=== PATIENT | male | born 1985 | race African-American/Black ===

== ENCOUNTER 2023-01-22 12:21 | Outpatient (REF) | payer MEDICARE, SELFPAY ==
[2023-01-22 13:49] LABS: Estimated Average Glucose 108 mg/dL; Hemoglobin A1c % 5.4 % (<6.0)
[2023-01-22 14:15] LABS: Alanine Aminotransferase 56 U/L (0-40); Albumin Level 4.8 g/dL (3.5-5.0); Alkaline Phosphatase 48 U/L (39-117); Anion Gap 13 (12-20); Aspartate Amino Transferase 46 U/L (5-37); Bilirubin Total 0.4 mg/dL (0.0-1.0); Blood Urea Nitrogen 16 mg/dL (9-16); Calcium 9.8 mg/dL (8.4-10.2); Carbon Dioxide 24 mmol/L (22-29); Chloride 103 mmol/L (96-108); Estimated Glomerular Filt Rate > 60; Glucose Random 98 mg/dL (60-115); Potassium 4.2 mmol/L (3.3-5.1); Sodium 136 mmol/L (135-145); Total Protein 7.9 g/dL (6.5-8.0)
[2023-01-22 14:33] LABS: Syphilis Screen Nonreactive (Nonreactive)
[2023-01-22 14:53] LABS: CT PCR NOT DETECTED (Not Detect.); NG PCR NOT DETECTED (Not Detect.)
[2023-01-23 07:57] LABS: HIV AB/AG Nonreactive (Nonreactive); HIV Num 1 0.06 S/CO (0.00-0.99); ~HepC Num1 0.14 S/CO (0.00-0.79); ~Hepatitis C Antibody Nonreactive (Nonreactive)
== END 2023-01-22 12:22 | disposition home or self-care (01) ==
LOC: HO.HHCL 12:21
PROVIDERS: Visit Provider General Practice
DX: E66.1 Drug-induced obesity (principal); Z68.41 Body mass index [BMI] 40.0-44.9, adult; I10 Essential (primary) hypertension; Z20.2 Contact with and (suspected) exposure to infections with a predominantly sexual mode of transmission
CPT/HCPCS: 0353U; 36415; 80053; 83036; 86780; 86803; 87389

== ENCOUNTER 2023-04-23 10:26 | Emergency (ER) | payer MEDICARE, SELFPAY ==
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
[2023-04-23 11:09] VITALS: BP 138/75; PULSE 85; RESP 18; TEMP 36.9; O2SAT 99; BMI 45.9
--- NOTE | 2023-04-23 11:09 | ED_ITS ---
HPI - General Adult General Chief complaint: General Medical Stated complaint: swollen tonsils hernia pain in abd Time Seen by Provider: 04/23/23 14:14 Related Data Allergies Allergy/AdvReac Type Severity Reaction Status Date / Time No Known Allergies Allergy Unverified 11/13/19 16:28 [facility] Social History Social History Advance Directives: No Advance Directives Information Provided: No Physical Exam ED Vital Signs: Vital Signs - 24 hr 04/23/23 11:09 Temperature 98.5 F Pulse Rate 85 Respiratory Rate 18 Blood Pressure 138/75 Pulse Oximetry 99 Oxygen Delivery Method Room Air BMI result Body Mass Index 45.9 Course Course Course Narrative: RME:?37 yo male here w/ i can't breath when I'm laying down . has known JEAN PIERRE on cpap. requesting his tonsils be removed. denies sore throat, dysphagia or odynophagia. denies chest pain, palpitations, wheezing, HERNANDEZ. also admits to abdominal hernia with pain worsening a few nights ago. this improved with OTC pain medications however feels as though the hernia is worsening. on exam I am unable to reduce hernia in triage. labs, CT ordered Full HPI, ROS and PE to be performed by the primary ED provider. Medications Administered Discontinued Medications Generic Name Dose Route Start Last Admin Trade Name Freq PRN Reason Stop Dose Admin Iohexol 100 ml 04/23/23 14:28 04/23/23 14:28 Iohexol 350 Mg/Ml 100 Ml Infus..Btl IV 04/23/23 14:29 85 ml ONCE ONE Administration Medical Decision Making Lab Data 04/23/23 11:20 04/23/23 11:20 Labs: Lab Results 04/23/23 Range/Units 11:20 WBC 5.3 (4.8-10.8) X10*3/uL RBC 4.98 (4.60-5.80) X10*6/uL Hgb 14.9 (14.0-18.0) g/dl Hct 43.0 (42.0-52.0) % MCV 86.3 (80.0-98.0) fL MCH 29.9 (27.0-33.0) pg MCHC 34.7 (31.0-36.0) g/dl RDW 13.2 (11.0-16.0) % Plt Count 336 (160-400) X10*3/uL MPV 8.6 L (9.4-12.4) fL Immature Gran % (Auto) 0.6 H (0.0-0.4) % Neut % (Auto) 59.6 (45-73) % Lymph % (Auto) 27.9 (20-40) % [place] % (Auto) 8.7 (2-11) % Eos % (Auto) 1.9 (0-4) % Baso % (Auto) 1.3 (0-2) % Lymph # (Auto) 1.5 (1.2-4.9) X10*3/uL [place] # (Auto) 0.5 (0.1-1.2) X10*3/uL Eos # (Auto) 0.1 (0.0-0.4) X10*3/uL Baso # (Auto) 0.1 (0.0-0.2) X10*3/uL Abs Immat Gran (auto) 0.03 (0.00-0.03) X10*3/uL Absolute Neuts (auto) 3.1 (2.0-8.3) x10*3/uL Absolute Nucleated RBC 0.000 (0.0-0.012) X10*3/uL Nucleated RBC % (auto) 0.0 (0.0-0.2) /100WBC Sodium 138 (135-145) mmol/L Potassium 4.3 (3.3-5.1) mmol/L Chloride 102 (96-108) mmol/L Carbon Dioxide 28 (22-29) mmol/L Anion Gap 12 (12-20) BUN 21 H (9-16) mg/dL Creatinine 1.30 (0.5-1.4) mg/dL Estim Creat Clear Calc 108.7 Estimated GFR > 60 Random Glucose 100 (60-115) mg/dL Calcium 9.4 (8.4-10.2) mg/dL Total Bilirubin 0.3 (0.0-1.0) mg/dL Direct Bilirubin 0.1 (0.0-0.5) mg/dL AST 54 H (5-37) U/L ALT 51 H (0-40) U/L Alkaline Phosphatase 67 (39-117) U/L Total Protein 7.7 (6.5-8.0) g/dL Albumin 4.7 (3.5-5.0) g/dL Discharge Plan Discharge Clinical Impression: Abdominal pain, Abdominal hernia Patient Disposition: Home, Self-Care Instructions: Abdominal Pain (ED) Additional Instructions: Follow up with your primary care provider and a general surgeon. Return to the emergency department immediately if your symptoms worsen or if you develop any dizziness, shortness of breath, difficulty breathing, chest pain, blurry vision, loss of vision, nausea, vomiting, abdominal pain, fever, chills, back pain, or any other complaints. Referrals: [facility] [place] General Surgeons [Provider Group] (Call to establish and follow up with a general surgeon to discuss repairing this hernia.) Tanvi Leach MD [Primary Care Provider] - Interventions: ED Discharge Assessment Last Done: 04/23/23 15:49 Discharge Date/Time: 04/23/23 15:49 Print Language: Wallisian
[2023-04-23 11:23] LABS: MANUAL DIFF FLAG NO
[2023-04-23 11:24] LABS: Basophils Absolute Auto 0.1 X10*3/uL (0.0-0.2); Basophils Percent Auto 1.3 % (0-2); Eosinophils Absolute Auto 0.1 X10*3/uL (0.0-0.4); Eosinophils Percent Auto 1.9 % (0-4); Hemoglobin 14.9 g/dl (14.0-18.0); Imm Gran Abs Auto 0.03 X10*3/uL (0.00-0.03); Imm Gran Pct Auto 0.6 % (0.0-0.4); Lymphocytes Absolute Auto 1.5 X10*3/uL (1.2-4.9); Lymphocytes Percent Auto 27.9 % (20-40); Mean Corpuscular HGB Conc 34.7 g/dl (31.0-36.0); Mean Corpuscular Hemoglobin 29.9 pg (27.0-33.0); Mean Corpuscular Volume 86.3 fL (80.0-98.0); Mean Platelet Volume 8.6 fL (9.4-12.4); Monocytes Absolute Auto 0.5 X10*3/uL (0.1-1.2); Monocytes Percent Auto 8.7 % (2-11); Neutrophils Absolute Auto 3.1 x10*3/uL (2.0-8.3); Neutrophils Percent Auto 59.6 % (45-73); Platelet Count 336 X10*3/uL (160-400); Red Blood Count 4.98 X10*6/uL (4.60-5.80); Red Cell Distribution Width 13.2 % (11.0-16.0); White Blood Count 5.3 X10*3/uL (4.8-10.8)
[2023-04-23 11:39] LABS: Anion Gap 12 (12-20); Blood Urea Nitrogen 21 mg/dL (9-16); Calcium 9.4 mg/dL (8.4-10.2); Carbon Dioxide 28 mmol/L (22-29); Chloride 102 mmol/L (96-108); Creatinine Clr Calc Pharmacy 108.7; Estimated Glomerular Filt Rate > 60; Glucose Random 100 mg/dL (60-115); Potassium 4.3 mmol/L (3.3-5.1); Sodium 138 mmol/L (135-145)
[2023-04-23 14:14] LABS: Alanine Aminotransferase 51 U/L (0-40); Albumin Level 4.7 g/dL (3.5-5.0); Alkaline Phosphatase 67 U/L (39-117); Aspartate Amino Transferase 54 U/L (5-37); Bilirubin Direct 0.1 mg/dL (0.0-0.5); Bilirubin Total 0.3 mg/dL (0.0-1.0); Total Protein 7.7 g/dL (6.5-8.0)
[2023-04-23] MEDS: iohexoL 350 MG/ML 100 ML INFUS..BTL IV (14:28)
== END 2023-04-23 15:49 | disposition home or self-care (01) ==
PROVIDERS: Physician Assistant Medical; Emergency Provider Emergency Medicine; PCP General Practice
DX: R10.9 Unspecified abdominal pain (principal); K46.9 Unspecified abdominal hernia without obstruction or gangrene; G47.33 Obstructive sleep apnea (adult) (pediatric); Z99.89 Dependence on other enabling machines and devices
CPT/HCPCS: 36415; 74177; 80048; 80076; 85025; 99282; 99284; Q9967

== ENCOUNTER 2023-05-10 15:26 | Outpatient (AMB) | payer OTHER, SELFPAY ==
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
[2023-05-10 15:40] VITALS: BP 132/82; BMI 45.4
== END 2023-05-10 15:52 | disposition home or self-care (01) ==
LOC: HO.HGS 15:26
PROVIDERS: PCP General Practice; Visit Provider Surgery
DX: K43.2 Incisional hernia without obstruction or gangrene (principal)
CPT/HCPCS: 99204

== ENCOUNTER → 2023-05-10 15:26 | Outpatient (BNVA) | payer OTHER, SELFPAY | PROVIDERS: PCP General Practice; Visit Provider Surgery | DX: K43.2 Incisional hernia without obstruction or gangrene (principal); M60.25 Foreign body granuloma of soft tissue, not elsewhere classified, thigh; Z18.12 Retained nonmagnetic metal fragments | CPT/HCPCS: 99202 ==

== ENCOUNTER 2024-03-29 11:00 | Emergency (ER) | payer OTHER, SELFPAY ==
[2024-03-29 11:04] VITALS: BP 107/70; PULSE 71; RESP 19; TEMP 36.6; O2SAT 98; BMI 45.8
[2024-03-29 11:46] LABS: MANUAL DIFF FLAG NO
[2024-03-29 11:50] LABS: Basophils Absolute Auto 0.1 X10*3/uL (0.0-0.2); Basophils Percent Auto 1.1 % (0-2); Eosinophils Absolute Auto 0.1 X10*3/uL (0.0-0.4); Eosinophils Percent Auto 1.3 % (0-4); Hematocrit 43.2 % (42.0-52.0); Hemoglobin 14.9 g/dl (14.0-18.0); Imm Gran Abs Auto 0.02 X10*3/uL (0.00-0.03); Imm Gran Pct Auto 0.4 % (0.0-0.4); Lymphocytes Absolute Auto 1.1 X10*3/uL (1.2-4.9); Lymphocytes Percent Auto 20.5 % (20-40); Mean Corpuscular HGB Conc 34.5 g/dl (31.0-36.0); Mean Corpuscular Volume 87.1 fL (80.0-98.0); Mean Platelet Volume 8.8 fL (9.4-12.4); Monocytes Absolute Auto 0.4 X10*3/uL (0.1-1.2); Monocytes Percent Auto 7.3 % (2-11); Neutrophils Absolute Auto 3.8 x10*3/uL (2.0-8.3); Neutrophils Percent Auto 69.4 % (45-73); Platelet Count 388 X10*3/uL (160-400); Red Blood Count 4.96 X10*6/uL (4.60-5.80); Red Cell Distribution Width 13.6 % (11.0-16.0); White Blood Count 5.5 X10*3/uL (4.8-10.8)
[2024-03-29 11:52] LABS: Appearance Urine Clear; Color Urine Yellow; Glucose Urine UA Negative (Negative); Leukocyte Esterase Urine Negative (Negative); Nitrite Urine Negative (Negative); PH 6.5 (5.0-9.0); Specific Gravity - Urine 1.015 (1.005-1.025); Urine Blood Negative (Negative); Urine Ketones Negative (Negative); Urine Protein Negative (Neg-Trace)
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
[2024-03-29 12:05] LABS: Amphetamine Screen Urine Not Detected (Not Detect); Barbiturates, Urine Not Detected (Not Detect); Benzodiazepines Screen Urine Not Detected (Not Detect); Buprenorphine Scr Not Detected (Not Detect); Cannabinoid Screen Urine Not Detected (Not Detect); Cocaine Screen Urine Not Detected (Not Detect); Fentanyl, urine Not Detected (Not Detect); Methadone Screen, Urine Not Detected (Not Detect); Opiate Screen Urine Not Detected (Not Detect); Oxycodone Screen Urine Not Detected (Not Detect); Phencyclidine Screen Urine Not Detected (Not Detect)
[2024-03-29 12:06] LABS: Acetaminophen LAB < 3 mcg/mL (<30); Alanine Aminotransferase 41 U/L (0-40); Albumin Level 4.8 g/dL (3.5-5.0); Alkaline Phosphatase 68 U/L (39-117); Anion Gap 16 (12-20); Aspartate Amino Transferase 34 U/L (5-37); Bilirubin Total 0.5 mg/dL (0.0-1.0); Blood Urea Nitrogen 14 mg/dL (9-16); Calcium 9.4 mg/dL (8.4-10.2); Carbon Dioxide 25 mmol/L (22-29); Chloride 103 mmol/L (96-108); Creatinine Clr Calc Pharmacy 131.8; Estimated Glomerular Filt Rate > 60; Ethanol < 10 mg/dL; Glucose Random 86 mg/dL (60-115); Potassium 4.1 mmol/L (3.3-5.1); Salicylate < 5.0 mg/dL (15-30); Sodium 140 mmol/L (135-145); Total Protein 8.1 g/dL (6.5-8.0)
--- NOTE | 2024-03-29 12:23 | PHA.MEDREC ---
Pharmacy Consult ? Medication Reconciliation Pharmacy has completed the medication reconciliation. Patient has list from previous hospitalization at [facility].
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
--- OUTSIDE RECORDS SUMMARY | 2024-03-29 12:46 | XMS_ITS | Encounter Summary ---
Author Organization [employer] Address [address] [place] [address] Care Team Providers Care Hospitality Team Member Name Role Phone Tanvi Leach MD Primary Care Provider [phone] Reason for Visit * Reason Comments Med Refill Encounter Details Date Type Department Care Team ([facility] st Contact Info) Description 02/01/2024 Refill [facility] MED[facility]INE [address], [place] [phone] Tanvi Leach MD [address] [place], [place] [phone] Nasal congestion Social History Tobacco Use Types Packs/Day Years Used Date Smoking Tobacco: Former Cigarettes Smokeless Tobacco: Never Alcohol Use Standard Drinks/Week Comments Never 0 (1 standard drink = 0.6 oz pur e alcohol) Depression Answer Date Recorded Patient Health Questionnaire-9 Score 0 03/28/2023 Patient Health Questionnaire-9 Score 0 03/28/2023 Last PHQ-9: Questionnaire Data Not on file 0 03/28/2023 Housing Stability Answer Date Recorded What is your housing situation today? I do not have housing (Staying with others, in a hotel, in a chcf, living outside on the street, on a beach, in a car, or in a park 03/28/[address] you li ve. Do you have problems with any of the following? None of the above 03/28/2023 Food Insecurity Answer Date Recorded Within the past 12 months, y ou worried that your food would run out before you got money to buy more: Never True 03/28/2023 Within the past 12 months,th e food you bought just didn't last and you didn't have enough money to get more: Never True Transportation Answer Date Recorded In the past 12 months, has l ack of transportation kept you from medical appts, meetings, work or from getting things needed for daily living? No 03/28/2023 Utilities Answer Date Recorded In the past 12 months, has t he electric, gas, oil or water company threatened to shut off services in your home? No 03/28/2023 Depression Answer Date Recorded Patient Health Questionnaire-2 Score 0 03/28/2023 Sex and Gender Information Value Date Recorded Sex Assigned at Male 12/26/2021 10:15 AM EDT Legal Sex Male 10:15 AM EDT Gender Identity Male 12/26/2021 10:15 AM EDT Sexual Orientation Choose not to disclose 2021 10:15 AM EDT documented as of this encounter Plan of Treatment Upcoming Encounters Date Type Department Care Team (Late st Contact Info) Description 08/13/2024 10:00 AM EDT Office Visit [facility] ADULT DENTAL [address] [place] [address] Jaleesa Farah documented as of this encounter Visit Diagnoses Diagnosis Nasal congestion Other diseases of nasal cavity and sinuses documented in this encounter Additional Health Concerns Assessment Noted Time PHQ-9 Depression Total Score: 0 03/28/19 24 2:55 PM EST documented as of this encounter Care Teams Hospitality Team Member Relationship Specialty Start Date End Date Tanvi Leach MD [address] [place] [address] PCP - General Family Medicine 05/20/21 documented as of this encounter
--- OUTSIDE RECORDS SUMMARY | 2024-03-29 12:46 | XMS_ITS | Encounter Summary ---
Author Organization [email or web address] Address [address] [place] [address] Care Team Providers Care Bleach Machine Operator Name Role Phone Tanvi Leach MD Primary Care Provider [phone] Encounter Details Date Type Department Care Team (Late Contact Info) Description 07/27/2022 Telephone [facility] MEDICINE [address] [place], [place] [phone] Tanvi Leach MD [address] [place], [place] [phone] Social History Tobacco Use Types Packs/Day Years Used Date Smoking Tobacco: Former Cigarettes Smokeless Tobacco: Never Alcohol Use Standard Drinks/Week Comments Never 0 (1 standard drink = 0.6 oz pur e alcohol) Depression Answer Date Recorded Patient Health Questionnaire-9 Score 11 03/08/2022 Depression Answer Date Recorded Patient Health Questionnaire-2 Score 4 03/08/2022 Sex and Gender Information Value Date Recorded Sex Assigned at Male 12/26/2021 10:15 AM EDT Legal Sex Male 10:15 AM EDT Gender Identity Male 12/26/2021 10:15 AM EDT Sexual Orientation Choose not to disclose 2021 10:15 AM EDT COVID-19 Exposure Response Date Recorded In the last 10 days, have yo u been in contact with someone who was confirmed or suspected to have Coronavirus/COVID-19? No / Unsure 07/05/2022 1:44 PM EDT documented as of this encounter Plan of Treatment Upcoming Encounters Date Type Department Care Team (Late Contact Info) Description 08/13/2024 10:00 AM EDT Office Visit [facility] ADULT DENTAL [address] [place] [address] Jaleesa Farah documented as of this encounter Visit Diagnoses Not on filedocumented in this encounter Additional Health Concerns Assessment Noted Time PHQ-9 Depression Total Score: 11 023 2:58 PM EST documented as of this encounter Care Teams Bleach Machine Operator Relationship Specialty Start Date End Date Tanvi Leach MD [address] [place] [address] PCP - General Family Medicine 05/20/21 documented as of this encounter
--- OUTSIDE RECORDS SUMMARY | 2024-03-29 12:46 | XMS_ITS | Clinical Summary ---
Author Organization [facility] Address [address] [place] [address] Phone Care Team Providers Care White Lead Grinder Name Role Phone Tanvi Leach MD Primary Care Provider [phone] Allergies No known active allergies Medications Medication Sig Dispensed Refills Start Date End Date Status cetirizine (ZyrTEC) 10 mg chewable tablet Chew 1 tablet (10 mg total) 1 (one) time each day. Active ipratropium (ATROVENT) 21 mcg (0.03 %) nasal spray Administer 2 sprays into each nostril every 12 (twelve) hours. Active amLODIPine (NORVASC) 2.5 mg tablet Take 1 tablet (2.5 mg total) by mouth 1 (one) time each day. Active sildenafiL (VIAGRA) 100 mg tablet Take 1 tablet (100 mg total) by mouth if needed for erectile dysfunction. Active clotrimazole (LOTRIMIN) 1 % cream Apply topically 2 (two) times a day. Apply inbetween toes Active acetaminophen (TYLENOL) 500 mg tablet Take 1 tablet (500 mg total) by mouth every 8 (eight) hours if needed for mild pain. Active metFORMIN (FORTAMET) 500 mg 24 hr tablet Take 1 tablet (500 mg total) by mouth 1 (one) time each day with dinner. Do not crush, chew, or split. Active lisinopriL (PRINIVIL,ZESTRIL) 20 mg tablet Take 1 tablet (20 mg total) by mouth 1 (one) time each day. Active melatonin 3 mg tablet Take 5 mg by mouth at bedtime as needed for sleep. Active lidocaine-prilocaine (EMLA) 2.5-2.5 % cream Apply 1 Application topically 1 (one) time. Apply small amount to penis every other day 30 minute before sexual activity Active B complex-vitamin C-folic acid (NEPHRO-MARISA) 0.8 mg tablet Take 1 tablet by mouth 1 (one) time each day. 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 Erectile dysfunction 09/02/2014 Essential hypertension 07/23/2014 Schizoaffective disorder 04/20/2014 Depressive disorder 08/17/2011 Encounters Date Type Department Care Team Description 01/27/2024 10:16 PM EST - 01/28/2024 4:54 PM EST Emergency [facility] Emergency [address] [place] [address] Galdino Alvarez MD Schizophrenia, unspecified type (CMS/HCC) (Primary Dx); Moderate recurrent major depression (CMS/HCC) Discharge Disposition: Another Health Care Institution Not Defined from Last 3 Months Medical History Medical History Date Comments Schizophrenia (CMS/HCC) Social History Tobacco Use Types Packs/Day Years Used Date Smoking Tobacco: Never Smokeless Tobacco: Never Tobacco Cessation:Counseling Given: Not Answered Alcohol Use Standard Drinks/Week Comments Not Currently 0 (1 standard drink = 0.6 oz pur e alcohol) Sex and Gender Information Value Date Recorded Sex Assigned at Not on file Gender Identity Not on file Sexual Orientation Not on file Job Start Date Occupation Industry Not on file Not on file Not on file Obstetrics History Last Filed Vital Signs Vital Sign Reading Time Taken Comments Blood Pressure 107/68 01/28/2024 11:43 AM EST Pulse 65 01/28/2024 11:43 AM EST Temperature 36.7 ??C (98.1 ??F) 01/28/2024 11:[address] Respiratory Rate 16 01/28/2024 11:43 AM EST Oxygen Saturation 99% 01/28/2024 11:43 AM EST Inhaled Oxygen Concentration - - Weight 136 kg (300 lb) 01/27/2024 9:58 PM EST Height 175.3 cm (5' 9 ) 01/27/2024 9:58 PM EST Body Mass Index 44.3 01/27/2024 9:58 PM EST Plan of Treatment Health Maintenance Due Date Last Done Comments Hepatitis C Screening 01/29/2022 Medicare Annual Wellness Visit 01/29/2022 Social Influencers of Health Screening 01/29/2022 Depression Screening 03/28/2024 03/28/2023 Hypertension/CHF/CAD Annual BMP Blood Test 01/26/2025 01/27/2024 DTaP,Tdap,and Td Vaccines (8 - Td or Tdap) 10/28/2025 10/29/2015, 04/20/2014, 07/19/1998, Additional history exists Cholesterol Screening (Lipid Panel) 05/20/2026 05/20/2021 HIB Vaccines Completed 03/29/1990 IPV Vaccines Completed 03/29/1993, 02/1990, 11/26/1989, Additional history exists MMR Vaccines Completed 03/29/1993, 09/26/1989 Varicella Vaccines Aged Out 04/27/1998 No longer eligible based on patient's age to complete this topic Hepatitis B Vaccines Completed 11/21/1999, 07/19/1998, 04/27/1998 Pneumococcal Vaccine: Pediatrics (0 to 5 Years) and At-Risk Patients (6 to 64 Years) Aged Out 10/29/2015, 02/16/2015, 10/30/2014 No longer eligible based on patient's age to complete this topic Hepatitis A Vaccines Completed 12/02/2021, 11/03/19 HIV Screening Completed 01/22/2023 Influenza Vaccine Completed 12/12/2023, , 11/22/2022, Additional history exists COVID-19 Vaccine Completed 01/18/2024, 11/2022, 03/24/2020 HPV Vaccines Aged Out No longer eligi ble based on patient's age to complete this topic Meningococcal ACWY Vaccine Aged Out N o longer eligible based on patient's age to complete this topic RSV Immunization Patients Under 20 months Aged Out No longer eligible based on patient's age to complete this topic Procedures Procedure Name Priority Date/Time Associated Diagnosis Comments TIGER TOP URINE TUBE Routine 01/28/2024 10:37 AM EST MATHIS URINE CULTURE TUBE Routine 01/28/2024 10:37 AM EST EXTRA TUBES Routine 01/28/2024 10:37 AM EST METHADONE SCREEN, URINE STAT 01/28/2024 10:36 AM EST PHENCYCLIDINE, URINE STAT 01/28/2024 10:36 AM EST BUPRENORPHINE SCREEN, URINE STAT 01/28/2024 10:36 AM EST DRUG ABUSE SCREEN 8A PANEL, URINE STAT 01/28/2024 10:36 AM EST CBC WITH AUTO DIFFERENTIAL STAT 01/27/2024 10:31 PM EST SALICYLATE LEVEL STAT 01/27/2024 10:3 1 PM EST ACETAMINOPHEN LEVEL STAT 01/27/2024 1 0:31 PM EST ETHANOL STAT 01/27/2024 10:31 PM EST COMPREHENSIVE METABOLIC PANEL STAT 01/27/2024 10:31 PM EST CBC AND DIFFERENTIAL STAT 01/27/2024 10:31 PM EST from Last 3 Months Results * Mathis urine culture tube (01/28/2024 10:37 AM EST) Extra Tube Hold for add-ons. 01/28/2024 12:01 PM EST [facility] Comment:Auto resulted. Urine Urine specimen obtained by clean catch procedure / Unknown 01/28/2024 10:37 AM EST 01/28/2024 10:57 AM EST Fred Harmon MD LAB URINE ORDERABLES [facility]) [facility] [address] [place] [address], * Scenic top urine tube (01/28/2024 10:37 AM EST) Extra Tube Hold for add-ons. 01/28/2024 12:01 PM [facility] Comment:Auto resulted. Urine Urine specimen obtained by clean catch procedure / Unknown 01/28/2024 10:37 AM EST 01/28/2024 10:57 AM EST Fred Harmon MD LAB URINE ORDERABLES [facility] [address] [place] [address], * (ABNORMAL) Drug abuse screen 8a panel, urine (01/28/2024 10:36 AM EST) Pathologist [facility] Amphetamine Screen, Ur Negative Negative LAB CHEMISTRY METHOD 4 11:25 AM [facility] Comment:Certain OTC medicati ons containing ephedrine, phenylephrine, pseudoephedrine and phenylpropanolamine can cause false positive results. Barbiturate Screen, Ur Negative Negative LAB CHEMISTRY METHOD 4 11:25 AM [facility] Benzodiazepine Screen, Ur Negative Negative LAB CHEMISTRY METHOD 4 11:25 AM [facility] Cocaine Screen, Ur Negative Negative LAB CHEMISTRY METHOD 4 11:25 AM [facility] Opiate Screen, Ur Negative Negative LAB CHEMISTRY METHOD 4 11:25 AM [facility] Cannabinoid (THC) Screen, Ur Positive(A ) Negative LAB CHEMISTRY METHOD 4 11:25 AM [facility] Comment:Specimens from patie nts taking pantoprazole sodium (Protonix) have been shown to produce false positive results. Oxycodone Screen, Ur Negative Negative LAB CHEMISTRY METHOD 4 11:25 AM [facility] Fentanyl, Ur Negative Negative LAB CHEMISTRY METHOD 4 11:25 AM [facility] Urine Urine specimen obtained by clean catch procedure / Unknown Non-blood Collection / Unknown 01/28/2024 10:36 AM EST 01/28/2024 10:55 AM EST Narrative [facility] - 01/28/2024 11:25 AM EST Assay cutoffs: Amphetamines ? 1000 ng/mL Barbiturates ?200 ng/mL Benzodiazepines ?? 200 ng/mL Cocaine ? 300 ng/mL Fentanyl ?1 ng/mL Opiates ? 300 ng/mL Oxycodone ? 100 ng/mL THC ?50 ng/mL Semi-quantitative assay for screening purposes only. Unconfirmed screening result should not be used for non-medical purposes. *ALTERNATE METHOD CONFIRMATION DONE UPON REQUEST ONLY* Galdino Alvarez MD LAB URINE ORDERABLES Performing Organization Address [facility] de Phone Number [facility] [address] [place] [address], [place] [phone] * Buprenorphine screen, urine (01/28/2024 10:36 AM EST) [facility] Buprenorphine Screen Urine Negative Negative LAB CHEMISTRY METHOD 01/28/2024 11:25 AM EST [facility] Urine Urine specimen obtained by clean catch procedure / Unknown Non-blood Collection / Unknown 01/28/2024 10:36 AM EST 01/28/2024 10:55 AM EST Gina [facility] - 01/28/2024 11:25 AM EST Assay cutoff 5 ng/mL Semi-quantitative assay for screening purposes only. Unconfirmed screening result should not be used for non-medical purposes. *ALTERNATE METHOD CONFIRMATION DONE UPON REQUEST ONLY* Galdino Alvarez MD LAB URINE ORDERABLES Performing Organization Address [facility] Co de Phone Number [facility] [address] [place] [address], * Methadone, urine (01/28/2024 10:36 AM EST) Methadone Screen, Urine Negative Negative LAB CHEMISTRY METHOD 01/28/2024 11:25 AM EST [facility] Comment: Assay cutoff 300 ng/mL Semi-quantitative assay for screening purposes only. Unconfirmed screening result should not be used for non-medical purposes. *ALTERNATE METHOD CONFIRMATION DONE UPON REQUEST ONLY* Urine Urine specimen obtained by clean catch procedure / Unknown Non-blood Collection / Unknown 01/28/2024 10:36 AM EST 01/28/2024 10:55 AM EST Galdino Alvarez MD LAB URINE ORDERABLES Performing Organization Address [facility]/ZIP Co de Phone Number [facility] [address] [place] [address], [place] [phone] * Phencyclidine, urine (01/28/2024 10:36 AM EST) Pathologist [facility] PCP Scrn, Ur Negative Negative LAB CHEMISTRY METHOD 01/28/2024 11:25 AM EST [facility] Comment: Assay cutoff 25 ng/mL Semi-quantitative assay for screening purposes only. Unconfirmed screening result should not be used for non-medical purposes. *ALTERNATE METHOD CONFIRMATION DONE UPON REQUEST ONLY* Urine Urine specimen obtained by clean catch procedure / Unknown Non-blood Collection / Unknown 01/28/2024 10:36 AM EST 01/28/2024 10:55 AM EST Galdino Alvarez MD LAB URINE ORDERABLES Performing Organization Address City/[facility]/ZIP Co de Phone Number [facility] [address] [place] [address], * (ABNORMAL) CBC auto differential (01/27/2024 10:31 PM EST) Pathologist [facility] WBC 4.6(L) 4.8 - 10.8 K/[facility] LAB HEMETOLOGY METHOD 01/27/2024 10:49 PM EST [facility] RBC 4.60 4.50 - 5.50 M/mcL LAB HEMETOLOGY METHOD 01/27/2024 10:49 PM [facility] Hemoglobin 13.6 13.5 - 17.5 g/dL LAB HEMETOLOGY METHOD 01/27/2024 10:49 PM [facility] Hematocrit 40.9(L) 42.0 - 54.0 % LAB HEMETOLOGY METHOD 01/27/2024 10:49 PM [facility] MCV 89.5 79.0 - 98.0 FL LAB HEMETOLOGY METHOD 01/27/2024 10:49 PM [facility] MCH 29.8 27.0 - 32.0 pcg LAB HEMETOLOGY METHOD 01/27/2024 10:49 PM [facility] MCHC 33.3 32.0 - 37.0 g/dL LAB HEMETOLOGY METHOD 01/27/2024 10:49 PM [facility] RDW 14.1 11.0 - 15.0 % LAB HEMETOLOGY METHOD 01/27/2024 10:49 PM [facility] Platelets 356 130 - 400 K/mcL LAB HEMETOLOGY METHOD 01/27/2024 10:49 PM [facility] MPV 9.1 7.0 - 11.0 FL LAB HEMETOLOGY METHOD 01/27/2024 10:49 PM [facility] NRBC 0.0 <1.0 % LAB HEMETOLOGY METHOD 01/27/2024 10:49 PM [facility] NRBC Absolute 0.00 <0.10 K/mcL LAB HEMETOLOGY METHOD 01/27/2024 10:49 PM [facility] Neutrophils Relative 64.8 % LAB HEMETOLOGY METHOD 01/27/2024 10:49 PM [facility] Lymphocytes Relative 23.1 % LAB HEMETOLOGY METHOD 01/27/2024 10:49 PM EST [facility] Monocytes Relative 9.3 % LAB HEMETOLOGY METHOD 01/27/2024 10:49 PM [facility] Eosinophils Relative 1.5 % LAB HEMETOLOGY METHOD 01/27/2024 10:49 PM [facility] Basophils Relative 1.1 % LAB HEMETOLOGY METHOD 01/27/2024 10:49 PM [facility] Immature Granulocytes Relative 0.2 % LAB HEMETOLOGY METHOD 01/27/2024 10:49 PM [facility] Neutrophils Absolute 3.01 1.50 - 7.00 K/mcL LAB HEMETOLOGY METHOD 01/27/2024 10:49 PM [facility] Lymphocytes Absolute 1.07 1.00 - 5.00 K/mcL LAB HEMETOLOGY METHOD 01/27/2024 10:49 PM [facility] Monocytes Absolute 0.43 0.20 - 1.00 K/mcL LAB HEMETOLOGY METHOD 01/27/2024 10:49 PM [facility] Eosinophils Absolute 0.07 0.00 - 0.50 K/mcL LAB HEMETOLOGY METHOD 01/27/2024 10:49 PM [facility] Basophils Absolute 0.05 0.00 - 0.20 K/mcL LAB HEMETOLOGY METHOD 01/27/2024 10:49 PM [facility] Immature Granulocytes Absolute 0.01 0.00 - 0.03 K/mcL LAB HEMETOLOGY METHOD 01/27/2024 10:49 PM [facility] Blood Venous blood specimen / Unknown Venipuncture / Unknown 01/27/2024 10:31 PM EST 01/27/2024 10:43 PM EST Galdino Alvarez MD LAB BLOOD ORDERABLES [facility] [address] [place] [address], [place] [phone] * Ethanol (01/27/2024 10:31 PM EST) Ethanol Level 4 0 - 10 mg/dL LAB CHEMISTRY METHOD 01/27/2024 11:08 PM EST [facility] Blood Venous blood specimen / Unknown Venipuncture / Unknown 01/27/2024 10:31 PM EST 01/27/2024 10:43 PM EST Galdino Alvarez MD LAB BLOOD ORDERABLES [facility] [address] [place] [address], [place] [phone] * (ABNORMAL) Acetaminophen level (01/27/2024 10:31 PM EST) Acetaminophen Level <2.0(L) 10.0 - 30.0 mcg/mL LAB CHEMISTRY METHOD 01/27/2024 11:14 PM EST [facility] Blood Venous blood specimen / Unknown Venipuncture / Unknown 01/27/2024 10:31 PM EST 01/27/2024 10:43 PM EST Galdino Alvarez MD LAB BLOOD ORDERABLES [facility] [address] [place] [address], * (ABNORMAL) Salicylate level (01/27/2024 10:31 PM EST) Salicylate Level <1.7(L) 2.0 - 29.0 mg/dL LAB CHEMISTRY METHOD 01/27/2024 11:08 PM EST [facility] Blood Venous blood specimen / Unknown Venipuncture / Unknown 01/27/2024 10:31 PM EST 01/27/2024 10:43 PM EST Galdino Alvarez MD LAB BLOOD ORDERABLES [facility] [address] [place] [address], * (ABNORMAL) Comprehensive metabolic panel (01/27/2024 10:31 PM EST) Sodium 137 133 - 145 mmol/L LAB CHEMISTRY METHOD 01/27/2024 11:08 PM [facility] Potassium 3.6 3.5 - 5.5 mmol/L LAB CHEMISTRY METHOD 01/27/2024 11:08 PM [facility] Chloride 105 96 - 110 mmol/L LAB CHEMISTRY METHOD 01/27/2024 11:08 PM [facility] CO2 26 21 - 32 mmol/L LAB CHEMISTRY METHOD 01/27/2024 11:08 PM [facility] Anion Gap 6 3 - 11 LAB CHEMISTRY METHOD 01/27/2024 11:08 PM [facility] Glucose 111(H) 70 - 100 mg/dL LAB CHEMISTRY METHOD 01/27/2024 11:08 PM [facility] BUN 13 5 - 25 mg/dL LAB CHEMISTRY METHOD 01/27/2024 11:08 PM [facility] Creatinine 1.27 0.70 - 1.30 mg/dL LAB CHEMISTRY METHOD 01/27/2024 11:08 PM [facility] eGFR 74 >=60 mL/min/1. 73m2 LAB CHEMISTRY METHOD 01/27/2024 11:08 PM [facility] Comment:Calculation based on the??Chronic Kidney Disease Epidemiology Collaboration (CKD-EPI) equation refit??without adjustment for race. BUN/Creatinine Ratio 10.2 LAB CHEMISTRY METHOD 01/27/2024 11:08 PM [facility] Calcium 9.2 8.5 - 10.5 mg/dL LAB CHEMISTRY METHOD 01/27/2024 11:08 PM EST [facility] AST (SGOT) 71(H) 10 - 42 unit/L LAB CHEMISTRY METHOD 01/27/2024 11:08 PM [facility] ALT (SGPT) 63(H) 10 - 60 unit/L LAB CHEMISTRY METHOD 01/27/2024 11:08 PM [facility] Alkaline Phosphatase 86 42 - 121 unit/L LAB CHEMISTRY METHOD 01/27/2024 11:08 PM [facility] Total Protein 7.3 6.0 - 8.0 g/dL LAB CHEMISTRY METHOD 01/27/2024 11:08 PM [facility] Albumin 4.4 3.2 - 5.0 g/dL LAB CHEMISTRY METHOD 01/27/2024 11:08 PM [facility] Total Bilirubin 0.7 0.0 - 1.4 mg/dL LAB CHEMISTRY METHOD 01/27/2024 11:08 PM [facility] Blood Venous blood specimen / Unknown Venipuncture / Unknown 01/27/2024 10:31 PM EST 01/27/2024 10:43 PM EST Galdino Alvarez MD LAB BLOOD ORDERABLES [facility] [address] [place] [address], from Last 3 Months Care Teams White Lead Grinder Relationship Specialty Start Date End Date Tanvi Leach MD [address] [place] [address] PCP - General 05/09/23
--- OUTSIDE RECORDS SUMMARY | 2024-03-29 12:46 | XMS_ITS | Encounter Summary ---
Author Organization [employer] Address [address] [place] [address] Care Team Providers Care Potato Spotter Name Role Phone Tanvi Leach MD Primary Care Provider [phone] Reason for Visit * Reason Onset Date Comments Med Refill 02/29/2024 Encounter Details Date Type Department Care Team ([facility] st Contact Info) Description 02/29/2024 Telephone [facility] [address] [place], [place] [phone] Tanvi Leach MD [address] [place], [place] [phone] Med Refill Social History Tobacco Use Types Packs/Day Years [...] with others, in a hotel, in a snf, living outside on the street, on a [...] AM EDT documented as of this encounter Miscellaneous Notes * Telephone Encounter - Nerissa Olson LPN - 02/29/2024 2:56 PM EST Please advise patient to call [facility] to transfer scripts. * Telephone Encounter - Troy Bautista - 02/29/2024 2:50 PM EST TC from pt requesting medication refill. 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
--- OUTSIDE RECORDS SUMMARY | 2024-03-29 12:46 | XMS_ITS | Encounter Summary ---
Author Organization [employer] Address [address] 7[address] [place] [address] Care Team Providers Care Retort Pre Cooker Name Role Phone Tanvi Leach MD Primary Care Provider [phone] Reason for Visit * Reason Onset Date Comments Durable Medical Equipment 02/29/2024 Encounter Details Date Type Department Care Team ([facility] st Contact Info) Description 02/29/2024 Telephone [facility] MEDICINE [address] [place], [place] [phone] Tanvi Leach MD [address] [place], [place] [phone] Durable Medical Equipment Social History Tobacco Use Types Packs/Day Years [...] with others, in a hotel, in a group home, living outside on the street, on a [...] encounter Miscellaneous Notes * Telephone Encounter - Troy Bautista - 02/29/2024 2:07 PM EST Tc from pt requesting nebulizer machine as his stop working documented in this encounter Plan of Treatment Upcoming Encounters Date Type Department Care Team (Late st Contact Info) Description 08/13/2024 10:00 AM EDT Office Visit [facility] ADULT DENTAL [address] [place] [address] Jaleesa Farah documented as of this encounter Visit Diagnoses Not on filedocumented in this encounter Additional Health Concerns Assessment Noted Time PHQ-9 Depression Total Score: 0 03/28/19 24 2:55 PM EST documented as of this encounter Care Teams Retort Pre Cooker Relationship Specialty Start Date End Date Tanvi Leach MD [address] [place] [address] PCP - General Family Medicine 05/20/21 documented as of this encounter
--- OUTSIDE RECORDS SUMMARY | 2024-03-29 12:46 | XMS_ITS | Encounter Summary ---
Author Organization [employer] Address [address] [place] [address] Care Team Providers Care Production Sanitizer Name Role Phone Tanvi Leach MD Primary Care Provider [phone] Encounter Details Date Type Department Care Team ([facility] st Contact Info) Description 07/25/2023 Telephone [facility] MEDICINE [address] [place], [place] [phone] Tanvi Leach MD [address] [place], [place] [phone] Social History Tobacco Use Types Packs/Day Years [...] with others, in a hotel, in a [facility], living outside on the street, on a [...] Description 08/13/2024 10:00 AM EDT Office Visit [facility] ADULT DENTAL [address] [place] [address] Jaleesa Farah documented as of this encounter Visit Diagnoses Not on filedocumented in this encounter Additional Health Concerns Assessment Noted Time PHQ-9 Depression Total Score: 0 03/28/19 24 2:55 PM EST documented as of this encounter Care Teams Production Sanitizer Relationship Specialty Start Date End Date Tanvi Leach MD [address] [place] [address] PCP - General Family Medicine 05/20/21 documented as of this encounter
--- OUTSIDE RECORDS SUMMARY | 2024-03-29 12:47 | XMS_ITS | Encounter Summary ---
Author Organization [employer] Address [address] [place] [address] Care Team Providers Care Senior Payroll Manager Name Role Phone Tanvi Leach MD Primary Care Provider [phone] Reason for Visit * Reason Onset Date Comments Call Back Request 11/21/2023 Encounter Details Date Type Department Care Team ([facility] st Contact Info) Description 11/21/2023 Telephone [facility] MEDICINE [address] [place] [address] Tanvi Leach MD [address] [place], [place] [phone] Call Back Request Social History Tobacco Use Types Packs/Day Years [...] with others, in a hotel, in a prison, living outside on the street, on a [...] encounter Miscellaneous Notes * Telephone Encounter - Felton Whitney - 11/21/2023 3:53 PM EDT Tc from [facility] requesting a call back to obtain some clarity on why the provider would just simply write a letter indicating it is ok for the patient to be in charge of own finances when the patient have a list of conditions including a learning disability please call the patients case management assistant at [phone] Hubbard documented in this encounter Plan of Treatment Upcoming Encounters Date Type Department Care Team (Late st Contact Info) Description 08/13/2024 10:00 AM EDT Office Visit [facility] ADULT DENTAL [address] [place] [address] Jaleesa Farah documented as of this encounter Visit Diagnoses Not on filedocumented in this encounter Additional Health Concerns Assessment Noted Time PHQ-9 Depression Total Score: 0 03/28/19 24 2:55 PM EST documented as of this encounter Care Teams Senior Payroll Manager Relationship Specialty Start Date End Date Tanvi Leach MD [address] [place] [address] PCP - General Family Medicine 05/20/21 documented as of this encounter
--- OUTSIDE RECORDS SUMMARY | 2024-03-29 12:47 | XMS_ITS | Encounter Summary ---
Author Organization [employer] Address [address] [facility] [address] [place] [address] Care Team Providers Care House Designer Name Role Phone Tanvi Leach MD Primary Care Provider [phone] Reason for Visit * Reason Onset Date Comments Medication Question 02/15/2024 Encounter Details Date Type Department Care Team ([facility] st Contact Info) Description 02/15/2024 Telephone [facility] MEDICINE [address] [place], [place] [phone] Tanvi Leach MD [address] [place], [place] [phone] Medication Question Social History Tobacco Use Types Packs/Day Years [...] with others, in a hotel, in a jail, living outside on the street, on a [...] encounter Miscellaneous Notes * Telephone Encounter - Mingo Herrera - 02/15/2024 2:46 PM EST Tc from pt requesting a call back stating that he is sleeping and is having trouble breathing when he is sleeping. Pt would like to talk about getting a New CPAP Machine. Contact pt at [phone] documented in this encounter Plan of Treatment Upcoming Encounters Date Type Department Care Team (Late st Contact Info) Description 08/13/2024 10:00 AM EDT Office Visit [facility] ADULT DENTAL [address] [place] [address] Jaleesa Farah documented as of this encounter Visit Diagnoses Not on filedocumented in this encounter Additional Health Concerns Assessment Noted Time PHQ-9 Depression Total Score: 0 03/28/19 24 2:55 PM EST documented as of this encounter Care Teams House Designer Relationship Specialty Start Date End Date Taniv Leach MD [address] [place] [address] PCP - General Family Medicine 05/20/21 documented as of this encounter
--- OUTSIDE RECORDS SUMMARY | 2024-03-29 12:47 | XMS_ITS | Encounter Summary ---
Author Organization [employer] Address [address] [facility] [address] [place] [address] Care Team Providers Care Director Risk Name Role Phone Tanvi Leach MD Primary Care Provider [phone] Reason for Visit * Reason Comments Dental Pain Patient complains ab out pain a month ago, but since yesterday is more painful Encounter Details Date Type Department Care Team ([facility] st Contact Info) Description 03/10/2024 10:30 AM EST Office Visit [facility] ADULT DENTAL [address] [place], [place] [phone] Junior Sorenson, DDS [address] [place], [place] [phone] Dental abscess (Primary Dx); Odontalgia Social History Tobacco Use Types Packs/Day Years [...] with others, in a hotel, in a care home, living outside on the street, on [...] AM EDT documented as of this encounter Last Filed Vital Signs Vital Sign Reading Time Taken Comments Blood Pressure 124/80 03/10/2024 10:31 AM EST Pulse - - Temperature - - Respiratory Rate - - Oxygen Saturation - - Inhaled Oxygen Concentration - - Weight - - Height - - Body Mass Index - - documented in this encounter Progress Notes * Junior Sorenson DDS - 03/10/2024 10:30 AM EST Dental procedures in this visit D0220 - INTRAORAL - PERIAPICAL FIRST RADIOGRAPHIC IMAGE (Completed) Service provider: Junior Sorenson DDS Billing provider: Junior Sorenson DDS [id number] - CASE PRESENTATION, DETAILED AND EXTENSIVE TREATMENT PLANNING (Completed) Service provider: Junior Sorenson DDS Billing provider: Junior Sorenson DDS [id number] - PALLIATIVE (EMERGENCY) TREATMENT OF DENTAL PAIN - MINOR PROCEDURE (Completed) Service provider: Junior Sorenson DDS Billing provider: Junior Sorenson DDS Patient ID: Omkar Tafoya is a 38 y.o. male. Time Out: Timeout Date: 03/10/24, Timeout Time: 1042 (Dental Emergency Exam) Location: [facility] Tooth: #31 Procedure: X-rays and Emergency Verified the above with patient, secretary administrative assistant, and provider. Confirmed via patient's chart, intraorally and by radiographs. Top Dyeing Machine Loader: not applicable Chief Complaint Patient presents with Dental Pain Patient complains about pain a month ago, but since yesterday is more painful Medical Hx: Vitals: Blood pressure 124/80. Past Medical History: Diagnosis Date Anxiety Cannabis dependence ([facility]) 04/20/2014 GERD (gastroesophageal reflux disease) Hypertension Medications: Outpatient Encounter Medications as of 03/10/2024 Medication Sig Dispense Refill Abilify Maintena 400 MG injection syringe Abilify Maintena 400 MG injection acetaminophen (Tylenol) 500 MG tablet Take 1 tablet (500 mg) by mouth every 8 (eight) hours if needed for mild pain. 90 tablet 3 amLODIPine (Norvasc) 2.5 MG tablet TAKE 1 TABLET BY MOUTH EVERY DAY 90 tablet 3 ARIPiprazole (Abilify) 5 MG tablet Take 1 tablet by mouth 2 times daily. ascorbic acid (Vitamin C) 500 MG tablet Take 1 tablet (500 mg) by mouth Once per day. 90 tablet 3 B Complex-C (b complex-vitamin c) tablet Take 1 tablet by mouth Once per day. 90 tablet 3 benztropine (Cogentin) 1 MG tablet Take 1 tablet by mouth if needed each day for tremors (muscle stiffness). cetirizine (ZyrTEC) 10 MG tablet Take 1 tablet (10 mg) by mouth Once per day. 90 tablet 3 cholecalciferol (Vitamin D-3) 25 MCG (1000 UT) tablet TAKE 1 TABLET BY MOUTH EVERY MORNING 90 tablet 3 clonazePAM (KlonoPIN) 0.5 MG tablet Take 1 tablet by mouth if needed in the morning, at noon, and at bedtime for anxiety. gabapentin (Neurontin) 100 MG capsule ipratropium (Atrovent) 0.03 % nasal spray Administer 2 sprays into each nostril every 12 (twelve) hours. 30 mL 12 lactase (Lactaid) 3000 units tablet Take 1 tablet (3,000 Units) by mouth with breakfast, with lunch, and with evening meal. 90 tablet 11 lisinopril (Prinivil) 20 MG tablet Take 1 tablet (20 mg) by mouth Once per day. For blood pressure 90 tablet 3 melatonin 5 MG tablet Take 1 tablet (5 mg) by mouth if needed at bedtime (insomnia). 90 tablet 3 metFORMIN, OSM, (Fortamet) 500 MG 24 hr tablet Take 1 tablet (500 mg) by mouth with evening meal. Do not crush, chew, or split. 90 tablet 3 Multiple Vitamin (Multivitamin) tablet Take 1 tablet by mouth Once per day. 90 tablet 3 naproxen (Naprosyn) 500 MG tablet Take 1 tablet (500 mg) by mouth if needed in the morning and at bedtime for mild pain or moderate pain. 60 tablet 2 OLANZapine (ZyPREXA) 15 MG tablet omeprazole (PriLOSEC) [address] capsule Take 1 capsule (20 mg) by mouth if needed each day (gerd). 90 capsule 3 perphenazine 4 MG tablet sodium chloride ([employer] Nasal [place]) 0.65 % nasal spray Administer 1 spray into each nostril if needed for congestion. 90 mL 12 tretinoin (Retin-A) 0.025 % cream APPLY A THIN LAYER TO AFFECTED AREA(S) EVERY DAY AT BEDTIME 40 g 3 sildenafil (Viagra) 100 MG tablet Take 1 tablet (100 mg) by mouth if needed each day for erectile dysfunction. 15 tablet 3 No facility-administered encounter medications on file as of 03/10/2024. Subjective: Pain: constant Duration: >5 days Objective: Tooth: #32 Radiographs Taken: PA(s) Radiographic Findings: Decay, Periapical Radiolucency, and food impaction Clinical Findings: Missing # 32 ; restored #s 30,31; Distal cervical caries # 31 with food impaction Swelling: Tenderness and Intraoral swelling Endo Testing: N/A Perio: Erythematous gingiva on # 31 region, plaque food impacted. Other Findings: Pending restorations Diagnosis: Dental abscess Assessment/Plan: EOE X Ray Prescription Referred back to Dr. Arguello / attending dentist Prescriptions: Sent to [facility] on file Pt tolerated procedure well, all questions answered. Dismissed in good condition. NV: F/U with Dr. Arguello Mononitrotoluene Operator: Rebecca Espinoza Dentist: Junior Sorenson DDS documented in this encounter Miscellaneous Notes * Addendum Note - Junior Sorenson DDS - 03/10/2024 10:30 AM ESTAddended by: JUNIOR SORENSON on: 03/10/2024 11:11 AM Modules accepted: Orders documented in this encounter Plan of Treatment Upcoming Encounters Date Type Department Care Team (Late st Contact Info) Description 08/13/2024 10:00 AM EDT Office Visit [facility] ADULT DENTAL [address] [place] [address] Jaleesa Farah Scheduled Orders Name Type Priority Associated Diagnoses Orde r Schedule 31 31 LIMITED ORAL EVALUATION - PROBLEM FOCUSED Dental Routine [address] arting 03/10/2024 documented as of this encounter Procedures Procedure Name Priority Date/Time Associated Diagnosis Comments ADJUNCTIVE GENERAL SERVICES - UNCLASSIFIED TREATMENT - PALLIATIVE TREATMENT OF DENTAL PAIN - PER VISIT Routine 03/10/2024 10:30 AM EST INTRAORAL - PERIAPICAL FIRST RADIOGRAPHIC IMAGE Routine 03/10/2024 10:30 AM EST ADJUNCTIVE GENERAL SERVICES - PROFESSIONAL VISITS - CASE PRESENTATION, SUBSEQUENT TO DETAILED AND EXTENSIVE TREATMENT PLANNING Routine 03/10/2024 10:30 AM EST documented in this encounter Visit Diagnoses Diagnosis Dental abscess- Primary Periapical abscess without sinus Odontalgia Unspecified disorder of the teeth and supporting structures documented in this encounter Additional Health Concerns Assessment Noted Time PHQ-9 Depression Total Score: 0 03/28/19 24 2:55 PM EST documented as of this encounter Care Teams Director Risk Relationship Specialty Start Date End Date Tanvi Leach MD [address] [place] [address] PCP - General Family Medicine 05/20/21 documented as of this encounter
--- OUTSIDE RECORDS SUMMARY | 2024-03-29 12:47 | XMS_ITS | Encounter Summary ---
Author Organization [employer] Address [address] [place] [address] Care Team Providers Care Processing Rep Name Role Phone Tanvi Leach MD Primary Care Provider [phone] Reason for Visit * Reason Comments Med Refill Encounter Details Date Type Department Care Team (Late st Contact Info) Description 02/21/2023 Refill [facility] [address] [place], [place] [phone] Pauline Cisneros MD [address] [place] [address] Social History Tobacco Use Types Packs/Day Years Used Date Smoking Tobacco: Former Cigarettes Smokeless Tobacco: Never Alcohol Use Standard Drinks/Week Comments Never 0 (1 standard drink = 0.6 oz pur e alcohol) Depression Answer Date Recorded Patient Health Questionnaire-9 Score 11 03/08/2022 Housing Stability Answer Date Recorded What is your housing situation today? I have housing today, but I am worried about losing housing in the future 12/13/[address] you li ve. Do you have problems with any of the following? None of the above 12/13/2022 Food Insecurity Answer Date Recorded Within the past 12 months, y ou worried that your food would run out before you got money to buy more: Sometimes True 2022 Within the past 12 months,th e food you bought just didn't last and you didn't have enough money to get more: Sometimes True 12/13/2022 Transportation Answer Date Recorded In the past 12 months, has l ack of transportation kept you from medical appts, meetings, work or from getting things needed for daily living? No 12/13/2022 Utilities Answer Date Recorded In the past 12 months, has t he electric, gas, oil or water company threatened to shut off services in your home? No 12/13/2022 Depression Answer Date Recorded Patient Health Questionnaire-2 [...] Description 08/13/2024 10:00 AM EDT Office Visit [facility] ADULT DENTAL [address] [place] [address] Jaleesa Farah documented as of this encounter Visit Diagnoses Not on filedocumented in this encounter Additional Health Concerns Assessment Noted Time PHQ-9 Depression Total Score: 11 023 2:58 PM EST documented as of this encounter Care Teams Processing Rep Relationship Specialty Start Date End Date Tanvi Leach MD [address] [place] [address] PCP - General Family Medicine 05/20/21 documented as of this encounter
--- OUTSIDE RECORDS SUMMARY | 2024-03-29 12:47 | XMS_ITS | Clinical Summary ---
Author Organization [employer] Address [address] [facility] [address] [place] [address] Care Team Providers Care Developmental Specialist Name Role Phone Tanvi Leach MD Primary Care Provider [phone] Allergies Active Allergy Reactions Criticality Noted Date Comments Octacosanol Runny nose 04/02/2023 Medications Abilify Maintena 400 MG injection syringe 02/14/20 22 Active benztropine (Cogentin) 1 MG tablet Take 1 tablet by mouth if needed each day for tremors (muscle stiffness). 07/27/19 22 Active clonazePAM (KlonoPIN) 0.5 MG tablet Take 1 tablet by mouth if needed in the morning, at noon, and at bedtime for anxiety. 05/05/19 23 Active naproxen (Naprosyn) 500 MG tablet Take 1 tablet (500 mg) by mouth if needed in the morning and at bedtime for mild pain or moderate pain. 60 tablet 2 08/01/19 23 Active ARIPiprazole (Abilify) 5 MG tablet Take 1 tablet by mouth 2 times daily. 03/22/19 24 Active omeprazole (PriLOSEC) [address] capsule Take 1 capsule (20 mg) by mouth if needed each day (gerd). 90 capsule 3 07/16/19 24 Active Abilify Maintena 400 MG injection 07/30/19 24 Active lactase (Lactaid) 3000 units tablet Take 1 tablet (3,000 Units) by mouth with breakfast, with lunch, and with evening meal. 90 tablet 11 08/17/19 24 Active tretinoin (Retin-A) 0.025 % cream APPLY A THIN LAYER TO AFFECTED AREA(S) EVERY DAY AT BEDTIME 40 g 3 12/05/19 24 Active OLANZapine (ZyPREXA) 15 MG tablet 11/16/19 24 Active perphenazine 4 MG tablet 11/16/19 24 Active gabapentin (Neurontin) 100 MG capsuleIndicatio ns:Chronic bilateral low back pain without sciatica 12/07/19 24 Active sodium chloride ([place] Nasal [place]) 0.65 % nasal sprayIndications :Nasal congestion Administer 1 spray into each nostril if needed for congestion. 90 mL 12 12/18/19 24 025 Active amLODIPine (Norvasc) 2.5 MG tabletIndication s:Essential hypertension TAKE 1 TABLET BY MOUTH EVERY DAY 90 tablet 3 12/25/19 24 Active B Complex-C (b complex-vitamin c) tabletIndication s:Class 3 drug-induced obesity with serious comorbidity and body mass index (BMI) of 40.0 to 44.9 in adult ([facility]) Take 1 tablet by mouth Once per day. 90 tablet 3 12/25/19 24 Active cholecalciferol (Vitamin D-3) 25 MCG (1000 UT) tabletIndication s:Class 3 drug-induced obesity with serious comorbidity and body mass index (BMI) of 40.0 to 44.9 in adult ([facility]) TAKE 1 TABLET BY MOUTH EVERY MORNING 90 tablet 3 12/25/19 24 Active Multiple Vitamin (Multivitamin) tabletIndication s:Class 3 drug-induced obesity with serious comorbidity and body mass index (BMI) of 40.0 to 44.9 in adult ([facility]) Take 1 tablet by mouth Once per day. 90 tablet 3 12/25/19 24 025 Active cetirizine (ZyrTEC) 10 MG tabletIndication s:Nasal congestion Take 1 tablet (10 mg) by mouth Once per day. 90 tablet 3 12/25/19 24 Active metFORMIN, OSM, (Fortamet) 500 MG 24 hr tabletIndication s:Class 3 drug-induced obesity with serious comorbidity and body mass index (BMI) of 40.0 to 44.9 in adult ([facility]) Take 1 tablet (500 mg) by mouth with evening meal. Do not crush, chew, or split. 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 ([facility]) Take 1 tablet (500 mg) by mouth Once per day. 90 tablet 3 12/25/19 24 Active lisinopril (Prinivil) 20 MG tabletIndication s:Essential hypertension Take 1 tablet (20 mg) by mouth Once per day. For blood pressure 90 tablet 3 12/25/19 24 Active ipratropium (Atrovent) 0.03 % nasal sprayIndications :Nasal congestion Administer 2 sprays into each nostril every 12 (twelve) hours. 30 mL 12 12/25/19 24 Active sildenafil (Viagra) 100 MG tabletIndication s:Erectile dysfunction due to diseases classified elsewhere Take 1 tablet (100 mg) by mouth if needed each day for erectile dysfunction. 15 tablet 3 12/25/19 Active melatonin 5 MG tablet Take 1 tablet (5 mg) by mouth if needed at bedtime (insomnia). 90 tablet 3 12/25/19 Active acetaminophen (Tylenol) 500 MG tabletIndication s:Chronic bilateral low back pain without sciatica Take 1 tablet (500 mg) by mouth every 8 (eight) hours if needed for mild pain. 90 tablet 3 12/25/19 24 Discontinued acetaminophen (Tylenol 8 Hour) 650 MG ER tablet Take 1 tablet (650 mg) by mouth every 8 (eight) hours if needed for mild pain for up to 10 days. Do not crush, chew, or split. 30 tablet 03/10/19 025 ibuprofen 800 MG tablet Take 1 tablet (800 mg) by mouth 3 times daily for 10 days. 30 tablet 03/10/19 25 025 amoxicillin (Amoxil) 500 MG capsule Take 1 capsule (500 mg) by mouth every 8 (eight) hours for 10 days. 30 capsule 03/10/19 025 Active Problems Problem Noted Date Diagnosed Date Dental abscess 03/10/2024 Odontalgia 03/10/2024 Cocaine abuse 01/28/2024 Scarring of skin 12/06/2023 Assessment & Plan (12/06/2023 4:57 PM EDT): Apply tretinoin and massage into scars 1-3 times per week Ventral hernia without obstruction or gangrene 0 05/07/2023 Assessment & Plan (05/07/2023 1:07 PM EDT): Will have surgery 05/10/23, ok to work out after, as long as surgeon clears him, to begin strengthening abdominal wall Dental calculus 04/26/2023 Periodontal disease 04/26/2023 Missing teeth, acquired 04/26/2023 Chronic bilateral low back pain without sciatica 03/28/2023 Assessment & Plan (03/30/2023 6:31 AM EST): Along with hip pain, order hospital bed to allow for different positioning to alleviate pain on low back and hips Hip pain 01/25/2023 Assessment & Plan (01/25/2023 12:20 PM EST): Likely due to combination of weight and OA Will order medical bed to help with sleep/CPAP requirement Drug-induced obesity 11/23/2022 Assessment & Plan (11/23/2022 12:44 PM EDT): Likely related to antipsychotic use Will increase Metformin to 1000mg daily Continue workouts, consideration or risks and benefits of medications Flat feet, bilateral 11/22/2022 Assessment & Plan (05/07/2023 1:05 PM EDT): Podiatry referral and urea cream Assessment & Plan (11/22/2022 11:06 AM EDT): Referral to podiatry Obstructive sleep apnea 03/09/2022 Assessment & Plan (12/25/2023 2:46 PM EDT): Paperwork completed, sleep study attached, and faxed to [facility] to order CPAP again Assessment & Plan (08/13/2023 1:00 PM EDT): Called and spoke with director of maternity services from [facility], that patient has been non-compliant with CPAP and switched insurers, so needs new in-hospital study to requalify Once JEAN PIERRE is confirmed, he needs script for CPAP supplies (has new machine from Mar 2023) Assessment & Plan (03/30/2023 6:32 AM EST): He ordered new cords for his old CPAP machine and is able to use it again, feels better sleep when uses > 4 hours per night Order hospital bed for allow 30-45 degrees of upward position for better sleep with JEAN PIERRE and chronic nasal congestion Assessment & Plan (06/01/2022 1:08 PM EDT): Need to call [facility] ([phone]) to try to change settings of CPAP to lower setting so that he can tolerate it for longer Assessment & Plan (03/09/2022 2:47 PM EST): New dx on 01/2022 sleep study CPAP ordered, atuo titrate 9-14 Food insecurity 03/09/2022 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 Assessment & Plan (03/09/2022 2:48 PM EST): Letter generated for [facility] that pt can manage his own finacnes Insomnia 12/06/2021 Erectile dysfunction 09/02/2014 Assessment & Plan (03/09/2022 2:48 PM EST): Continue prn PDE5 inhibitor Exercise more to increase blood flow Premature ejaculation 09/02/2014 Essential hypertension 07/23/2014 Assessment & Plan (05/07/2023 1:05 PM EDT): Increase Lisinopril to 20mg daily Assessment & Plan (06/01/2022 1:08 PM EDT): Maintenance: Linisporil, HCTZ BMP: due Lipid Panel: due ASCVD Risk: Calculate pending updated labs EKG: Obtain baseline at f/u - Aerobic exercise to reduce BP. Initial goal of 30 min walk 3-5x/week. Increase as tolerated. - low-sodium diet (goal: <2g/day) and heart healthy diet such as DASH to reduce BP and prevent ASCVD. - Home BP monitoring 1-2 x day with goal of <140/90. - Seek immediate medical attention for chest pain, palpitations, SOB, syncope, or sudden changes in mental status. - Do not change or discontinue current prescriptions without first consulting health care provider Assessment & Plan (03/09/2022 2:47 PM EST): Maintenance: Linisporil, HCTZ BMP: due Lipid Panel: due ASCVD Risk: Calculate pending updated labs EKG: Obtain baseline at f/u - Aerobic exercise to reduce BP. Initial goal of 30 min walk 3-5x/week. Increase as tolerated. - low-sodium diet (goal: <2g/day) and heart healthy diet such as DASH to reduce BP and prevent ASCVD. - Home BP monitoring 1-2 x day with goal of <140/90. - Seek immediate medical attention for chest pain, palpitations, SOB, syncope, or sudden changes in mental status. - Do not change or discontinue current prescriptions without first consulting health care provider Schizoaffective disorder 04/20/2014 Assessment & Plan (07/17/2023 11:54 AM EDT): Patient did not bring in paperwork from hospital discharge so used pharmacist medication reconciliation with [facility], his pharmacy - I completed and signed a medication rec form for his residential program - EKG performed today for monitoring of Qtc with chronic antipsychotic use - continue trying to exercise daily - continue job hunting through various supportive/adaptive programs Assessment & Plan (06/01/2022 1:09 PM EDT): Continue medication mgmt per psych Pt felt unsafe/unstable earlier in April 2022, but says this feeling passed His living environment is stressing him Anxiety state 08/17/2011 Assessment & Plan (11/23/2022 12:43 PM EDT): Wrote letter to support his use of PTO to organize his life Will communicate with [facility] program, if I am able, about medications Depressive disorder 08/17/2011 Assessment & Plan (08/12/2022 9:58 AM EDT): He is describing worsening of his depression Seeing his psychiatrist today, would recommend asking if his meds should be adjusted at all I wrote him a note for days off work as needed Hold off on supplements from [facility], focus on rest and exercise and communicating with his kids Developmental academic disorder 08/17/2011 Resolved Problems Problem Noted Date Diagnosed Date Resolved Date Cannabis dependence 04/20/2014 06/02/19 23 Encounters Date Type Department Care Team Description 03/10/2024 10:30 AM EST Office Visit [facility] [address] [place] [phone] Marko Sorenson, DDS Dental abscess (Primary Dx); Odontalgia 02/29/[address] [phone] Tanvi Leach MD Med Refill 02/29/[address] [address] Tanvi Leach MD Durable Medical Equipment 02/21/[address] [address] Regla Rivera [place] Durable Medical Equipment 02/15/[address] [address] Tanvi Leach MD Medication Question 02/13/2024 Telephone [facility] [address] [place] [phone] Jeannie Villa, DDS 02/01/[address] [address] Tanvi Leach MD FYI 02/01/[address] [address] Tanvi Leach MD Nasal congestion 01/21/2024 2:00 PM EST Office Visit [facility] [address] [place] [phone] Jaleesa Farah Dental plaque (Primary Dx); Dental calculus 01/18/2024 3:30 PM EST Immunization [facility] MED[facility] [address] [place] [phone] Encounter for immunization (Primary Dx) 01/18/2024 Travel from Last 3 Months Immunizations Name Administration Dates Next Due DTP 03/29/1993, 1,01/26/1990,11/26,09/26/1989 Hep A, Adult 12/02/2021,11/02/2017 Hep B, Adolescent or Pediatric 11/21/1999,1998,04/27/1998 Hib (HbOC) 03/29/1990 IPV 03/29/1993, 1,11/26/1989,09/26 Influenza injectable quadriv alent IIV4 with preservative 03/11/2016 Influenza injectable quadriv alent preservative free 01/22/2023,11/22/2022,12/02/2021,05/20,11/22/2017,11/14/2016,05/05/2014 Influenza, IIV3, injectable 02/17/2014 Influenza, Split (incl. jimbo fied surface antigen) 10/29/2012 Influenza, seasonal, injecta ble, preservative free 12/12/2023,02/16/2015 Influenza, trivalent, adjuvanted 03/11/2016,01/27 MMR 03/29/1993,09/26/1989 Moderna Covid-19 Vaccine 12+ 03/24/2020 Moderna Covid-19 Vaccine 6+ Bivalent 07/05/2022 Pfizer Covid-19 Vaccine 12+ 01/18/2024 Pneumococcal Polysaccharide PPSV23 10/29/2015,,10/30/2014 TD (adult), 2 Lf tetanus tox oid, preservative free, adsorbed 07/19/1998 Tdap 10/29/2015,04/20/2014 Varicella 04/27/1998 Social History Tobacco Use Types Packs/Day Years [...] with others, in a hotel, in a nursing home, living outside on the street, on [...] not to disclose 2021 10:15 AM EDT Last Filed Vital Signs Vital Sign Reading Time Taken Comments Blood Pressure 124/80 03/10/2024 10:31 AM EST Pulse 66 12/18/2023 3:22 PM EDT Temperature 36.6 ??C (97.8 ??F) 12/18/2023 3:22 PM ED T Respiratory Rate 20 12/18/2023 3:22 PM EDT Oxygen Saturation 96% 12/18/2023 3:22 PM EDT Inhaled Oxygen Concentration - - Weight 140 kg (307 lb 9.6 oz) 12/18/2023 3:22 PM EDT Height 175.3 cm (5' 9 ) 12/18/2023 3:22 PM EDT Body Mass Index 45.42 12/18/2023 3:22 PM EDT Plan of Treatment Upcoming Encounters Date Type Department Care Team (Late st Contact Info) Description 08/13/2024 10:00 AM EDT Office Visit [facility] [address] [place] [phone] Jaleesa Farah Health Maintenance Due Date Last Done Comments Alcohol/Substance Use Screening 1997 Family Planning (PISQ) 2000 Depression Screening 03/28/2024 03/28/2023, 03/28/19 SDOH Screening 03/28/2024 03/28/2023 Dental X-Ray: Bitewings 04/03/2024 04/02/19 24, 10/10/2022, 10/22/2013 Dental Oral Exam 07/21/2024 01/21/2024, 06/2023, 03/03/2014 Dental Prophylaxis 07/21/2024 01/21/2024, 04/26/2023 Tobacco Screening 03/10/2025 03/10/2024 DTaP/Tdap/Td Vaccines (7 - Td or Tdap) 10/28/2025 10/29/2015, 04/20/2014, 07/19/1998, Additional history exists Dental X-Ray: Full Mouth 04/03/2026 024, 03/03/2014, 10/22/2013 Lipid Panel 05/20/2026 05/20/2021 Zoster Vaccines (1 of 2) 06/13/2035 RSV Patients and Patients Aged 60 years or older (1 - 1-dose 75+ series) 2060 HIB Vaccines Completed 03/29/1990 IPV Vaccines Completed 03/29/1993, 02/1990, 11/26/1989, Additional history exists Hepatitis B Vaccines Completed 11/21/1999, 07/19/1998, 04/27/1998 Pneumococcal Vaccine: Pediatrics (0 to 5 Years) and At-Risk Patients (6 to 49) Years) Aged Out 10/29/2015, 02/16/2015, 10/30/2014 No longer eligible based on patient's age to complete this topic Hepatitis A Vaccines Completed 12/02/2021, 11/03/19 HIV Screening Completed 01/22/2023 Hepatitis C Screening Completed 01/22/2023 Influenza Vaccine Completed 12/12/2023, , 11/22/2022, Additional history exists COVID-19 Vaccine Completed 01/18/2024, 11/2022, 03/15/2021, Additional history exists HPV Vaccines Aged Out No longer eligi ble based on patient's age to complete this topic Meningococcal Vaccine Aged Out No [place] juany eligible based on patient's age to complete this topic RSV under 20 months Aged Out No longe r eligible based on patient's age to complete this topic Rotavirus Vaccines Aged Out No longer eligible based on patient's age to complete this topic Procedures Procedure Name Priority Date/Time Associated Diagnosis Comments ACETAMINOPHEN LEVEL Routine 03/29/2024 1 1:38 AM EST SALICYLATE Routine 03/29/2024 11:38 AM EST ETHANOL Routine 03/29/2024 11:38 AM EST COMPREHENSIVE METABOLIC PANEL Routine 03/29/2024 11:38 AM EST DRUG MONITOR, PANEL 1, SCREEN, URINE Routine 03/29/2024 11:38 AM EST URINALYSIS WITH REFLEX MICROSCOPIC Routine 03/29/2024 11:38 AM EST CBC WITH AUTO DIFFERENTIAL Routine 03/29/2024 11:38 AM EST ADJUNCTIVE GENERAL SERVICES - UNCLASSIFIED TREATMENT - PALLIATIVE TREATMENT OF DENTAL PAIN - PER VISIT Routine 03/10/2024 10:30 AM EST ADJUNCTIVE GENERAL SERVICES - PROFESSIONAL VISITS - CASE PRESENTATION, SUBSEQUENT TO DETAILED AND EXTENSIVE TREATMENT PLANNING Routine 03/10/2024 10:30 AM EST INTRAORAL - PERIAPICAL FIRST RADIOGRAPHIC IMAGE Routine 03/10/2024 10:30 AM EST PERIODIC ORAL EVALUATION - ESTABLISHED PATIENT Routine 01/21/2024 2:00 PM EST ORAL HYGIENE INSTRUCTIONS Routine 01/21/2024 2:00 PM EST Dental plaque Dental calculus PROPHYLAXIS - ADULT Routine 01/21/2024 2 :00 PM EST Dental plaque Dental calculus ADJUNCTIVE GENERAL SERVICES - PROFESSIONAL VISITS - CASE PRESENTATION, SUBSEQUENT TO DETAILED AND EXTENSIVE TREATMENT PLANNING Routine 01/21/2024 2:00 PM EST DIAGNOSTIC - DIAGNOSTIC IMAGING - INTRAORAL - COMPREHENSIVE SERIES OF RADIOGRAPHIC IMAGES Routine 04/02/2023 1:30 PM EST HEPATITIS C ANTIBODY Routine 01/22/2023 12:26 PM EST Screening examination for sexually transmitted disease HIV 1/2 ANTIGEN/ANTIBODY, FOURTH GENERATION W/RFL Routine 01/22/2023 12:26 PM EST Screening examination for sexually transmitted disease LIPID PANEL, STANDARD Routine 05/20/2021 2:20 PM EDT from Last 3 Months or Most Recently Relevant to Health Maintenance Results * Ethanol (03/29/2024 11:38 AM EST) ETHANOL (MG/DL) IN SER/PLAS <10 mg/dL [facility] Comment:Serum/plasma ethanol results are to be used formedical/treatment purposes only. 03/29/2024 11:3 8 AM EST 03/29/2024 11:43 AM EST us Generic External Data Provider LAB BLOOD ORDERAB LES Final Result Performing Organization Address [facility]/State/[facility] Co de Phone Number [facility] [address] [place] [phone] * Drug Monitoring, Panel 1, Screen, Urine (03/29/2024 11:38 AM EST) Opiate Screen Urine Not Detected Not Detect [facility] Comment:Opiate cut-off is 30 0 ng/mL.Positive results are unconfirmed and should not be used fornon-medical purposes. Barbiturates, Urine Not Detected Not Detect [facility] Comment:Barbiturate cut-off is 200 ng/mL.Positive results are unconfirmed and should not be used fornon-medical purposes. Phencyclidine Screen Urine Not Detected Not Detect [facility] Comment:Phencyclidine cut-of f is 25 ng/mL.Positive results are unconfirmed and should not be used fornon-medical purposes. Amphetamine Screen Urine Not Detected Not Detect [facility] Comment:Amphetamine cut-off is 1000 ng/mL.Positive results are unconfirmed and should not be used fornon-medical purposes. Benzodiazepines Screen Urine Not Detected Not Detect [facility] Comment:Benzodiazepine cut-o ff is 200 ng/mL.Positive results are unconfirmed and should not be used fornon-medical purposes. Cocaine Screen Urine Not Detected Not Detect [facility] Comment:Cocaine cut-off is 3 00 ng/mL.Positive results are unconfirmed and should not be used fornon-medical purposes. Cannabinoid Screen Urine Not Detected Not Detect [facility] Comment:Cannabinoid cut-off is 50 ng/mL.Positive results are unconfirmed and should not be used fornon-medical purposes. Methadone Screen, Urine Not Detected Not Detect ng/mL [facility] Comment:Methadone cut-off is 300 ng/mL.Positive results are unconfirmed and should not be used fornon-medical purposes. FENTANYL URINE Not Detected Not Detect [facility] Comment:Fentanyl cut-off is 1 ng/mL.Positive results are unconfirmed and should not be used fornon-medical purposes. Oxycodone Urine Screen Not Detected Not Detect ng/mL [facility] Comment:Oxycodone cut-off is 100 ng/mL.Positive results are unconfirmed and should not be used fornon-medical purposes. Buprenorphine Screen Not Detected Not Detect ng/mL [facility] Comment:Buprenorphine cut-of f is 5 ng/mL.Positive results are unconfirmed and should not be used fornon-medical purposes. 03/29/2024 11:3 8 AM EST 03/29/2024 11:43 AM EST Generic External Data Provider LAB URINE ORDERAB LES Final Result [facility] [address] [place] [phone] * (ABNORMAL) CBC auto differential (03/29/2024 11:38 AM EST) White Blood Count 5.5 4.8 - 10.8 X10*3/uL [facility] Red Blood Count 4.96 4.60 - 5.80 X10*6/uL [facility] Hemoglobin 14.9 14.0 - 18.0 g/dl [facility] Hematocrit 43.2 42.0 - 52.0 % [facility] Mean Corpuscular Volume 87.1 80.0 - 98.0 fL [facility] Mean Corpuscular Hemoglobin 30.0 27.0 - 33.0 pg [facility] Mean Corpuscular HGB Conc 34.5 31.0 - 36.0 g/dl [facility] Red Cell Distribution Width 13.6 11.0 - 16.0 % [facility] Platelet Count 388 160 - 400 X10*3/uL [facility] Mean Platelet Volume 8.8(L) 9.4 - 12.4 fL [facility] Neutrophils Percent Auto 69.4 45 - 73 % [facility] Imm Gran Pct Auto 0.4 0.0 - 0.4 % [facility] Lymphocytes Percent Auto 20.5 20 - 40 % [facility] Monocytes Percent Auto 7.3 2 - 11 % [facility] Eosinophils Percent Auto 1.3 0 - 4 % [facility] Basophils Percent Auto 1.1 0 - 2 % [facility] NRBC Pct Auto 0.0 0.0 - 0.2 /100WBC [facility] Neutrophils Absolute Auto 3.8 2.0 - 8.3 x10*3/uL [facility] Imm Gran Abs Auto 0.02 0.00 - 0.03 X10*3/uL [facility] Lymphocytes Absolute Auto 1.1(L) 1.2 - 4.9 X10*3/uL [facility] Monocytes Absolute Auto 0.4 0.1 - 1.2 X10*3/uL [facility] Eosinophils Absolute Auto 0.1 0.0 - 0.4 X10*3/uL [facility] Basophils Absolute Auto 0.1 0.0 - 0.2 X10*3/uL [facility] NRBC Abs Auto 0.000 0.0 - 0.012 X10*3/uL [facility] 03/29/2024 11:3 8 AM EST 03/29/2024 11:43 AM EST us Generic External Data Provider LAB BLOOD ORDERAB LES Final Result Performing Organization Address City/[facility] Co de Phone Number [facility] [address] [place] [phone] * Urinalysis w/reflex microscopic (03/29/2024 11:38 AM EST) Color Urine Yellow [facility] Appearance Urine Clear [facility] PH 6.5 5.0 - 9.0 [facility] Glucose Urine UA Negative Negative mg/dL [facility] Urine Blood Negative Negative [facility] Specific [place] - Urine 1.015 1.005 - 1.025 [facility] Urine Protein Negative Neg-Trace mg/dL [facility] Urine Ketones Negative Negative mg/dL [facility] Nitrite Urine Negative Negative [facility] Leukocyte Esterase Urine Negative Negative [facility] 03/29/2024 11:3 8 AM EST 03/29/2024 11:43 AM EST Narrative [facility] - 03/29/2024 11:53 AM EST Urine, Clean Catch us Generic External Data Provider LAB URINE ORDERAB LES Final Result Performing Organization Address [facility] de Phone Number [facility] [address] [place] [phone] * Acetaminophen level (03/29/2024 11:38 AM EST) [facility] Acetaminophen LAB <3 <30 mcg/mL [facility] 03/29/2024 11:3 8 AM EST 03/29/2024 11:43 AM EST us Generic External Data Provider LAB BLOOD ORDERAB LES Final Result Performing Organization Address [facility] de Phone Number [facility] [address] [place] [phone] * (ABNORMAL) Salicylate (03/29/2024 11:38 AM EST) Salicylate <5.0(L) 15 - 30 mg/dL [facility] 03/29/2024 11:3 8 AM EST 03/29/2024 11:43 AM EST us Generic External Data Provider LAB BLOOD ORDERAB LES Final Result [facility] [address] [place] [address] [phone] * (ABNORMAL) Comprehensive Metabolic Panel (03/29/2024 11:38 AM EST) Sodium 140 135 - 145 mmol/L [facility] Potassium 4.1 3.3 - 5.1 mmol/L [facility] Chloride 103 96 - 108 mmol/L [facility] Carbon Dioxide 25 22 - 29 mmol/L [facility] Anion Gap 16 12 - 20 [facility] Urea Nitrogen (BUN) 14 9 - 16 mg/dL [facility] Creatinine, Serum 1.06 0.5 - 1.4 mg/dL [facility] Creatinine Clr Calc Pharmacy 131.8 [facility] Comment:eGFR (calculated fro m the MDRD study equation) and eCrCl(calculated from the Cockcroft-Gault equation) are based ondifferent parameters and may not yield comparable results.If eCrCl result is absurd, please check patient'sheight/weight. Estimated Glomerular Filt Rate >60 [facility] Comment:Chronic Kidney Disea se: Estimated GFR < 60 mL/min/1.87p1Mgpxdf Kidney Disease: Estimated GFR < 15 mL/min/1.73m2 Glucose 86 60 - 115 mg/dL [facility] Calcium 9.4 8.4 - 10.2 mg/dL [facility] Bilirubin, Total 0.5 0.0 - 1.0 mg/dL [facility] Aspartate Amino Transferase 34 5 - 37 U/L [facility] Alanine Aminotransferase 41(H) 0 - 40 U/L [facility] Total Protein 8.1(H) 6.5 - 8.0 g/dL [facility] Albumin Level 4.8 3.5 - 5.0 g/dL [facility] Alkaline Phosphatase 68 39 - 117 U/L [facility] 03/29/2024 11:3 8 AM EST 03/29/2024 11:43 AM EST us Generic External Data Provider LAB BLOOD ORDERAB LES Final Result Performing Organization Address [facility]/ZIP Co de Phone Number [facility] [address] [place] [phone] * Hepatitis C Ab (01/22/2023 12:26 PM EST) Hepatitis C Antibody Nonreactive Nonreactive [facility] Comment:Antibodies to HCV no t detected; does not exclude early acuteHCV infection. Blood Venous blood specimen / Unknown 01/22/2023 12:26 PM EST 01/22/2023 1:22 PM EST us Tanvi Leach MD LAB BLOOD ORDERABLES Final Res ult Performing Organization Address [facility] Co de Phone Number [facility] [address] [place] [phone] * HIV-1/2 Antigen and Antibodies, Fourth Generation, with Reflexes (01/22/2023 12:26 PM EST) HIV AB/AG Nonreactive Nonreactive [facility] Comment:HIV-1 p24 Ag and/or HIV-1/HIV-2 Ab not detected.A test result that is nonreactive does not exclude thepossibility of exposure to or infection with HIV-1 and/orHIV-2. Nonreactive results in this assay for individualswith prior exposure to HIV-1 and/or HIV-2 may be due toantigen and antibody levels that are below the limit ofdetection of this assay.The intelloCut HIV Ag/Ab Combo assay result andsupplemental assay results should be interpreted inconjunction with the patient's clinical presentation,history and other laboratory results. If the results areinconsistent with clinical evidence, additional testing issuggested to confirm the result. Blood Venous blood specimen / Unknown 01/22/2023 12:26 PM EST 01/22/2023 1:22 PM EST us Tanvi Leach MD LAB BLOOD ORDERABLES Final Res ult [facility] [address] [place] [phone] * (ABNORMAL) LIPID PANEL, STANDARD (05/20/2021 2:20 PM EDT) Chol/HDLC Ratio 3.7 <5.0 (calc) [facility] Cholesterol, Total 205(H) <200 mg/dL [facility] HDL Cholesterol 55 > OR = 40 mg/dL [facility] LDL Cholesterol 119(H) mg/dL (calc) [facility] Comment: Reference range: <100 ?? Desirable range <100 mg/dL for primary prevention; ?? <70 mg/dL for patients with CHD or diabetic patients ?? with > or = 2 CHD risk factors. ?? LDL-C is now calculated using the Diana ?? calculation, which is a validated novel method providing ?? better accuracy than the Friedewald equation in the ?? estimation of LDL-C. ?? Aureliano VARGAS et al. CONTRERAS. 2013;310(19): 9234-9600 ?? (http://education.Zwittle.Airec/faq/GMV760) Non-HDL Cholesterol 150(H) <130 mg/dL (calc) [facility] Comment: For patients with diabetes plus 1 major ASCVD risk ?? factor, treating to a non-HDL-C goal of <100 mg/dL ?? (LDL-C of <70 mg/dL) is considered a therapeutic ?? option. Triglycerides 195(H) <150 mg/dL [facility] 05/20/2021 2:20 PM EDT us Tanvi Leach MD LAB BLOOD ORDERABLES Final Res ult Performing Organization Address City/[facility]/ZIP Co de Phone Number [facility] [address] [place] [address], from Last 3 Months or Most Recently Relevant to Health Maintenance Insurance [facility] [address] [facility] * Guarantor: Omkar Tafoya Account Type Relation to Patient Date of Phone Billing Address Personal/Family Self [facility] [address] [address] Care Teams Developmental Specialist Relationship Specialty Start Date End Date Tanvi Leach MD [address] [place] [phone] PCP - General Family Medicine 05/20/21
[2024-03-29 14:05] VITALS: BP 107/70; PULSE 71; RESP 19; TEMP 36.6; O2SAT 98
== END 2024-03-29 14:19 | disposition home or self-care (01) ==
PROVIDERS: Emergency Provider Emergency Medicine; PCP General Practice
DX: R44.0 Auditory hallucinations (principal); F31.9 Bipolar disorder, unspecified; R41.83 Borderline intellectual functioning; E11.9 Type 2 diabetes mellitus without complications; I10 Essential (primary) hypertension; F11.20 Opioid dependence, uncomplicated
CPT/HCPCS: 36415; 80053; 80143; 80179; 80307; 81003; 85025; 99284; S9485

== ENCOUNTER 2024-03-29 18:17 | Emergency (ER) | payer OTHER, SELFPAY ==
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
[2024-03-29 18:27] VITALS: BP 128/85; PULSE 76; RESP 18; TEMP 37.1; O2SAT 98; BMI 45.8
--- OUTSIDE RECORDS SUMMARY | 2024-03-29 18:36 | XMS_ITS | Encounter Summary ---
Author Organization [email or web address] Address [address] [place] [address] Care Team Providers Care Commercial Carpet Installer Name Role Phone Tanvi Leach MD Primary Care Provider [phone] Encounter Details Date Type Department Care Team (Late Contact Info) Description 07/27/2022 Telephone [facility] [address] [place], [place] [phone] Tanvi Leach MD [address] [place], [place] [phone] Social History Tobacco Use Types Packs/Day Years [...] Office Visit [facility] [address] [place] [address] Jaleesa Farah documented as of this encounter Visit Diagnoses Not on filedocumented in this encounter Additional Health Concerns Assessment Noted Time PHQ-9 Depression Total Score: 11 023 2:58 PM EST documented as of this encounter Care Teams Commercial Carpet Installer Relationship Specialty Start Date End Date Tanvi Leach MD [address] [place] [address] PCP - General Family Medicine 05/20/21 documented as of this encounter
--- OUTSIDE RECORDS SUMMARY | 2024-03-29 18:36 | XMS_ITS | Clinical Summary ---
Author Organization [facility] Address [address] [place] [address] Phone Care Team Providers Care Grinder Name Role Phone Tanvi Leach MD Primary Care Provider [phone] Allergies No known active allergies Medications Medication [...] EST - 01/28/2024 4:54 PM EST Emergency [facility] Emergency [address] [place] [address] Galdino Alvarez MD Schizophrenia, unspecified [...] Hold for add-ons. 01/28/2024 12:[address] [facility] Comment:Auto resulted. Urine Urine specimen obtained by clean catch procedure / Unknown 01/28/2024 10:37 AM EST 01/28/2024 10:57 AM EST Fred Harmon MD LAB URINE ORDERABLES [facility] [address] [place] [address], * [place] top urine tube (01/28/2024 10:37 AM EST) Extra Tube Hold for add-ons. 01/28/2024 12:01 PM [facility] Comment:Auto resulted. Urine Urine specimen obtained by clean catch procedure / Unknown 01/28/2024 10:37 AM EST 01/28/2024 10:57 AM EST Fred Harmon MD LAB URINE ORDERABLES [facility] [address] [place] [address], * (ABNORMAL) Drug abuse screen 8a panel, urine (01/28/2024 10:36 AM EST) Pathologist [facility] Amphetamine Screen, Ur Negative Negative LAB CHEMISTRY METHOD 4 11:25 AM [facility] Comment:Certain OTC medicati ons containing ephedrine, phenylephrine, pseudoephedrine and phenylpropanolamine can cause false positive results. Barbiturate Screen, Ur Negative Negative LAB CHEMISTRY METHOD 4 11:25 AM [facility] Benzodiazepine Screen, Ur Negative Negative LAB CHEMISTRY METHOD 4 11:25 AM [facility] Cocaine Screen, Ur Negative Negative LAB CHEMISTRY METHOD 4 11:25 AM [facility] Opiate Screen, Ur Negative Negative LAB CHEMISTRY METHOD 4 11:25 AM [facility] Cannabinoid (THC) Screen, Ur Positive(A ) Negative LAB CHEMISTRY METHOD 4 11:25 AM [facility] Comment:Specimens from patie nts taking pantoprazole sodium (Protonix) have been shown to produce false positive results. Oxycodone Screen, Ur Negative Negative LAB CHEMISTRY METHOD 4 11:25 AM [facility] Fentanyl, Ur Negative Negative LAB CHEMISTRY METHOD 4 11:25 AM [facility] Urine Urine specimen obtained by clean catch procedure / Unknown Non-blood Collection / Unknown 01/28/2024 10:36 AM EST 01/28/2024 10:[address] [facility] - 01/28/2024 11:25 AM EST [...] MD LAB URINE ORDERABLES Performing Organization Address [facility] de Phone Number [facility] [address] [place] [address], [place] [phone] * Buprenorphine screen, urine (01/28/2024 10:36 AM EST) [facility] Buprenorphine Screen Urine Negative Negative LAB CHEMISTRY METHOD 01/28/2024 11:[address] [facility] Urine Urine specimen obtained by clean catch procedure / Unknown Non-blood Collection / Unknown 01/28/2024 10:36 AM EST 01/28/2024 10:[address] [facility] - 01/28/2024 11:25 AM EST Assay cutoff 5 ng/mL Semi-quantitative assay for screening purposes only. Unconfirmed screening result should not be used for non-medical purposes. *ALTERNATE METHOD CONFIRMATION DONE UPON REQUEST ONLY* Galdino Alvarez MD LAB URINE ORDERABLES Performing Organization Address [facility] Co de Phone Number [facility] [address] [place] [address], * Methadone, urine (01/28/2024 10:36 AM EST) Methadone Screen, Urine Negative Negative LAB CHEMISTRY METHOD 01/28/2024 11:[address] [facility] Comment: Assay cutoff 300 ng/mL Semi-quantitative assay for screening purposes only. Unconfirmed screening result should not be used for non-medical purposes. *ALTERNATE METHOD CONFIRMATION DONE UPON REQUEST ONLY* Urine Urine specimen obtained by clean catch procedure / Unknown Non-blood Collection / Unknown 01/28/2024 10:36 AM EST 01/28/2024 10:55 AM EST Galdino Alvarez MD LAB URINE ORDERABLES Performing Organization Address [facility]/ZIP Co de Phone Number [facility] [address] [place] [address], [place] [phone] * Phencyclidine, urine (01/28/2024 10:36 AM EST) Pathologist [facility] PCP Scrn, Ur Negative Negative LAB CHEMISTRY METHOD 01/28/2024 11:[address] [facility] Comment: Assay cutoff 25 ng/mL Semi-quantitative assay for screening purposes only. Unconfirmed screening result should not be used for non-medical purposes. *ALTERNATE METHOD CONFIRMATION DONE UPON REQUEST ONLY* Urine Urine specimen obtained by clean catch procedure / Unknown Non-blood Collection / Unknown 01/28/2024 10:36 AM EST 01/28/2024 10:55 AM EST Galdino Alvarez MD LAB URINE ORDERABLES Performing Organization Address City/[facility]/ZIP Co de Phone Number [facility] [address] [place] [address], * (ABNORMAL) CBC auto differential (01/27/2024 10:31 PM EST) Pathologist [facility] WBC 4.6(L) 4.8 - 10.8 K/[facility] LAB HEMETOLOGY METHOD 01/27/2024 10:[address] [facility] RBC 4.60 4.50 - 5.50 M/mcL LAB HEMETOLOGY METHOD 01/27/2024 10:49 PM [facility] Hemoglobin 13.6 13.5 - 17.5 g/dL LAB HEMETOLOGY METHOD 01/27/2024 10:49 PM [facility] Hematocrit 40.9(L) 42.0 - 54.0 % LAB HEMETOLOGY METHOD 01/27/2024 10:49 PM [facility] MCV 89.5 79.0 - 98.0 FL LAB HEMETOLOGY METHOD 01/27/2024 10:49 PM [facility] MCH 29.8 27.0 - 32.0 pcg LAB HEMETOLOGY METHOD 01/27/2024 10:49 PM [facility] MCHC 33.3 32.0 - 37.0 g/dL LAB HEMETOLOGY METHOD 01/27/2024 10:49 PM [facility] RDW 14.1 11.0 - 15.0 % LAB HEMETOLOGY METHOD 01/27/2024 10:49 PM [facility] Platelets 356 130 - 400 K/mcL LAB HEMETOLOGY METHOD 01/27/2024 10:49 PM [facility] MPV 9.1 7.0 - 11.0 FL LAB HEMETOLOGY METHOD 01/27/2024 10:49 PM [facility] NRBC 0.0 <1.0 % LAB HEMETOLOGY METHOD 01/27/2024 10:49 PM [facility] NRBC Absolute 0.00 <0.10 K/mcL LAB HEMETOLOGY METHOD 01/27/2024 10:49 PM [facility] Neutrophils Relative 64.8 % LAB HEMETOLOGY METHOD 01/27/2024 10:49 PM [facility] Lymphocytes Relative 23.1 % LAB HEMETOLOGY METHOD 01/27/2024 10:[address] [facility] Monocytes Relative 9.3 % LAB HEMETOLOGY METHOD 01/27/2024 10:49 PM [facility] Eosinophils Relative 1.5 % LAB HEMETOLOGY METHOD 01/27/2024 10:49 PM [facility] Basophils Relative 1.1 % LAB HEMETOLOGY METHOD 01/27/2024 10:49 PM [facility] Immature Granulocytes Relative 0.2 % LAB HEMETOLOGY METHOD 01/27/2024 10:49 PM [facility] Neutrophils Absolute 3.01 1.50 - 7.00 K/mcL LAB HEMETOLOGY METHOD 01/27/2024 10:49 PM [facility] Lymphocytes Absolute 1.07 1.00 - 5.00 K/mcL LAB HEMETOLOGY METHOD 01/27/2024 10:49 PM [facility] Monocytes Absolute 0.43 0.20 - 1.00 K/mcL LAB HEMETOLOGY METHOD 01/27/2024 10:49 PM [facility] Eosinophils Absolute 0.07 0.00 - 0.50 K/mcL LAB HEMETOLOGY METHOD 01/27/2024 10:49 PM [facility] Basophils Absolute 0.05 0.00 - 0.20 K/mcL LAB HEMETOLOGY METHOD 01/27/2024 10:49 PM [facility] Immature Granulocytes Absolute 0.01 0.00 - 0.03 K/mcL LAB HEMETOLOGY METHOD 01/27/2024 10:49 PM [facility] Blood Venous blood specimen / Unknown Venipuncture / Unknown 01/27/2024 10:31 PM EST 01/27/2024 10:43 PM EST Galdino Alvarez MD LAB BLOOD ORDERABLES [facility] [address] [place] [address], [place] [phone] * Ethanol (01/27/2024 10:31 PM EST) Ethanol Level 4 0 - 10 mg/dL LAB CHEMISTRY METHOD 01/27/2024 11:[address] [facility] Blood Venous blood specimen / Unknown Venipuncture / Unknown 01/27/2024 10:31 PM EST 01/27/2024 10:43 PM EST Galdino Alvarez MD LAB BLOOD ORDERABLES [facility] [address] [place] [address], [place] [phone] * (ABNORMAL) Acetaminophen level (01/27/2024 10:31 PM EST) Acetaminophen Level <2.0(L) 10.0 - 30.0 mcg/mL LAB CHEMISTRY METHOD 01/27/2024 11:[address] [facility] Blood Venous blood specimen / Unknown Venipuncture / Unknown 01/27/2024 10:31 PM EST 01/27/2024 10:43 PM EST Galdino Alvarez MD LAB BLOOD ORDERABLES [facility] [address] [place] [address], * (ABNORMAL) Salicylate level (01/27/2024 10:31 PM EST) Salicylate Level <1.7(L) 2.0 - 29.0 mg/dL LAB CHEMISTRY METHOD 01/27/2024 11:[address] [facility] Blood Venous blood specimen / Unknown Venipuncture / Unknown 01/27/2024 10:31 PM EST 01/27/2024 10:43 PM EST Galdino Alvarez MD LAB BLOOD ORDERABLES [facility] [address] [place] [address], * (ABNORMAL) Comprehensive metabolic panel (01/27/2024 10:31 PM EST) Sodium 137 133 - 145 mmol/L LAB CHEMISTRY METHOD 01/27/2024 11:08 PM [facility] Potassium 3.6 3.5 - 5.5 mmol/L LAB CHEMISTRY METHOD 01/27/2024 11:08 PM [facility] Chloride 105 96 - 110 mmol/L LAB CHEMISTRY METHOD 01/27/2024 11:08 PM [facility] CO2 26 21 - 32 mmol/L LAB CHEMISTRY METHOD 01/27/2024 11:08 PM [facility] Anion Gap 6 3 - 11 LAB CHEMISTRY METHOD 01/27/2024 11:08 PM [facility] Glucose 111(H) 70 - 100 mg/dL LAB CHEMISTRY METHOD 01/27/2024 11:08 PM [facility] BUN 13 5 - 25 mg/dL LAB CHEMISTRY METHOD 01/27/2024 11:08 PM [facility] Creatinine 1.27 0.70 - 1.30 mg/dL LAB CHEMISTRY METHOD 01/27/2024 11:08 PM [facility] eGFR 74 >=60 mL/min/1. 73m2 LAB CHEMISTRY METHOD 01/27/2024 11:08 PM [facility] Comment:Calculation based on the??Chronic Kidney Disease Epidemiology Collaboration (CKD-EPI) equation refit??without adjustment for race. BUN/Creatinine Ratio 10.2 LAB CHEMISTRY METHOD 01/27/2024 11:08 PM [facility] Calcium 9.2 8.5 - 10.5 mg/dL LAB CHEMISTRY METHOD 01/27/2024 11:[address] [facility] AST (SGOT) 71(H) 10 - 42 unit/L LAB CHEMISTRY METHOD 01/27/2024 11:08 PM [facility] ALT (SGPT) 63(H) 10 - 60 unit/L LAB CHEMISTRY METHOD 01/27/2024 11:08 PM [facility] Alkaline Phosphatase 86 42 - 121 unit/L LAB CHEMISTRY METHOD 01/27/2024 11:08 PM [facility] Total Protein 7.3 6.0 - 8.0 g/dL LAB CHEMISTRY METHOD 01/27/2024 11:08 PM [facility] Albumin 4.4 3.2 - 5.0 g/dL LAB CHEMISTRY METHOD 01/27/2024 11:08 PM [facility] Total Bilirubin 0.7 0.0 - 1.4 mg/dL LAB CHEMISTRY METHOD 01/27/2024 11:08 PM [facility] Blood Venous blood specimen / Unknown Venipuncture / Unknown 01/27/2024 10:31 PM EST 01/27/2024 10:43 PM EST Galdino Alvarez MD LAB BLOOD ORDERABLES [facility] [address] [place] [address], from Last 3 Months Care Teams Grinder Relationship Specialty Start Date End Date Tanvi Leach MD [address] [place] [address] PCP - General 05/09/23
--- OUTSIDE RECORDS SUMMARY | 2024-03-29 18:36 | XMS_ITS | Encounter Summary ---
Author Organization [employer] Address [address] [place] [address] Care Team Providers Care Trauma Program Manager Name Role Phone Tanvi Leach MD Primary Care Provider [phone] Encounter Details Date Type Department Care Team ([facility] st Contact Info) Description 07/25/2023 Telephone [facility] MEDICINE [address] [place], [place] [phone] Tanvi Leach MD [address] [place], [place] [phone] Social History Tobacco Use Types Packs/Day Years [...] Description 08/13/2024 10:00 AM EDT Office Visit [facility] ADULT DENTAL [address] [place] [address] Jaleesa Farah documented as of this encounter Visit Diagnoses Not on filedocumented in this encounter Additional Health Concerns Assessment Noted Time PHQ-9 Depression Total Score: 0 03/28/19 24 2:55 PM EST documented as of this encounter Care Teams Trauma Program Manager Relationship Specialty Start Date End Date Tanvi Leach MD [address] [place] [address] PCP - General Family Medicine 05/20/21 documented as of this encounter
--- OUTSIDE RECORDS SUMMARY | 2024-03-29 18:36 | XMS_ITS | Encounter Summary ---
Author Organization [employer] Address [address] [place] [address] Care Team Providers Care Enterprise Mobility Architect Name Role Phone Tanvi Leach MD Primary Care Provider [phone] Reason for Visit * Reason Comments Med Refill Encounter Details Date Type Department Care Team ([facility] st Contact Info) Description 02/01/2024 Refill [facility] MEDICINE [address] [place], [place] [phone] Tanvi Leach MD [address] [place], [place] [phone] Nasal congestion Social History Tobacco Use Types [...] with others, in a hotel, in a correction, living outside on the street, on a [...] Description 08/13/2024 10:00 AM EDT Office Visit [facility] ADULT DENTAL [address] [place] [address] Jaleesa Farah documented as of this encounter Visit Diagnoses Diagnosis Nasal congestion Other diseases of nasal cavity and sinuses documented in this encounter Additional Health Concerns Assessment Noted Time PHQ-9 Depression Total Score: 0 03/28/19 24 2:55 PM EST documented as of this encounter Care Teams Enterprise Mobility Architect Relationship Specialty Start Date End Date Tanvi Leach MD [address] [place] [address] PCP - General Family Medicine 05/20/21 documented as of this encounter
--- OUTSIDE RECORDS SUMMARY | 2024-03-29 18:37 | XMS_ITS | Clinical Summary ---
Author Organization [employer] Address [address] [facility] 7t [place] [address] Care Team Providers Care French Weaver Name Role Phone Tanvi Leach MD Primary Care Provider Allergies Active Allergy Reactions Criticality Noted Date [...] without sciatica 12/07/19 24 Active sodium chloride ([place] Nasal [place]) 0.65 % nasal sprayIndications :Nasal congestion Administer [...] (BMI) of 40.0 to 44.9 in adult ([facility]) Take 1 tablet by mouth Once per day. 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 Do not crush, chew, or split. 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 ([facility]) Take 1 tablet (500 mg) by mouth [...] completed, sleep study attached, and faxed to [facility] to order CPAP again Assessment & Plan (08/13/2023 1:00 PM EDT): Called and spoke with client service manager from [facility], that patient has been non-compliant with CPAP [...] (06/01/2022 1:08 PM EDT): Need to call [facility] ([phone]) to try to change settings of CPAP to lower setting so that he can tolerate it for longer Assessment & Plan (03/09/2022 2:47 PM EST): New dx on 01/2022 sleep study CPAP ordered, atuo titrate 9-14 Food insecurity 03/09/2022 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 Assessment & Plan (03/09/2022 2:48 PM EST): Letter generated for [facility] that pt can manage his own finacnes [...] discharge so used pharmacist medication reconciliation with [place], his pharmacy - I completed and signed [...] as needed Hold off on supplements from [facility], focus on rest and exercise and communicating with his kids Developmental academic disorder 08/17/2011 Resolved Problems Problem Noted Date Diagnosed Date Resolved Date Cannabis dependence 04/20/2014 06/02/19 23 Encounters Date Type Department Care Team Description 03/10/2024 10:30 AM EST Office Visit [facility] ADULT DENTAL [address] [place] [address] Marko Sorenson, DDS Dental abscess (Primary Dx); Odontalgia 02/29/[address] [address] Tanvi Leach MD Med Refill 02/29/[address] [address] Tanvi Leach MD Durable Medical Equipment 02/21/[address] [address] Regla Rivera ID Durable Medical Equipment 02/15/[address] [address] Tanvi Leach MD Medication Question 02/13/2024 Telephone [facility] ADULT D[facility]AL [address] [place] [address] Jeannie Villa, DDS 02/01/[address] [address] Tanvi Leach MD FYI 02/01/[address] [address] Tanvi Leach MD Nasal congestion 01/21/2024 2:00 PM EST Office Visit [facility] ADULT DENTAL [address] [place] [address] Jaleesa Farah Dental plaque (Primary Dx); Dental calculus 01/18/2024 3:30 PM EST Immunization [facility] MEDICINE [address] [place] [phone] Encounter for immunization (Primary Dx) 01/18/2024 Travel [...] with others, in a hotel, in a fdc, living outside on the street, on a [...] 08/13/2024 10:00 AM EDT Office Visit [facility] ADULT DENTAL [address] [place] [address] Jaleesa Farah Health Maintenance Due Date Last [...] EST) ETHANOL (MG/DL) IN SER/PLAS <10 mg/dL [facility] Comment:Serum/plasma ethanol results are to be used formedical/treatment purposes only. 03/29/2024 11:3 8 AM EST 03/29/2024 11:43 AM EST us Generic External Data Provider LAB BLOOD ORDERAB LES Final Result Performing Organization Address [facility]/State/[facility] Co de Phone Number [facility] [address] [place] [phone] * Drug Monitoring, Panel 1, Screen, Urine (03/29/2024 11:38 AM EST) Opiate Screen Urine Not Detected Not Detect [facility] Comment:Opiate cut-off is 30 0 ng/mL.Positive results are unconfirmed and should not be used fornon-medical purposes. Barbiturates, Urine Not Detected Not Detect [facility] Comment:Barbiturate cut-off is 200 ng/mL.Positive results are unconfirmed and should not be used fornon-medical purposes. Phencyclidine Screen Urine Not Detected Not Detect [facility] Comment:Phencyclidine cut-of f is 25 ng/mL.Positive results are unconfirmed and should not be used fornon-medical purposes. Amphetamine Screen Urine Not Detected Not Detect [facility] Comment:Amphetamine cut-off is 1000 ng/mL.Positive results are unconfirmed and should not be used fornon-medical purposes. Benzodiazepines Screen Urine Not Detected Not Detect [facility] Comment:Benzodiazepine cut-o ff is 200 ng/mL.Positive results are unconfirmed and should not be used fornon-medical purposes. Cocaine Screen Urine Not Detected Not Detect [facility] Comment:Cocaine cut-off is 3 00 ng/mL.Positive results are unconfirmed and should not be used fornon-medical purposes. Cannabinoid Screen Urine Not Detected Not Detect [facility] Comment:Cannabinoid cut-off is 50 ng/mL.Positive results are unconfirmed and should not be used fornon-medical purposes. Methadone Screen, Urine Not Detected Not Detect ng/mL [facility] Comment:Methadone cut-off is 300 ng/mL.Positive results are unconfirmed and should not be used fornon-medical purposes. FENTANYL URINE Not Detected Not Detect [facility] Comment:Fentanyl cut-off is 1 ng/mL.Positive results are unconfirmed and should not be used fornon-medical purposes. Oxycodone Urine Screen Not Detected Not Detect ng/mL [facility] Comment:Oxycodone cut-off is 100 ng/mL.Positive results are unconfirmed and should not be used fornon-medical purposes. Buprenorphine Screen Not Detected Not Detect ng/mL [facility] Comment:Buprenorphine cut-of f is 5 ng/mL.Positive results are unconfirmed and should not be used fornon-medical purposes. 03/29/2024 11:3 8 AM EST 03/29/2024 11:43 AM EST Generic External Data Provider LAB URINE ORDERAB LES Final Result [facility] [address] [place] [phone] * (ABNORMAL) CBC auto differential (03/29/2024 11:38 AM EST) White Blood Count 5.5 4.8 - 10.8 X10*3/uL [facility] Red Blood Count 4.96 4.60 - 5.80 X10*6/uL [facility] Hemoglobin 14.9 14.0 - 18.0 g/dl [facility] Hematocrit 43.2 42.0 - 52.0 % [facility] Mean Corpuscular Volume 87.1 80.0 - 98.0 fL [facility] Mean Corpuscular Hemoglobin 30.0 27.0 - 33.0 pg [facility] Mean Corpuscular HGB Conc 34.5 31.0 - 36.0 g/dl [facility] Red Cell Distribution Width 13.6 11.0 - 16.0 % [facility] Platelet Count 388 160 - 400 X10*3/uL [facility] Mean Platelet Volume 8.8(L) 9.4 - 12.4 fL [facility] Neutrophils Percent Auto 69.4 45 - 73 % [facility] Imm Gran Pct Auto 0.4 0.0 - 0.4 % [facility] Lymphocytes Percent Auto 20.5 20 - 40 % [facility] Monocytes Percent Auto 7.3 2 - 11 % [facility] Eosinophils Percent Auto 1.3 0 - 4 % [facility] Basophils Percent Auto 1.1 0 - 2 % [facility] NRBC Pct Auto 0.0 0.0 - 0.2 /100WBC [facility] Neutrophils Absolute Auto 3.8 2.0 - 8.3 x10*3/uL [facility] Imm Gran Abs Auto 0.02 0.00 - 0.03 X10*3/uL [facility] Lymphocytes Absolute Auto 1.1(L) 1.2 - 4.9 X10*3/uL [facility] Monocytes Absolute Auto 0.4 0.1 - 1.2 X10*3/uL [facility] Eosinophils Absolute Auto 0.1 0.0 - 0.4 X10*3/uL [facility] Basophils Absolute Auto 0.1 0.0 - 0.2 X10*3/uL [facility] NRBC Abs Auto 0.000 0.0 - 0.012 X10*3/uL [facility] 03/29/2024 11:3 8 AM EST 03/29/2024 11:43 AM EST us Generic External Data Provider LAB BLOOD ORDERAB LES Final Result Performing Organization Address City/[facility] Co de Phone Number [facility] [address] [place] [phone] * Urinalysis w/reflex microscopic (03/29/2024 11:38 AM EST) Color Urine Yellow [facility] Appearance Urine Clear [facility] PH 6.5 5.0 - 9.0 [facility] Glucose Urine UA Negative Negative mg/dL [facility] Urine Blood Negative Negative [facility] Specific [place] - Urine 1.015 1.005 - 1.025 [facility] Urine Protein Negative Neg-Trace mg/dL [facility] Urine Ketones Negative Negative mg/dL [facility] Nitrite Urine Negative Negative [facility] Leukocyte Esterase Urine Negative Negative [facility] 03/29/2024 11:3 8 AM EST 03/29/2024 11:43 AM EST Narrative [facility] - 03/29/2024 11:53 AM EST Urine, Clean Catch us Generic External Data Provider LAB URINE ORDERAB LES Final Result Performing Organization Address [facility] de Phone Number [facility] [address] [place] [phone] * Acetaminophen level (03/29/2024 11:38 AM EST) [facility] Acetaminophen LAB <3 <30 mcg/mL [facility] 03/29/2024 11:3 8 AM EST 03/29/2024 11:43 AM EST us Generic External Data Provider LAB BLOOD ORDERAB LES Final Result Performing Organization Address [facility] de Phone Number [facility] [address] [place] [phone] * (ABNORMAL) Salicylate (03/29/2024 11:38 AM EST) Salicylate <5.0(L) 15 - 30 mg/dL [facility] 03/29/2024 11:3 8 AM EST 03/29/2024 11:43 AM EST us Generic External Data Provider LAB BLOOD ORDERAB LES Final Result [facility] [address] [place] [address] [phone] * (ABNORMAL) Comprehensive Metabolic Panel (03/29/2024 11:38 AM EST) Sodium 140 135 - 145 mmol/L [facility] Potassium 4.1 3.3 - 5.1 mmol/L [facility] Chloride 103 96 - 108 mmol/L [facility] Carbon Dioxide 25 22 - 29 mmol/L [facility] Anion Gap 16 12 - 20 [facility] Urea Nitrogen (BUN) 14 9 - 16 mg/dL [facility] Creatinine, Serum 1.06 0.5 - 1.4 mg/dL [facility] Creatinine Clr Calc Pharmacy 131.8 [facility] Comment:eGFR (calculated fro m the MDRD study equation) and eCrCl(calculated from the Cockcroft-Gault equation) are based ondifferent parameters and may not yield comparable results.If eCrCl result is absurd, please check patient'sheight/weight. Estimated Glomerular Filt Rate >60 [facility] Comment:Chronic Kidney Disea se: Estimated GFR < 60 mL/min/1.52l0Invmrq Kidney Disease: Estimated GFR < 15 mL/min/1.73m2 Glucose 86 60 - 115 mg/dL [facility] Calcium 9.4 8.4 - 10.2 mg/dL [facility] Bilirubin, Total 0.5 0.0 - 1.0 mg/dL [facility] Aspartate Amino Transferase 34 5 - 37 U/L [facility] Alanine Aminotransferase 41(H) 0 - 40 U/L [facility] Total Protein 8.1(H) 6.5 - 8.0 g/dL [facility] Albumin Level 4.8 3.5 - 5.0 g/dL [facility] Alkaline Phosphatase 68 39 - 117 U/L [facility] 03/29/2024 11:3 8 AM EST 03/29/2024 11:43 AM EST us Generic External Data Provider LAB BLOOD ORDERAB LES Final Result Performing Organization Address [facility]/ZIP Co de Phone Number [facility] [address] [place] [phone] * Hepatitis C Ab (01/22/2023 12:26 PM EST) Hepatitis C Antibody Nonreactive Nonreactive [facility] Comment:Antibodies to HCV no t detected; does not exclude early acuteHCV infection. Blood Venous blood specimen / Unknown 01/22/2023 12:26 PM EST 01/22/2023 1:22 PM EST us Tanvi Leach MD LAB BLOOD ORDERABLES Final Res ult Performing Organization Address [facility] Co de Phone Number [facility] [address] [place] [phone] * HIV-1/2 Antigen and Antibodies, Fourth Generation, with Reflexes (01/22/2023 12:26 PM EST) HIV AB/AG Nonreactive Nonreactive [facility] Comment:HIV-1 p24 Ag and/or HIV-1/HIV-2 Ab not detected.A test result that is nonreactive does not exclude thepossibility of exposure to or infection with HIV-1 and/orHIV-2. Nonreactive results in this assay for individualswith prior exposure to HIV-1 and/or HIV-2 may be due toantigen and antibody levels that are below the limit ofdetection of this assay.[employer] HIV Ag/Ab Combo assay result andsupplemental assay results should be interpreted inconjunction with the patient's clinical presentation,history and other laboratory results. If the results areinconsistent with clinical evidence, additional testing issuggested to confirm the result. Blood Venous blood specimen / Unknown 01/22/2023 12:26 PM EST 01/22/2023 1:22 PM EST us Tanvi Leach MD LAB BLOOD ORDERABLES Final Res ult [facility] [address] [place] [address] [phone] * (ABNORMAL) LIPID PANEL, STANDARD (05/20/2021 [...] ?? Aureliano VARGAS et al. CONTRERAS. 2013;310(19): 9610-1020 ?? (http://education.[email or web address]faq/BEI523) Non-HDL Cholesterol 150(H) <130 mg/dL (calc) [facility] [...] ORDERABLES Final Res ult Performing Organization Address City/[facility]/ZIP Co de Phone Number [facility] [address] [place] [address], from Last 3 Months or Most Recently Relevant to Health Maintenance Insurance [facility] [address] [facility] Member Subscriber Plan / Payer (Ef fective 2023-Present) Name:Omkar Tafoya Relation to Subscriber:Self Name:Omkar Tafoya Payer ID:Not on file Group ID:[id number] Type:Not on file Address: [address] [place] [phone] * Guarantor: Omkar Tafoya Account Type Relation to Patient Date of Phone Billing Address Personal/Family Self [facility] [address] [address] Care Teams French Weaver Relationship Specialty Start Date End Date Tanvi Leach MD [address] [place] [phone] PCP - General Family Medicine 05/20/21
--- OUTSIDE RECORDS SUMMARY | 2024-03-29 18:37 | XMS_ITS | Encounter Summary ---
Author Organization [employer] Address [address] [place] [address] Care Team Providers Care Machinist Outside Name Role Phone Tanvi Leach MD Primary Care Provider [phone] Reason for Visit * Reason Onset Date Comments Medication Question 02/15/2024 Encounter Details Date Type Department Care Team ([facility] st Contact Info) Description 02/15/2024 Telephone [facility] MEDICINE [address] [place], [place] [phone] Tanvi Leach MD [address] [place], [place] [phone] Medication Question Social History Tobacco Use Types [...] with others, in a hotel, in a retirement, living outside on the street, on a [...] a New CPAP Machine. Contact pt at [phone] documented in this encounter Plan of Treatment Upcoming Encounters Date Type Department Care Team (Late st Contact Info) Description 08/13/2024 10:00 AM EDT Office Visit [facility] ADULT DENTAL [address] [place] [address] Jaleesa Farah documented as of this encounter Visit Diagnoses Not on filedocumented in this encounter Additional Health Concerns Assessment Noted Time PHQ-9 Depression Total Score: 0 03/28/19 24 2:55 PM EST documented as of this encounter Care Teams Machinist Outside Relationship Specialty Start Date End Date Tanvi Leahc MD [address] [place] [address] PCP - General Family Medicine 05/20/21 documented as of this encounter
--- OUTSIDE RECORDS SUMMARY | 2024-03-29 18:37 | XMS_ITS | Encounter Summary ---
Author Organization [employer] Address [address] [facility] [address] [place] [address] Care Team Providers Care Solvent Recoverer Name Role Phone Tanvi Leach MD Primary Care Provider [phone] Reason for Visit * Reason Comments Med Refill Encounter Details Date Type Department Care Team (Late st Contact Info) Description 02/21/2023 Refill [facility] [address] [place], [place] [phone] Pauline Cisneros MD [address] [place] [address] Social History Tobacco Use Types Packs/Day Years [...] Description 08/13/2024 10:00 AM EDT Office Visit [facility] ADULT DENTAL [address] [place] [address] Jaleesa Farah documented as of this encounter Visit Diagnoses Not on filedocumented in this encounter Additional Health Concerns Assessment Noted Time PHQ-9 Depression Total Score: 11 023 2:58 PM EST documented as of this encounter Care Teams Solvent Recoverer Relationship Specialty Start Date End Date Tanvi Leach MD [address] [place] [address] PCP - General Family Medicine 05/20/21 documented as of this encounter
--- OUTSIDE RECORDS SUMMARY | 2024-03-29 18:37 | XMS_ITS | Encounter Summary ---
Author Organization [employer] Address [address] [facility] [address]t [place] [address] Care Team Providers Care Boilermaker Loftsman Name Role Phone Tanvi Leach MD Primary Care Provider [phone] Reason for Visit * Reason Comments Dental Pain Patient complains ab out pain a month ago, but since yesterday is more painful Encounter Details Date Type Department Care Team ([facility] st Contact Info) Description 03/10/2024 10:30 AM EST Office Visit [facility] ADULT DENTAL [address] [place], [place] [phone] Junior Sorenson, DDS [address] [place], [place] [phone] Dental abscess (Primary Dx); Odontalgia Social History [...] with others, in a hotel, in a fpc, living outside on the street, on a [...] Timeout Time: 1042 (Dental Emergency Exam) Location: [facility] Tooth: #31 Procedure: X-rays and Emergency Verified the above with patient, client services assistant, and provider. Confirmed via patient's chart, intraorally and by radiographs. Coke Inspector: not applicable Chief Complaint Patient presents with Dental Pain Patient complains about pain a month ago, but since yesterday is more painful Medical Hx: Vitals: Blood pressure 124/80. Past Medical History: Diagnosis Date Anxiety Cannabis dependence ([facility]) 04/20/2014 GERD (gastroesophageal reflux disease) Hypertension Medications: [...] 3 perphenazine 4 MG tablet sodium chloride ([employer] [facility] [place]) 0.65 % nasal spray Administer 1 spray [...] Arguello / attending dentist Prescriptions: Sent to [facility] on file Pt tolerated procedure well, all questions answered. Dismissed in good condition. NV: F/U with Dr. Arguello Pathologist: Rebecca Espinoza Dentist: Junior Sorenson DDS documented in this encounter Miscellaneous Notes * Addendum Note - Junior Sorenson DDS - 03/10/2024 10:30 AM ESTAddended by: JUNIOR SORENSON on: 03/10/2024 11:11 AM Modules accepted: Orders documented in this encounter Plan of Treatment Upcoming Encounters Date Type Department Care Team (Late st Contact Info) Description 08/13/2024 10:00 AM EDT Office Visit [facility] ADULT DENTAL [address] [place] [address] Jaleesa Farah Scheduled Orders Name Type Priority [...] documented as of this encounter Care Teams Boilermaker Loftsman Relationship Specialty Start Date End Date Tanvi Leach MD [address] [place] [address] PCP - General Family Medicine 05/20/21 documented as of this encounter
--- OUTSIDE RECORDS SUMMARY | 2024-03-29 18:37 | XMS_ITS | Encounter Summary ---
Author Organization [employer] Address [address] [facility] 7[address] [place] [address] Care Team Providers Care Assurance Manager Name Role Phone Tanvi Leach MD Primary Care Provider [phone] Reason for Visit * Reason Onset Date Comments Call Back Request 11/21/2023 Encounter Details Date Type Department Care Team ([facility] st Contact Info) Description 11/21/2023 Telephone [facility] MEDICINE [address] [place] [address] Tanvi Leach MD [address] [place], [place] [phone] Call Back Request Social History Tobacco Use [...] with others, in a hotel, in a custodial, living outside on the street, on a [...] - 11/21/2023 3:53 PM EDT Tc from [facility] requesting a call back to obtain some clarity on why the provider would just simply write a letter indicating it is ok for the patient to be in charge of own finances when the patient have a list of conditions including a learning disability please call the patients test worker at [phone] Hubbard documented in this encounter Plan of Treatment Upcoming Encounters Date Type Department Care Team (Late st Contact Info) Description 08/13/2024 10:00 AM EDT Office Visit [facility] ADULT DENTAL [address] [place] [address] Jaleesa Farah documented as of this encounter Visit Diagnoses Not on filedocumented in this encounter Additional Health Concerns Assessment Noted Time PHQ-9 Depression Total Score: 0 03/28/19 24 2:55 PM EST documented as of this encounter Care Teams Assurance Manager Relationship Specialty Start Date End Date Tanvi Leach MD [address] [place] [address] PCP - General Family Medicine 05/20/21 documented as of this encounter
--- OUTSIDE RECORDS SUMMARY | 2024-03-29 18:37 | XMS_ITS | Encounter Summary ---
Author Organization [employer] Address [address] [facility] [address] [place] [address] Care Team Providers Care Director Rehabilitation Program Name Role Phone Tanvi Leach MD Primary Care Provider [phone] Reason for Visit * Reason Onset Date Comments Durable Medical Equipment 02/29/2024 Encounter Details Date Type Department Care Team ([facility] st Contact Info) Description 02/29/2024 Telephone [facility] MEDICINE [address] [place], [place] [phone] Tanvi Leach MD [address] [place], [place] [phone] Durable Medical Equipment Social History Tobacco Use [...] Description 08/13/2024 10:00 AM EDT Office Visit [facility] ADULT DENTAL [address] [place] [address] Jaleesa Farah documented as of this encounter Visit Diagnoses Not on filedocumented in this encounter Additional Health Concerns Assessment Noted Time PHQ-9 Depression Total Score: 0 03/28/19 24 2:55 PM EST documented as of this encounter Care Teams Director Rehabilitation Program Relationship Specialty Start Date End Date Tanvi Leach MD [address] [place] [address] PCP - General Family Medicine 05/20/21 documented as of this encounter
--- OUTSIDE RECORDS SUMMARY | 2024-03-29 18:37 | XMS_ITS | Encounter Summary ---
Author Organization [employer] Address [address] [facility] [address] [place] [address] Care Team Providers Care File Clerk Name Role Phone Tanvi Leach MD Primary Care Provider Reason for Visit * Reason Onset Date Comments Med Refill 02/29/2024 Encounter Details Date Type Department Care Team ([facility] st Contact Info) Description 02/29/2024 Telephone [facility] MEDICINE [address] [place], [place] [phone] Tanvi Leach MD [address] [place], [place] [phone] Med Refill Social History Tobacco Use Types [...] with others, in a hotel, in a assisted, living outside on the street, on a [...] PM EST Please advise patient to call [facility] Pharmacy to transfer scripts. 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
--- NOTE | 2024-03-29 19:45 | PC.NURSE ---
patient appears to remain at rest presently respiraitons are even and unlabored appears in no distress.
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
[2024-03-29] MEDS: clonazePAM 0.5 MG TABLET PO (21:13)
[2024-03-29] MEDS: Gabapentin 100 MG CAPSULE PO (21:14)
[2024-03-29] MEDS: QUEtiapine Fumarate 100 MG TABLET PO (21:14)
[2024-03-30 06:12] VITALS: RESP 16
--- NOTE | 2024-03-30 07:20 | PHA.MEDREC ---
Pharmacy Consult ? Medication Reconciliation Pharmacy has completed the medication reconciliation. PATIENT HAD LIST FROM RECENT DISHCHARGE FROM [facility]
[2024-03-30 08:20] VITALS: BP 135/75; PULSE 67; RESP 14; TEMP 36.5; O2SAT 98
[2024-03-30 09:20] VITALS: BP 135/75
[2024-03-30] MEDS: Ascorbic Acid 500 MG TABLET PO (09:20)
[2024-03-30] MEDS: Gabapentin 100 MG CAPSULE PO ×2 (09:20→21:07)
[2024-03-30] MEDS: metFORMIN HCl 500 MG TABLET PO ×2 (09:20→21:09)
[2024-03-30] MEDS: ARIPiprazole 30 MG TABLET PO (09:20)
[2024-03-30] MEDS: Vitamin E (Dl,Tocopheryl Acet) 180 MG (400 UNIT) CAPSULE PO (09:20)
[2024-03-30] MEDS: guanFACINE HCl ER 2 MG TAB.ER.24H PO (09:20)
[2024-03-30] MEDS: lisinopriL 20 MG TABLET PO (09:20)
[2024-03-30] MEDS: FLUoxetine HCl 10 MG CAPSULE PO (09:20)
[2024-03-30 09:21] VITALS: BP 135/75
[2024-03-30] MEDS: Cholecalciferol (Vitamin D3) 25 MCG TABLET PO (09:21)
[2024-03-30] MEDS: amLODIPine Besylate 2.5 MG TABLET PO (09:21)
[2024-03-30] MEDS: Multivitamin TABLET 1 TAB PO (09:21)
--- NOTE | 2024-03-30 09:44 | PC.NURSE ---
pt reportts the reason for being here is that he feels he needs his klonopin and seroquel at night and that he will not be able to get them from his program until his meds are reviewed by their prescriber and they dispense all meds to him. states he has been on these meds for some time and both meds are on his discharge meds from the [facility]. CARE team attempting to work out with pt program and will get a psych consult for him while he is here
[2024-03-30] MEDS: Lactase TABLET 1 TAB PO ×2 (11:27→17:58)
[2024-03-30] MEDS: QUEtiapine Fumarate 50 MG TABLET PO (11:49)
[2024-03-30] MEDS: clonazePAM 0.5 MG TABLET PO (11:49)
[2024-03-30 18:13] VITALS: BP 121/78; PULSE 58; RESP 16; TEMP 36.4; O2SAT 98
[2024-03-30 20:25] LABS: Amphetamine Screen Urine Not Detected (Not Detect); Barbiturates, Urine Not Detected (Not Detect); Benzodiazepines Screen Urine Not Detected (Not Detect); Buprenorphine Scr Not Detected (Not Detect); Cannabinoid Screen Urine Not Detected (Not Detect); Cocaine Screen Urine Not Detected (Not Detect); Fentanyl, urine Not Detected (Not Detect); Methadone Screen, Urine Not Detected (Not Detect); Opiate Screen Urine Not Detected (Not Detect); Oxycodone Screen Urine Not Detected (Not Detect); Phencyclidine Screen Urine Not Detected (Not Detect)
[2024-03-30] MEDS: Melatonin 3 MG TABLET 6 MG PO (21:09)
[2024-03-30] MEDS: Atorvastatin Calcium 10 MG TABLET PO (21:09)
[2024-03-30] MEDS: QUEtiapine Fumarate 100 MG TABLET PO (21:09)
[2024-03-31 05:43] VITALS: BP 156/83; PULSE 66; RESP 16; TEMP 36.6; O2SAT 94
--- NOTE | 2024-03-31 06:17 | PC.NURSE ---
pt calm and cooperative, slept well throughout the night, symmetrical rise and fall of chest and unlabored respirations noted. pt did not display any behavioral concerns or symptoms of concern. 15 min checks throughout the shift. plan of care ongoing
[2024-03-31] MEDS: Omeprazole 20 MG CAPSULE.DR PO (06:23)
--- NOTE | 2024-03-31 07:10 | PC.NURSE ---
Assumed care of patient at 0645, patient appears to be in no apparent distress this am, up eating breakfast on couch in BH 7, calm and cooperative. Continue plan of care for discharge this am
[2024-03-31] MEDS: metFORMIN HCl 500 MG TABLET PO (08:08)
[2024-03-31] MEDS: Lactase TABLET 1 TAB PO (08:08)
[2024-03-31] MEDS: Multivitamin TABLET 1 TAB PO (08:08)
[2024-03-31] MEDS: amLODIPine Besylate 2.5 MG TABLET PO (08:09)
[2024-03-31] MEDS: Ascorbic Acid 500 MG TABLET PO (08:09)
[2024-03-31] MEDS: Gabapentin 100 MG CAPSULE PO (08:09)
[2024-03-31] MEDS: ARIPiprazole 30 MG TABLET PO (08:09)
[2024-03-31] MEDS: Cholecalciferol (Vitamin D3) 25 MCG TABLET PO (08:09)
[2024-03-31] MEDS: Fluticasone Propionate Nasal 16 GM SPRAY 1 SPRAY NOSTRIL-B (08:19)
[2024-03-31] MEDS: FLUoxetine HCl 10 MG CAPSULE PO (08:19)
[2024-03-31] MEDS: lisinopriL 20 MG TABLET PO (08:20)
[2024-03-31] MEDS: guanFACINE HCl ER 2 MG TAB.ER.24H PO (08:20)
[2024-03-31] MEDS: Vitamin E (Dl,Tocopheryl Acet) 180 MG (400 UNIT) CAPSULE PO (08:20)
[2024-03-31 10:05] VITALS: BP 143/64; PULSE 68; RESP 14; TEMP 36.3; O2SAT 97
== END 2024-03-31 10:07 | disposition home or self-care (01) ==
PROVIDERS: Physician Assistant; Emergency Provider Emergency Medicine; PCP General Practice
DX: F31.9 Bipolar disorder, unspecified (principal); R44.0 Auditory hallucinations; F41.9 Anxiety disorder, unspecified; I10 Essential (primary) hypertension; E11.9 Type 2 diabetes mellitus without complications; Z79.84 Long term (current) use of oral hypoglycemic drugs; Z79.899 Other long term (current) drug therapy; Z51.81 Encounter for therapeutic drug level monitoring; Z59.00 Homelessness unspecified
CPT/HCPCS: 36415; 80053; 80143; 80179; 80307; 81003; 85025; 99284; 99285; S9485

== ENCOUNTER 2024-04-11 10:49 | Outpatient (AMB) | payer OTHER, SELFPAY ==
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
[2024-04-11 11:04] VITALS: BP 133/73; PULSE 80; BMI 46.6
--- OUTSIDE RECORDS SUMMARY | 2024-04-11 11:44 | XMS_ITS | Clinical Summary ---
Author Organization [facility] Address [address] [place] [address] Phone Care Team Providers Care Director Credit Risk Name Role Phone Tanvi Leach MD Primary Care Provider [phone] Allergies No known active allergies Medications cetirizine (ZyrTEC) 10 mg chewable tablet Chew [...] not crush, chew, or split. Active lisinopriL (PRINIVIL,ZESTR IL) 20 mg tablet Take 1 tablet (20 mg total) by mouth 1 (one) time each day. Active melatonin 3 mg tablet Take 5 mg by mouth at bedtime as needed for sleep. Active lidocaine-prilo ana (EMLA) 2.5-2.5 % cream Apply 1 Application [...] EST - 01/28/2024 4:54 PM EST Emergency [facility] Emergency [address] [place] [address] Galdino Alvarez MD Schizophrenia, unspecified [...] Recorded Sex Assigned at Not on file Legal Sex Male 8:27 AM EST Gender Identity Not on file Sexual Orientation Not on file Obstetrics History Last Filed [...] patient's age to complete this topic Meningococcal B Vacine Aged Out No lo nger eligible based on patient's age to complete [...] Hold for add-ons. 01/28/2024 12:01 PM EST [facility] Comment:Auto resulted. Urine Urine specimen obtained by clean catch procedure / Unknown 01/28/2024 10:37 AM EST 01/28/2024 10:57 AM EST us Fred Harmon MD LAB URINE ORDERABLES Final Re sult [facility] [address] [place] [address], [place] [phone] * Troy top urine tube (01/28/2024 10:37 AM EST) Extra Tube Hold for add-ons. 01/28/2024 12:01 PM [facility] Comment:Auto resulted. Urine Urine specimen obtained by clean catch procedure / Unknown 01/28/2024 10:37 AM EST 01/28/2024 10:57 AM EST us Fred Harmon MD LAB URINE ORDERABLES Final Re sult [facility] [address] [place] [address], [place] [phone] * (ABNORMAL) Drug abuse screen 8a panel, urine (01/28/2024 10:36 AM EST) Pathologist [facility] Amphetamine Screen, Ur Negative Negative LAB CHEMISTRY METHOD 4 11:25 AM [facility] Comment:Certain OTC medicati ons containing ephedrine, phenylephrine, pseudoephedrine and phenylpropanolamine can cause false positive results. Barbiturate Screen, Ur Negative Negative LAB CHEMISTRY METHOD 4 11:25 AM [facility] Benzodiazepine Screen, Ur Negative Negative LAB CHEMISTRY METHOD 4 11:25 AM [facility] Cocaine Screen, Ur Negative Negative LAB CHEMISTRY METHOD 4 11:25 AM [facility] Opiate Screen, Ur Negative Negative LAB CHEMISTRY METHOD 4 11:25 AM [facility] Cannabinoid (THC) Screen, Ur Positive(A ) Negative LAB CHEMISTRY METHOD 4 11:25 AM [facility] Comment:Specimens from patie nts taking pantoprazole sodium (Protonix) have been shown to produce false positive results. Oxycodone Screen, Ur Negative Negative LAB CHEMISTRY METHOD 4 11:25 AM [facility] Fentanyl, Ur Negative Negative LAB CHEMISTRY METHOD 4 11:25 AM EST [facility] Urine Urine specimen obtained by clean catch procedure / Unknown Non-blood Collection / Unknown 01/28/2024 10:36 AM EST 01/28/2024 10:55 AM EST Gina [facility] - 01/28/2024 11:25 AM EST Assay cutoffs: Amphetamines ? 1000 ng/mL Barbiturates ?200 ng/mL Benzodiazepines ?? 200 ng/mL Cocaine ? 300 ng/mL Fentanyl ?1 ng/mL Opiates ? 300 ng/mL Oxycodone ? 100 ng/mL THC ?50 ng/mL Semi-quantitative assay for screening purposes only. Unconfirmed screening result should not be used for non-medical purposes. *ALTERNATE METHOD CONFIRMATION DONE UPON REQUEST ONLY* Galdinomicah Alvarez MD LAB URINE ORDERABLES Final Resu lt [facility] [address] [place] [address], * Buprenorphine screen, urine (01/28/2024 10:36 AM EST) Buprenorphine Screen Urine Negative Negative LAB CHEMISTRY METHOD 01/28/2024 11:25 AM EST [facility] Urine Urine specimen obtained by clean catch procedure / Unknown Non-blood Collection / Unknown 01/28/2024 10:36 AM EST 01/28/2024 10:55 AM EST Gina [facility] - 01/28/2024 11:25 AM EST Assay cutoff 5 ng/mL Semi-quantitative assay for screening purposes only. Unconfirmed screening result should not be used for non-medical purposes. *ALTERNATE METHOD CONFIRMATION DONE UPON REQUEST ONLY* Galdinomicah Alvarez MD LAB URINE ORDERABLES Final Resu lt Performing Organization Address [facility] Co de Phone Number [facility] [address] [place] [address], * Methadone, urine (01/28/2024 10:36 AM EST) Methadone Screen, Urine Negative Negative LAB CHEMISTRY METHOD 01/28/2024 11:25 AM EST [facility] Comment: Assay cutoff 300 ng/mL Semi-quantitative assay for screening purposes only. Unconfirmed screening result should not be used for non-medical purposes. *ALTERNATE METHOD CONFIRMATION DONE UPON REQUEST ONLY* Urine Urine specimen obtained by clean catch procedure / Unknown Non-blood Collection / Unknown 01/28/2024 10:36 AM EST 01/28/2024 10:55 AM EST Galdino Alvarez MD LAB URINE ORDERABLES Final Resu lt Performing Organization Address [facility] Phone Number [facility] [address] [place] [address], [place] [phone] * Phencyclidine, urine (01/28/2024 10:36 AM EST) PCP Scrn, Ur Negative Negative LAB CHEMISTRY METHOD 01/28/2024 11:25 AM EST [facility] Comment: Assay cutoff 25 ng/mL Semi-quantitative assay for screening purposes only. Unconfirmed screening result should not be used for non-medical purposes. *ALTERNATE METHOD CONFIRMATION DONE UPON REQUEST ONLY* Urine Urine specimen obtained by clean catch procedure / Unknown Non-blood Collection / Unknown 01/28/2024 10:36 AM EST 01/28/2024 10:55 AM EST Galdino Alvarez MD LAB URINE ORDERABLES Final Resu lt Performing Organization Address [facility] Co de Phone Number [facility] [address] [place] [address], [place] [phone] * (ABNORMAL) CBC auto differential (01/27/2024 10:31 PM EST) [facility] Signature WBC 4.6(L) 4.8 - 10.8 K/mcL LAB HEMETOLOGY METHOD 01/27/2024 10:49 PM [facility] RBC 4.60 4.50 - 5.50 M/mcL LAB HEMETOLOGY METHOD 01/27/2024 10:49 PM [facility] Hemoglobin 13.6 13.5 - 17.5 g/dL LAB HEMETOLOGY METHOD 01/27/2024 10:49 PM [facility] Hematocrit 40.9(L) 42.0 - 54.0 % LAB HEMETOLOGY METHOD 01/27/2024 10:49 PM [facility] MCV 89.5 79.0 - 98.0 FL LAB HEMETOLOGY METHOD 01/27/2024 10:49 PM [facility] MCH 29.8 27.0 - 32.0 pcg LAB HEMETOLOGY METHOD 01/27/2024 10:49 PM [facility] MCHC 33.3 32.0 - 37.0 g/dL LAB HEMETOLOGY METHOD 01/27/2024 10:49 PM [facility] RDW 14.1 11.0 - 15.0 % LAB HEMETOLOGY METHOD 01/27/2024 10:49 PM [facility] Platelets 356 130 - 400 K/mcL LAB HEMETOLOGY METHOD 01/27/2024 10:49 PM [facility] MPV 9.1 7.0 - 11.0 FL LAB HEMETOLOGY METHOD 01/27/2024 10:49 PM [facility] NRBC 0.0 <1.0 % LAB HEMETOLOGY METHOD 01/27/2024 10:49 PM [facility] NRBC Absolute 0.00 <0.10 K/mcL LAB HEMETOLOGY METHOD 01/27/2024 10:49 PM [facility] Neutrophils Relative 64.8 % LAB HEMETOLOGY METHOD 01/27/2024 10:49 PM [facility] Lymphocytes Relative 23.1 % LAB HEMETOLOGY METHOD 01/27/2024 10:49 PM [facility] Monocytes Relative 9.3 % LAB HEMETOLOGY METHOD 01/27/2024 10:49 PM [facility] Eosinophils Relative 1.5 % LAB HEMETOLOGY METHOD 01/27/2024 10:49 PM [facility] Basophils Relative 1.1 % LAB HEMETOLOGY METHOD 01/27/2024 10:49 PM [facility] Immature Granulocytes Relative 0.2 % LAB HEMETOLOGY METHOD 01/27/2024 10:49 PM [facility] Neutrophils Absolute 3.01 1.50 - 7.00 K/mcL LAB HEMETOLOGY METHOD 01/27/2024 10:49 PM [facility] Lymphocytes Absolute 1.07 1.00 - 5.00 K/mcL LAB HEMETOLOGY METHOD 01/27/2024 10:49 PM [facility] Monocytes Absolute 0.43 0.20 - 1.00 K/mcL LAB HEMETOLOGY METHOD 01/27/2024 10:49 PM [facility] Eosinophils Absolute 0.07 0.00 - 0.50 K/mcL LAB HEMETOLOGY METHOD 01/27/2024 10:49 PM [facility] Basophils Absolute 0.05 0.00 - 0.20 K/mcL LAB HEMETOLOGY METHOD 01/27/2024 10:49 PM [facility] Immature Granulocytes Absolute 0.01 0.00 - 0.03 K/mcL LAB HEMETOLOGY METHOD 01/27/2024 10:49 PM [facility] Blood Venous blood specimen / Unknown Venipuncture / Unknown 01/27/2024 10:31 PM EST 01/27/2024 10:43 PM EST us Galdino Alvarez MD LAB BLOOD ORDERABLES Final Resu lt Performing Organization Address [facility]/ZIP Co de Phone Number [facility] [address] [place] [address], [place] [phone] * Ethanol (01/27/2024 10:31 PM EST) Ethanol Level 4 0 - 10 mg/dL LAB CHEMISTRY METHOD 01/27/2024 11:08 PM EST [facility] Blood Venous blood specimen / Unknown Venipuncture / Unknown 01/27/2024 10:31 PM EST 01/27/2024 10:43 PM EST us Galdino Alvarez MD LAB BLOOD ORDERABLES Final Resu lt Performing Organization Address [facility] de Phone Number [facility] [address] [place] [address], [place] [phone] * (ABNORMAL) Acetaminophen level (01/27/2024 10:31 PM EST) Acetaminophen Level <2.0(L) 10.0 - 30.0 mcg/mL LAB CHEMISTRY METHOD 01/27/2024 11:14 PM EST [facility] Blood Venous blood specimen / Unknown Venipuncture / Unknown 01/27/2024 10:31 PM EST 01/27/2024 10:43 PM EST us Galdino Alvarez MD LAB BLOOD ORDERABLES Final Resu lt Performing Organization Address [facility] Co de Phone Number [facility] [address] [place] [address], [place] [phone] * (ABNORMAL) Salicylate level (01/27/2024 10:31 PM EST) Salicylate Level <1.7(L) 2.0 - 29.0 mg/dL LAB CHEMISTRY METHOD 01/27/2024 11:08 PM [facility] Blood Venous blood specimen / Unknown Venipuncture / Unknown 01/27/2024 10:31 PM EST 01/27/2024 10:43 PM EST Galdino Cayetano Alvarez MD LAB BLOOD ORDERABLES Final Resu lt [facility] [address] [place] [address], [place] [phone] * (ABNORMAL) Comprehensive metabolic panel (01/27/2024 10:31 PM EST) Pathologist [facility] Sodium 137 133 - 145 mmol/L LAB CHEMISTRY METHOD 01/27/2024 11:08 PM [facility] Potassium 3.6 3.5 - 5.5 mmol/L LAB CHEMISTRY METHOD 01/27/2024 11:08 PM [facility] Chloride 105 96 - 110 mmol/L LAB CHEMISTRY METHOD 01/27/2024 11:08 PM [facility] CO2 26 21 - 32 mmol/L LAB CHEMISTRY METHOD 01/27/2024 11:08 PM [facility] Anion Gap 6 3 - 11 LAB CHEMISTRY METHOD 01/27/2024 11:08 PM [facility] Glucose 111(H) 70 - 100 mg/dL LAB CHEMISTRY METHOD 01/27/2024 11:08 PM [facility] BUN 13 5 - 25 mg/dL LAB CHEMISTRY METHOD 01/27/2024 11:08 PM [facility] Creatinine 1.27 0.70 - 1.30 mg/dL LAB CHEMISTRY METHOD 01/27/2024 11:08 PM [facility] eGFR 74 >=60 mL/min/1. 73m2 LAB CHEMISTRY METHOD 01/27/2024 11:08 PM [facility] Comment:Calculation based on the??Chronic Kidney Disease Epidemiology Collaboration (CKD-EPI) equation refit??without adjustment for race. BUN/Creatinine Ratio 10.2 LAB CHEMISTRY METHOD 01/27/2024 11:08 PM [facility] Calcium 9.2 8.5 - 10.5 mg/dL LAB CHEMISTRY METHOD 01/27/2024 11:08 PM [facility] AST (SGOT) 71(H) 10 - 42 unit/L LAB CHEMISTRY METHOD 01/27/2024 11:08 PM [facility] ALT (SGPT) 63(H) 10 - 60 unit/L LAB CHEMISTRY METHOD 01/27/2024 11:08 PM [facility] Alkaline Phosphatase 86 42 - 121 unit/L LAB CHEMISTRY METHOD 01/27/2024 11:08 PM [facility] Total Protein 7.3 6.0 - 8.0 g/dL LAB CHEMISTRY METHOD 01/27/2024 11:08 PM [facility] Albumin 4.4 3.2 - 5.0 g/dL LAB CHEMISTRY METHOD 01/27/2024 11:08 PM [facility] Total Bilirubin 0.7 0.0 - 1.4 mg/dL LAB CHEMISTRY METHOD 01/27/2024 11:08 PM [facility] Blood Venous blood specimen / Unknown Venipuncture / Unknown 01/27/2024 10:31 PM EST 01/27/2024 10:43 PM EST us Galdino B Antonio LAWSON LAB BLOOD ORDERABLES Final Resu lt [facility] [address] [place] [address], from Last 3 Months Insurance MEDICAID - [place] MEDICARE [facility] MEDICARE Member Subscriber Plan / Payer (Ef fective 2023-Present) Name:Omkar Tafoya Relation to Subscriber:Self Name:Omkar Tafoya Payer ID:[id number] Group ID:[id number] Type:Not on file Address: [address] [place] [address] Care Teams Director Credit Risk Relationship Specialty Start Date End Date Tanvi Leach MD [address] [place] [phone] PCP - General 05/09/23
--- OUTSIDE RECORDS SUMMARY | 2024-04-11 11:44 | XMS_ITS | Encounter Summary ---
Author Organization [employer] Address [address] [facility] 7t [place] [address] Care Team Providers Care Biological Science Technician Fish Name Role Phone Tanvi Leach MD Primary Care Provider [phone] Encounter Details Date Type Department Care Team ([facility] Contact Info) Description 06/09/2022 Orders Only [facility] [address] [place] [address] [phone] Tanvi Leach MD [address] [place] [address] [phone] Social History Tobacco Use Types Packs/Day Years [...] suspected to have Coronavirus/COVID-19? No / Unsure 05/29/2022 3:39 PM EDT documented as of this encounter Plan of Treatment Upcoming Encounters Date Type Department Care Team (Late Contact Info) Description 06/02/2024 4:00 PM EDT Office Visit [facility] [address] [place] [address] [phone] Tanvi Leach MD [address] [facility] [place] [address] 08/13/2024 10:00 AM EDT Office Visit [facility] ADULT DENTAL [address] [place] [address] Jaleesa Farah documented as of this encounter Visit Diagnoses Not on filedocumented in this encounter Additional Health Concerns Assessment Noted Time PHQ-9 Depression Total Score: 11 023 2:58 PM EST documented as of this encounter Care Teams Biological Science Technician Fish Relationship Specialty Start Date End Date Tanvi Leach MD [address] [facility] [place] [address] PCP - General Family Medicine 05/20/21 documented as of this encounter
--- OUTSIDE RECORDS SUMMARY | 2024-04-11 11:44 | XMS_ITS | Encounter Summary ---
Author Organization [employer] Address [address] [facility] [address] [place] [address] Care Team Providers Care Coiler Name Role Phone Tanvi Leach MD Primary Care Provider Encounter Details Date Type Department Care Team ([facility] Contact Info) Description 07/27/2022 Telephone [facility]INE [address] [place] [address] [phone] Tanvi Leach MD [address] [place] [address] [phone] Social History Tobacco Use Types Packs/Day Years [...] Upcoming Encounters Date Type Department Care Team ([facility] Contact Info) Description 06/02/2024 4:00 PM EDT Office Visit [facility]INE [address] [place] [address] [phone] Tanvi Leach MD [address] [place] [address] 08/13/2024 10:00 AM EDT Office Visit [facility] ADULT DENTAL [address] [place] [address] Jaleesa Farah documented as of this encounter Visit Diagnoses Not on filedocumented in this encounter Additional Health Concerns Assessment Noted Time PHQ-9 Depression Total Score: 11 023 2:58 PM EST documented as of this encounter Care Teams Coiler Relationship Specialty Start Date End Date Tanvi Leach MD [address] [place] [address] PCP - General Family Medicine 05/20/21 documented as of this encounter
--- OUTSIDE RECORDS SUMMARY | 2024-04-11 11:45 | XMS_ITS | Encounter Summary ---
Author Organization [employer] Address [address] [facility] [address] [place] [address] Care Team Providers Care Director Of Player Personnel Name Role Phone Tanvi Leach MD Primary Care Provider [phone] Reason for Visit * Reason Onset Date Comments Durable Medical Equipment 02/29/2024 Encounter Details Date Type Department Care Team ([facility] st Contact Info) Description 02/29/2024 Telephone [facility] [address] [place], [place] [phone] Tanvi Leahc MD [address] [place], [place] [phone] Durable Medical Equipment Social History Tobacco Use [...] with others, in a hotel, in a alf, living outside on the street, on a [...] Care Team (Late st Contact Info) Description 06/02/2024 4:00 PM EDT Office Visit [facility] [address] [place] [phone] Tanvi Leach MD [address] [place] [address] 08/13/2024 10:00 AM EDT Office Visit [facility] ADULT DENTAL [address] [place] [address] Jaleesa Farah documented as of this encounter Visit Diagnoses Not on filedocumented in this encounter Additional Health Concerns Assessment Noted Time PHQ-9 Depression Total Score: 0 03/28/19 24 2:55 PM EST documented as of this encounter Care Teams Director Of Player Personnel Relationship Specialty Start Date End Date Tanvi Leach MD [address] [place] [phone] PCP - General Family Medicine 05/20/21 documented as of this encounter
--- OUTSIDE RECORDS SUMMARY | 2024-04-11 11:45 | XMS_ITS | Encounter Summary ---
Author Organization [employer] Address [address] [facility] 7t [place] [address] Care Team Providers Care Dock Clerk Name Role Phone Tanvi Leach MD Primary Care Provider [phone] Reason for Visit * Reason Onset Date Comments Med Refill 02/29/2024 Encounter Details Date Type Department Care Team ([facility] st Contact Info) Description 02/29/2024 Telephone [facility] MEDICINE [address] [place], [place] [phone] Tanvi Leach MD [address] [place], [place] [phone] Med Refill Social History Tobacco Use Types [...] PM EST Please advise patient to call [facility] Pharm[facility] to transfer scripts. * Telephone Encounter - Troy Bautista - 02/29/2024 2:50 PM EST TC from pt requesting medication refill. Medications needing refill : Met FORMSHAZIA, OSM, (Fortamet) 500 MG 24 hr tablet B Complex-C (b complex-vitamin c) tablet To be sent to: [id number] documented in this encounter Plan of Treatment Upcoming Encounters Date Type Department Care Team (Late st Contact Info) Description 06/02/2024 4:00 PM EDT Office Visit [facility] [address] [place] [address] Tanvi Leach MD [address] [place] [address] 08/13/2024 10:00 AM EDT Office Visit [facility] ADULT DENTAL [address] [place] [address] Jaleesa Farah documented as of this encounter Visit Diagnoses Diagnosis 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
--- OUTSIDE RECORDS SUMMARY | 2024-04-11 11:45 | XMS_ITS | Encounter Summary ---
Author Organization [employer] Address [address] [facility] [address] [place] [address] Care Team Providers Care Hvac Technician Residential Name Role Phone Tanvi Leach MD Primary Care Provider [phone] Encounter Details Date Type Department Care Team ([facility] st Contact Info) Description 07/25/2023 Telephone [facility]INE [address] [place], [place] [phone] Tanvi Leach MD [address] [place], [place] [phone] Social History Tobacco Use Types Packs/Day Years [...] with others, in a hotel, in a half-way, living outside on the street, on a [...] Description 06/02/2024 4:00 PM EDT Office Visit [facility]INE [address] [place] [address] Tanvi Leach MD [address] [place] [address] 08/13/2024 10:00 AM EDT Office Visit [facility] ADULT DENTAL [address] [place], [place] [phone] Jaleesa Farah documented as of this encounter Visit Diagnoses Not on filedocumented in this encounter Additional Health Concerns Assessment Noted Time PHQ-9 Depression Total Score: 0 03/28/19 24 2:55 PM EST documented as of this encounter Care Teams Hvac Technician Residential Relationship Specialty Start Date End Date Tanvi Leach MD [address] [place] [phone] PCP - General Family Medicine 05/20/21 documented as of this encounter
--- OUTSIDE RECORDS SUMMARY | 2024-04-11 11:45 | XMS_ITS | Encounter Summary ---
Author Organization [employer] Address [address] [place] [address] Care Team Providers Care Health Informatics Specialist Name Role Phone Tanvi Leach MD Primary Care Provider [phone] Reason for Visit * Reason Onset Date Comments Medication Question 04/04/2024 Encounter Details Date Type Department Care Team ([facility] st Contact Info) Description 04/04/2024 Telephone [facility] MEDICINE [address] [place], [place] [phone] Tanvi Leach MD [address] [place], [place] [phone] Medication Question Social History Tobacco Use Types Packs/Day Years Used Date Smoking Tobacco: Former Cigarettes Smokeless Tobacco: Never Alcohol Use Standard Drinks/Week Comments Never 0 (1 standard drink = 0.6 oz pur e alcohol) Depression Answer Date Recorded Patient Health Questionnaire-9 Score 18 04/07/2024 Patient Health Questionnaire-9 Score 18 04/07/2024 Last PHQ-9: Questionnaire Data Not on file 0 04/07/2024 Housing Stability Answer Date Recorded What is your housing situation today? I have housing today, but I am worried about losing housing in the future 04/07/[address] you li ve. Do you have problems with any of the following? None of the above 04/07/2024 Food Insecurity Answer Date Recorded Within the past 12 months, y ou worried that your food would run out before you got money to buy more: Sometimes True 2024 Within the past 12 months,th e food you bought just didn't last and you didn't have enough money to get more: Sometimes True 04/07/2024 Transportation Answer Date Recorded In the past 12 months, has l ack of transportation kept you from medical appts, meetings, work or from getting things needed for daily living? No 04/07/2024 Utilities Answer Date Recorded In the past 12 months, has t he electric, gas, oil or water company threatened to shut off services in your home? I am not sure 04/07/2024 Depression Answer Date Recorded Patient Health Questionnaire-2 Score 6 04/07/2024 Internet Access Answer Date Recorded Internet Access Q1 Yes 04/07/2024 Internet Access Q2 Not on file 04/07/2024 Sex and Gender Information Value Date Recorded Sex Assigned at Male 12/26/2021 10:15 AM EDT Legal Sex Male 10:15 AM EDT Gender Identity Male 12/26/2021 10:15 AM EDT Sexual Orientation Choose not to disclose 2021 10:15 AM EDT documented as of this encounter Miscellaneous Notes * Telephone Encounter - Nica Luong RN - 04/09/2024 12:43 PM EST TC placed to patient [phone] in regards to below message. Patient did not answer, RN left VM requesting CB to red team nurses. Patient to f/u PRN. * Telephone Encounter - Marylou Duque - 04/09/2024 12:37 PM EST Tc from [place] requesting a call back regarding med: - valACYclovir (Valtrex) 1 g tablet - Miconazole 2 % powder [phone] * Telephone Encounter - Diana Church RN - 04/07/2024 10:47 AM EST T/C placed to pt to advise of message from PCP: I believe the patient has been buying Vit E OTC. Ican try to prescribe it for him if he no longer has it, but I am not sure that it will be covered. Please let me know if the patient has Vit E, if so it can be added to his daily medication list. Otherwise I will try to prescribe it. No answer, v/m left to return call to Red team nurses. * Telephone Encounter - Em Spivey RN - 04/04/2024 1:10 PM EST Telephone call returned to [facility] DO[facility]. Elidia reports was referred to them and med list that christian has vit E 450mg PO daily but pt doesn't have the script. She knows pt has upcoming appt with PCP 04/07 but was wondering if she can get some clarification on whether or not PCP wants pt on this med. If so, needs script. * Telephone Encounter - Vanessa Vargas - 04/04/2024 12:28 PM EST Tc from visiting nurse Elidia requesting a call back to review medication changes since pt ER visit. Contact Elidia at [phone] documented in this encounter Plan of Treatment Upcoming Encounters Date Type Department Care Team (Late st Contact Info) Description 06/02/2024 4:00 PM EDT Office Visit [facility] MEDICINE [address] [place] [address] Tanvi Leach MD [address] [place] [address] 08/13/2024 10:00 AM EDT Office Visit [facility] ADULT DENTAL [address] [place] [address] Jaleesa Farah documented as of this encounter Visit Diagnoses Not on filedocumented in this encounter Additional Health Concerns Assessment Noted Time PHQ-9 Depression Total Score: 0 03/28/19 24 2:55 PM EST documented as of this encounter Care Teams Health Informatics Specialist Relationship Specialty Start Date End Date Tanvi Leach MD [address] [place] [address] PCP - General Family Medicine 05/20/21 documented as of this encounter
--- OUTSIDE RECORDS SUMMARY | 2024-04-11 11:45 | XMS_ITS | Encounter Summary ---
Author Organization [employer] Address [address] [place] [address] Care Team Providers Care Sewer Pipe Sorter Name Role Phone Tanvi Leach MD Primary Care Provider [phone] Encounter Details Date Type Department Care Team (Latest Contact Info) Description 04/07/2024 Travel Social History Tobacco Use Types Packs/Day Years [...] 4:00 PM EDT Office Visit [facility] MEDICINE [address] [place] [address] Tanvi Leach MD 230 [place] [address] 08/13/2024 10:00 AM EDT Office Visit [facility] ADULT DENTAL [address] [place] [address] Jaleesa Farah documented as of this encounter Visit Diagnoses Not on filedocumented in this encounter Additional Health Concerns Assessment Noted Time PHQ-9 Depression Total Score: 18 025 2:03 PM EST documented as of this encounter Care Teams Sewer Pipe Sorter Relationship Specialty Start Date End Date Tanvi Leach MD [address] [place] [address] PCP - General Family Medicine 05/20/21 documented as of this encounter
--- OUTSIDE RECORDS SUMMARY | 2024-04-11 11:45 | XMS_ITS | Encounter Summary ---
Author Organization [employer] Address [address] [place] [address] Care Team Providers Care Ag Equipment Field Service Technician Name Role Phone Tanvi Leach MD Primary Care Provider [phone] Reason for Visit * Reason Onset Date Comments Medication Question 02/15/2024 Encounter Details Date Type Department Care Team ([facility] st Contact Info) Description 02/15/2024 Telephone [facility] MEDICINE [address] [place], [place] [phone] Tanvi Leach MD [address] [place], [place] [phone] Medication Question Social History Tobacco Use Types [...] Miscellaneous Notes * Telephone Encounter - Mingo Javier - 02/15/2024 2:46 PM EST Tc from pt requesting a call back stating that he is sleeping and is having trouble breathing when he is sleeping. Pt would like to talk about getting a New CPAP Machine. Contact pt at [phone] documented in this encounter Plan of Treatment Upcoming Encounters Date Type Department Care Team (Late st Contact Info) Description 06/02/2024 4:00 PM EDT Office Visit [facility] MEDICINE [address] [place] [address] Tanvi Leach MD [address] [place] [address] 08/13/2024 10:00 AM EDT Office Visit [facility] ADULT DENTAL [address] [place] [address] Jaleesa Farah documented as of this encounter Visit Diagnoses Not on filedocumented in this encounter Additional Health Concerns Assessment Noted Time PHQ-9 Depression Total Score: 0 03/28/19 24 2:55 PM EST documented as of this encounter Care Teams Ag Equipment Field Service Technician Relationship Specialty Start Date End Date Tanvi Leach MD [address] [place] [address] PCP - General Family Medicine 05/20/21 documented as of this encounter
--- OUTSIDE RECORDS SUMMARY | 2024-04-11 11:45 | XMS_ITS | Encounter Summary ---
Author Organization [employer] Address [address] 7[address] [place] [address] Care Team Providers Care Assistant Film Editor Name Role Phone Tanvi Leach MD Primary Care Provider [phone] Reason for Visit * Reason Onset Date Comments Durable Medical Equipment 04/10/2024 Encounter Details Date Type Department Care Team ([facility] st Contact Info) Description 04/10/[address] [facility] MEDICINE [address] [place], [place] [phone] Tanvi Leach MD [address] [place], [place] [phone] Durable Medical Equipment Social History Tobacco Use [...] encounter Miscellaneous Notes * Telephone Encounter - Marylou Duque - 04/10/2024 1:40 PM EST Tc from pt requesting CPAP Machine. [facility] [phone] documented in this encounter Plan of Treatment Upcoming Encounters Date Type Department Care Team (Late st Contact Info) Description 06/02/2024 4:00 PM EDT Office Visit [facility] MEDICINE [address] [place] [address] Tanvi Leach MD [address] [place] [address] 08/13/2024 10:00 AM EDT Office Visit [facility] ADULT DENTAL [address] [place] [address] Jaleesa Farah documented as of this encounter Visit Diagnoses Not on filedocumented in this encounter Additional Health Concerns Assessment Noted Time PHQ-9 Depression Total Score: 18 025 2:03 PM EST documented as of this encounter Care Teams Assistant Film Editor Relationship Specialty Start Date End Date Tanvi Leach MD [address] [place] [address] PCP - General Family Medicine 05/20/21 documented as of this encounter
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
--- OUTSIDE RECORDS SUMMARY | 2024-04-11 11:45 | XMS_ITS | Encounter Summary ---
Author Organization [email or web address] Address [address] [facility] 7t [place] [address] Care Team Providers Care Project Geologist Name Role Phone Tanvi Leach MD Primary Care Provider [phone] Reason for Visit * Reason Comments Med Refill Encounter Details Date Type Department Care Team ([facility] st Contact Info) Description 02/01/2024 Refill [facility] [address] [place], [place] [phone] Tanvi Leach MD [address] [place], [place] [phone] Nasal congestion Social History Tobacco Use Types [...] with others, in a hotel, in a longterm, living outside on the street, on a [...] Description 06/02/2024 4:00 PM EDT Office Visit [facility] [address] [place] [address] Tanvi Leach MD [address] [place] [address] 08/13/2024 10:00 AM EDT Office Visit [facility]ULT D[facility] [address] [place] [address] Jaleesa Farah documented as of this encounter Visit Diagnoses Diagnosis Nasal congestion Other diseases of nasal cavity and sinuses documented in this encounter Additional Health Concerns Assessment Noted Time PHQ-9 Depression Total Score: 0 03/28/19 24 2:55 PM EST documented as of this encounter Care Teams Project Geologist Relationship Specialty Start Date End Date Tanvi Leach MD [address] [place] [address] PCP - General Family Medicine 05/20/21 documented as of this encounter
--- OUTSIDE RECORDS SUMMARY | 2024-04-11 11:45 | XMS_ITS | Encounter Summary ---
Author Organization [employer] Address [address] [place] [address] Care Team Providers Care Glass Block Installer Name Role Phone Tanvi Leach MD Primary Care Provider [phone] Reason for Visit * Reason Comments Med Refill Encounter Details Date Type Department Care Team (Late st Contact Info) Description 02/21/2023 Refill [facility] [address] [place], [place] [phone] Pauline Cisneros MD [address] [place] [address] Social History Tobacco Use Types Packs/Day Years [...] Description 06/02/2024 4:00 PM EDT Office Visit [facility] MEDICINE [address] [place] [address] Tanvi Leach MD [address] [place] [address] 08/13/2024 10:00 AM EDT Office Visit [facility] ADULT DENTAL [address] [place] [address] Jaleesa Farah documented as of this encounter Visit Diagnoses Not on filedocumented in this encounter Additional Health Concerns Assessment Noted Time PHQ-9 Depression Total Score: 11 023 2:58 PM EST documented as of this encounter Care Teams Glass Block Installer Relationship Specialty Start Date End Date Tanvi Leach MD [address] [place] [phone] PCP - General Family Medicine 05/20/21 documented as of this encounter
--- OUTSIDE RECORDS SUMMARY | 2024-04-11 11:45 | XMS_ITS | Clinical Summary ---
Author Organization [employer] Address [address] [facility] [address] [place] [address] Care Team Providers Care Chromosomal Disorders Counselor Name Role Phone Tanvi Leach MD Primary Care Provider [phone] Allergies Active Allergy Reactions Criticality Noted Date Comments Octacosanol Runny nose 04/02/2023 Medications * This document contains information received from the source organization and may not represent a complete record from that organization. Abilify Maintena 400 MG injection syringe 02/14/20 [...] 11/16/19 24 Active gabapentin (Neurontin) 100 MG capsuleIndicati ons:Chronic bilateral low back pain without sciatica 12/07/19 Active sodium chloride ([place] Nasal [place]) 0.65 % nasal sprayIndication s:Nasal congestion Administer 1 spray into each nostril if needed for congestion. 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 90 tablet 3 12/25/19 24 2024 Active cetirizine (ZyrTEC) 10 MG tabletIndicatio ns:Nasal congestion Take 1 tablet (10 mg) by mouth Once per day. 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 90 tablet 3 12/25/19 24 2024 Active lisinopril (Prinivil) 20 MG tabletIndicatio ns:Essential hypertension Take 1 tablet (20 mg) by mouth Once per day. For blood pressure 90 tablet 3 12/25/19 24 2024 Active ipratropium (Atrovent) 0.03 % nasal sprayIndication s:Nasal congestion Administer 2 sprays into each nostril every 12 (twelve) hours. 30 mL 12 12/25/19 24 2024 Active sildenafil (Viagra) 100 MG tabletIndicatio ns:Erectile dysfunction due to diseases classified elsewhere Take 1 tablet (100 mg) by mouth if needed each day for erectile dysfunction. 15 tablet 3 12/25/19 Active melatonin 5 MG tablet Take 1 tablet (5 mg) by mouth if needed at bedtime (insomnia). 90 tablet 3 12/25/19 Active atomoxetine (Strattera) 25 MG capsuleIndicati ons:Concentrati on deficit Take 25 mg by mouth Once per day. 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 Do not crush, chew, or split. 180 tablet 04/07/19 25 2025 Active valACYclovir (Valtrex) 1 g tabletIndicatio ns:Oral herpes Take 1 tablet (1,000 mg) by mouth 2 times daily for 7 days. 14 tablet 04/07/19 25 2024 Active alpha tocopherol (Vitamin E) 100 units capsule Take 1 capsule (100 Units) by mouth Once per day. 90 capsule 3 04/07/19 25 2025 Active Miconazole 2 % powder Apply 1 Application topically at bedtime. 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 Do not crush, chew, or split. 90 tablet 3 12/25/19 24 2024 Discontinued(R eorder (will not trigger notification to Pharmacy)) acetaminophen (Tylenol 8 Hour) 650 MG ER tablet Take 1 tablet (650 mg) by mouth every 8 (eight) hours if needed for mild pain for up to 10 days. Do not crush, chew, or split. 30 tablet 03/10/19 25 2024 ibuprofen 800 MG tablet Take 1 tablet (800 mg) by mouth 3 times daily for 10 days. 30 tablet 03/10/19 25 2024 amoxicillin (Amoxil) 500 MG capsule Take 1 capsule (500 mg) by mouth every 8 (eight) hours for 10 days. 30 capsule 03/10/19 25 2024 metFORMIN, OSM, (Fortamet) 500 MG 24 hr tabletIndicatio ns:Class 3 drug-induced obesity with serious comorbidity and body mass index (BMI) of 40.0 to 44.9 in adult ([facility]) Take 2 tablets (1,000 mg) by mouth with evening meal. Do not crush, chew, or split. 180 tablet 3 04/07/19 25 2024 Discontinued valACYclovir (Valtrex) 1 g tabletIndicatio ns:Oral herpes Take 1 tablet (1,000 mg) by mouth 2 times daily for 7 days. 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 04/07/2024 Dental abscess 03/10/2024 Odontalgia 03/10/2024 Cannabis abuse 01/28/2024 Scarring of skin 12/06/2023 Assessment [...] completed, sleep study attached, and faxed to [facility] to order CPAP again Assessment & Plan (08/13/2023 1:00 PM EDT): Called and spoke with room service associate from [facility], that patient has been non-compliant with [...] (06/01/2022 1:08 PM EDT): Need to call [facility] ([phone]) to try to change settings of CPAP to lower setting so that he can tolerate it for longer Assessment & Plan (03/09/2022 2:47 PM EST): New dx on 01/2022 sleep study CPAP ordered, atuo titrate 9-14 Food insecurity 03/09/2022 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, focus on rest and exercise and communicating with his kids Developmental academic disorder 08/17/2011 Resolved Problems Problem Noted Date Diagnosed Date Resolved Date Cocaine abuse 01/28/2024 04/07/2024 Cannabis dependence 04/20/2014 06/02/19 23 Encounters * This document contains information received from the source organization and may not represent a complete record from that organization. 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 to 44.9 in adult (CMS/HCC) (Primary Dx); Schizoaffective disorder, depressive type (CMS/HCC); Dietary counseling; Exercise counseling; Concentration deficit; Oral herpes; Food insecurity 04/07/2024 Travel 04/04/2024 Telephone [facility] [address] [place] [phone] Tanvi Leach MD Medication Question 03/10/2024 10:30 AM EST Office Visit [facility] [address] [place] [address] Marko Sorenson DDS Dental abscess (Primary Dx); Odontalgia 02/29/[address] [address] Tanvi Leach MD Med Refill 02/29/[address] [address] Tanvi Leach MD Durable Medical Equipment 02/21/[address] [address] Regla Rivera [place] Durable Medical Equipment 02/15/[address] [address] Tanvi Leach MD Medication Question 02/13/2024 Telephone [facility] [address] [place] [address] Jeannie Villa DDS 02/01/2024 Telephone [facility] [address] [place] [address] Tanvi Leach MD FYI 02/01/2024 Refill [address] [place] [address] Tanvi Leach MD Nasal congestion 01/21/2024 2:00 PM EST Office Visit [facility] [address] [place] [address] Sofi Jaleesa Dental plaque (Primary Dx); Dental calculus 01/18/2024 3:30 PM EST Immunization [facility] [address] [place] [address] Encounter for immunization (Primary Dx) 01/18/2024 Travel from Last 3 Months Immunizations Name Administration Dates Next Due DTP 03/29/1993, 1,01/26/1990,11/26,09/26/1989 Hep A, Adult 12/02/2021,11/02/2017 Hep B, Adolescent or Pediatric 11/21/1999,1998,04/27/1998 Hib ([facility]) 03/29/1990 IPV 03/29/1993, 1,11/26/1989,09/26 Influenza injectable quadriv [...] Mass Index 45.78 04/07/2024 1:58 PM EST Plan of Treatment Upcoming Encounters Date Type Department Care Team (Late st Contact Info) Description 06/02/2024 4:00 PM EDT Office Visit [facility] [address] [place] [address] Tanvi Leach MD [address] [place], [place] [phone] 08/13/2024 10:00 AM EDT Office Visit [facility] [address] [place], [place] [phone] Jaleesa Farah Health Maintenance Due Date Last Done Comments Alcohol/Substance Use Screening 1997 Dental X-Ray: Bitewings 04/03/2024 04/02/19 24, 10/10/2022, 10/22/2013 Dental Oral Exam 07/21/2024 01/21/2024, 06/2023, 03/03/2014 Dental Prophylaxis 07/21/2024 01/21/2024, 04/26/2023 Depression Monitoring (PHQ-9) 10/05/2024 04/07/2024, 04/07/2024 Depression Screening 04/07/2025 04/07/2024, 04/07/19 SDOH Screening 04/07/2025 04/07/2024 Tobacco Screening 04/07/2025 04/07/2024 Family Planning (PISQ) 04/08/2025 04/08/2024 DTaP/Tdap/Td Vaccines (7 - Td or Tdap) [...] Procedure Name Priority Date/Time Associated Diagnosis Comments DRUG MONITOR, PANEL 1, SCREEN, URINE Routine 03/30/2024 7:44 PM EST ACETAMINOPHEN LEVEL Routine 03/29/2024 1 1:38 AM EST SALICYLATE Routine 03/29/2024 11:38 AM EST ETHANOL Routine 03/29/2024 11:38 AM EST COMPREHENSIVE METABOLIC PANEL Routine 03/29/2024 11:38 AM EST DRUG MONITOR, PANEL 1, SCREEN, URINE Routine 03/29/2024 11:38 AM EST URINALYSIS WITH REFLEX MICROSCOPIC Routine 03/29/2024 11:38 AM EST CBC WITH AUTO DIFFERENTIAL Routine 03/29/2024 11:38 AM EST PALLIATIVE (EMERGENCY) TREATMENT OF DENTAL PAIN - MINOR PROCEDURE Routine 03/10/2024 10:30 AM EST CASE PRESENTATION, DETAILED AND EXTENSIVE TREATMENT PLANNING Routine 03/10/2024 10:30 AM EST INTRAORAL - PERIAPICAL FIRST RADIOGRAPHIC IMAGE Routine 03/10/2024 10:30 AM EST PERIODIC ORAL EVALUATION - ESTABLISHED PATIENT Routine 01/21/2024 2:00 PM EST ORAL HYGIENE INSTRUCTIONS Routine 01/21/2024 2:00 PM EST Dental plaque Dental calculus PROPHYLAXIS - ADULT Routine 01/21/2024 2 :00 PM EST Dental plaque Dental calculus CASE PRESENTATION, DETAILED AND EXTENSIVE TREATMENT PLANNING Routine 01/21/2024 2:00 PM EST INTRAORAL - COMPLETE SERIES OF RADIOGRAPHIC IMAGES Routine 04/02/2023 1:30 PM EST HEPATITIS C ANTIBODY Routine 01/22/2023 12:26 PM EST Screening examination for sexually transmitted disease HIV 1/2 ANTIGEN/ANTIBODY, FOURTH GENERATION W/RFL Routine 01/22/2023 12:26 PM EST Screening examination for sexually transmitted disease LIPID PANEL, STANDARD Routine 05/20/2021 2:20 PM EDT from Last 3 Months or Most Recently Relevant to Health Maintenance Results * Drug Monitoring, Panel 1, Screen, Urine (03/30/2024 7:44 PM EST) Only the most recent of2 resultswithin the time period is included. Opiate Screen Urine Not Detected Not Detect [facility] Comment:Opiate cut-off is 30 0 ng/mL.Positive results are unconfirmed and should not be used fornon-medical purposes. Barbiturates, Urine Not Detected Not Detect [facility] Comment:Barbiturate cut-off is 200 ng/mL.Positive results are unconfirmed and should not be used fornon-medical purposes. Phencyclidine Screen Urine Not Detected Not Detect [facility] Comment:Phencyclidine cut-of f is 25 ng/mL.Positive results are unconfirmed and should not be used fornon-medical purposes. Amphetamine Screen Urine Not Detected Not Detect [facility] Comment:Amphetamine cut-off is 1000 ng/mL.Positive results are unconfirmed and should not be used fornon-medical purposes. Benzodiazepines Screen Urine Not Detected Not Detect [facility] Comment:Benzodiazepine cut-o ff is 200 ng/mL.Positive results are unconfirmed and should not be used fornon-medical purposes. Cocaine Screen Urine Not Detected Not Detect [facility] Comment:Cocaine cut-off is 3 00 ng/mL.Positive results are unconfirmed and should not be used fornon-medical purposes. Cannabinoid Screen Urine Not Detected Not Detect [facility] Comment:Cannabinoid cut-off is 50 ng/mL.Positive results are unconfirmed and should not be used fornon-medical purposes. Methadone Screen, Urine Not Detected Not Detect ng/mL [facility] Comment:Methadone cut-off is 300 ng/mL.Positive results are unconfirmed and should not be used fornon-medical purposes. FENTANYL URINE Not Detected Not Detect [facility] Comment:Fentanyl cut-off is 1 ng/mL.Positive results are unconfirmed and should not be used fornon-medical purposes. Oxycodone Urine Screen Not Detected Not Detect ng/mL [facility] Comment:Oxycodone cut-off is 100 ng/mL.Positive results are unconfirmed and should not be used fornon-medical purposes. Buprenorphine Screen Not Detected Not Detect ng/mL [facility] Comment:Buprenorphine cut-of f is 5 ng/mL.Positive results are unconfirmed and should not be used fornon-medical purposes. 03/30/2024 7:44 PM EST 03/30/2024 7:59 PM EST us Generic External Data Provider LAB URINE ORDERAB LES Final Result [facility] [address] [place] [address] [phone] * Ethanol (03/29/2024 11:38 AM EST) ETHANOL (MG/DL) IN SER/PLAS <10 mg/dL [facility] Comment:Serum/plasma ethanol results are to be used formedical/treatment purposes only. 03/29/2024 11:3 8 AM EST 03/29/2024 11:43 AM EST us Generic External Data Provider LAB BLOOD ORDERAB LES Final Result [facility] [address] [place] [phone] * (ABNORMAL) CBC auto differential (03/29/2024 11:38 AM EST) Pathologist [facility] White Blood Count 5.5 4.8 - 10.8 X10*3/uL [facility] Red Blood Count 4.96 4.60 - 5.80 X10*6/uL [facility] Hemoglobin 14.9 14.0 - 18.0 g/dl [facility] Hematocrit 43.2 42.0 - 52.0 % [facility] Mean Corpuscular Volume 87.1 80.0 - 98.0 fL [facility] Mean Corpuscular Hemoglobin 30.0 27.0 - 33.0 pg [facility] Mean Corpuscular HGB Conc 34.5 31.0 - 36.0 g/dl [facility] Red Cell Distribution Width 13.6 11.0 - 16.0 % [facility] Platelet Count 388 160 - 400 X10*3/uL [facility] Mean Platelet Volume 8.8(L) 9.4 - 12.4 fL [facility] Neutrophils Percent Auto 69.4 45 - 73 % [facility] Imm Gran Pct Auto 0.4 0.0 - 0.4 % [facility] Lymphocytes Percent Auto 20.5 20 - 40 % [facility] Monocytes Percent Auto 7.3 2 - 11 % [facility] Eosinophils Percent Auto 1.3 0 - 4 % [facility] Basophils Percent Auto 1.1 0 - 2 % [facility] NRBC Pct Auto 0.0 0.0 - 0.2 /100WBC [facility] Neutrophils Absolute Auto 3.8 2.0 - 8.3 x10*3/uL [facility] Imm Gran Abs Auto 0.02 0.00 - 0.03 X10*3/uL [facility] Lymphocytes Absolute Auto 1.1(L) 1.2 - 4.9 X10*3/uL [facility] Monocytes Absolute Auto 0.4 0.1 - 1.2 X10*3/uL [facility] Eosinophils Absolute Auto 0.1 0.0 - 0.4 X10*3/uL [facility] Basophils Absolute Auto 0.1 0.0 - 0.2 X10*3/uL [facility] NRBC Abs Auto 0.000 0.0 - 0.012 X10*3/uL [facility] 03/29/2024 11:3 8 AM EST 03/29/2024 11:43 AM EST us Generic External Data Provider LAB BLOOD ORDERAB LES Final Result Performing Organization Address City/State/[facility] Co de Phone Number [facility] [address] [place] [phone] * Urinalysis w/reflex microscopic (03/29/2024 11:38 AM EST) Color Urine Yellow [facility] Appearance Urine Clear [facility] PH 6.5 5.0 - 9.0 [facility] Glucose Urine UA Negative Negative mg/dL [facility] Urine Blood Negative Negative [facility] Specific [place] - Urine 1.015 1.005 - 1.025 [facility] Urine Protein Negative Neg-Trace mg/dL [facility] Urine Ketones Negative Negative mg/dL [facility] Nitrite Urine Negative Negative [facility] Leukocyte Esterase Urine Negative Negative [facility] 03/29/2024 11:3 8 AM EST 03/29/2024 11:43 AM EST Narrative [facility] - 03/29/2024 11:53 AM EST Urine, Clean Catch us Generic External Data Provider LAB URINE ORDERAB LES Final Result Performing Organization Address [facility] Co de Phone Number [facility] [address] [place] [phone] * Acetaminophen level (03/29/2024 11:38 AM EST) Acetaminophen LAB <3 <30 mcg/mL [facility] 03/29/2024 11:3 8 AM EST 03/29/2024 11:43 AM EST us Generic External Data Provider LAB BLOOD ORDERAB LES Final Result Performing Organization Address [facility] Co de Phone Number [facility] [address] [place] [phone] * (ABNORMAL) Salicylate (03/29/2024 11:38 AM EST) Salicylate <5.0(L) 15 - 30 mg/dL [facility] 03/29/2024 11:3 8 AM EST 03/29/2024 11:43 AM EST us Generic External Data Provider LAB BLOOD ORDERAB LES Final Result Performing Organization Address [facility] Co de Phone Number [facility] [address] [place] [phone] * (ABNORMAL) Comprehensive Metabolic Panel (03/29/2024 11:38 AM EST) Sodium 140 135 - 145 mmol/L [facility] Potassium 4.1 3.3 - 5.1 mmol/L [facility] Chloride 103 96 - 108 mmol/L [facility] Carbon Dioxide 25 22 - 29 mmol/L [facility] Anion Gap 16 12 - 20 [facility] Urea Nitrogen (BUN) 14 9 - 16 mg/dL [facility] Creatinine, Serum 1.06 0.5 - 1.4 mg/dL [facility] Creatinine Clr Calc Pharmacy 131.8 [facility] Comment:eGFR (calculated fro m the MDRD study equation) and eCrCl(calculated from the Cockcroft-Gault equation) are based ondifferent parameters and may not yield comparable results.If eCrCl result is absurd, please check patient'sheight/weight. Estimated Glomerular Filt Rate >60 [facility] Comment:Chronic Kidney Disea se: Estimated GFR < 60 mL/min/[id number] Kidney Disease: Estimated GFR < 15 mL/min/1.73m2 Glucose 86 60 - 115 mg/dL [facility] Calcium 9.4 8.4 - 10.2 mg/dL [facility] Bilirubin, Total 0.5 0.0 - 1.0 mg/dL [facility] Aspartate Amino Transferase 34 5 - 37 U/L [facility] Alanine Aminotransferase 41(H) 0 - 40 U/L [facility] Total Protein 8.1(H) 6.5 - 8.0 g/dL [facility] Albumin Level 4.8 3.5 - 5.0 g/dL [facility] Alkaline Phosphatase 68 39 - 117 U/L [facility] 03/29/2024 11:3 8 AM EST 03/29/2024 11:43 AM EST Generic External Data Provider LAB BLOOD ORDERAB LES Final Result [facility] [address] [place] [phone] * Hepatitis C Ab (01/22/2023 12:26 PM EST) Hepatitis C Antibody Nonreactive Nonreactive [facility] Comment:Antibodies to HCV no t detected; does not exclude early acuteHCV infection. Blood Venous blood specimen / Unknown 01/22/2023 12:26 PM EST 01/22/2023 1:22 PM EST us Tanvi Leach MD LAB BLOOD ORDERABLES Final Res ult Performing Organization Address [facility]/ZIP Co de Phone Number [facility] [address] [place] [phone] * HIV-1/2 Antigen and Antibodies, Fourth Generation, with Reflexes (01/22/2023 12:26 PM EST) HIV AB/AG Nonreactive Nonreactive [facility] Comment:HIV-1 p24 Ag and/or HIV-1/HIV-2 Ab not detected.A test result that is nonreactive does not exclude thepossibility of exposure to or infection with HIV-1 and/orHIV-2. Nonreactive results in this assay for individualswith prior exposure to HIV-1 and/or HIV-2 may be due toantigen and antibody levels that are below the limit ofdetection of this assay.The [employer] HIV Ag/Ab Combo assay result andsupplemental assay results should be interpreted inconjunction with the patient's clinical presentation,history and other laboratory results. If the results areinconsistent with clinical evidence, additional testing issuggested to confirm the result. Blood Venous blood specimen / Unknown 01/22/2023 12:26 PM EST 01/22/2023 1:22 PM EST us Tanvi Leach MD LAB BLOOD ORDERABLES Final Res ult Performing Organization Address [facility]/ZIP Co de Phone Number [facility] [address] [place] [phone] * (ABNORMAL) LIPID PANEL, STANDARD (05/20/2021 [...] ?? Aureliano VARGAS et al. CONTRERAS. 2013;310(19): 2838-3596 ?? (http://[email or web address]/faq/[email or web address]) Non-HDL Cholesterol 150(H) <130 mg/dL (calc) [facility] Comment: For patients with diabetes plus 1 major ASCVD risk ?? factor, treating to a non-HDL-C goal of <100 mg/dL ?? (LDL-C of <70 mg/dL) is considered a therapeutic ?? option. Triglycerides 195(H) <150 mg/dL [facility] 05/20/2021 2:20 PM EDT us Tanvi Leach MD LAB BLOOD ORDERABLES Final Res ult [facility] [address] from Last 3 Months or Most Recently Relevant to Health Maintenance [place] [address] [address] - [facility] [facility] * Guarantor: Omkar Tafoya Account Type Relation to Patient Date of Phone Billing Address Personal/Family Self [facility] Main [address] [address] * Guarantor: Omkar Tafoya Account Type Relation to Patient Date of Phone Billing Address Personal/Family Self [facility] [address] Care Teams Chromosomal Disorders Counselor Relationship Specialty Start Date End Date Tanvi Leach MD [address] [place] [phone] PCP - General Family Medicine 05/20/21
--- OUTSIDE RECORDS SUMMARY | 2024-04-11 11:45 | XMS_ITS | Encounter Summary ---
Author Organization [employer] Address [address] [facility] 7t [place] [address] Care Team Providers Care Rail Switchman Name Role Phone Tanvi Leach MD Primary Care Provider [phone] Reason for Visit * Reason Onset Date Comments Call Back Request 11/21/2023 Encounter Details Date Type Department Care Team ([facility] st Contact Info) Description 11/21/[address] [facility] MED[facility]INE [address] [place] [address] Tanvi Leach MD [address] [place], [place] [phone] Call Back Request Social History Tobacco Use [...] - 11/21/2023 3:53 PM EDT Tc from [facility] requesting a call back to obtain some clarity on why the provider would just simply write a letter indicating it is ok for the patient to be in charge of own finances when the patient have a list of conditions including a learning disability please call the patients field nurse case manager at [phone] [address] Hubbard documented in this encounter Plan of Treatment Upcoming Encounters Date Type Department Care Team (Late st Contact Info) Description 06/02/2024 4:00 PM EDT Office Visit [facility] MED[facility]INE [address] [place] [address] Tanvi Leach MD [address] [place] [address] 08/13/2024 10:00 AM EDT Office Visit [facility] ADULT DENTAL [address] [place] [address] Jaleesa Farah documented as of this encounter Visit Diagnoses Not on filedocumented in this encounter Additional Health Concerns Assessment Noted Time PHQ-9 Depression Total Score: 0 03/28/19 24 2:55 PM EST documented as of this encounter Care Teams Rail Switchman Relationship Specialty Start Date End Date Tanvi Leach MD [address] [place] [address] PCP - General Family Medicine 05/20/21 documented as of this encounter
== END 2024-04-11 11:21 | disposition home or self-care (01) ==
PROVIDERS: PCP General Practice; Visit Provider Surgery
DX: S31.139S Puncture wound of abdominal wall without foreign body, unspecified quadrant without penetration into peritoneal cavity, sequela (principal); K43.2 Incisional hernia without obstruction or gangrene
CPT/HCPCS: 99214

== ENCOUNTER → 2024-04-11 10:49 | Outpatient (BNVA) | payer OTHER, SELFPAY | PROVIDERS: PCP General Practice; Visit Provider Surgery | DX: K43.2 Incisional hernia without obstruction or gangrene (principal); S31.139S Puncture wound of abdominal wall without foreign body, unspecified quadrant without penetration into peritoneal cavity, sequela; W34.00XS Accidental discharge from unspecified firearms or gun, sequela | CPT/HCPCS: 99212 ==

== ENCOUNTER 2024-04-15 08:26 | Emergency (ER) | payer OTHER, SELFPAY ==
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
[2024-04-15 08:31] VITALS: BP 184/130; PULSE 74; O2SAT 97
[2024-04-15 08:48] VITALS: BP 140/86; PULSE 78; RESP 16; TEMP 36.7; O2SAT 98; BMI 45.8
[2024-04-15 09:13] LABS: MANUAL DIFF FLAG NO
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
[2024-04-15 09:15] LABS: Basophils Percent Auto 0.9 % (0-2); Eosinophils Absolute Auto 0.1 X10*3/uL (0.0-0.4); Eosinophils Percent Auto 2.8 % (0-4); Hemoglobin 13.5 g/dl (14.0-18.0); Imm Gran Abs Auto 0.02 X10*3/uL (0.00-0.03); Imm Gran Pct Auto 0.5 % (0.0-0.4); Lymphocytes Absolute Auto 1.3 X10*3/uL (1.2-4.9); Lymphocytes Percent Auto 29.2 % (20-40); Mean Corpuscular HGB Conc 33.8 g/dl (31.0-36.0); Mean Corpuscular Hemoglobin 29.8 pg (27.0-33.0); Mean Corpuscular Volume 88.3 fL (80.0-98.0); Mean Platelet Volume 9.1 fL (9.4-12.4); Monocytes Absolute Auto 0.3 X10*3/uL (0.1-1.2); Monocytes Percent Auto 7.5 % (2-11); Neutrophils Absolute Auto 2.5 x10*3/uL (2.0-8.3); Neutrophils Percent Auto 59.1 % (45-73); Platelet Count 303 X10*3/uL (160-400); Red Blood Count 4.53 X10*6/uL (4.60-5.80); Red Cell Distribution Width 14.3 % (11.0-16.0); White Blood Count 4.3 X10*3/uL (4.8-10.8)
[2024-04-15 09:16] LABS: Appearance Urine Clear; Color Urine Yellow; Glucose Urine UA Negative (Negative); Leukocyte Esterase Urine Negative (Negative); Nitrite Urine Negative (Negative); Urine Blood Negative (Negative); Urine Ketones Negative (Negative); Urine Protein Negative (Neg-Trace)
[2024-04-15 09:35] LABS: Anion Gap 14 (12-20); Blood Urea Nitrogen 14 mg/dL (9-16); Calcium 9.2 mg/dL (8.4-10.2); Carbon Dioxide 29 mmol/L (22-29); Chloride 103 mmol/L (96-108); Creatinine Clr Calc Pharmacy 123.6; Estimated Glomerular Filt Rate > 60; Glucose Random 96 mg/dL (60-115); Potassium 4.1 mmol/L (3.3-5.1); Sodium 142 mmol/L (135-145)
--- OUTSIDE RECORDS SUMMARY | 2024-04-15 09:38 | XMS_ITS | Encounter Summary ---
Author Organization [employer] Address [address] [facility] [address] 7[address] [place] [address] Care Team Providers Care Manager Personnel Selection Name Role Phone Tanvi Leach MD Primary Care Provider [phone] Reason for Visit * Reason Onset Date Comments Durable Medical Equipment 04/10/2024 Encounter Details Date Type Department Care Team ([facility] st Contact Info) Description 04/10/2024 Telephone [facility] MEDICINE [address] [place], [place] [phone] Tanvi Leach MD [address] [place], [place] [phone] Durable Medical Equipment Social History Tobacco Use [...] EST Tc from pt requesting CPAP Machine. [facility] [phone] documented in this encounter Plan of Treatment Upcoming Encounters Date Type Department Care Team (Late st Contact Info) Description 06/02/2024 4:00 PM EDT Office Visit [facility] MED[facility]INE [address] [place] [address] Tanvi Leach MD [address] [place] [address] 08/13/2024 10:00 AM EDT Office Visit [facility] ADULT DENTAL [address] [place] [address] Jaleesa Farah documented as of this encounter Visit Diagnoses Not on filedocumented in this encounter Additional Health Concerns Assessment Noted Time PHQ-9 Depression Total Score: 18 025 2:03 PM EST documented as of this encounter Care Teams Manager Personnel Selection Relationship Specialty Start Date End Date Tanvi Leach MD [address] [place] [phone] PCP - General Family Medicine 05/20/21 documented as of this encounter
--- OUTSIDE RECORDS SUMMARY | 2024-04-15 09:38 | XMS_ITS | Encounter Summary ---
Author Organization [employer] Address [address] [facility] [address] 7[address] [place] [address] Care Team Providers Care Red Leader Name Role Phone Tanvi Leach MD Primary Care Provider [phone] Reason for Visit * Reason Onset Date Comments Medication Question 04/04/2024 Encounter Details Date Type Department Care Team ([facility] st Contact Info) Description 04/04/2024 Telephone [facility] MEDICINE [address] [place], [place] [phone] Tanvi Leach MD [address] [place], [place] [phone] Medication Question Social History Tobacco Use Types [...] 12:43 PM EST TC placed to patient [phone] in regards to below message. Patient did not answer, RN left VM requesting CB to red team nurses. Patient to f/u PRN. * Telephone Encounter - Marylou Duque - 04/09/2024 12:37 PM EST Tc from [place] requesting a call back regarding med: - valACYclovir (Valtrex) 1 g tablet - Miconazole 2 % powder [phone] * Telephone Encounter - Diana Church RN [...] since pt ER visit. Contact Elidia at [phone] documented in this encounter Plan of Treatment Upcoming Encounters Date Type Department Care Team (Late st Contact Info) Description 06/02/2024 4:00 PM EDT Office Visit [facility] MEDICINE [address] [place] [address] Tanvi Leach MD [address] [place] [address] 08/13/2024 10:00 AM EDT Office Visit [facility] ADULT DENTAL [address] [place] [address] Jaleesa Farah documented as of this encounter Visit Diagnoses Not on filedocumented in this encounter Additional Health Concerns Assessment Noted Time PHQ-9 Depression Total Score: 0 03/28/19 24 2:55 PM EST documented as of this encounter Care Teams Red Leader Relationship Specialty Start Date End Date Tanvi Leach MD [address] [place] [id number] PCP - General Family Medicine 05/20/21 documented as of this encounter
--- OUTSIDE RECORDS SUMMARY | 2024-04-15 09:38 | XMS_ITS | Encounter Summary ---
Author Organization [employer] Address [address] [facility] [address] [address] 7[address] [place] [address] Care Team Providers Care Tyre Finisher And Examiner Name Role Phone Tanvi Leach MD Primary Care Provider [phone] Reason for Visit * Reason Onset Date Comments Durable Medical Equipment 02/29/2024 Encounter Details Date Type Department Care Team ([facility] st Contact Info) Description 02/29/2024 Telephone [facility] MEDICINE [address] [place], [place] [phone] Tanvi Leach MD [address] [place], [place] [phone] Durable Medical Equipment Social History Tobacco Use [...] 06/02/2024 4:00 PM EDT Office Visit [facility] MEDICINE [address] [place] [address] Tanvi Leach MD [address] [place] [address] 08/13/2024 10:00 AM EDT Office Visit [facility] ADULT DENTAL [address] [place] [address] Jaleesa Farah documented as of this encounter Visit Diagnoses Not on filedocumented in this encounter Additional Health Concerns Assessment Noted Time PHQ-9 Depression Total Score: 0 03/28/19 24 2:55 PM EST documented as of this encounter Care Teams Tyre Finisher And Examiner Relationship Specialty Start Date End Date Tanvi Leach MD [address] [place] [address] PCP - General Family Medicine 05/20/21 documented as of this encounter
--- OUTSIDE RECORDS SUMMARY | 2024-04-15 09:38 | XMS_ITS | Encounter Summary ---
Author Organization [employer] Address [address] [facility] 7t [place] [address] Care Team Providers Care Family And Consumer Education Teacher Name Role Phone Tanvi Leach MD Primary Care Provider [phone] Reason for Visit * Reason Comments Med Refill Encounter Details Date Type Department Care Team ([facility] st Contact Info) Description 02/01/2024 Refill [facility] MEDICINE [address] [place], [place] [phone] Tanvi Leach MD [address] [place], [place] [phone] Nasal congestion Social History Tobacco Use Types [...] Description 06/02/2024 4:00 PM EDT Office Visit [facility] MEDICINE [address] [place] [address] Tanvi Leach MD [address] [place] [address] 08/13/2024 10:00 AM EDT Office Visit [facility] ADULT DENTAL [address] [place] [address] Jaleesa Farah documented as of this encounter Visit Diagnoses Diagnosis Nasal congestion Other diseases of nasal cavity and sinuses documented in this encounter Additional Health Concerns Assessment Noted Time PHQ-9 Depression Total Score: 0 03/28/19 24 2:55 PM EST documented as of this encounter Care Teams Family And Consumer Education Teacher Relationship Specialty Start Date End Date Tanvi Leach MD [address] [place] [address] PCP - General Family Medicine 05/20/21 documented as of this encounter
--- OUTSIDE RECORDS SUMMARY | 2024-04-15 09:38 | XMS_ITS | Encounter Summary ---
Author Organization [employer] Address [address] [facility] [address] 7[address] [place] [address] Care Team Providers Care Electronics Repair Technician Name Role Phone Tanvi Leach MD Primary Care Provider [phone] Encounter Details Date Type Department Care Team ([facility] Contact Info) Description 07/27/2022 Telephone [facility] MED[facility]INE [address] [place] [phone] Tanvi Leach MD [address] [place] [address] [phone] Social History Tobacco Use Types Packs/Day Years [...] Upcoming Encounters Date Type Department Care Team ([facility] Contact Info) Description 06/02/2024 4:00 PM EDT Office Visit [facility] MED[facility]INE [address] [place] [phone] Tanvi Leach MD [address] [place] [address] 08/13/2024 10:00 AM EDT Office Visit [facility] ADULT DENTAL [address] [place] [address] Jaleesa Farah documented as of this encounter Visit Diagnoses Not on filedocumented in this encounter Additional Health Concerns Assessment Noted Time PHQ-9 Depression Total Score: 11 023 2:58 PM EST documented as of this encounter Care Teams Electronics Repair Technician Relationship Specialty Start Date End Date Tanvi Leach MD [address] [place] [address] PCP - General Family Medicine 05/20/21 documented as of this encounter
--- OUTSIDE RECORDS SUMMARY | 2024-04-15 09:38 | XMS_ITS | Encounter Summary ---
Author Organization [employer] Address [address] [facility] [address] [facility] [address] 7[address] [place] [address] Care Team Providers Care Double Reamer Operator Name Role Phone Tanvi Leach MD Primary Care Provider [phone] Encounter Details Date Type Department Care Team ([facility] st Contact Info) Description 07/25/2023 Telephone [facility] MEDICINE [address] [place], [place] [phone] Tanvi Leach MD [address] [place], [place] [phone] Social History Tobacco Use Types Packs/Day Years [...] with others, in a hotel, in a long-term, living outside on the street, on a [...] Description 06/02/2024 4:00 PM EDT Office Visit [facility] MEDICINE [address] [place] [address] Tanvi Leach MD [address] [place] [address] 08/13/2024 10:00 AM EDT Office Visit [facility] ADULT DENTAL [address] [place], [place] [phone] Jaleesa Farah documented as of this encounter Visit Diagnoses Not on filedocumented in this encounter Additional Health Concerns Assessment Noted Time PHQ-9 Depression Total Score: 0 03/28/19 24 2:55 PM EST documented as of this encounter Care Teams Double Reamer Operator Relationship Specialty Start Date End Date Tanvi Leach MD [address] [place] [address] PCP - General Family Medicine 05/20/21 documented as of this encounter
--- OUTSIDE RECORDS SUMMARY | 2024-04-15 09:38 | XMS_ITS | Encounter Summary ---
Author Organization [employer] Address [address] [facility] [address] [place] [address] Care Team Providers Care Gear Machine Operator Name Role Phone Tanvi Leach MD Primary Care Provider [phone] Encounter Details Date Type Department Care Team [...] Description 06/02/2024 4:00 PM EDT Office Visit [facility] MEDICINE [address] [place] [address] Tanvi Leach MD [address] [place] [address] 08/13/2024 10:00 AM EDT Office Visit [facility] ADULT DENTAL [address] [place] [address] Jaleesa Farah documented as of this encounter Visit Diagnoses Not on filedocumented in this encounter Additional Health Concerns Assessment Noted Time PHQ-9 Depression Total Score: 18 025 2:03 PM EST documented as of this encounter Care Teams Gear Machine Operator Relationship Specialty Start Date End Date Tanvi Leach MD [address] [place] [id number] PCP - General Family Medicine 05/20/21 documented as of this encounter
--- OUTSIDE RECORDS SUMMARY | 2024-04-15 09:38 | XMS_ITS | Encounter Summary ---
Author Organization [employer] Address [address] [facility] 7t [place] [address] Care Team Providers Care Extension Supervisor Name Role Phone Tanvi Leach MD Primary Care Provider [phone] Encounter Details Date Type Department Care Team ([facility] Contact Info) Description 06/09/2022 Orders Only [facility] MEDICINE [address] [place] [address] [phone] Tanvi Leach MD [address] [place] [address] [phone] Social History Tobacco Use Types Packs/Day Years [...] Description 06/02/2024 4:00 PM EDT Office Visit [facility] MEDICINE [address] [place] [address] [phone] Tanvi Leach MD [address] [facility] [place] [address] 08/13/2024 10:00 AM EDT Office Visit [facility] ADULT DENTAL [address] [place] [address] Jaleesa Farah documented as of this encounter Visit Diagnoses Not on filedocumented in this encounter Additional Health Concerns Assessment Noted Time PHQ-9 Depression Total Score: 11 023 2:58 PM EST documented as of this encounter Care Teams Extension Supervisor Relationship Specialty Start Date End Date Tanvi Leach MD [address] [facility] [place] [address] PCP - General Family Medicine 05/20/21 documented as of this encounter
--- OUTSIDE RECORDS SUMMARY | 2024-04-15 09:38 | XMS_ITS | Encounter Summary ---
Author Organization [employer] Address [address] [facility] 7t [place] [address] Care Team Providers Care Caustic Purification Operator Name Role Phone Tanvi Leach MD Primary Care Provider [phone] Reason for Visit * Reason Onset Date Comments Med Refill 02/29/2024 Encounter Details Date Type Department Care Team ([facility] st Contact Info) Description 02/29/2024 Telephone [facility] MEDICINE [address] [place], [place] [phone] Tanvi Leach MD [address] [place], [place] [phone] Med Refill Social History Tobacco Use Types [...] with others, in a hotel, in a intermediate, living outside on the street, on a [...] advise patient to call [facility] Pharmacy to transfer scripts. 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
--- OUTSIDE RECORDS SUMMARY | 2024-04-15 09:38 | XMS_ITS | Clinical Summary ---
Author Organization [facility] Address [address] [place] [address] Phone Care Team Providers Care Environmental Monitoring Technician Name Role Phone Tanvi Leach MD Primary Care Provider [phone] Allergies No known active allergies Medications cetirizine [...] EST - 01/28/2024 4:54 PM EST Emergency [facility] Emergency [address] [place] [address] Galdino Alvarez MD Schizophrenia, unspecified [...] Hold for add-ons. 01/28/2024 12:01 PM EST [facility] Comment:Auto resulted. Urine Urine specimen obtained by clean catch procedure / Unknown 01/28/2024 10:37 AM EST 01/28/2024 10:57 AM EST us Fred Harmon MD LAB URINE ORDERABLES Final Re sult [facility] [address] [place] [address], [place] [phone] * [place] top urine tube (01/28/2024 10:37 AM EST) Extra Tube Hold for add-ons. 01/28/2024 12:01 PM [facility] Comment:Auto resulted. Urine Urine specimen obtained by clean catch procedure / Unknown 01/28/2024 10:37 AM EST 01/28/2024 10:57 AM EST us Fred Harmon MD LAB URINE ORDERABLES Final Re sult [facility] [address] [place] [address], [place] [phone] * (ABNORMAL) Drug abuse screen 8a panel, urine (01/28/2024 10:36 AM EST) Pathologist [facility] Amphetamine Screen, Ur Negative Negative LAB CHEMISTRY METHOD 4 11:25 AM [facility] Comment:Certain OTC medicati ons containing ephedrine, phenylephrine, pseudoephedrine and phenylpropanolamine can cause false positive results. Barbiturate Screen, Ur Negative Negative LAB CHEMISTRY METHOD 4 11:25 AM [facility] Benzodiazepine Screen, Ur Negative Negative LAB CHEMISTRY METHOD 4 11:25 AM [facility] Cocaine Screen, Ur Negative Negative LAB CHEMISTRY METHOD 4 11:25 AM [facility] Opiate Screen, Ur Negative Negative LAB CHEMISTRY METHOD 4 11:25 AM [facility] Cannabinoid (THC) Screen, Ur Positive(A ) Negative LAB CHEMISTRY METHOD 4 11:25 AM [facility] Comment:Specimens from patie nts taking pantoprazole sodium (Protonix) have been shown to produce false positive results. Oxycodone Screen, Ur Negative Negative LAB CHEMISTRY METHOD 4 11:25 AM [facility] Fentanyl, Ur Negative Negative LAB CHEMISTRY METHOD 4 11:25 AM EST [facility] Urine Urine specimen obtained by clean catch procedure / Unknown Non-blood Collection / Unknown 01/28/2024 10:36 AM EST 01/28/2024 10:55 AM EST Gina [facility] - 01/28/2024 11:25 AM EST Assay [...] MD LAB URINE ORDERABLES Final Resu lt [facility] [address] [place] [address], * Buprenorphine screen, urine (01/28/2024 10:36 AM EST) Buprenorphine Screen Urine Negative Negative LAB CHEMISTRY METHOD 01/28/2024 11:25 AM EST [facility] Urine Urine specimen obtained by clean catch procedure / Unknown Non-blood Collection / Unknown 01/28/2024 10:36 AM EST 01/28/2024 10:55 AM EST Gina [facility] - 01/28/2024 11:25 AM EST Assay cutoff 5 ng/mL Semi-quantitative assay for screening purposes only. Unconfirmed screening result should not be used for non-medical purposes. *ALTERNATE METHOD CONFIRMATION DONE UPON REQUEST ONLY* Galdinomicah Alvarez MD LAB URINE ORDERABLES Final Resu lt Performing Organization Address [facility] Co de Phone Number [facility] [address] [place] [address], * Methadone, urine (01/28/2024 10:36 AM EST) Methadone Screen, Urine Negative Negative LAB CHEMISTRY METHOD 01/28/2024 11:25 AM EST [facility] Comment: Assay cutoff 300 ng/mL Semi-quantitative assay for screening purposes only. Unconfirmed screening result should not be used for non-medical purposes. *ALTERNATE METHOD CONFIRMATION DONE UPON REQUEST ONLY* Urine Urine specimen obtained by clean catch procedure / Unknown Non-blood Collection / Unknown 01/28/2024 10:36 AM EST 01/28/2024 10:55 AM EST Galdino Alvarez MD LAB URINE ORDERABLES Final Resu lt Performing Organization Address [facility] Phone Number [facility] [address] [place] [address], [place] [phone] * Phencyclidine, urine (01/28/2024 10:36 AM EST) PCP Scrn, Ur Negative Negative LAB CHEMISTRY METHOD 01/28/2024 11:25 AM EST [facility] Comment: Assay cutoff 25 ng/mL Semi-quantitative assay for screening purposes only. Unconfirmed screening result should not be used for non-medical purposes. *ALTERNATE METHOD CONFIRMATION DONE UPON REQUEST ONLY* Urine Urine specimen obtained by clean catch procedure / Unknown Non-blood Collection / Unknown 01/28/2024 10:36 AM EST 01/28/2024 10:55 AM EST Galdino Alvarez MD LAB URINE ORDERABLES Final Resu lt Performing Organization Address [facility] Co de Phone Number [facility] [address] [place] [address], [place] [phone] * (ABNORMAL) CBC auto differential (01/27/2024 10:31 PM EST) [facility] Signature WBC 4.6(L) 4.8 - 10.8 K/mcL LAB HEMETOLOGY METHOD 01/27/2024 10:49 PM [facility] RBC 4.60 4.50 - 5.50 M/mcL LAB HEMETOLOGY METHOD 01/27/2024 10:49 PM [facility] Hemoglobin 13.6 13.5 - 17.5 g/dL LAB HEMETOLOGY METHOD 01/27/2024 10:49 PM [facility] Hematocrit 40.9(L) 42.0 - 54.0 % LAB HEMETOLOGY METHOD 01/27/2024 10:49 PM [facility] MCV 89.5 79.0 - 98.0 FL LAB HEMETOLOGY METHOD 01/27/2024 10:49 PM [facility] MCH 29.8 27.0 - 32.0 pcg LAB HEMETOLOGY METHOD 01/27/2024 10:49 PM [facility] MCHC 33.3 32.0 - 37.0 g/dL LAB HEMETOLOGY METHOD 01/27/2024 10:49 PM [facility] RDW 14.1 11.0 - 15.0 % LAB HEMETOLOGY METHOD 01/27/2024 10:49 PM [facility] Platelets 356 130 - 400 K/mcL LAB HEMETOLOGY METHOD 01/27/2024 10:49 PM [facility] MPV 9.1 7.0 - 11.0 FL LAB HEMETOLOGY METHOD 01/27/2024 10:49 PM [facility] NRBC 0.0 <1.0 % LAB HEMETOLOGY METHOD 01/27/2024 10:49 PM [facility] NRBC Absolute 0.00 <0.10 K/mcL LAB HEMETOLOGY METHOD 01/27/2024 10:49 PM [facility] Neutrophils Relative 64.8 % LAB HEMETOLOGY METHOD 01/27/2024 10:49 PM [facility] Lymphocytes Relative 23.1 % LAB HEMETOLOGY METHOD 01/27/2024 10:49 PM [facility] Monocytes Relative 9.3 % LAB HEMETOLOGY METHOD 01/27/2024 10:49 PM [facility] Eosinophils Relative 1.5 % LAB HEMETOLOGY METHOD 01/27/2024 10:49 PM [facility] Basophils Relative 1.1 % LAB HEMETOLOGY METHOD 01/27/2024 10:49 PM [facility] Immature Granulocytes Relative 0.2 % LAB HEMETOLOGY METHOD 01/27/2024 10:49 PM [facility] Neutrophils Absolute 3.01 1.50 - 7.00 K/mcL LAB HEMETOLOGY METHOD 01/27/2024 10:49 PM [facility] Lymphocytes Absolute 1.07 1.00 - 5.00 K/mcL LAB HEMETOLOGY METHOD 01/27/2024 10:49 PM [facility] Monocytes Absolute 0.43 0.20 - 1.00 K/mcL LAB HEMETOLOGY METHOD 01/27/2024 10:49 PM [facility] Eosinophils Absolute 0.07 0.00 - 0.50 K/mcL LAB HEMETOLOGY METHOD 01/27/2024 10:49 PM [facility] Basophils Absolute 0.05 0.00 - 0.20 K/mcL LAB HEMETOLOGY METHOD 01/27/2024 10:49 PM [facility] Immature Granulocytes Absolute 0.01 0.00 - 0.03 K/mcL LAB HEMETOLOGY METHOD 01/27/2024 10:49 PM [facility] Blood Venous blood specimen / Unknown Venipuncture / Unknown 01/27/2024 10:31 PM EST 01/27/2024 10:43 PM EST us Galdino Alvarez MD LAB BLOOD ORDERABLES Final Resu lt Performing Organization Address [facility]/ZIP Co de Phone Number [facility] [address] [place] [address], [place] [phone] * Ethanol (01/27/2024 10:31 PM EST) Ethanol Level 4 0 - 10 mg/dL LAB CHEMISTRY METHOD 01/27/2024 11:08 PM EST [facility] Blood Venous blood specimen / Unknown Venipuncture / Unknown 01/27/2024 10:31 PM EST 01/27/2024 10:43 PM EST us Galdino Alvarez MD LAB BLOOD ORDERABLES Final Resu lt Performing Organization Address [facility] de Phone Number [facility] [address] [place] [address], [place] [phone] * (ABNORMAL) Acetaminophen level (01/27/2024 10:31 PM EST) Acetaminophen Level <2.0(L) 10.0 - 30.0 mcg/mL LAB CHEMISTRY METHOD 01/27/2024 11:14 PM EST [facility] Blood Venous blood specimen / Unknown Venipuncture / Unknown 01/27/2024 10:31 PM EST 01/27/2024 10:43 PM EST us Galdino Alvarez MD LAB BLOOD ORDERABLES Final Resu lt Performing Organization Address [facility] Co de Phone Number [facility] [address] [place] [address], [place] [phone] * (ABNORMAL) Salicylate level (01/27/2024 10:31 PM EST) Salicylate Level <1.7(L) 2.0 - 29.0 mg/dL LAB CHEMISTRY METHOD 01/27/2024 11:08 PM [facility] Blood Venous blood specimen / Unknown Venipuncture / Unknown 01/27/2024 10:31 PM EST 01/27/2024 10:43 PM EST Galdino Cayetano Alvarez MD LAB BLOOD ORDERABLES Final Resu lt [facility] [address] [place] [address], [place] [phone] * (ABNORMAL) Comprehensive metabolic panel (01/27/2024 10:31 PM EST) Pathologist [facility] Sodium 137 133 - 145 mmol/L LAB CHEMISTRY METHOD 01/27/2024 11:08 PM [facility] Potassium 3.6 3.5 - 5.5 mmol/L LAB CHEMISTRY METHOD 01/27/2024 11:08 PM [facility] Chloride 105 96 - 110 mmol/L LAB CHEMISTRY METHOD 01/27/2024 11:08 PM [facility] CO2 26 21 - 32 mmol/L LAB CHEMISTRY METHOD 01/27/2024 11:08 PM [facility] Anion Gap 6 3 - 11 LAB CHEMISTRY METHOD 01/27/2024 11:08 PM [facility] Glucose 111(H) 70 - 100 mg/dL LAB CHEMISTRY METHOD 01/27/2024 11:08 PM [facility] BUN 13 5 - 25 mg/dL LAB CHEMISTRY METHOD 01/27/2024 11:08 PM [facility] Creatinine 1.27 0.70 - 1.30 mg/dL LAB CHEMISTRY METHOD 01/27/2024 11:08 PM [facility] eGFR 74 >=60 mL/min/1. 73m2 LAB CHEMISTRY METHOD 01/27/2024 11:08 PM [facility] Comment:Calculation based on the??Chronic Kidney Disease Epidemiology Collaboration (CKD-EPI) equation refit??without adjustment for race. BUN/Creatinine Ratio 10.2 LAB CHEMISTRY METHOD 01/27/2024 11:08 PM [facility] Calcium 9.2 8.5 - 10.5 mg/dL LAB CHEMISTRY METHOD 01/27/2024 11:08 PM [facility] AST (SGOT) 71(H) 10 - 42 unit/L LAB CHEMISTRY METHOD 01/27/2024 11:08 PM [facility] ALT (SGPT) 63(H) 10 - 60 unit/L LAB CHEMISTRY METHOD 01/27/2024 11:08 PM [facility] Alkaline Phosphatase 86 42 - 121 unit/L LAB CHEMISTRY METHOD 01/27/2024 11:08 PM [facility] Total Protein 7.3 6.0 - 8.0 g/dL LAB CHEMISTRY METHOD 01/27/2024 11:08 PM [facility] Albumin 4.4 3.2 - 5.0 g/dL LAB CHEMISTRY METHOD 01/27/2024 11:08 PM [facility] Total Bilirubin 0.7 0.0 - 1.4 mg/dL LAB CHEMISTRY METHOD 01/27/2024 11:08 PM [facility] Blood Venous blood specimen / Unknown Venipuncture / Unknown 01/27/2024 10:31 PM EST 01/27/2024 10:43 PM EST us Galdino B Antonio LAWSON LAB BLOOD ORDERABLES Final Resu lt [facility] [address] [place] [address], from Last 3 Months Insurance MEDICAID - [place] MEDICARE [facility] MEDIC[facility] Member Subscriber Plan / Payer (Ef fective 2023-Present) Name:Omkar Tafoya Relation to Subscriber:Self Name:Omkar Tafoya Payer ID:[id number] Group ID:[id number] Type:Not on file Address: [address] [place] [address] Care Teams Environmental Monitoring Technician Relationship Specialty Start Date End Date Tanvi Leach MD [address] [place] [address] PCP - General 05/09/23
--- OUTSIDE RECORDS SUMMARY | 2024-04-15 09:38 | XMS_ITS | Encounter Summary ---
Author Organization [employer] Address [address] 7[address] [place] [address] Care Team Providers Care Curing Finisher Name Role Phone Tanvi Leach MD Primary Care Provider [phone] Reason for Visit * Reason Comments Follow-up Encounter Details Date Type Department Care Team ([facility] st Contact Info) Description 04/07/2024 2:15 PM EST Office Visit [facility] MEDICINE [address] [place] [address] Tanvi Leach MD [address] [place], [place] [phone] Class 3 drug-induced obesity with serious comorbidity [...] the past 12 months, has t he [employer], [employer], oil or water [employer] threatened to shut off services in your [...] management. Was in the ER 03/29/24 at [facility] for evening meds (Seroquel and Clonazepam, which he did not receive from his [facility]) and rest. He was recently also inpatient psychiatry at [facility]. Acute Concerns: Aida brings his medication with [facility]. Unstable housing, staying in hotel right now. Trouble focusing. Has court appointed legal guardian. Wants to go to family court to have that removed. CPAP reauthorized, needs to call [facility] Bad smell in armpits and genitals, [...] in several years Provider of service is [facility] [phone]. Fax to [phone]. Sleep study results from [facility] 12/2023 showered severe sleep apnea [facility] approved new CPAP authorization Depression/schizoaffective disorder Meds per psychiatrist Dr. 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, blood pressure medications, mental health and how it was disrupted by being briefly incarcerated at [facility]. Likely related to anti-psychotics as well Flat [...] (BMI) of 40.0 to 44.9 in adult ([facility]) Cannabis abuse History reviewed. No [...] (BMI) of 40.0 to 44.9 in adult ([facility]) - Primary Relevant Medications metFORMIN, [...] Disp: 15 tablet, Rfl: 3 sodium chloride (Dixie Nasal [place]) 0.65 % nasal spray, Administer 1 spray into each nostril if needed for congestion., Disp: 90 mL, Rfl: 12 tretinoin (Retin-A) 0.025 % cream, APPLY A THIN LAYER TO AFFECTED AREA(S) EVERY DAY AT BEDTIME, Disp: 40 g, Rfl: 3 valACYclovir (Valtrex) 1 g tablet, Take 1 tablet (1,000 mg) by mouth 2 times daily for 7 days., Disp: 14 tablet, Rfl: 0 Colombian Translation: Patient is bilingual and declines translation services documented in this encounter Plan of Treatment Upcoming Encounters Date Type Department Care Team (Late st Contact Info) Description 06/02/2024 4:00 PM EDT Office Visit [facility] MEDICINE [address] [place] [phone] Tanvi Leach MD [address] [place] [address] 08/13/2024 10:00 AM EDT Office Visit [facility] ADULT DENTAL [address] [place] [address] Jaleesa Farah documented as of this encounter Visit Diagnoses Diagnosis Class 3 drug-induced obesity with serious comorbidity and body mass index (BMI) of 40.0 to 44.9 in adult ([facility])- Primary Schizoaffective disorder, depressive type ([facility]) Schizoaffective disorder, unspecified condition Dietary counseling Dietary surveillance and counseling Exercise counseling Concentration deficit Oral herpes Herpetic gingivostomatitis Food insecurity documented in this encounter Additional Health Concerns Assessment Noted Time PHQ-9 Depression Total Score: 18 025 2:03 PM EST documented as of this encounter Care Teams Curing Finisher Relationship Specialty Start Date End Date Tanvi Leach MD [address] [place] [address] PCP - General Family Medicine 05/20/21 documented as of this encounter
--- OUTSIDE RECORDS SUMMARY | 2024-04-15 09:39 | XMS_ITS | Clinical Summary ---
Author Organization [employer] Address [address] 7[address] [place] [address] Care Team Providers Care Vector Control Assistant Name Role Phone Tanvi Leach MD Primary Care Provider [phone] Allergies Active Allergy Reactions Criticality Noted Date [...] pain without sciatica 12/07/19 Active sodium chloride ([place] Nasal [place]) 0.65 % nasal sprayIndication s:Nasal congestion Administer [...] (BMI) of 40.0 to 44.9 in adult ([facility]) Take 1 tablet by mouth Once per day. 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 90 tablet 3 12/25/19 24 2024 Active cetirizine (ZyrTEC) 10 MG tabletIndicatio ns:Nasal congestion Take 1 tablet (10 mg) by mouth Once per day. 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 Do not crush, chew, or split. 180 tablet 04/07/19 25 2025 Active alpha tocopherol (Vitamin E) 100 units [...] (BMI) of 40.0 to 44.9 in adult ([facility]) Take 2 tablets (1,000 mg) by mouth with evening meal. Do not crush, chew, or split. 180 tablet 3 04/07/19 25 2024 Discontinued valACYclovir (Valtrex) 1 g tabletIndicatio ns:Oral herpes Take 1 tablet (1,000 mg) by mouth 2 times daily for 7 days. 14 tablet 04/07/19 25 2024 Discontinued valACYclovir (Valtrex) 1 g tabletIndicatio ns:Oral herpes Take 1 tablet (1,000 mg) by mouth 2 times daily for 7 days. 14 tablet 04/07/19 25 2024 Active Problems Problem Noted Date Diagnosed Date [...] study attached, and faxed to [facility] to order CPAP again Assessment & Plan (08/13/2023 1:00 PM EDT): Called and spoke with family services manager from [facility], that patient has been non-compliant with CPAP [...] (06/01/2022 1:08 PM EDT): Need to call [facility] ([phone]) to try to change settings of CPAP to lower setting so that he can tolerate it for longer Assessment & Plan (03/09/2022 2:47 PM EST): New dx on 01/2022 sleep study CPAP ordered, atuo titrate 9-14 Food insecurity 03/09/2022 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 (CMS/HCC) (Primary Dx); Schizoaffective disorder, depressive type (CMS/HCC); Dietary counseling; Exercise counseling; Concentration deficit; Oral herpes; Food insecurity 04/07/2024 Travel 04/04/2024 Telephone [facility] [address] [place] [phone] Tanvi Leach MD Medication Question 03/10/2024 10:30 AM EST Office Visit [facility] [address] [place] [address] Marko Sorenson, DDSameera Dental abscess (Primary Dx); Odontalgia 02/29/[address] [address] Tanvi Leach MD Med Refill 02/29/[address] [address] Tanvi Leach MD Durable Medical Equipment 02/21/[address] [address] Regla Rivera [place] Durable Medical Equipment 02/15/[address] [address] Tanvi Leach MD Medication Question 02/13/2024 Telephone [facility] [address] [place] [address] Jeannie Villa DDS 02/01/2024 Telephone [facility] [address] [place] [address] Tanvi Leach MD FYI 02/01/[address] [place] [address] Tanvi Leach MD Nasal congestion 01/21/2024 2:00 PM EST Office Visit [facility] [address] [place] [address] Sofi Jaleesa Dental plaque (Primary Dx); Dental calculus 01/18/2024 3:30 PM EST Immunization [facility] [address] [place] [address] Encounter for immunization (Primary Dx) 01/18/2024 Travel from Last 3 Months Immunizations Name Administration Dates Next Due DTP 03/29/1993, 1,01/26/1990,11/26,09/26/1989 Hep A, Adult 12/02/2021,11/02/2017 Hep B, Adolescent or Pediatric 11/21/1999,1998,04/27/1998 Hib ([facility]) 03/29/1990 IPV 03/29/1993, 1,11/26/1989,09/26 Influenza injectable quadriv [...] Description 06/02/2024 4:00 PM EDT Office Visit [facility] [address] [place], [place] [phone] Tanvi Leach MD [address] [place], [place] [phone] 08/13/2024 10:00 AM EDT Office Visit [facility] [address] [place], [place] [phone] Jaleesa Farah Health Maintenance Due Date Last [...] Procedure Name Priority Date/Time Associated Diagnosis Comments URINALYSIS WITH REFLEX MICROSCOPIC Routine 04/15/2024 9:08 AM EST BASIC METABOLIC PANEL Routine 04/15/2024 9:06 AM EST CBC WITH AUTO DIFFERENTIAL Routine 04/15/2024 9:06 AM EST DRUG MONITOR, PANEL 1, SCREEN, [...] Recently Relevant to Health Maintenance Results * Urinalysis w/reflex microscopic (04/15/2024 9:08 AM EST) Only the most recent of2 resultswithin the time period is included. Color Urine Yellow [facility] Appearance Urine Clear [facility] PH 7.0 5.0 - 9.0 [facility] Glucose Urine UA Negative Negative mg/dL [facility] Urine Blood Negative Negative [facility] Specific [place] - Urine 1.010 1.005 - 1.025 [facility] Urine Protein Negative Neg-Trace mg/dL [facility] Urine Ketones Negative Negative mg/dL [facility] Nitrite Urine Negative Negative [facility] Leukocyte Esterase Urine Negative Negative [facility] 04/15/2024 9:08 AM EST 04/15/2024 9:12 AM EST Narrative [facility] - 04/15/2024 9:17 AM EST Urine, Clean Catch us Generic External Data Provider LAB URINE ORDERAB LES Final Result [facility] [address] [place] [address] [phone] * (ABNORMAL) CBC auto differential (04/15/2024 9:06 AM EST) Only the most recent of2 resultswithin the time period is included. White Blood Count 4.3(L) 4.8 - 10.8 X10*3/uL [facility] Red Blood Count 4.53(L) 4.60 - 5.80 X10*6/uL [facility] Hemoglobin 13.5(L) 14.0 - 18.0 g/dl [facility] Hematocrit 40.0(L) 42.0 - 52.0 % [facility] Mean Corpuscular Volume 88.3 80.0 - 98.0 fL [facility] Mean Corpuscular Hemoglobin 29.8 27.0 - 33.0 pg [facility] Mean Corpuscular HGB Conc 33.8 31.0 - 36.0 g/dl [facility] Red Cell Distribution Width 14.3 11.0 - 16.0 % [facility] Platelet Count 303 160 - 400 X10*3/uL [facility] Mean Platelet Volume 9.1(L) 9.4 - 12.4 fL [facility] Neutrophils Percent Auto 59.1 45 - 73 % [facility] Imm Gran Pct Auto 0.5(H) 0.0 - 0.4 % [facility] Lymphocytes Percent Auto 29.2 20 - 40 % [facility] Monocytes Percent Auto 7.5 2 - 11 % [facility] Eosinophils Percent Auto 2.8 0 - 4 % [facility] Basophils Percent Auto 0.9 0 - 2 % [facility] NRBC Pct Auto 0.0 0.0 - 0.2 /100WBC [facility] Neutrophils Absolute Auto 2.5 2.0 - 8.3 x10*3/uL [facility] Imm Gran Abs Auto 0.02 0.00 - 0.03 X10*3/uL [facility] Lymphocytes Absolute Auto 1.3 1.2 - 4.9 X10*3/uL [facility] Monocytes Absolute Auto 0.3 0.1 - 1.2 X10*3/uL [facility] Eosinophils Absolute Auto 0.1 0.0 - 0.4 X10*3/uL [facility] Basophils Absolute Auto 0.0 0.0 - 0.2 X10*3/uL [facility] NRBC Abs Auto 0.000 0.0 - 0.012 X10*3/uL [facility] 04/15/2024 9:06 AM EST 04/15/2024 9:12 AM EST us Generic External Data Provider LAB BLOOD ORDERAB LES Final Result [facility] [address] [place] [address] [phone] * Basic Metabolic Panel (04/15/2024 9:06 AM EST) Sodium 142 135 - 145 mmol/L [facility] Potassium 4.1 3.3 - 5.1 mmol/L [facility] Chloride 103 96 - 108 mmol/L [facility] Carbon Dioxide 29 22 - 29 mmol/L [facility] Anion Gap 14 12 - 20 [facility] Urea Nitrogen (BUN) 14 9 - 16 mg/dL [facility] Creatinine, Serum 1.13 0.5 - 1.4 mg/dL [facility] Creatinine Clr Calc Pharmacy 123.6 [facility] Comment:eGFR (calculated fro m the MDRD study equation) and eCrCl(calculated from the Cockcroft-Gault equation) are based ondifferent parameters and may not yield comparable results.If eCrCl result is absurd, please check patient'sheight/weight. Estimated Glomerular Filt Rate >60 [facility] Comment:Chronic Kidney Disea se: Estimated GFR < 60 mL/min/1.08e7Dslseh Kidney Disease: Estimated GFR < 15 mL/min/1.73m2 Glucose 96 60 - 115 mg/dL [facility] Calcium 9.2 8.4 - 10.2 mg/dL [facility] 04/15/2024 9:06 AM EST 04/15/2024 9:12 AM EST us Generic External Data Provider LAB BLOOD ORDERAB LES Final Result [facility] [address] [place] [address] [phone] * Drug Monitoring, Panel 1, Screen, Urine (03/30/2024 7:44 PM EST) Only the most recent of2 resultswithin the time period is included. Opiate Screen Urine Not Detected Not Detect [facility] Comment:Opiate cut-off is 30 0 ng/mL.Positive results are unconfirmed and should not be used fornon-medical purposes. Barbiturates, Urine Not Detected Not Detect [facility] Comment:Barbiturate cut-off is 200 ng/mL.Positive results are unconfirmed and should not be used fornon-medical purposes. Phencyclidine Screen Urine Not Detected Not Detect [facility] Comment:Phencyclidine cut-of f is 25 ng/mL.Positive results are unconfirmed and should not be used fornon-medical purposes. Amphetamine Screen Urine Not Detected Not Detect [facility] Comment:Amphetamine cut-off is 1000 ng/mL.Positive results are unconfirmed and should not be used fornon-medical purposes. Benzodiazepines Screen Urine Not Detected Not Detect [facility] Comment:Benzodiazepine cut-o ff is 200 ng/mL.Positive results are unconfirmed and should not be used fornon-medical purposes. Cocaine Screen Urine Not Detected Not Detect [facility] Comment:Cocaine cut-off is 3 00 ng/mL.Positive results are unconfirmed and should not be used fornon-medical purposes. Cannabinoid Screen Urine Not Detected Not Detect [facility] Comment:Cannabinoid cut-off is 50 ng/mL.Positive results are unconfirmed and should not be used fornon-medical purposes. Methadone Screen, Urine Not Detected Not Detect ng/mL [facility] Comment:Methadone cut-off is 300 ng/mL.Positive results are unconfirmed and should not be used fornon-medical purposes. FENTANYL URINE Not Detected Not Detect [facility] Comment:Fentanyl cut-off is 1 ng/mL.Positive results are unconfirmed and should not be used fornon-medical purposes. Oxycodone Urine Screen Not Detected Not Detect ng/mL [facility] Comment:Oxycodone cut-off is 100 ng/mL.Positive results are unconfirmed and should not be used fornon-medical purposes. Buprenorphine Screen Not Detected Not Detect ng/mL [facility] Comment:Buprenorphine cut-of f is 5 ng/mL.Positive results are unconfirmed and should not be used fornon-medical purposes. 03/30/2024 7:44 PM EST 03/30/2024 7:59 PM EST us Generic External Data Provider LAB URINE ORDERAB LES Final Result [facility] [address] [place] [address] [phone] * Ethanol (03/29/2024 11:38 AM EST) ETHANOL (MG/DL) IN SER/PLAS <10 mg/dL [facility] Comment:Serum/plasma ethanol results are to be used formedical/treatment purposes only. 03/29/2024 11:3 8 AM EST 03/29/2024 11:43 AM EST Generic External Data Provider LAB BLOOD ORDERAB LES Final Result Performing Organization Address [facility] Co de Phone Number [facility] [address] [place] [address] [phone] * Acetaminophen level (03/29/2024 11:38 AM EST) Acetaminophen LAB <3 <30 mcg/mL [facility] 03/29/2024 11:3 8 AM EST 03/29/2024 11:43 AM EST Generic External Data Provider LAB BLOOD ORDERAB LES Final Result Performing Organization Address [facility] Co de Phone Number [facility] [address] [place] [phone] * (ABNORMAL) Salicylate (03/29/2024 11:38 AM EST) Salicylate <5.0(L) 15 - 30 mg/dL [facility] 03/29/2024 11:3 8 AM EST 03/29/2024 11:43 AM EST Generic External Data Provider LAB BLOOD ORDERAB LES Final Result Performing Organization Address [facility] de Phone Number [facility] [address] [place] [phone] * (ABNORMAL) Comprehensive Metabolic Panel (03/29/2024 11:38 AM EST) Sodium 140 135 - 145 mmol/L [facility] Potassium 4.1 3.3 - 5.1 mmol/L [facility] Chloride 103 96 - 108 mmol/L [facility] Carbon Dioxide 25 22 - 29 mmol/L [facility] Anion Gap 16 12 - 20 [facility] Urea Nitrogen (BUN) 14 9 - 16 mg/dL [facility] Creatinine, Serum 1.06 0.5 - 1.4 mg/dL [facility] Creatinine Clr Calc Pharmacy 131.8 [facility] Comment:eGFR (calculated fro m the MDRD study equation) and eCrCl(calculated from the Cockcroft-Gault equation) are based ondifferent parameters and may not yield comparable results.If eCrCl result is absurd, please check patient'sheight/weight. Estimated Glomerular Filt Rate >60 [facility] Comment:Chronic Kidney Disea se: Estimated GFR < 60 mL/min/1.24g5Rwfsnp Kidney Disease: Estimated GFR < 15 mL/min/1.73m2 Glucose 86 60 - 115 mg/dL [facility] Calcium 9.4 8.4 - 10.2 mg/dL [facility] Bilirubin, Total 0.5 0.0 - 1.0 mg/dL [facility] Aspartate Amino Transferase 34 5 - 37 U/L [facility] Alanine Aminotransferase 41(H) 0 - 40 U/L [facility] Total Protein 8.1(H) 6.5 - 8.0 g/dL [facility] Albumin Level 4.8 3.5 - 5.0 g/dL [facility] Alkaline Phosphatase 68 39 - 117 U/L [facility] 03/29/2024 11:3 8 AM EST 03/29/2024 11:43 AM EST us Generic External Data Provider LAB BLOOD ORDERAB LES Final Result [facility] [address] [place] [phone] [phone] * Hepatitis C Ab (01/22/2023 12:26 PM EST) Hepatitis C Antibody Nonreactive Nonreactive [facility] Comment:Antibodies to HCV no t detected; does not exclude early acuteHCV infection. Blood Venous blood specimen / Unknown 01/22/2023 12:26 PM EST 01/22/2023 1:22 PM EST Tanvi Leach MD LAB BLOOD ORDERABLES Final Res ult Performing Organization Address [facility] Co de Phone Number [facility] [address] [place] [phone] * HIV-1/2 Antigen and Antibodies, Fourth Generation, with Reflexes (01/22/2023 12:26 PM EST) [facility] HIV AB/AG Nonreactive Nonreactive [facility] Comment:HIV-1 p24 Ag and/or HIV-1/HIV-2 Ab not detected.A test result that is nonreactive does not exclude thepossibility of exposure to or infection with HIV-1 and/orHIV-2. Nonreactive results in this assay for individualswith prior exposure to HIV-1 and/or HIV-2 may be due toantigen and antibody levels that are below the limit ofdetection of this assay.The [employer] HIV Ag/Ab Combo assay result andsupplemental assay results should be interpreted inconjunction with the patient's clinical presentation,history and other laboratory results. If the results areinconsistent with clinical evidence, additional testing issuggested to confirm the result. Blood Venous blood specimen / Unknown 01/22/2023 12:26 PM EST 01/22/2023 1:22 PM EST Tanvi Leach MD LAB BLOOD ORDERABLES Final Res ult Performing Organization Address [facility] Co de Phone Number [facility] [address] [place] [phone] * (ABNORMAL) LIPID PANEL, STANDARD (05/20/2021 2:20 PM EDT) [facility] Chol/HDLC Ratio 3.7 <5.0 (calc) [facility] ?? Aureliano VARGAS et al. CONTRERAS. 2013;310(19): 1603-9221 ?? (http://[employer].VeraLight/faq/SFE536) Non-HDL Cholesterol 150(H) <130 mg/dL (calc) [facility] Comment: For patients with diabetes plus 1 major ASCVD risk ?? factor, treating to a non-HDL-C goal of <100 mg/dL ?? (LDL-C of <70 mg/dL) is considered a therapeutic ?? option. Triglycerides 195(H) <150 mg/dL [facility] 05/20/2021 2:20 PM EDT us Tanvi Leach MD LAB BLOOD ORDERABLES Final Res ult [facility] [address] from Last 3 Months or Most Recently Relevant to Health Maintenance Insurance [facility] [address] - [facility] * Guarantor: Omkar Tafoya Account Type Relation to Patient Date of Phone Billing Address Personal/Family Self [facility] [address] [address] * Guarantor: Omkar Tafoya Account Type Relation to Patient Date of Phone Billing Address Personal/Family Self [facility] [address] [address] Care Teams Vector Control Assistant Relationship Specialty Start Date End Date Tanvi Leach MD [address] [place] [phone] PCP - General Family Medicine 05/20/21
--- OUTSIDE RECORDS SUMMARY | 2024-04-15 09:39 | XMS_ITS | Encounter Summary ---
Author Organization [employer] Address [address] [place] [address] Care Team Providers Care Wildlife Photographer Name Role Phone Tanvi Leach MD Primary Care Provider [phone] Reason for Visit * Reason Comments Med Refill Encounter Details Date Type Department Care Team (Late st Contact Info) Description 02/21/2023 Refill [facility] [address] [place], [place] [phone] Pauline Cisneros MD [address] [place] [address] Social History Tobacco Use Types Packs/Day Years [...] Description 06/02/2024 4:00 PM EDT Office Visit [facility] [address] [place] [address] Tanvi Leach MD [address] [place] [phone] 08/13/2024 10:00 AM EDT Office Visit [facility] [address] [place] [address] Jaleesa Farah documented as of this encounter Visit Diagnoses Not on filedocumented in this encounter Additional Health Concerns Assessment Noted Time PHQ-9 Depression Total Score: 11 023 2:58 PM EST documented as of this encounter Care Teams Wildlife Photographer Relationship Specialty Start Date End Date Tanvi Leach MD [address] [place] [address] [phone] PCP - General Family Medicine 05/20/21 documented as of this encounter
--- OUTSIDE RECORDS SUMMARY | 2024-04-15 09:39 | XMS_ITS | Encounter Summary ---
Author Organization [employer] Address [address] [place] [address] Care Team Providers Care Rod Hanger Name Role Phone Tanvi Leach MD Primary Care Provider [phone] Reason for Visit * Reason Onset Date Comments Medication Question 02/15/2024 Encounter Details Date Type Department Care Team ([facility] st Contact Info) Description 02/15/2024 Telephone [facility] [address] [place], [place] [phone] Tanvi Leach MD [address] [place], [place] [phone] Medication Question Social History Tobacco Use Types [...] a New CPAP Machine. Contact pt at [phone] documented in this encounter Plan of Treatment Upcoming Encounters Date Type Department Care Team (Late st Contact Info) Description 06/02/2024 4:00 PM EDT Office Visit [facility] [address] [place] [address] Tanvi Leach MD [address] [place] [address] 08/13/2024 10:00 AM EDT Office Visit [facility] AD[facility] [address] [place] [address] Jaleesa Farah documented as of this encounter Visit Diagnoses Not on filedocumented in this encounter Additional Health Concerns Assessment Noted Time PHQ-9 Depression Total Score: 0 03/28/19 24 2:55 PM EST documented as of this encounter Care Teams Rod Hanger Relationship Specialty Start Date End Date Tanvi Leach MD [address] [place] [phone] PCP - General Family Medicine 05/20/21 documented as of this encounter
--- OUTSIDE RECORDS SUMMARY | 2024-04-15 09:39 | XMS_ITS | Encounter Summary ---
Author Organization [employer] Address [address] [place] [address] Care Team Providers Care Electrical Technician Name Role Phone Tanvi Leach MD Primary Care Provider [phone] Reason for Visit * Reason Onset Date Comments Call Back Request 11/21/2023 Encounter Details Date Type Department Care Team ([facility] st Contact Info) Description 11/21/2023 Telephone [facility] [address] [place] [address] Tanvi Leach MD [address] [place], [place] [id number] Call Back Request Social History Tobacco Use [...] with others, in a hotel, in a residential, living outside on the street, on a [...] - 11/21/2023 3:53 PM EDT Tc from [facility] requesting a call back to obtain some clarity on why the provider would just simply write a letter indicating it is ok for the patient to be in charge of own finances when the patient have a list of conditions including a learning disability please call the patients nurse case management at [phone] Hubbard documented in this encounter Plan of Treatment Upcoming Encounters Date Type Department Care Team (Late st Contact Info) Description 06/02/2024 4:00 PM EDT Office Visit [facility] [address] [place] [address] Tanvi Leach MD [address] [place] [address] 08/13/2024 10:00 AM EDT Office Visit [facility] AD[facility] D[facility] [address] [place] [address] Jaleesa Farah documented as of this encounter Visit Diagnoses Not on filedocumented in this encounter Additional Health Concerns Assessment Noted Time PHQ-9 Depression Total Score: 0 03/28/19 24 2:55 PM EST documented as of this encounter Care Teams Electrical Technician Relationship Specialty Start Date End Date Tanvi Leach MD [address] [place] [address] PCP - General Family Medicine 05/20/21 documented as of this encounter
[2024-04-15] MEDS: iohexoL 350 MG/ML 100 ML INFUS..BTL IV (10:37)
[2024-04-15 14:54] VITALS: BP 140/86; PULSE 78; RESP 16; TEMP 36.7; O2SAT 98
== END 2024-04-15 14:54 | disposition home or self-care (01) ==
PROVIDERS: Emergency Provider Emergency Medicine Emergency Medical Services; PCP General Practice
DX: R10.31 Right lower quadrant pain (principal); R11.2 Nausea with vomiting, unspecified
CPT/HCPCS: 36415; 74177; 80048; 81003; 85025; 99284; Q9967

== ENCOUNTER → 2024-04-15 09:41 | Outpatient (BNV) | payer OTHER, SELFPAY | PROVIDERS: Emergency Provider Emergency Medicine Emergency Medical Services; PCP General Practice; Visit Provider Radiology Diagnostic Radiology | DX: R10.31 Right lower quadrant pain (principal) | CPT/HCPCS: 74177 ==

== ENCOUNTER 2024-05-01 | Outpatient (REF) | payer OTHER, SELFPAY ==
[2024-05-01 12:06] VITALS: BP 122/68; PULSE 70; RESP 20; O2SAT 97; BMI 45.2
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
--- OUTSIDE RECORDS SUMMARY | 2024-08-19 18:38 | XMS_ITS | Encounter Summary ---
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 Name Role Phone Tanvi Leach MD Primary Care Provider [phone] Reason for Visit * Reason Onset Date Comments Call Back Request 08/13/2024 Encounter Details Date Type Department Care Team ([facility] st Contact Info) Description 08/13/2024 Telephone [facility] [address] [place] [address] Tanvi Leach MD [address] [place], [place] [id number] Call Back Request (/) Social History Tobacco Use Types Packs/Day Years Used Date Smoking Tobacco: Former Cigarettes Passive Smoke Exposure: Never Smokeless Tobacco: Never Alcohol Use Standard Drinks/Week Comments Never 0 (1 standard drink = 0.6 oz pur e alcohol) Depression Answer Date Recorded Patient Health Questionnaire-9 Score 21 08/05/2024 Patient Health Questionnaire-9 Score 21 08/05/2024 Last PHQ-9: Questionnaire Data Not on file 0 08/05/2024 Housing Stability Answer Date Recorded What is [...] Date Recorded Patient Health Questionnaire-2 Score 4 08/05/2024 Internet Access Answer Date Recorded Internet Access [...] encounter Miscellaneous Notes * Telephone Encounter - Chelsea Alonzo RN - 08/15/2024 12:57 PM EDT TC returned to DIPIKA RN and advised that atorvastatin rx can be discontinued. DIPIKA RN verbalizes understanding * Telephone Encounter - Chelsea Alonzo RN - 08/13/2024 2:15 PM EDT TC returned to pt.'s OLIMPIAA RN. DIPIKA inquiring if pt. Is to be taking atorvastatin. It was apparently started while pt. Was inpatient in approx Mar, which has been sporadically continued by different inpatient providers (refills picked up 05/15/24 and 08/12/24 for 30 day supplies). OLIMPIAA RN is aware PCP has not prescribed this, however pt. Has it in the home, but for now DIPIKA RN will be keeping it out of his medbox until it is further clarified if PCP will be prescribing going forward. Otherwise, she is also confirming that pt. Does not have DM as it continues to be on various discharge summaries since pt. Is prescribed metformin. Confirmed that pt. Has no dx DM and last A1c was WNL. VNA requesting to have HDF scheduled through her as pt. Is very hard to reach. HDF scheduled for 08/20/24 with KENNETH Stahl. DIPIKA RN will let pt. Know of appt date/ time and will have pt. Call if this date/ time does not work for him. * Telephone Encounter - Marylou Duque - 08/13/2024 1:01 PM EDT Tc from Vaishali GARZA requesting a call back regarding: - Atorvastatin medication - Diabetes diagnosis [phone] documented in this encounter Plan of Treatment Upcoming Encounters Date Type Department Care Team (Late st Contact Info) Description 08/20/2024 10:45 AM EDT Office Visit [facility] [address] [place] [address] Maribeth Baker NP [address] [place] [address] 09/04/2024 1:30 PM EDT Office Visit [facility] [address] [place] [address] Rahul Madrigal, LYNDON [address] [place] [address] 10/01/2024 3:15 PM EDT Office Visit [facility] [address] [place] [address] Tanvi Leach MD [address] [place] [address] documented as of this encounter Visit Diagnoses Not on filedocumented in this encounter Additional Health Concerns Assessment Noted Time PHQ-9 Depression Total Score: 21 025 9:08 AM EDT documented as of this encounter Care Teams Reinforcing Steel Machine Operator Relationship Specialty Start Date End Date Tanvi Leach MD [address] [place] [address] PCP - General Family Medicine 05/20/21 [facility] 01/11/24 documented as of this encounter
== END 2024-05-01 00:01 | disposition home or self-care (01) ==
LOC: HO.PAT
PROVIDERS: PCP General Practice; Visit Provider Surgery
DX: S31.139A Puncture wound of abdominal wall without foreign body, unspecified quadrant without penetration into peritoneal cavity, initial encounter (principal)
CPT/HCPCS: 86850; 86900; 86901

== ENCOUNTER 2024-08-05 12:10 | Inpatient (IN) | payer OTHER, SELFPAY ==
[2024-08-05 12:40] VITALS: BP 138/70; BP 174/75; PULSE 57; PULSE 70; RESP 18; TEMP 36.1; O2SAT 100; O2SAT 99; BMI 44.3
[2024-08-05 12:48] VITALS: BP 163/84; PULSE 59; RESP 18; O2SAT 100
[2024-08-05 12:51] LABS: MANUAL DIFF FLAG NO
[2024-08-05 12:52] LABS: Basophils Absolute Auto 0.1 X10*3/uL (0.0-0.2); Basophils Percent Auto 2.1 % (0-2); Eosinophils Absolute Auto 0.2 X10*3/uL (0.0-0.4); Eosinophils Percent Auto 3.9 % (0-4); Hemoglobin 14.7 g/dl (14.0-18.0); Imm Gran Abs Auto 0.02 X10*3/uL (0.00-0.03); Imm Gran Pct Auto 0.5 % (0.0-0.4); Lymphocytes Absolute Auto 1.4 X10*3/uL (1.2-4.9); Lymphocytes Percent Auto 31.7 % (20-40); Mean Corpuscular HGB Conc 34.2 g/dl (31.0-36.0); Mean Corpuscular Hemoglobin 30.5 pg (27.0-33.0); Mean Corpuscular Volume 89.2 fL (80.0-98.0); Monocytes Absolute Auto 0.4 X10*3/uL (0.1-1.2); Monocytes Percent Auto 9.2 % (2-11); Neutrophils Absolute Auto 2.3 x10*3/uL (2.0-8.3); Neutrophils Percent Auto 52.6 % (45-73); Platelet Count 349 X10*3/uL (160-400); Red Blood Count 4.82 X10*6/uL (4.60-5.80); Red Cell Distribution Width 13.5 % (11.0-16.0); White Blood Count 4.4 X10*3/uL (4.8-10.8)
[2024-08-05 12:53] LABS: Appearance Urine Clear; Color Urine Yellow; Glucose Urine UA Negative (Negative); Leukocyte Esterase Urine Negative (Negative); Nitrite Urine Negative (Negative); Urine Blood Negative (Negative); Urine Ketones Negative (Negative); Urine Protein Negative (Neg-Trace)
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
[2024-08-05 13:05] LABS: Amphetamine Screen Urine Not Detected (Not Detect); Barbiturates, Urine Not Detected (Not Detect); Benzodiazepines Screen Urine Not Detected (Not Detect); Buprenorphine Scr Not Detected (Not Detect); Cannabinoid Screen Urine Not Detected (Not Detect); Cocaine Screen Urine Not Detected (Not Detect); Fentanyl, urine Not Detected (Not Detect); Methadone Screen, Urine Not Detected (Not Detect); Opiate Screen Urine Not Detected (Not Detect); Oxycodone Screen Urine Not Detected (Not Detect); Phencyclidine Screen Urine Not Detected (Not Detect)
[2024-08-05 13:14] LABS: Acetaminophen LAB < 3 mcg/mL (<30); Alanine Aminotransferase 41 U/L (0-40); Albumin Level 5.2 g/dL (3.5-5.0); Alkaline Phosphatase 70 U/L (39-117); Anion Gap 14 (12-20); Aspartate Amino Transferase 34 U/L (5-37); Bilirubin Total 0.5 mg/dL (0.0-1.0); Blood Urea Nitrogen 17 mg/dL (9-16); Carbon Dioxide 28 mmol/L (22-29); Chloride 102 mmol/L (96-108); Creatinine Clr Calc Pharmacy 120.2; Estimated Glomerular Filt Rate > 60; Ethanol < 10 mg/dL; Glucose Random 87 mg/dL (60-115); Potassium 4.3 mmol/L (3.3-5.1); Salicylate < 5.0 mg/dL (15-30); Sodium 140 mmol/L (135-145); Total Protein 7.8 g/dL (6.5-8.0)
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
[2024-08-05] MEDS: Acetaminophen 325 MG TABLET 975 MG PO (15:49)
[2024-08-05] MEDS: metFORMIN HCl ER 500 MG TAB.ER.24H 1000 MG PO (18:02)
[2024-08-05] MEDS: Nicotine 21 MG PATCH.TD24 TRANSDERMA (18:25)
[2024-08-05] MEDS: Nicotine Polacrilex 2 MG GUM BUCCAL (18:25)
--- OUTSIDE RECORDS SUMMARY | 2024-08-05 18:57 | XMS_ITS | Clinical Summary ---
Author Organization [facility] Address [address] [place] [address] Phone Care Team Providers Care Cvt Rn Name Role Phone Tanvi Leach MD Primary Care Provider [phone] Allergies No known active allergies Medications cetirizine [...] mouth 1 (one) time each day. Active methocarbamoL (ROBAXIN) 750 mg tablet Take 2 tablets (1,500 mg total) by mouth 4 (four) times a day if needed for muscle spasms for up to 10 days. 40 each 5 Active naproxen (NAPROSYN) 500 mg tablet Take 1 tablet (500 mg total) by mouth 2 (two) times a day with meals for 7 days. 14 tablet 5 07/24/19 25 Active Problems Problem Noted Date Diagnosed Date Cannabis abuse 01/28/2024 Cocaine abuse ([facility] V24, [facility] V28) 024 Chronic bilateral low back pain without sciatica 03/28/2023 Obstructive sleep apnea 03/09/2022 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 Erectile dysfunction 09/02/2014 Essential hypertension 07/23/2014 Schizoaffective disorder ([facility] V24, [facility] V 28) 04/20/2014 Depressive disorder 08/17/2011 Encounters Date Type Department Care Team Description 07/16/2024 7:28 PM EDT - 07/16/2024 9:28 PM EDT Emergency [facility] Emergency [address] [place] [address] Left shoulder pain, unspecified chronicity (Primary Dx) Discharge Disposition: Home or Self Care from Last 3 Months Medical History Medical History Date Comments Schizophrenia ([facility] V24, [facility] V28) Social History Tobacco Use Types Packs/Day Years [...] Sign Reading Time Taken Comments Blood Pressure 120/76 07/16/2024 9:26 PM EDT Pulse 76 07/16/2024 9:26 PM EDT Temperature 37.1 ??C (98.7 ??F) 07/16/2024 9:26 PM ED T Respiratory Rate 18 07/16/2024 9:26 PM EDT Oxygen Saturation 99% 07/16/2024 9:26 PM EDT Inhaled Oxygen Concentration - - Weight 90.7 kg (200 lb) 07/16/2024 4:18 PM EDT Height 175.3 cm (5' 9 ) 07/16/2024 4:18 PM EDT Body Mass Index 29.53 07/16/2024 4:18 PM EDT Plan of Treatment Health Maintenance Due Date Last Done Comments Hepatitis C Screening 01/29/2022 Medicare Annual Wellness Visit 01/29/2022 Social Influencers of Health Screening 01/29/2022 Hypertension/CHF/CAD Annual BMP Blood Test 01/26/2025 01/27/2024 Depression Screening 04/07/2025 04/07/2024 DTaP,Tdap,and Td Vaccines (8 - Td or [...] topic Hepatitis A Vaccines Completed 12/02/2021, 11/03/19 18 HIV Screening Completed 01/22/2023 Influenza Vaccine Completed 12/12/2023, , 11/22/2022, Additional history exists COVID-19 Vaccine Completed 01/18/2024, 11/2022, 03/24/2020 HPV Vaccines Aged Out No longer eligi ble based on patient's age to complete this topic Meningococcal ACWY Vaccine Aged Out N o longer eligible based on patient's age to complete this topic Meningococcal B Vaccine Aged Out No l onger eligible based on patient's age to complete this topic RSV Immunization Patients Under 20 months Aged Out No longer eligible based on patient's age to complete this topic Procedures Procedure Name Priority Date/Time Associated Diagnosis Comments XR SHOULDER 2+ VIEWS LEFT STAT 07/16/2024 8:24 PM EDT COMPREHENSIVE METABOLIC PANEL STAT 01/27/2024 10:31 PM EST from Last 3 Months or Most Recently Relevant to Health Maintenance Results * XR Shoulder 2+ Views Left (07/16/2024 8:24 PM EDT) Anatomical Region Laterality Modality Upper Extremities, Shoulder Left Radi ographic Imaging 07/17/2024 8:29 AM EDT Impressions 07/17/2024 8:29 AM EDT FINDINGS/IMPRESSION: No acute fracture or dislocation. ??Joint spaces are preserved. ??No focal soft tissue swelling or radiodense foreign bodies. -------- FINAL REPORT -------- Dictated By: RANJIT CHAN Dictated Date: 07/17/2024 08:29 ET Assigned Physician: RANJIT CHAN Reviewed and Electronically Signed By: RANJIT CHAN Signed Date: 07/17/2024 08:29 ET Workstation ID: [id number] Transcribed By: Self Edit Transcribed Date: 07/17/2024 08:29 ET Narrative 07/17/2024 8:29 AM EDT XR SHOULDER 2+ VIEWS LEFT INDICATION: ??Pain TECHNIQUE: XR SHOULDER 2+ VIEWS LEFT COMPARISON: No priors available. Procedure Note Ranjit Chan MD - 07/17/2024 XR SHOULDER 2+ VIEWS LEFT INDICATION: Pain TECHNIQUE: XR SHOULDER 2+ VIEWS LEFT COMPARISON: No priors available. IMPRESSION: FINDINGS/IMPRESSION: No acute fracture or dislocation. Joint spaces arepreserved. No focal soft tissue swelling or radiodense foreign bodies. -------- FINAL REPORT -------- Dictated By: RANJIT CHAN Dictated Date: 07/17/2024 08:29 ET Assigned Physician: RANJIT CHAN Reviewed and Electronically Signed By: RANJIT CHAN Signed Date: 07/17/2024 08:29 ET Workstation ID: [id number] Transcribed By: Self Edit Transcribed Date: 07/17/2024 08:29 ET us Daniel MARTÍNEZ IMG XR PROCEDURES Final R esult * (ABNORMAL) Comprehensive metabolic panel (01/27/2024 10:31 PM EST) Sodium 137 133 - 145 mmol/L LAB CHEMISTRY METHOD 01/27/2024 11:08 PM [facility] Potassium 3.6 3.5 - 5.5 mmol/L LAB CHEMISTRY METHOD 01/27/2024 11:08 PM [facility] Chloride 105 96 - 110 mmol/L LAB CHEMISTRY METHOD 01/27/2024 11:08 PM [facility] CO2 26 21 - 32 mmol/L LAB CHEMISTRY METHOD 01/27/2024 11:08 PM [facility] Anion Gap 6 3 - 11 LAB CHEMISTRY METHOD 01/27/2024 11:08 PM [facility] Glucose 111(H) 70 - 100 mg/dL LAB CHEMISTRY METHOD 01/27/2024 11:08 PM [facility] BUN 13 5 - 25 mg/dL LAB CHEMISTRY METHOD 01/27/2024 11:08 PM [facility] Creatinine 1.27 0.70 - 1.30 mg/dL LAB CHEMISTRY METHOD 01/27/2024 11:08 PM [facility] eGFR 74 >=60 mL/min/1. 73m2 LAB CHEMISTRY METHOD 01/27/2024 11:08 PM [facility] Comment:Calculation based on the??Chronic Kidney Disease Epidemiology Collaboration (CKD-EPI) equation refit??without adjustment for race. BUN/Creatinine Ratio 10.2 LAB CHEMISTRY METHOD 01/27/2024 11:08 PM [facility] Calcium 9.2 8.5 - 10.5 mg/dL LAB CHEMISTRY METHOD 01/27/2024 11:08 PM [facility] AST (SGOT) 71(H) 10 - 42 unit/L LAB CHEMISTRY METHOD 01/27/2024 11:08 PM [facility] ALT (SGPT) 63(H) 10 - 60 unit/L LAB CHEMISTRY METHOD 01/27/2024 11:08 PM [facility] Alkaline Phosphatase 86 42 - 121 unit/L LAB CHEMISTRY METHOD 01/27/2024 11:08 PM [facility] Total Protein 7.3 6.0 - 8.0 g/dL LAB CHEMISTRY METHOD 01/27/2024 11:08 PM [facility] Albumin 4.4 3.2 - 5.0 g/dL LAB CHEMISTRY METHOD 01/27/2024 11:08 PM [facility] Total Bilirubin 0.7 0.0 - 1.4 mg/dL LAB CHEMISTRY METHOD 01/27/2024 11:08 PM [facility] Blood Venous blood specimen / Unknown Venipuncture / Unknown 01/27/2024 10:31 PM EST 01/27/2024 10:43 PM EST Galdinomicah Alvarez MD LAB BLOOD ORDERABLES Final Resu lt [facility] [address] [place] [address], from Last 3 Months or Most Recently Relevant to Health Maintenance Insurance MEDICARE [facility] MEDICARE Member Subscriber Plan / Payer (Ef fective 2023-Present) Name:Jonh MULLINS Relation to Subscriber:Self Name:Omkar Mullins Payer ID:[id number] Group ID:[id number] Type:Not on file Address: [address] [place] [address] Care Teams Cvt Rn Relationship Specialty Start Date End Date Tanvi Leach MD [address] [place] [id number] PCP - General 05/09/23
--- NOTE | 2024-08-05 19:37 | ECG_ITS ---
Test Reason : MEDICAL CLEARANCE Blood Pressure : */* mmHG Vent. Rate : 65 BPM Atrial Rate : 65 BPM P-R Int : 176 ms QRS Dur : 110 ms QT Int : 390 ms P-R-T Axes : 57 69 28 degrees QTcB Int : 405 ms Normal sinus rhythm Normal ECG When compared with ECG of 21-Mar-2011 22:16, No significant change was found Referred By: Jean Washington Electronically Signed By: SHOSHANA TAYLOR MD
[2024-08-05] MEDS: Atorvastatin Calcium 10 MG TABLET PO (20:22)
[2024-08-05] MEDS: clonazePAM 0.5 MG TABLET PO (20:22)
[2024-08-05] MEDS: Melatonin 3 MG TABLET 6 MG PO (20:22)
[2024-08-05 20:51] VITALS: BP 121/78; PULSE 63; RESP 16; TEMP 36.2; O2SAT 98
[2024-08-06 05:44] VITALS: BP 136/85; PULSE 65; RESP 16; TEMP 36.6; O2SAT 100
[2024-08-06 09:08] VITALS: BP 118/71
[2024-08-06] MEDS: Multivitamin TABLET 1 TAB PO (09:08)
[2024-08-06] MEDS: Fluticasone Propionate Nasal 16 GM SPRAY 1 SPRAY NOSTRIL-B (09:08)
[2024-08-06] MEDS: lisinopriL 20 MG TABLET PO (09:08)
[2024-08-06] MEDS: Cholecalciferol (Vitamin D3) 25 MCG TABLET PO (09:08)
[2024-08-06] MEDS: Vitamin E (Dl,Tocopheryl Acet) 180 MG (400 UNIT) CAPSULE PO (09:08)
[2024-08-06] MEDS: Omeprazole 20 MG CAPSULE.DR PO (09:08)
[2024-08-06] MEDS: Loratadine 10 MG TABLET PO (09:08)
[2024-08-06] MEDS: Sodium Chloride 0.65 % Nasal 44 ML SPRBTL 1 SPRAY NOSTRIL-B (09:08)
[2024-08-06] MEDS: FLUoxetine HCl 10 MG CAPSULE PO (09:08)
[2024-08-06] MEDS: Ascorbic Acid 500 MG TABLET PO (09:08)
[2024-08-06 09:40] VITALS: BP 118/71; PULSE 69; RESP 14; TEMP 36.3; O2SAT 97
[2024-08-06] MEDS: ARIPiprazole 30 MG TABLET PO (10:42)
[2024-08-06] MEDS: amLODIPine Besylate 2.5 MG TABLET PO (10:42)
[2024-08-06] MEDS: guanFACINE HCl ER 2 MG TAB.ER.24H PO (10:42)
--- NOTE | 2024-08-06 15:00 | PC.NURSE ---
Report given to Kiara RN, questions answered, pt resting in bed.
[2024-08-06 15:10] VITALS: BP 132/62; PULSE 71; RESP 16; TEMP 37.2; O2SAT 96
[2024-08-06] MEDS: metFORMIN HCl ER 500 MG TAB.ER.24H 1000 MG PO (18:39)
[2024-08-06 20:00] VITALS: BP 115/70; PULSE 85; TEMP 36.6; O2SAT 96
[2024-08-06 20:09] VITALS: BMI 43.4
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
[2024-08-06] MEDS: Melatonin 3 MG TABLET 6 MG PO (21:37)
[2024-08-06] MEDS: Atorvastatin Calcium 10 MG TABLET PO (21:38)
[2024-08-06] MEDS: QUEtiapine Fumarate 50 MG TABLET PO (21:44)
[2024-08-06] MEDS: clonazePAM 0.5 MG TABLET PO (21:45)
[2024-08-07] MEDS: Omeprazole 20 MG CAPSULE.DR PO (06:53)
[2024-08-07 07:00] VITALS: BMI 43.9
[2024-08-07 08:25] VITALS: BP 120/69; PULSE 65; RESP 16; TEMP 36.9; O2SAT 98
[2024-08-07 08:42] LABS: Estimated Average Glucose 111 mg/dL; Hemoglobin A1C 141.1107 umol/L; Hemoglobin A1c % 5.5 % (<6.0); Total Hemoglobin (HGBA1C) 3853.6937 umol/L
[2024-08-07] MEDS: Loratadine 10 MG TABLET PO (08:45)
[2024-08-07] MEDS: Vitamin E (Dl,Tocopheryl Acet) 180 MG (400 UNIT) CAPSULE PO (08:45)
[2024-08-07] MEDS: Multivitamin TABLET 1 TAB PO (08:45)
[2024-08-07] MEDS: Cholecalciferol (Vitamin D3) 25 MCG TABLET PO (08:45)
[2024-08-07] MEDS: guanFACINE HCl ER 2 MG TAB.ER.24H PO (08:45)
[2024-08-07] MEDS: lisinopriL 20 MG TABLET PO (08:45)
[2024-08-07] MEDS: Ascorbic Acid 500 MG TABLET PO (08:45)
[2024-08-07] MEDS: ARIPiprazole 30 MG TABLET PO (08:45)
[2024-08-07] MEDS: Fluticasone Propionate Nasal 16 GM SPRAY 1 SPRAY NOSTRIL-B (08:46)
[2024-08-07 08:50] LABS: Alanine Aminotransferase 34 U/L (0-40); Albumin Level 4.8 g/dL (3.5-5.0); Anion Gap 11 (12-20); Aspartate Amino Transferase 25 U/L (5-37); Bilirubin Total 0.3 mg/dL (0.0-1.0); Blood Urea Nitrogen 17 mg/dL (9-16); Calcium 9.2 mg/dL (8.4-10.2); Carbon Dioxide 28 mmol/L (22-29); Chloride 102 mmol/L (96-108); Creatinine Clr Calc Pharmacy 123.1; Estimated Glomerular Filt Rate > 60; Glucose Random 94 mg/dL (60-115); Potassium 4.1 mmol/L (3.3-5.1); Sodium 137 mmol/L (135-145); Total Protein 7.4 g/dL (6.5-8.0); Triglycerides 171 mg/dL (<150)
[2024-08-07 08:51] LABS: Alkaline Phosphatase 70 U/L (39-117); Cholesterol 219 mg/dL (<200); HDL Cholesterol 44 mg/dL (>40); LDL Cholesterol Calculated 141 mg/dL (<100)
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
[2024-08-07] MEDS: buPROPion HCl XL 150 MG TAB.ER.24H PO (12:43)
[2024-08-07] MEDS: Lactase TABLET 2 TAB PO (17:30)
[2024-08-07] MEDS: QUEtiapine Fumarate 50 MG TABLET PO ×2 (17:30→21:01)
[2024-08-07] MEDS: metFORMIN HCl ER 500 MG TAB.ER.24H 1000 MG PO (17:30)
[2024-08-07] MEDS: clonazePAM 0.5 MG TABLET PO (17:32)
[2024-08-07 20:00] VITALS: BP 123/57; PULSE 79; TEMP 36.6; O2SAT 96
[2024-08-07] MEDS: Atorvastatin Calcium 10 MG TABLET PO (21:01)
[2024-08-07] MEDS: Melatonin 3 MG TABLET 6 MG PO (21:02)
[2024-08-08] MEDS: Omeprazole 20 MG CAPSULE.DR PO (07:16)
[2024-08-08 08:00] VITALS: BP 121/73; PULSE 67; RESP 16; TEMP 36.8; O2SAT 97
[2024-08-08] MEDS: Vitamin E (Dl,Tocopheryl Acet) 180 MG (400 UNIT) CAPSULE PO (08:41)
[2024-08-08] MEDS: lisinopriL 20 MG TABLET PO (08:41)
[2024-08-08] MEDS: Cholecalciferol (Vitamin D3) 25 MCG TABLET PO (08:42)
[2024-08-08] MEDS: ARIPiprazole 30 MG TABLET PO (08:42)
[2024-08-08] MEDS: guanFACINE HCl ER 2 MG TAB.ER.24H PO (08:42)
[2024-08-08] MEDS: Lactase TABLET 2 TAB PO ×3 (08:42→17:13)
[2024-08-08] MEDS: Ascorbic Acid 500 MG TABLET PO (08:43)
[2024-08-08] MEDS: buPROPion HCl XL 150 MG TAB.ER.24H PO (08:43)
[2024-08-08] MEDS: Loratadine 10 MG TABLET PO (08:43)
[2024-08-08] MEDS: Multivitamin TABLET 1 TAB PO (08:43)
[2024-08-08] MEDS: Fluticasone Propionate Nasal 16 GM SPRAY 1 SPRAY NOSTRIL-B (08:44)
[2024-08-08] MEDS: Acetaminophen 325 MG TABLET 650 MG PO ×2 (09:51→20:20)
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
--- NOTE | 2024-08-08 15:23 | PM.EVENT ---
Event Note Date of Service: 08/08/24 Event Note: Asked to consult patient for reports of tooth pain. Upon arrival patient reports that he had something stuck in his tooth on the right side of his lower jaw. He was able to remove it with a piece of plastic, reports mild of the pain is improved. No evidence of redness, warmth, swelling or any other concerning symptoms, no lymphadenopathy. Time Spent With Patient Time: Total time managing care of this patient today ____ minutes.
[2024-08-08] MEDS: clonazePAM 0.5 MG TABLET PO ×2 (15:44→22:02)
[2024-08-08] MEDS: QUEtiapine Fumarate 50 MG TABLET PO ×2 (15:44→22:02)
[2024-08-08] MEDS: metFORMIN HCl ER 500 MG TAB.ER.24H 1000 MG PO (17:12)
[2024-08-08 20:00] VITALS: BP 128/61; PULSE 81; RESP 16; TEMP 36.8; O2SAT 97
[2024-08-08] MEDS: Melatonin 3 MG TABLET 6 MG PO (20:20)
[2024-08-08] MEDS: Atorvastatin Calcium 10 MG TABLET PO (20:21)
[2024-08-09] MEDS: Omeprazole 20 MG CAPSULE.DR PO (05:56)
[2024-08-09 08:07] VITALS: BP 123/72; PULSE 66; TEMP 36.6; O2SAT 96
[2024-08-09] MEDS: Cholecalciferol (Vitamin D3) 25 MCG TABLET PO (08:47)
[2024-08-09] MEDS: Ascorbic Acid 500 MG TABLET PO (08:47)
[2024-08-09] MEDS: ARIPiprazole 30 MG TABLET PO (08:47)
[2024-08-09] MEDS: Vitamin E (Dl,Tocopheryl Acet) 180 MG (400 UNIT) CAPSULE PO (08:47)
[2024-08-09] MEDS: Lactase TABLET 2 TAB PO ×3 (08:47→16:57)
[2024-08-09] MEDS: guanFACINE HCl ER 2 MG TAB.ER.24H PO (08:47)
[2024-08-09] MEDS: lisinopriL 20 MG TABLET PO (08:47)
[2024-08-09] MEDS: Multivitamin TABLET 1 TAB PO (08:48)
[2024-08-09] MEDS: buPROPion HCl XL 150 MG TAB.ER.24H PO (08:48)
[2024-08-09] MEDS: Loratadine 10 MG TABLET PO (08:48)
[2024-08-09] MEDS: Fluticasone Propionate Nasal 16 GM SPRAY 1 SPRAY NOSTRIL-B (08:52)
--- NOTE | 2024-08-09 10:05 | HO.PSYCHPN ---
Subjective Subjective Date of Service: 08/09/24 Reason For Visit: AH Interim History: met with pt; discussed with team reports doing well, good mood; AH not bothersome; says anxiety low and grateful for help received Mental Status Exam Mental Status Exam Narrative: Pt is alert and oriented; behavior is cooperative, friendly and calm; patient is not in distress; dressed in casual attire with adequate hygiene; mood is described as good and affect congruent, brighter; eye contact appropriate; Speech is normal rate, volume and prosody and not pressured; no psychomotor retardation present; thought process is organized and goal directed; Thought content is on tx; otherwise pertinent to relevant topics and without any delusional content, paranoid ideations or grandiosity; denies any SI/HI. AH not bothersome Patients insight and judgment fair Diagnostics Vital Signs (24Hr): Vital Signs - 24 hr 08/08/24 20:00 08/09/24 08:07 Temperature 98.2 F 98 F Pulse Rate 81 66 Respiratory Rate 16 Blood Pressure 128/61 123/72 Pulse Oximetry 97 96 Oxygen Delivery Method Room Air Room Air BMI result Body Mass Index 43.9 Labs 08/05/24 12:42 08/07/24 08:04 Medications Medications Current Medications Acetaminophen (Acetaminophen 325 Mg Tablet) 650 mg PO Q6H PRN PRN Reason: Headache/Pain, Scale 1-10 Last Admin: 08/08/24 20:20 Dose: 650 mg Al Hydroxide/Mg Hydroxide (Magnesium Hydrox/Alum Hydrox 30 Ml Oral.Susp) 30 ml PO Q6H PRN PRN Reason: Heartburn/Nausea Amlodipine Besylate (Amlodipine Besylate 2.5 Mg Tablet) 2.5 mg PO DAILY [facility]; Protocol Last Admin: 08/06/24 10:42 Dose: 2.5 mg Aripiprazole (Aripiprazole 30 Mg Tablet) 30 mg PO DAILY [facility] Last Admin: 08/09/24 08:47 Dose: 30 mg Ascorbic Acid (Ascorbic Acid 500 Mg Tablet) 500 mg PO DAILY [facility] Last Admin: 08/09/24 08:47 Dose: 500 mg Atorvastatin Calcium (Atorvastatin Calcium 10 Mg Tablet) 10 mg PO BEDTIME [facility] Last Admin: 08/08/24 20:21 Dose: 10 mg Bupropion HCl (Bupropion Hcl Xl 150 Mg Tab.Er.24h) 150 mg PO DAILY [facility] Last Admin: 08/09/24 08:48 Dose: 150 mg Clonazepam (Clonazepam 0.5 Mg Tablet) 0.5 mg PO BID PRN PRN Reason: Anxiety Last Admin: 08/08/24 22:02 Dose: 0.5 mg Fluoxetine HCl (Fluoxetine Hcl 10 Mg Capsule) 10 mg PO DAILY [facility] Last Admin: 08/06/24 09:08 Dose: 10 mg Fluticasone Propionate (Fluticasone Propionate Nasal 16 Gm [place]) 1 spray NOSTRIL-B DAILY [facility] Last Admin: 08/09/24 08:52 Dose: 1 spray Guanfacine HCl (Guanfacine Hcl Er 2 Mg Tab.Er.24h) 2 mg PO DAILY [facility] Last Admin: 08/09/24 08:47 Dose: 2 mg Hydroxyzine HCl (Hydroxyzine Hcl 25 Mg Tablet) 25 mg PO Q6H PRN PRN Reason: mild anxiety Lactase (Lactase Tablet) 2 tab PO TIDWM [facility] Last Admin: 08/09/24 08:47 Dose: 2 tab Lisinopril (Lisinopril 20 Mg Tablet) 20 mg PO DAILY [facility]; Protocol Last Admin: 08/09/24 08:47 Dose: 20 mg Loratadine (Loratadine 10 Mg Tablet) 10 mg PO DAILY [facility] Last Admin: 08/09/24 08:48 Dose: 10 mg Magnesium Hydroxide (Milk Of Magnesia 30 Ml Oral.Susp) 30 ml PO DAILY PRN PRN Reason: Constipation Melatonin (Melatonin 3 Mg Tablet) 6 mg PO BEDTIME [facility] Last Admin: 08/08/24 20:20 Dose: 6 mg Metformin HCl (Metformin Hcl Er 500 Mg Tab.Er.24h) 1,000 mg PO DAILY@1800 [facility] Last Admin: 08/08/24 17:12 Dose: 1,000 mg Multivitamins/Vitamin C (Multivitamin Tablet) 1 tab PO DAILY [facility] Last Admin: 08/09/24 08:48 Dose: 1 tab Nicotine (Nicotine 21 Mg Patch.Td24) 21 mg TRANSDERMA DAILY PRN PRN Reason: smoking cessation Nicotine Polacrilex (Nicotine Polacrilex 2 Mg Gum) 2 mg BUCCAL Q2H PRN PRN Reason: Nicotine Cravings Last Admin: 08/05/24 18:25 Dose: 2 mg Nicotine Polacrilex (Nicotine Polacrilex 2 Mg Gum) 4 mg BUCCAL Q2H PRN PRN Reason: Nicotine Cravings Olanzapine (Olanzapine 5 Mg Tablet) 5 mg PO TID PRN PRN Reason: agitation Omeprazole (Omeprazole 20 Mg Capsule.) 20 mg PO DAILY@0630 [facility] Last Admin: 08/09/24 05:56 Dose: 20 mg Quetiapine Fumarate (Quetiapine Fumarate 50 Mg Tablet) 50 mg PO BID PRN PRN Reason: Agitation Last Admin: 08/08/24 22:02 Dose: 50 mg Sodium Chloride (Sodium Chloride 0.65 % Nasal 44 Ml Sprbtl) 1 spray NOSTRIL-B Q6H PRN PRN Reason: congestion Last Admin: 08/06/24 09:08 Dose: 1 spray Vitamin D (Cholecalciferol (Vitamin D3) 25 Mcg Tablet) 25 mcg PO DAILY [facility] Last Admin: 08/09/24 08:47 Dose: 25 mcg Vitamin E (Vitamin E (Dl,Tocopheryl Acet) 180 Mg (400 Unit) Capsule) 180 mg PO DAILY [facility] Last Admin: 08/09/24 08:47 Dose: 180 mg Allergies Allergies Allergy/AdvReac Type Severity Reaction Status Date / Time No Known Allergies Allergy Verified 08/05/24 12:44 Assessment & Plan Assessment & Plan (1) Schizophrenia, paranoid type: Status: Acute Code(s): F20.0 - Paranoid schizophrenia Plan 39-year-old, [place]-speaking, male, presents to [facility] from [facility] following evaluation by [facility] for SI, HI, and CAH. On interview with this provider, patient reports history of anxiety, depression, psychosis, and sleep apnea. He notes that he has been experiencing suicide ideation and command auditory hallucinations for the past 10 years. His symptoms are intermittent but worsened the past couple of days; the voices were commanding. They have been telling him to ?hit people and stabbed him in the face. The voices tell him that if he attacks an individual who possesses a gun, they will shoot him, and that will be a good way of committing suicide. He reports associated low energy, brain fog, and lack of concentration. Living with a roommate who is mistreating him by being controlling and telling him what to do, being disrespectful, and doing whatever he wants, also makes his symptoms worse. He believes that his roommate hates him. He states that he followed by a therapist weekly and psychiatrist monthly from [facility] and has been taking his medications as prescribed. However, he stopped taking Prozac 2-3 months ago due to fear of having decrease libido on the medication. He usually sleeps throughout the night at home but had fragmented sleep last night after taking trazodone; he feels tired and has no energy. He wants to stop trazodone. He states that Seroquel, Klonopin, and melatonin are effective for his insomnia. He has not use his CPAP since his ex-girlfriend broke it a year ago; his PCP is aware. When asked about visual hallucination, he notes that sometimes i can see myself doing bad things. He currently denies SI/HI/AH/VH. Reports history of suicide attempt by hanging, throwing himself through the window, and putting a gun in his mouth 10 years ago. Denies history of SIB. He denies anxiety or depression at this time. He denies history of dereck or hypomania. He smokes cigarette occasionally. He denies drugs or alcohol use. Tox screen is negative, BAL less than 10. Formulation/Clinical reasoning: Schizophrenia, paranoid type: This 39-year-old male with a 10-year history of intermittent psychotic symptoms, including command auditory hallucinations instructing him to harm others, presents with recent exacerbation of these symptoms. He also reports low energy, brain fog, and poor concentration, consistent with negative symptoms of schizophrenia. His flat affect, impaired insight and judgment, and absence of delusions suggest that his psychotic symptoms are currently well-controlled. The patient's nonadherence to CPAP therapy for untreated obstructive sleep apnea (JEAN PIERRE) may contribute to his cognitive symptoms and overall functioning. Additionally, his disrupted sleep patterns and inconsistent use of psychiatric medications could exacerbate his psychiatric symptoms. Fluoxetine is currently on hold. Will start bupropion 150 mg daily which is willing to trial due to less side effect profile; advised to take as prescribed. Instructed on the risks, benefits, and potential adverse reactions of the medication. He is on Abilify 30 mg daily and Seroquel 50 mg twice daily as needed. Continue current treatment regimen. Hospital course: 08/08 Patient reports that he continues to feel better. Mood much improved and no SI at all. AH also minimal. Patient says that his head is clear and that he can think more capably, able to talk more freely and concentrate. Patient feels that medications are helping and wants to continue 08/09 doing well; good mood; no SI; AH low Plan Admit to M5. 3 day notice Abilify 30 mg daily Prozac 10 mg daily Wellbutrin 150 mg daily Diagnostics as needed. Collateral contact. Continue remainder of regime. Encouraged full milieu. Discharge planning. Patient educated on: diagnosis and medication risk/benefits Informed Consent: understands Reason for continued inpatient stay Substantial Risk for: stable for discharge Time Spent With Patient Time: Total time managing care of this patient today ____ minutes.
[2024-08-09] MEDS: metFORMIN HCl ER 500 MG TAB.ER.24H 1000 MG PO (16:56)
[2024-08-09 20:00] VITALS: BP 120/64; PULSE 71; RESP 16; TEMP 36.8; O2SAT 96
[2024-08-09] MEDS: Melatonin 3 MG TABLET 6 MG PO (20:01)
[2024-08-09] MEDS: clonazePAM 0.5 MG TABLET PO (20:01)
[2024-08-09] MEDS: QUEtiapine Fumarate 50 MG TABLET PO (20:01)
[2024-08-09] MEDS: Atorvastatin Calcium 10 MG TABLET PO (20:01)
[2024-08-10] MEDS: Omeprazole 20 MG CAPSULE.DR PO (06:03)
[2024-08-10 07:57] VITALS: BP 119/64; PULSE 81; TEMP 36.4; O2SAT 96
--- NOTE | 2024-08-10 08:20 | HO.PSYCHPN ---
Subjective Subjective Date of Service: 08/10/24 Reason For Visit: AH Interim History: Met with patient; discussed with team Patient reports continued good mood. Anxious about medication and whether not it will cause sexual side effects. Discussed how mood seems to have remained stable without Prozac and so will discontinue (currently being held). Patient continues to have trouble sleeping and shares that he has sleep apnea that is not controlled because his ex-girlfriend throughout his machine in company will not give him another 1. Debated Seroquel verse trazodone and patient will try low-dose trazodone. Mental Status Exam Mental Status Exam Narrative: Pt is alert and oriented; behavior is cooperative, friendly and calm; patient is not in distress; dressed in casual attire with adequate hygiene; mood is described as good and affect congruent, brighter; eye contact appropriate; Speech is normal rate, volume and prosody and not pressured; no psychomotor retardation present; thought process is organized and goal directed; Thought content is on tx; otherwise pertinent to relevant topics and without any delusional content, paranoid ideations or grandiosity; denies any SI/HI. not bothersome Patients insight and judgment fair Diagnostics Vital Signs (24Hr): Vital Signs - 24 hr 08/09/24 20:00 08/10/24 07:57 Temperature 98.2 F 97.5 F Pulse Rate 71 81 Respiratory Rate 16 Blood Pressure 120/64 119/64 Pulse Oximetry 96 96 Oxygen Delivery Method Room Air Room Air BMI result Body Mass Index 43.9 Labs 08/05/24 12:42 08/07/24 08:04 Medications Medications Current Medications Acetaminophen (Acetaminophen 325 Mg Tablet) 650 mg PO Q6H PRN PRN Reason: Headache/Pain, Scale 1-10 Last Admin: 08/08/24 20:20 Dose: 650 mg Al Hydroxide/Mg Hydroxide (Magnesium Hydrox/Alum Hydrox 30 Ml Oral.Susp) 30 ml PO Q6H PRN PRN Reason: Heartburn/Nausea Amlodipine Besylate (Amlodipine Besylate 2.5 Mg Tablet) 2.5 mg PO DAILY [facility]; Protocol Last Admin: 08/06/24 10:42 Dose: 2.5 mg Aripiprazole (Aripiprazole 30 Mg Tablet) 30 mg PO DAILY [facility] Last Admin: 08/09/24 08:47 Dose: 30 mg Ascorbic Acid (Ascorbic Acid 500 Mg Tablet) 500 mg PO DAILY [facility] Last Admin: 08/09/24 08:47 Dose: 500 mg Atorvastatin Calcium (Atorvastatin Calcium 10 Mg Tablet) 10 mg PO BEDTIME [facility] Last Admin: 08/09/24 20:01 Dose: 10 mg Benzocaine (Benzocaine 20 % Oral Gel 14 Gm Tube) 1 appl MUCOUS MEM QID PRN; Protocol PRN Reason: tooth pain Bupropion HCl (Bupropion Hcl Xl 150 Mg Tab.Er.24h) 150 mg PO DAILY [facility] Last Admin: 08/09/24 08:48 Dose: 150 mg Clonazepam (Clonazepam 0.5 Mg Tablet) 0.5 mg PO BID PRN PRN Reason: Anxiety Last Admin: 08/09/24 20:01 Dose: 0.5 mg Fluoxetine HCl (Fluoxetine Hcl 10 Mg Capsule) 10 mg PO DAILY [facility] Last Admin: 08/06/24 09:08 Dose: 10 mg Fluticasone Propionate (Fluticasone Propionate Nasal 16 Gm [place]) 1 spray NOSTRIL-B DAILY [facility] Last Admin: 08/09/24 08:52 Dose: 1 spray Guanfacine HCl (Guanfacine Hcl Er 2 Mg Tab.Er.24h) 2 mg PO DAILY [facility] Last Admin: 08/09/24 08:47 Dose: 2 mg Hydroxyzine HCl (Hydroxyzine Hcl 25 Mg Tablet) 25 mg PO Q6H PRN PRN Reason: mild anxiety Lactase (Lactase Tablet) 2 tab PO TIDWM [facility] Last Admin: 08/09/24 16:57 Dose: 2 tab Lisinopril (Lisinopril 20 Mg Tablet) 20 mg PO DAILY [facility]; Protocol Last Admin: 08/09/24 08:47 Dose: 20 mg Loratadine (Loratadine 10 Mg Tablet) 10 mg PO DAILY [facility] Last Admin: 08/09/24 08:48 Dose: 10 mg Magnesium Hydroxide (Milk Of Magnesia 30 Ml Oral.Susp) 30 ml PO DAILY PRN PRN Reason: Constipation Melatonin (Melatonin 3 Mg Tablet) 6 mg PO BEDTIME [facility] Last Admin: 08/09/24 20:01 Dose: 6 mg Metformin HCl (Metformin Hcl Er 500 Mg Tab.Er.24h) 1,000 mg PO DAILY@1800 [facility] Last Admin: 08/09/24 16:56 Dose: 1,000 mg Multivitamins/Vitamin C (Multivitamin Tablet) 1 tab PO DAILY [facility] Last Admin: 08/09/24 08:48 Dose: 1 tab Nicotine (Nicotine 21 Mg Patch.Td24) 21 mg TRANSDERMA DAILY PRN PRN Reason: smoking cessation Nicotine Polacrilex (Nicotine Polacrilex 2 Mg Gum) 2 mg BUCCAL Q2H PRN PRN Reason: Nicotine Cravings Last Admin: 08/05/24 18:25 Dose: 2 mg Nicotine Polacrilex (Nicotine Polacrilex 2 Mg Gum) 4 mg BUCCAL Q2H PRN PRN Reason: Nicotine Cravings Olanzapine (Olanzapine 5 Mg Tablet) 5 mg PO TID PRN PRN Reason: agitation Omeprazole (Omeprazole 20 Mg Capsule.Dr) 20 mg PO DAILY@0630 [facility] Last Admin: 08/10/24 06:03 Dose: 20 mg Quetiapine Fumarate (Quetiapine Fumarate 50 Mg Tablet) 50 mg PO BID PRN PRN Reason: Agitation Last Admin: 08/09/24 20:01 Dose: 50 mg Sodium Chloride (Sodium Chloride 0.65 % Nasal 44 Ml Sprbtl) 1 spray NOSTRIL-B Q6H PRN PRN Reason: congestion Last Admin: 08/06/24 09:08 Dose: 1 spray Vitamin D (Cholecalciferol (Vitamin D3) 25 Mcg Tablet) 25 mcg PO DAILY [facility] Last Admin: 08/09/24 08:47 Dose: 25 mcg Vitamin E (Vitamin E (Dl,Tocopheryl Acet) 180 Mg (400 Unit) Capsule) 180 mg PO DAILY [facility] Last Admin: 08/09/24 08:47 Dose: 180 mg Allergies Allergies Allergy/AdvReac Type Severity Reaction Status Date / Time No Known Allergies Allergy Verified 08/05/24 12:44 Assessment & Plan Assessment & Plan (1) Schizophrenia, paranoid type: Status: Acute Code(s): F20.0 - Paranoid schizophrenia (2) JEAN PIERRE (obstructive sleep apnea): Status: Acute Code(s): G47.33 - Obstructive sleep apnea (adult) (pediatric) Plan 39-year-old, Czech-speaking, male, presents to [facility] from [facility] following evaluation by [facility] for SI, HI, and CAH. On interview with this provider, patient reports history of anxiety, depression, psychosis, and sleep apnea. He notes that he has been experiencing suicide ideation and command auditory hallucinations for the past 10 years. His symptoms are intermittent but worsened the past couple of days; the voices were commanding. They have been telling him to ?hit people and stabbed him in the face. The voices tell him that if he attacks an individual who possesses a gun, they will shoot him, and that will be a good way of committing suicide. He reports associated low energy, brain fog, and lack of concentration. Living with a roommate who is mistreating him by being controlling and telling him what to do, being disrespectful, and doing whatever he wants, also makes his symptoms worse. He believes that his roommate hates him. He states that he followed by a therapist weekly and psychiatrist monthly from [facility] and has been taking his medications as prescribed. However, he stopped taking Prozac 2-3 months ago due to fear of having decrease libido on the medication. He usually sleeps throughout the night at home but had fragmented sleep last night after taking trazodone; he feels tired and has no energy. He wants to stop trazodone. He states that Seroquel, Klonopin, and melatonin are effective for his insomnia. He has not use his CPAP since his ex-girlfriend broke it a year ago; his PCP is aware. When asked about visual hallucination, he notes that sometimes i can see myself doing bad things. He currently denies SI/HI/AH/VH. Reports history of suicide attempt by hanging, throwing himself through the window, and putting a gun in his mouth 10 years ago. Denies history of SIB. He denies anxiety or depression at this time. He denies history of dereck or hypomania. He smokes cigarette occasionally. He denies drugs or alcohol use. Tox screen is negative, BAL less than 10. Formulation/Clinical reasoning: Schizophrenia, paranoid type: This 39-year-old male with a 10-year history of intermittent psychotic symptoms, including command auditory hallucinations instructing him to harm others, presents with recent exacerbation of these symptoms. He also reports low energy, brain fog, and poor concentration, consistent with negative symptoms of schizophrenia. His flat affect, impaired insight and judgment, and absence of delusions suggest that his psychotic symptoms are currently well-controlled. The patient's nonadherence to CPAP therapy for untreated obstructive sleep apnea (JEAN PIERRE) may contribute to his cognitive symptoms and overall functioning. Additionally, his disrupted sleep patterns and inconsistent use of psychiatric medications could exacerbate his psychiatric symptoms. Fluoxetine is currently on hold. Will start bupropion 150 mg daily which is willing to trial due to less side effect profile; advised to take as prescribed. Instructed on the risks, benefits, and potential adverse reactions of the medication. He is on Abilify 30 mg daily and Seroquel 50 mg twice daily as needed. Continue current treatment regimen. Hospital course: 08/08 Patient reports that he continues to feel better. Mood much improved and no SI at all. AH also minimal. Patient says that his head is clear and that he can think more capably, able to talk more freely and concentrate. Patient feels that medications are helping and wants to continue 08/09 doing well; good mood; no SI; AH low 08/10 Patient reports continued good mood. Anxious about medication and whether not it will cause sexual side effects. Discussed how mood seems to have remained stable without Prozac and so will discontinue (currently being held). Patient continues to have trouble sleeping and shares that he has sleep apnea that is not controlled because his ex-girlfriend throughout his machine in company will not give him another 1. Debated Seroquel verse trazodone and patient will try low-dose trazodone. Plan Admit to M5. 3 day notice Abilify 30 mg daily Discontinue Prozac; patient in good mood without it; worried about sexual side effects Wellbutrin 150 mg daily -JEAN PIERRE-might be worth and inquiry to see if insurance company will pay for Diagnostics as needed. Collateral contact. Continue remainder of regime. Encouraged full milieu. Discharge planning. Patient educated on: diagnosis, medication risk/benefits and medical condition Informed Consent: understands Reason for continued inpatient stay Substantial Risk for: stable for discharge Time Spent With Patient Time: Total time managing care of this patient today ____ minutes.
[2024-08-10] MEDS: Fluticasone Propionate Nasal 16 GM SPRAY 1 SPRAY NOSTRIL-B (08:31)
[2024-08-10] MEDS: Cholecalciferol (Vitamin D3) 25 MCG TABLET PO (08:31)
[2024-08-10] MEDS: Lactase TABLET 2 TAB PO ×3 (08:32→17:16)
[2024-08-10] MEDS: lisinopriL 20 MG TABLET PO (08:32)
[2024-08-10] MEDS: Loratadine 10 MG TABLET PO (08:32)
[2024-08-10] MEDS: Multivitamin TABLET 1 TAB PO (08:32)
[2024-08-10] MEDS: Vitamin E (Dl,Tocopheryl Acet) 180 MG (400 UNIT) CAPSULE PO (08:32)
[2024-08-10] MEDS: ARIPiprazole 30 MG TABLET PO (08:32)
[2024-08-10] MEDS: guanFACINE HCl ER 2 MG TAB.ER.24H PO (08:32)
[2024-08-10] MEDS: buPROPion HCl XL 150 MG TAB.ER.24H PO (08:32)
[2024-08-10] MEDS: Ascorbic Acid 500 MG TABLET PO (08:32)
[2024-08-10] MEDS: Acetaminophen 325 MG TABLET 650 MG PO ×2 (11:20→21:52)
[2024-08-10] MEDS: Loperamide HCl 2 MG CAPSULE PO (14:23)
[2024-08-10] MEDS: metFORMIN HCl ER 500 MG TAB.ER.24H 1000 MG PO (17:16)
[2024-08-10 20:00] VITALS: BP 118/64; PULSE 86; RESP 16; TEMP 37.3; O2SAT 96
[2024-08-10] MEDS: clonazePAM 0.5 MG TABLET PO (20:21)
[2024-08-10] MEDS: Atorvastatin Calcium 10 MG TABLET PO (20:22)
[2024-08-10] MEDS: Melatonin 3 MG TABLET 6 MG PO (20:22)
[2024-08-10] MEDS: Benzocaine 20 % Oral Gel 14 GM TUBE 1 APPL MUCOUS MEM (22:20)
[2024-08-10] MEDS: traZODone HCL 25 MG HALFTAB 12.5 MG PO (22:36)
[2024-08-11] MEDS: QUEtiapine Fumarate 50 MG TABLET PO ×2 (01:49→19:55)
[2024-08-11 08:00] VITALS: BP 127/74; PULSE 65; TEMP 36.6; O2SAT 96
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
[2024-08-11 08:59] VITALS: BP 127/74
[2024-08-11] MEDS: guanFACINE HCl ER 2 MG TAB.ER.24H PO (08:59)
[2024-08-11] MEDS: ARIPiprazole 30 MG TABLET PO (08:59)
[2024-08-11] MEDS: Ascorbic Acid 500 MG TABLET PO (08:59)
[2024-08-11] MEDS: Lactase TABLET 2 TAB PO ×3 (08:59→17:19)
[2024-08-11] MEDS: Cholecalciferol (Vitamin D3) 25 MCG TABLET PO (08:59)
[2024-08-11] MEDS: Omeprazole 20 MG CAPSULE.DR PO (08:59)
[2024-08-11] MEDS: lisinopriL 20 MG TABLET PO (08:59)
[2024-08-11] MEDS: Multivitamin TABLET 1 TAB PO (08:59)
[2024-08-11] MEDS: buPROPion HCl XL 150 MG TAB.ER.24H PO (08:59)
[2024-08-11] MEDS: Loratadine 10 MG TABLET PO (08:59)
[2024-08-11] MEDS: Vitamin E (Dl,Tocopheryl Acet) 180 MG (400 UNIT) CAPSULE PO (08:59)
[2024-08-11] MEDS: Fluticasone Propionate Nasal 16 GM SPRAY 1 SPRAY NOSTRIL-B (09:26)
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
[2024-08-11] MEDS: metFORMIN HCl ER 500 MG TAB.ER.24H 1000 MG PO (17:19)
[2024-08-11] MEDS: Sodium Chloride 0.65 % Nasal 44 ML SPRBTL 1 SPRAY NOSTRIL-B (19:52)
[2024-08-11] MEDS: clonazePAM 0.5 MG TABLET PO (19:54)
[2024-08-11] MEDS: Atorvastatin Calcium 10 MG TABLET PO (19:54)
[2024-08-11] MEDS: Melatonin 3 MG TABLET 6 MG PO (19:54)
[2024-08-11 20:00] VITALS: BP 129/81; PULSE 75; RESP 16; TEMP 36.7
[2024-08-12] MEDS: QUEtiapine Fumarate 50 MG TABLET PO (03:33)
[2024-08-12 07:57] VITALS: BP 125/60; PULSE 62; RESP 18; TEMP 36.4; O2SAT 96
[2024-08-12] MEDS: Ascorbic Acid 500 MG TABLET PO (08:20)
[2024-08-12] MEDS: Loratadine 10 MG TABLET PO (08:20)
[2024-08-12] MEDS: ARIPiprazole 30 MG TABLET PO (08:20)
[2024-08-12] MEDS: Omeprazole 20 MG CAPSULE.DR PO (08:20)
[2024-08-12] MEDS: Lactase TABLET 2 TAB PO (08:20)
[2024-08-12] MEDS: Vitamin E (Dl,Tocopheryl Acet) 180 MG (400 UNIT) CAPSULE PO (08:20)
[2024-08-12] MEDS: Multivitamin TABLET 1 TAB PO (08:20)
[2024-08-12] MEDS: Cholecalciferol (Vitamin D3) 25 MCG TABLET PO (08:21)
[2024-08-12] MEDS: buPROPion HCl XL 150 MG TAB.ER.24H PO (08:21)
[2024-08-12] MEDS: lisinopriL 20 MG TABLET PO (08:21)
[2024-08-12] MEDS: guanFACINE HCl ER 2 MG TAB.ER.24H PO (08:21)
[2024-08-12] MEDS: Fluticasone Propionate Nasal 16 GM SPRAY 1 SPRAY NOSTRIL-B (08:54)
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
--- NOTE | 2024-08-13 09:58 | PC.NURSE ---
late entry: on 08/06/24, Klonopin 0.5mg was administered to pt at approximately 17:30, however medication administration was not saved. This medication was administered to the pt.
== END 2024-08-12 11:25 | disposition home or self-care (01) | DRG 885 ==
LOC: HO.ED 16:14 → HO.PM5 08-06 14:44
PROVIDERS: Physician Assistant Medical; Admitting Provider Psychiatry & Neurology Psychiatry; Emergency Provider Emergency Medicine Emergency Medical Services; PCP General Practice; Visit Provider Psychiatry & Neurology Psychiatry
DX: F20.0 Paranoid schizophrenia (principal); R45.851 Suicidal ideations; K43.2 Incisional hernia without obstruction or gangrene; G47.33 Obstructive sleep apnea (adult) (pediatric); Z87.891 Personal history of nicotine dependence; Z79.84 Long term (current) use of oral hypoglycemic drugs; Z79.899 Other long term (current) drug therapy
CPT/HCPCS: 36415; 80053; 80061; 80143; 80179; 80307; 81003; 83036; 85025; 93005; 99285

== ENCOUNTER → 2024-08-05 19:37 | Outpatient (BNV) | payer OTHER, SELFPAY | PROVIDERS: Admitting Provider Psychiatry & Neurology Psychiatry; Emergency Provider Emergency Medicine Emergency Medical Services; PCP General Practice; Visit Provider Internal Medicine Cardiovascular Disease | DX: Z13.6 Encounter for screening for cardiovascular disorders (principal) | CPT/HCPCS: 93010 ==

== ENCOUNTER → 2024-08-06 13:48 | Outpatient (BNV) | payer OTHER, SELFPAY | PROVIDERS: Admitting Provider Psychiatry & Neurology Psychiatry; Emergency Provider Emergency Medicine Emergency Medical Services; PCP General Practice; Visit Provider Psychiatry & Neurology Psychiatry | DX: F20.0 Paranoid schizophrenia (principal) | CPT/HCPCS: 90792; 99231; 99232 ==

== ENCOUNTER → 2024-08-06 13:48 | Outpatient (BNV) | payer OTHER, SELFPAY | PROVIDERS: Admitting Provider Psychiatry & Neurology Psychiatry; Emergency Provider Emergency Medicine Emergency Medical Services; PCP General Practice; Visit Provider Surgery | DX: K43.2 Incisional hernia without obstruction or gangrene (principal) | CPT/HCPCS: 99222 ==

== ENCOUNTER 2024-09-17 05:53 | Inpatient (IN) | payer OTHER, SELFPAY ==
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
[2024-09-17] VITALS (14 sets, daily range): BP systolic 109–149; BP diastolic 50–84; PULSE 62–87; RESP 13–22; TEMP 36.3–36.9; O2SAT 93–97; BMI 41.7
[2024-09-17] MEDS: Lactated Ringers 1,000 ML 100 ML IVCONT (06:25)
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
--- NOTE | 2024-09-17 07:20 | PHA.MEDREC ---
Pharmacy Consult ? Medication Reconciliation Pharmacy has completed the medication reconciliation. Reviewed med rec done by nursing, matches claims and discharge packet from last month.
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
[2024-09-17] MEDS: oxyCODONE HCl Immed Release 5 MG TABLET PO (11:39)
[2024-09-17 11:52] LABS: Glucose, Whole Blood 100 mg/dL (60-115)
[2024-09-17] MEDS: Lactated Ringers 1,000 ML 80 ML IVCONT ×2 (11:52→22:20)
[2024-09-17 15:48] LABS: Glucose, Whole Blood 144 mg/dL (60-115)
[2024-09-17] MEDS: 0.9 % Sodium Chloride Flush 3 ML SYRINGE IVFLUSH (15:50)
--- NOTE | 2024-09-17 17:02 | HO.POSTANES ---
Post Anesthesia Evaluation Post Anesthesia Evaluation Date of Service: 09/17/24 Vital Signs: Vital Signs Temp Pulse Resp BP Pulse Ox O2 Del Method 09/17/24 15:57 98.5 F 82 16 109/61 96 Room Air 09/17/24 11:33 97.5 F 79 16 132/74 96 Room Air 09/17/24 10:54 97.6 F 72 17 137/69 95 Room Air 09/17/24 10:42 79 16 143/84 H 94 Room Air 09/17/24 10:32 74 16 143/84 H 93 Room Air 09/17/24 10:28 18 09/17/24 10:27 79 13 145/77 H 94 Room Air 09/17/24 10:22 84 16 136/62 93 Room Air 09/17/24 10:18 22 H 09/17/24 10:17 82 18 130/50 L 93 Room Air 09/17/24 10:12 97.7 F 87 16 149/67 H 95 Room Air 09/17/24 06:25 97.3 F 62 16 128/79 97 Room Air Anesthesia: General LMA Mental Status: Awake Pain Control: Satisfactory Nausea/Vomiting: None Hydration: Adequate Anesthesia-Related Issues: No Anes. Related Issues
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
[2024-09-17 21:08] LABS: Glucose, Whole Blood 122 mg/dL (60-115)
[2024-09-18 03:41] VITALS: BP 106/54; PULSE 78; RESP 18; TEMP 36.9; O2SAT 97
[2024-09-18 05:57] LABS: MANUAL DIFF FLAG NO
[2024-09-18 06:19] LABS: Hematocrit 37.5 % (42.0-52.0); Hemoglobin 12.7 g/dl (14.0-18.0); Imm Gran Abs Auto 0.01 X10*3/uL (0.00-0.03); Imm Gran Pct Auto 0.1 % (0.0-0.4); Lymphocytes Absolute Auto 1.5 X10*3/uL (1.2-4.9); Mean Corpuscular HGB Conc 33.9 g/dl (31.0-36.0); Mean Corpuscular Hemoglobin 30.2 pg (27.0-33.0); Mean Corpuscular Volume 89.3 fL (80.0-98.0); NRBC Abs Auto 0.000 X10*3/uL (0.0-0.012); NRBC Pct Auto 0.0 /100WBC (0.0-0.2); Platelet Count 331 X10*3/uL (160-400); Red Blood Count 4.20 X10*6/uL (4.60-5.80); White Blood Count 7.4 X10*3/uL (4.8-10.8)
[2024-09-18 07:18] VITALS: BP 128/73; PULSE 71; RESP 16; TEMP 36.3; O2SAT 98
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
--- NOTE | 2024-09-18 07:34 | P.PNGS_ITS ---
Subjective Subjective Date of Service: 09/18/24 Physical Exam 2 Vital Signs: Vital Signs: Last Vital Signs Temp 97.4 F 09/18/24 07:18 Pulse 71 09/18/24 07:18 Resp 16 09/18/24 07:18 BP 128/73 09/18/24 07:18 Pulse Ox 98 09/18/24 07:18 O2 Del Method Room Air 09/18/24 07:18 BMI result Body Mass Index 41.7 Objective Data Active Medications Albuterol Sulfate (Albuterol Sulfate (0.083%) 2.5 Mg/3 Ml Vial.Neb) 2.5 mg INHALE ONCE PRN PRN Reason: Shortness of Breath/Wheezing Aripiprazole (Aripiprazole 30 Mg Tablet) 30 mg PO DAILY [facility] Bupropion HCl (Bupropion Hcl Xl 150 Mg Tab.Er.24h) 150 mg PO DAILY [facility] Calcium Carbonate (Calcium Carbonate 750 Mg Tab.Chew) 750 mg PO Q4H PRN PRN Reason: Heartburn Clonazepam (Clonazepam 0.5 Mg Tablet) 0.5 mg PO BID PRN PRN Reason: Anxiety Last Admin: 09/17/24 20:34 Dose: 0.5 mg Documented By: ELLE Dextrose (Dextrose 50 % 25 Gm/50 Ml Syringe) 25 gm IVPUSH Q15M PRN; Protocol PRN Reason: per Hypoglycemia Standing Ord. Fluticasone Propionate (Fluticasone Propionate Nasal 16 Gm [place]) 1 spray NOSTRIL-B DAILY [facility] Glucose (Glucose Gel 15 Gm Gel..Gram.) 15 gm PO Q15M PRN; Protocol PRN Reason: per Hypoglycemia Standing Ord. Guanfacine HCl (Guanfacine Hcl Er 2 Mg Tab.Er.24h) 2 mg PO DAILY [facility] Hydromorphone HCl (Hydromorphone Hcl 0.5 Mg/0.5 Ml Syringe) 0.5 mg IVPUSH Q3H PRN; Protocol PRN Reason: Pain, Severe (Pain Scale 7-10) Last Admin: 09/18/24 06:08 Dose: 0.5 mg Documented By: ELLE Lactated Ringer's (Lr) 1,000 mls @ 80 mls/hr IVCONT .[id number] [facility] Last Admin: 09/17/24 22:20 Dose: 80 mls/hr Documented By: ELLE Acetaminophen (Ofirmev) 1,000 mg in 100 mls @ 400 mls/hr IV Q6H PRN PRN Reason: Pain, Mild (Pain Scale 1-3) Last Infusion: 09/17/24 18:33 Dose: Infused Documented By: RADHAMES Insulin Human Lispro (Insulin Lispro 100 Unit/Ml 3 Ml Vial) 0 unit SUBCUT QIDACHS [facility]; Protocol Last Admin: 09/17/24 22:21 Dose: Not Given Documented By: ELLE Non-Admin Reason: No Insulin Coverage Lactase (Lactase Tablet) 1 tab PO TIDAC [facility] Last Admin: 09/17/24 16:46 Dose: 1 tab Documented By: RADHAMES Lisinopril (Lisinopril 20 Mg Tablet) 20 mg PO DAILY [facility]; Protocol Loratadine (Loratadine 10 Mg Tablet) 10 mg PO DAILY [facility] Magnesium Hydroxide (Milk Of Magnesia 30 Ml Oral.Susp) 30 ml PO DAILY PRN PRN Reason: Constipation Melatonin (Melatonin 3 Mg Tablet) 6 mg PO BEDTIME PRN PRN Reason: Insomnia Last Admin: 09/17/24 20:34 Dose: 6 mg Documented By: ELLE Metformin HCl (Metformin Hcl Er 500 Mg Tab.Er.24h) 1,000 mg PO DAILY@1800 [facility] Last Admin: 09/17/24 17:36 Dose: 1,000 mg Documented By: RADHAMES Multivitamins/Vitamin C (Multivitamin Tablet) 1 tab PO DAILY [facility] Omeprazole (Omeprazole 20 Mg Capsule.Dr) 20 mg PO DAILY@0630 [facility] Last Admin: 09/18/24 06:08 Dose: 20 mg Documented By: ELLE Ondansetron HCl (Ondansetron Hcl 4 Mg/2 Ml Vial) 4 mg IVPUSH QID PRN PRN Reason: Nausea Oxycodone HCl (Oxycodone Hcl Immed Release 5 Mg Tablet) 5 mg PO Q6H PRN PRN Reason: Pain, Moderate(Pain Scale 4-6) Last Admin: 09/17/24 11:39 Dose: 5 mg Documented By: CLARKE Quetiapine Fumarate (Quetiapine Fumarate 100 Mg Tablet) 100 mg PO BEDTIME [facility] Last Admin: 09/17/24 20:24 Dose: 100 mg Documented By: ELLE Sodium Chloride (Sodium Chloride 0.65 % Nasal 44 Ml Sprbtl) 1 spray NOSTRIL-B Q6H PRN PRN Reason: Congestion Sodium Chloride (0.9 % Sodium Chloride Flush 3 Ml Syringe) 3 ml IVFLUSH QSHIFT [facility] Last Admin: 09/18/24 01:17 Dose: Not Given Documented By: ELLE Non-Admin Reason: IV Running Labs 09/18/24 05:39 Labs: Laboratory Results - last 24 hr 09/17/24 09/17/24 09/17/24 06:37 11:47 15:44 MCV MCH MCHC RDW Plt Count MPV Immature Gran % (Auto) Neut % (Auto) Lymph % (Auto) [place] % (Auto) Eos % (Auto) Baso % (Auto) Lymph # (Auto) [place] # (Auto) Eos # (Auto) Baso # (Auto) Abs Immat Gran (auto) Absolute Neuts (auto) Absolute Nucleated RBC Nucleated RBC % (auto) POC Glucose 100 144 H Blood Type O Positive Antibody Screen NEGATIVE 09/17/24 09/18/24 21:04 05:39 MCV 89.3 MCH 30.2 MCHC 33.9 RDW 14.1 Plt Count 331 MPV 9.4 Immature Gran % (Auto) 0.1 Neut % (Auto) 66.2 Lymph % (Auto) 19.7 L [place] % (Auto) 11.6 H Eos % (Auto) 1.6 Baso % (Auto) 0.8 Lymph # (Auto) 1.5 [place] # (Auto) 0.9 Eos # (Auto) 0.1 Baso # (Auto) 0.1 Abs Immat Gran (auto) 0.01 Absolute Neuts (auto) 4.9 Absolute Nucleated RBC 0.000 Nucleated RBC % (auto) 0.0 POC Glucose 122 H Blood Type Antibody Screen Procedures Date of Service Date of Service: 09/18/24 Progress Note: A&P Time Spent With Patient Time: Total time managing care of this patient today ____ minutes.
[2024-09-18 07:47] LABS: Glucose, Whole Blood 87 mg/dL (60-115)
[2024-09-18] MEDS: ARIPiprazole 30 MG TABLET PO (08:03)
[2024-09-18] MEDS: buPROPion HCl XL 150 MG TAB.ER.24H PO (08:03)
[2024-09-18] MEDS: guanFACINE HCl ER 2 MG TAB.ER.24H PO (08:03)
--- NOTE | 2024-09-18 08:39 | HO.POSTANES ---
Post Anesthesia Evaluation Post Anesthesia Evaluation Date of Service: 09/18/24 Vital Signs: Vital Signs Temp Pulse Resp BP Pulse Ox O2 Del Method 09/18/24 07:18 97.4 F 71 16 128/73 98 Room Air 09/18/24 03:41 98.4 F 78 18 106/54 L 97 Room Air 09/17/24 23:36 98.3 F 77 18 113/62 96 Room Air Anesthesia: General Mental Status: Awake Pain Control: Satisfactory Nausea/Vomiting: None Hydration: Adequate Anesthesia-Related Issues: No Anes. Related Issues
--- NOTE | 2024-09-18 10:18 | MHC.CM.PN ---
Addendum entered by Ghada Gallagher 09/21/24 13:00: [facility] IS FOLLOWING FOR AN UPDATED PT EVAL TOMORROW Addendum entered by Ghada Gallagher 09/20/24 15:13: CM RECEIVED A CALL FROM DELMI AT [facility] SHE IS UNSURE IF PT IS ACTIVE WITH THEM AND DOES NOT HAVE ACCESS TO THE SYSTEM AT THIS TIME CM INFORMED HER HE WOULD NOT BE GOING HOME TODAY CM WILL FOLLOW UP SUNDAY Addendum entered by Ghada Gallagher 09/20/24 15:11: PT WAS CLEARED FOR HOME WITH SERVICES HOWEVER FEELS HE WILL BE UNSAFE AND UNABLE TO MANAGE DUE TO PAIN AND LEVEL OF FUNCTIONING REFERRALS MADE FOR STR OR [facility] PT UNDERSTANDS IF A BED IS OFFERED, IS INSURANCE WOULD ALSO NEED TO AUTH Addendum entered by Ghada Gallagher 09/20/24 08:10: RETURN REFERRAL SENT TO [facility] VIA [employer] WITH NO RESPONSE TWO MESSAGES LEFT VIA T/C [phone] WITH NO RESPONSE H&P FAXED TO THEM [phone] & [phone], AWAITING RESPONSE Original Note: PT REPORTS HE LIVES ALONE AND IS INDEPENDENT WITH CARE HE IS ACTIVE WITH [facility] FOR TWICE DAILY MED VISITS HE IS ALSO ACTIVE WITH [facility], BUT IS UNCERTAIN WHICH PROGRAM, HE SAYS THEY WILL BE IN TODAY HE DECLINES A HCP PCP: EMY BERKOWITZ IMM DELIVERED DCP: HOME WITH RESUMPTION OF [facility] AND [facility] SERVICES PT BELIEVES A [facility] WORKER MAY TRANSPORT
[2024-09-18 11:19] VITALS: BP 110/58; PULSE 77; RESP 16; TEMP 36.3; O2SAT 98
[2024-09-18 11:19] LABS: Glucose, Whole Blood 137 mg/dL (60-115)
--- NOTE | 2024-09-18 13:28 | HO.PM.IMPN ---
Subjective Subjective Date of Service: 09/18/24 Interval History: No acute issues overnight. Progressing well from surgical standpoint Review of Systems Denies chest pain Denies shortness of breath Denies nausea vomiting diarrhea Denies fever chills Physical Exam Vital Signs: Vital Signs: Last Vital Signs Temp 97.4 F 09/18/24 11:19 Pulse 77 09/18/24 11:19 Resp 16 09/18/24 11:19 BP 110/58 L 09/18/24 11:19 Pulse Ox 98 09/18/24 11:19 O2 Del Method Room Air 09/18/24 11:19 BMI result Body Mass Index 41.7 Const: Other: Awake alert no acute distress Resp: Other: Clear to auscultation bilaterally no rales rhonchi or wheezes Cardio: Other: No S4; positive S1-S2; no S3 murmurs rubs or gallops GI: Other: Abdominal dressing clean dry and intact. Quiet bowel sounds Extrem: Other: No edema bilaterally Objective Data Active Medications Albuterol Sulfate (Albuterol Sulfate (0.083%) 2.5 Mg/3 Ml Vial.Neb) 2.5 mg INHALE ONCE PRN PRN Reason: Shortness of Breath/Wheezing Aripiprazole (Aripiprazole 30 Mg Tablet) 30 mg PO DAILY [facility] Last Admin: 09/18/24 08:03 Dose: 30 mg Documented By: RAGHAVENDRA Bupropion HCl (Bupropion Hcl Xl 150 Mg Tab.Er.24h) 150 mg PO DAILY [facility] Last Admin: 09/18/24 08:03 Dose: 150 mg Documented By: RAGHAVENDRA Calcium Carbonate (Calcium Carbonate 750 Mg Tab.Chew) 750 mg PO Q4H PRN PRN Reason: Heartburn Clonazepam (Clonazepam 0.5 Mg Tablet) 0.5 mg PO BID PRN PRN Reason: Anxiety Last Admin: 09/17/24 20:34 Dose: 0.5 mg Documented By: ELLE Dextrose (Dextrose 50 % 25 Gm/50 Ml Syringe) 25 gm IVPUSH Q15M PRN; Protocol PRN Reason: per Hypoglycemia Standing Ord. Fluticasone Propionate (Fluticasone Propionate Nasal 16 Gm [place]) 1 spray NOSTRIL-B DAILY [facility] Last Admin: 09/18/24 10:02 Dose: Not Given Documented By: RAGHAVENDRA Non-Admin Reason: Med Not Available Glucose (Glucose Gel 15 Gm Gel..Gram.) 15 gm PO Q15M PRN; Protocol PRN Reason: per Hypoglycemia Standing Ord. Guanfacine HCl (Guanfacine Hcl Er 2 Mg Tab.Er.24h) 2 mg PO DAILY [facility] Last Admin: 09/18/24 08:03 Dose: 2 mg Documented By: RAGHAVENDRA Hydromorphone HCl (Hydromorphone Hcl 0.5 Mg/0.5 Ml Syringe) 0.5 mg IVPUSH Q3H PRN; Protocol PRN Reason: Pain, Severe (Pain Scale 7-10) Last Admin: 09/18/24 12:32 Dose: 0.5 mg Documented By: RAGHAVENDRA Acetaminophen (Ofirmev) 1,000 mg in 100 mls @ 400 mls/hr IV Q6H PRN PRN Reason: Pain, Mild (Pain Scale 1-3) Last Infusion: 09/17/24 18:33 Dose: Infused Documented By: RADHAMES Insulin Human Lispro (Insulin Lispro 100 Unit/Ml 3 Ml Vial) 0 unit SUBCUT QIDACHS [facility]; Protocol Last Admin: 09/18/24 11:21 Dose: Not Given Documented By: RAGHAVENDRA Non-Admin Reason: No Insulin Coverage Lactase (Lactase Tablet) 1 tab PO TIDAC [facility] Last Admin: 09/18/24 11:25 Dose: 1 tab Documented By: RAGHAVENDRA Lisinopril (Lisinopril 20 Mg Tablet) 20 mg PO DAILY [facility]; Protocol Last Admin: 09/18/24 08:03 Dose: 20 mg Documented By: RAGHAVENDRA Loratadine (Loratadine 10 Mg Tablet) 10 mg PO DAILY [facility] Last Admin: 09/18/24 08:03 Dose: 10 mg Documented By: RAGHAVENDRA Magnesium Hydroxide (Milk Of Magnesia 30 Ml Oral.Susp) 30 ml PO DAILY PRN PRN Reason: Constipation Melatonin (Melatonin 3 Mg Tablet) 6 mg PO BEDTIME PRN PRN Reason: Insomnia Last Admin: 09/17/24 20:34 Dose: 6 mg Documented By: ELLE Metformin HCl (Metformin Hcl Er 500 Mg Tab.Er.24h) 1,000 mg PO DAILY@1800 [facility] Last Admin: 09/17/24 17:36 Dose: 1,000 mg Documented By: RADHAMES Multivitamins/Vitamin C (Multivitamin Tablet) 1 tab PO DAILY [facility] Last Admin: 09/18/24 08:03 Dose: 1 tab Documented By: RAGHAVENDRA Omeprazole (Omeprazole 20 Mg Capsule.Dr) 20 mg PO DAILY@0630 [facility] Last Admin: 09/18/24 06:08 Dose: 20 mg Documented By: ELLE Ondansetron HCl (Ondansetron Hcl 4 Mg/2 Ml Vial) 4 mg IVPUSH QID PRN PRN Reason: Nausea Oxycodone HCl (Oxycodone Hcl Immed Release 5 Mg Tablet) 5 mg PO Q6H PRN PRN Reason: Pain, Moderate(Pain Scale 4-6) Last Admin: 09/17/24 11:39 Dose: 5 mg Documented By: CLARKE Quetiapine Fumarate (Quetiapine Fumarate 100 Mg Tablet) 100 mg PO BEDTIME [facility] Last Admin: 09/17/24 20:24 Dose: 100 mg Documented By: ELLE Sodium Chloride (Sodium Chloride 0.65 % Nasal 44 Ml Sprbtl) 1 spray NOSTRIL-B Q6H PRN PRN Reason: Congestion Sodium Chloride (0.9 % Sodium Chloride Flush 3 Ml Syringe) 3 ml IVFLUSH QSHIFT [facility] Last Admin: 09/18/24 08:05 Dose: Not Given Documented By: RAGHAVENDRA Non-Admin Reason: IV Running Labs 09/18/24 05:39 Labs: Laboratory Results - last 24 hr 09/17/24 09/17/24 09/18/24 15:44 21:04 05:39 MCV 89.3 MCH 30.2 MCHC 33.9 RDW 14.1 Plt Count 331 MPV 9.4 Immature Gran % (Auto) 0.1 Neut % (Auto) 66.2 Lymph % (Auto) 19.7 L [place] % (Auto) 11.6 H Eos % (Auto) 1.6 Baso % (Auto) 0.8 Lymph # (Auto) 1.5 [place] # (Auto) 0.9 Eos # (Auto) 0.1 Baso # (Auto) 0.1 Abs Immat Gran (auto) 0.01 Absolute Neuts (auto) 4.9 Absolute Nucleated RBC 0.000 Nucleated RBC % (auto) 0.0 POC Glucose 144 H 122 H 09/18/24 09/18/24 07:22 11:04 MCV MCH MCHC RDW Plt Count MPV Immature Gran % (Auto) Neut % (Auto) Lymph % (Auto) [place] % (Auto) Eos % (Auto) Baso % (Auto) Lymph # (Auto) [place] # (Auto) Eos # (Auto) Baso # (Auto) Abs Immat Gran (auto) Absolute Neuts (auto) Absolute Nucleated RBC Nucleated RBC % (auto) POC Glucose 87 137 H Assessment and Plan (1) S/P hernia surgery: Status: Acute (2) Schizophrenia, paranoid type: Status: Acute Plan 39-year-old male status post repair of large incisional hernia with incarceration in the backdrop of diabetes type 2, hypertension, and paranoid schizophrenia. Consulted for medical management 1. Repair of large incisional hernia upper abdomen with incarceration -as per surgery 2. Diabetes type 2 -acceptable control on current therapies -lispro correctional scale -sugars at baseline 3. Hypertension -acceptable control on current therapies -adjust as indicated 4. Paranoid schizophrenia -stable and well compensated -continue outpatient therapies Full code [place] Thank you for consultation we will sign off at this time. Call if needed Quality Stroke Does the patient have a stroke diagnosis?: No VTE Prior VTE?: No VTE Risk Level:: Surgical - moderate VTE Device Contraindication: N/A - Device Ordered VTE Drug Contraindication: Treatment Not Indicated
[2024-09-18] MEDS: oxyCODONE HCl Immed Release 5 MG TABLET PO ×2 (13:57→19:55)
--- NOTE | 2024-09-18 15:16 | P.CDIM_ITS ---
PROVIDER RESPONSE TEXT: To clarify, the appropriate diagnosis supported by the clinical indicators: Morbid obesity QUERY TEXT: PHYSICIAN'S DOCUMENTATION REQUEST Date of Query: 09/18/2024 05:43 AM EDT Patient Name: Omkar Tafoya Admit Date: 09/17/2024 Dear Patel Orellana DO, A review of the medical record indicates additional documentation may be needed. Please review below and update the documentation accordingly. Clinical Indicators: Height: 5ft 9in Weight: 128.2kg BMI: 41.7 Other Clinical Notes Supporting Significance of the BMI: Nursing notes Height and Weight: Extreme obesity Class III If possible, please provide an associated diagnosis related to the abnormal BMI, such as: Morbid obesity Obesity Due to other cause Specify the other cause Other (explain) Clinically unable to determine (explain) Thank you, Isa Lopez, CCS, CDIS Use of terms such as suspected, likely, concern for, or probable (associated with a specific diagnosis that is being evaluated, monitored, or treated as if it exists) are acceptable and can be coded in the inpatient setting, when documented at the time of discharge. Please use your independent medical judgment in providing your response. THIS QUERY IS PART OF THE PERMANENT MEDICAL RECORD
[2024-09-18 15:58] VITALS: BP 120/58; PULSE 82; RESP 18; TEMP 36.8; O2SAT 96
[2024-09-18 16:31] LABS: Glucose, Whole Blood 121 mg/dL (60-115)
[2024-09-18] MEDS: 0.9 % Sodium Chloride Flush 3 ML SYRINGE IVFLUSH ×2 (17:08→20:37)
[2024-09-18 19:13] VITALS: BP 118/57; PULSE 80; RESP 18; TEMP 37.3; O2SAT 99
[2024-09-18 20:01] LABS: Glucose, Whole Blood 115 mg/dL (60-115)
[2024-09-18 23:14] VITALS: BP 124/65; PULSE 80; RESP 16; TEMP 37.1; O2SAT 98
[2024-09-19] MEDS: oxyCODONE HCl Immed Release 5 MG TABLET PO ×3 (02:32→19:38)
[2024-09-19 03:13] VITALS: BP 126/61; PULSE 75; RESP 18; TEMP 36.6; O2SAT 94
--- NOTE | 2024-09-19 04:34 | PC.NURSE ---
Refused ambulation ; evening and during the night several times we encouraged pt to ambulate ,one time attemptedto stand up but only able to sit on the edge of the bed and went back lying down. educated on importance of ambulation after surgery .
--- NOTE | 2024-09-19 06:31 | PC.NURSE ---
pt ambulated to br this am and passing gas in better spirits .
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
[2024-09-19 07:08] VITALS: BP 125/75; PULSE 77; RESP 16; TEMP 37.1; O2SAT 95
[2024-09-19 07:22] LABS: Glucose, Whole Blood 125 mg/dL (60-115)
[2024-09-19] MEDS: guanFACINE HCl ER 2 MG TAB.ER.24H PO (08:01)
[2024-09-19] MEDS: buPROPion HCl XL 150 MG TAB.ER.24H PO (08:02)
[2024-09-19] MEDS: ARIPiprazole 30 MG TABLET PO (08:02)
[2024-09-19] MEDS: 0.9 % Sodium Chloride Flush 3 ML SYRINGE IVFLUSH ×3 (08:04→20:29)
[2024-09-19 09:45] LABS: Creatinine Clr Calc Pharmacy 115.2; Estimated Glomerular Filt Rate > 60
[2024-09-19 11:14] VITALS: BP 135/71; PULSE 79; RESP 18; TEMP 36.9; O2SAT 96
[2024-09-19 11:31] LABS: Glucose, Whole Blood 211 mg/dL (60-115)
--- NOTE | 2024-09-19 13:45 | P.PNIM_ITS ---
Subjective Subjective Date of Service: 09/19/24 Interval History: No acute issues overnight. Still complaining of discomfort when ambulation Review of Systems Denies chest pain Denies shortness of breath Denies nausea vomiting diarrhea Denies fever chills Physical Exam 2 Vital Signs: Vital Signs: Last Vital Signs Temp 98.5 F 09/19/24 11:14 Pulse 79 09/19/24 11:14 Resp 18 09/19/24 11:14 BP 135/71 09/19/24 11:14 Pulse Ox 96 09/19/24 11:14 O2 Del Method Room Air 09/19/24 11:14 BMI result Body Mass Index 41.7 Const: Other: Awake alert no acute distress Resp: Other: Clear to auscultation bilaterally no rales rhonchi or wheezes Cardio: Other: No S4; positive S1-S2; no S3 murmurs rubs or gallops GI: Other: Abdominal dressing clean dry and intact. Quiet bowel sounds Extrem: Other: No edema bilaterally Objective Data Active Medications Albuterol Sulfate (Albuterol Sulfate (0.083%) 2.5 Mg/3 Ml Vial.Neb) 2.5 mg INHALE ONCE PRN PRN Reason: Shortness of Breath/Wheezing Aripiprazole (Aripiprazole 30 Mg Tablet) 30 mg PO DAILY [facility] Last Admin: 09/19/24 08:02 Dose: 30 mg Documented By: RAGHAVENDRA Bupropion HCl (Bupropion Hcl Xl 150 Mg Tab.Er.24h) 150 mg PO DAILY [facility] Last Admin: 09/19/24 08:02 Dose: 150 mg Documented By: RAGHAVENDRA Calcium Carbonate (Calcium Carbonate 750 Mg Tab.Chew) 750 mg PO Q4H PRN PRN Reason: Heartburn Clonazepam (Clonazepam 0.5 Mg Tablet) 0.5 mg PO BID PRN PRN Reason: Anxiety Last Admin: 09/19/24 09:30 Dose: 0.5 mg Documented By: CLARKE Dextrose (Dextrose 50 % 25 Gm/50 Ml Syringe) 25 gm IVPUSH Q15M PRN; Protocol PRN Reason: per Hypoglycemia Standing Ord. Fluticasone Propionate (Fluticasone Propionate Nasal 16 Gm [place]) 1 spray NOSTRIL-B DAILY [facility] Last Admin: 09/19/24 09:02 Dose: 1 spray Documented By: CLARKE Glucose (Glucose Gel 15 Gm Gel..Gram.) 15 gm PO Q15M PRN; Protocol PRN Reason: per Hypoglycemia Standing Ord. Guanfacine HCl (Guanfacine Hcl Er 2 Mg Tab.Er.24h) 2 mg PO DAILY [facility] Last Admin: 09/19/24 08:01 Dose: 2 mg Documented By: RAGHAVENDRA Hydromorphone HCl (Hydromorphone Hcl 0.5 Mg/0.5 Ml Syringe) 0.5 mg IVPUSH Q3H PRN; Protocol PRN Reason: Pain, Severe (Pain Scale 7-10) Last Admin: 09/19/24 11:54 Dose: 0.5 mg Documented By: RAGHAVENDRA Acetaminophen (Ofirmev) 1,000 mg in 100 mls @ 400 mls/hr IV Q6H PRN PRN Reason: Pain, Mild (Pain Scale 1-3) Last Infusion: 09/19/24 06:35 Dose: Infused Documented By: ELLE Insulin Human Lispro (Insulin Lispro 100 Unit/Ml 3 Ml Vial) 0 unit SUBCUT QIDACHS [facility]; Protocol Last Admin: 09/19/24 11:40 Dose: Not Given Documented By: RAGHAVENDRA Non-Admin Reason: Patient Refused Lactase (Lactase Tablet) 1 tab PO TIDAC [facility] Last Admin: 09/19/24 11:39 Dose: 1 tab Documented By: RAGHAVENDRA Lisinopril (Lisinopril 20 Mg Tablet) 20 mg PO DAILY [facility]; Protocol Last Admin: 09/19/24 08:02 Dose: 20 mg Documented By: RAGHAVENDRA Loratadine (Loratadine 10 Mg Tablet) 10 mg PO DAILY [facility] Last Admin: 09/19/24 08:02 Dose: 10 mg Documented By: RAGHAVENDRA Magnesium Hydroxide (Milk Of Magnesia 30 Ml Oral.Susp) 30 ml PO DAILY PRN PRN Reason: Constipation Melatonin (Melatonin 3 Mg Tablet) 6 mg PO BEDTIME PRN PRN Reason: Insomnia Last Admin: 09/18/24 20:35 Dose: 6 mg Documented By: ELLE Metformin HCl (Metformin Hcl Er 500 Mg Tab.Er.24h) 1,000 mg PO DAILY@1800 [facility] Last Admin: 09/18/24 17:08 Dose: 1,000 mg Documented By: RAGHAVENDRA Multivitamins/Vitamin C (Multivitamin Tablet) 1 tab PO DAILY [facility] Last Admin: 09/19/24 08:02 Dose: 1 tab Documented By: RAGHAVENDRA Omeprazole (Omeprazole 20 Mg Capsule.) 20 mg PO DAILY@0630 [facility] Last Admin: 09/19/24 05:31 Dose: 20 mg Documented By: ELLE Ondansetron HCl (Ondansetron Hcl 4 Mg/2 Ml Vial) 4 mg IVPUSH QID PRN PRN Reason: Nausea Oxycodone HCl (Oxycodone Hcl Immed Release 5 Mg Tablet) 5 mg PO Q6H PRN PRN Reason: Pain, Moderate(Pain Scale 4-6) Last Admin: 09/19/24 09:02 Dose: 5 mg Documented By: CLARKE Quetiapine Fumarate (Quetiapine Fumarate 100 Mg Tablet) 100 mg PO BEDTIME [facility] Last Admin: 09/18/24 20:35 Dose: 100 mg Documented By: ELLE Sodium Chloride (Sodium Chloride 0.65 % Nasal 44 Ml Sprbtl) 1 spray NOSTRIL-B Q6H PRN PRN Reason: Congestion Sodium Chloride (0.9 % Sodium Chloride Flush 3 Ml Syringe) 3 ml IVFLUSH QSHIFT [facility] Last Admin: 09/19/24 08:04 Dose: 3 ml Documented By: RAGHAVENDRA Labs 09/18/24 05:39 09/19/24 09:24 Labs: Laboratory Results - last 24 hr 09/18/24 09/18/24 09/19/24 16:15 19:16 07:10 Hold Purple Top Estim Creat Clear Calc Estimated GFR POC Glucose 121 H 115 125 H 09/19/24 09/19/24 09:24 11:17 Hold Purple Top SEE NOTE Estim Creat Clear Calc 115.2 Estimated GFR > 60 POC Glucose 211 H Assessment and Plan (1) Incisional hernia of anterior abdominal wall without obstruction or gangrene: Status: Acute (2) Diabetes 1.5, managed as type 2: Status: Acute (3) Schizophrenia, paranoid type: Status: Acute Plan 39-year-old male status post repair of large incisional hernia with incarceration in the backdrop of diabetes type 2, hypertension, and paranoid schizophrenia. Consulted for medical management 1. Repair of large incisional hernia upper abdomen with incarceration -as per surgery 2. Diabetes type 2 -acceptable control on current therapies -lispro correctional scale -sugars at baseline 3. Hypertension -acceptable control on current therapies -adjust as indicated 4. Paranoid schizophrenia -stable and well compensated -continue outpatient therapies Full code Boots Thank you for consultation we will sign off at this time. Call if needed Quality Stroke Does the patient have a stroke diagnosis?: No VTE Prior VTE?: No VTE Risk Level:: Surgical - moderate VTE Device Contraindication: N/A - Device Ordered VTE Drug Contraindication: Treatment Not Indicated
[2024-09-19 15:16] VITALS: BP 133/74; PULSE 77; RESP 16; TEMP 37.1; O2SAT 97
[2024-09-19 16:31] LABS: Glucose, Whole Blood 91 mg/dL (60-115)
[2024-09-19 19:12] VITALS: BP 121/57; PULSE 77; RESP 18; TEMP 36.8; O2SAT 94
[2024-09-19 20:08] LABS: Glucose, Whole Blood 106 mg/dL (60-115)
[2024-09-19] MEDS: Milk of Magnesia 30 ML ORAL.SUSP PO (20:29)
[2024-09-19 23:10] VITALS: BP 108/60; PULSE 76; RESP 18; TEMP 37.3; O2SAT 95
[2024-09-20] VITALS (8 sets, daily range): BP systolic 105–123; BP diastolic 56–64; PULSE 68–80; RESP 14–18; TEMP 36.6–37.7; O2SAT 94–98
[2024-09-20] MEDS: oxyCODONE HCl Immed Release 5 MG TABLET PO ×3 (02:01→18:02)
[2024-09-20 07:24] LABS: Glucose, Whole Blood 94 mg/dL (60-115)
[2024-09-20] MEDS: ARIPiprazole 30 MG TABLET PO (08:31)
[2024-09-20] MEDS: buPROPion HCl XL 150 MG TAB.ER.24H PO (08:31)
[2024-09-20] MEDS: guanFACINE HCl ER 2 MG TAB.ER.24H PO (08:31)
[2024-09-20] MEDS: 0.9 % Sodium Chloride Flush 3 ML SYRINGE IVFLUSH ×3 (08:32→20:26)
--- NOTE | 2024-09-20 10:51 | HO.PM.IMPN ---
Subjective Subjective Date of Service: 09/20/24 Interval History: c/o incisional pain tolerating diet and passing gas Review of Systems Review of Systems: Yes all other systems are reviewed and are negative Physical Exam Vital Signs: Vital Signs: Last Vital Signs Temp 97.9 F 09/20/24 08:31 Pulse 76 09/20/24 08:31 Resp 18 09/20/24 08:31 BP 121/60 09/20/24 08:31 Pulse Ox 95 09/20/24 08:31 O2 Del Method Room Air 09/20/24 08:31 BMI result Body Mass Index 41.7 Gen: in no acute distress HEENT: sclera anicteric, moist mucus membranes Neck: supple Lungs: clear to auscultation bilaterally Heart: regular rate and rhythm, no murmurs Abd: soft, large midline dressing dry/clean, obese Ext: no edema Skin: warm/well-perfused Neuro: alert and oriented x3, no focal findings Psych: appropriate affect Objective Data Active Medications Albuterol Sulfate (Albuterol Sulfate (0.083%) 2.5 Mg/3 Ml Vial.Neb) 2.5 mg INHALE ONCE PRN PRN Reason: Shortness of Breath/Wheezing Aripiprazole (Aripiprazole 30 Mg Tablet) 30 mg PO DAILY [facility] Last Admin: 09/20/24 08:31 Dose: 30 mg Documented By: HAMLET Bupropion HCl (Bupropion Hcl Xl 150 Mg Tab.Er.24h) 150 mg PO DAILY [facility] Last Admin: 09/20/24 08:31 Dose: 150 mg Documented By: HAMLET Calcium Carbonate (Calcium Carbonate 750 Mg Tab.Chew) 750 mg PO Q4H PRN PRN Reason: Heartburn Clonazepam (Clonazepam 0.5 Mg Tablet) 0.5 mg PO BID PRN PRN Reason: Anxiety Last Admin: 09/19/24 20:29 Dose: 0.5 mg Documented By: ARUNA Dextrose (Dextrose 50 % 25 Gm/50 Ml Syringe) 25 gm IVPUSH Q15M PRN; Protocol PRN Reason: per Hypoglycemia Standing Ord. Fluticasone Propionate (Fluticasone Propionate Nasal 16 Gm [place]vin) 1 spray NOSTRIL-B DAILY [facility] Last Admin: 09/19/24 09:02 Dose: 1 spray Documented By: HO.VENLA Glucose (Glucose Gel 15 Gm Gel..Gram.) 15 gm PO Q15M PRN; Protocol PRN Reason: per Hypoglycemia Standing Ord. Guanfacine HCl (Guanfacine Hcl Er 2 Mg Tab.Er.24h) 2 mg PO DAILY [facility] Last Admin: 09/20/24 08:31 Dose: 2 mg Documented By: HAMLET Hydromorphone HCl (Hydromorphone Hcl 0.5 Mg/0.5 Ml Syringe) 0.5 mg IVPUSH Q3H PRN; Protocol PRN Reason: Pain, Severe (Pain Scale 7-10) Last Admin: 09/20/24 08:31 Dose: 0.5 mg Documented By: HAMLET Acetaminophen (Ofirmev) 1,000 mg in 100 mls @ 400 mls/hr IV Q6H PRN PRN Reason: Pain, Mild (Pain Scale 1-3) Last Infusion: 09/19/24 17:11 Dose: Infused Documented By: RAGHAVENDRA Insulin Human Lispro (Insulin Lispro 100 Unit/Ml 3 Ml Vial) 0 unit SUBCUT QIDACHS [facility]; Protocol Last Admin: 09/20/24 07:31 Dose: Not Given Documented By: HAMLET Non-Admin Reason: No Insulin Coverage Lactase (Lactase Tablet) 1 tab PO TIDAC [facility] Last Admin: 09/20/24 08:31 Dose: 1 tab Documented By: HAMLET Lisinopril (Lisinopril 20 Mg Tablet) 20 mg PO DAILY [facility]; Protocol Last Admin: 09/20/24 08:31 Dose: 20 mg Documented By: HAMLET Loratadine (Loratadine 10 Mg Tablet) 10 mg PO DAILY [facility] Last Admin: 09/20/24 08:31 Dose: 10 mg Documented By: HAMLET Magnesium Hydroxide (Milk Of Magnesia 30 Ml Oral.Susp) 30 ml PO DAILY PRN PRN Reason: Constipation Last Admin: 09/19/24 20:29 Dose: 30 ml Documented By: ARUNA Melatonin (Melatonin 3 Mg Tablet) 6 mg PO BEDTIME PRN PRN Reason: Insomnia Last Admin: 09/19/24 20:27 Dose: 6 mg Documented By: ARUNA Metformin HCl (Metformin Hcl Er 500 Mg Tab.Er.24h) 1,000 mg PO DAILY@1800 [facility] Last Admin: 09/19/24 17:12 Dose: 1,000 mg Documented By: RAGHAVENDRA Multivitamins/Vitamin C (Multivitamin Tablet) 1 tab PO DAILY [facility] Last Admin: 09/20/24 08:31 Dose: 1 tab Documented By: HAMLET Omeprazole (Omeprazole 20 Mg Capsule.) 20 mg PO DAILY@0630 [facility] Last Admin: 09/20/24 05:39 Dose: 20 mg Documented By: ARUNA Ondansetron HCl (Ondansetron Hcl 4 Mg/2 Ml Vial) 4 mg IVPUSH QID PRN PRN Reason: Nausea Oxycodone HCl (Oxycodone Hcl Immed Release 5 Mg Tablet) 5 mg PO Q6H PRN PRN Reason: Pain, Moderate(Pain Scale 4-6) Last Admin: 09/20/24 02:01 Dose: 5 mg Documented By: ARUNA Quetiapine Fumarate (Quetiapine Fumarate 100 Mg Tablet) 100 mg PO BEDTIME [facility] Last Admin: 09/19/24 20:29 Dose: 100 mg Documented By: ARUNA Sodium Chloride (Sodium Chloride 0.65 % Nasal 44 Ml Sprbtl) 1 spray NOSTRIL-B Q6H PRN PRN Reason: Congestion Sodium Chloride (0.9 % Sodium Chloride Flush 3 Ml Syringe) 3 ml IVFLUSH QSHIFT [facility] Last Admin: 09/20/24 08:32 Dose: 3 ml Documented By: HAMLET Labs 09/18/24 05:39 09/19/24 09:24 Labs: Laboratory Results - last 24 hr 09/19/24 09/19/24 09/19/24 11:17 16:06 19:14 POC Glucose 211 H 91 106 09/20/24 07:10 POC Glucose 94 Assessment and Plan (1) Incisional hernia of anterior abdominal wall without obstruction or gangrene: Status: Acute (2) Diabetes 1.5, managed as type 2: Status: Acute (3) Schizophrenia, paranoid type: Status: Acute Plan 39yo M on general surgery service s/p repair of large incarcerated incisional hernia 09/17; Medicine consult for management of comorbid conditions including DM2, HTN, and schizophrenia POD3 hernia repair - pain control/diet as per Surgery DM2 - correction-dose lispro, MTF HTN - lisinopril paranoid schizophrenia - aripiprazole, bupropion, clonazepam, guanfacine, quetiapine morbid obesity - diet/exercise counseling Thank you for this consultation. We are signing off the case at this time. Please communicate with us if any new medical questions arise. Total time managing care of this patient today: 35 minutes. Quality Stroke Does the patient have a stroke diagnosis?: No VTE Prior VTE?: No VTE Risk Level:: Surgical - moderate VTE Device Contraindication: N/A - Device Ordered VTE Drug Contraindication: Treatment Not Indicated
[2024-09-20 11:29] LABS: Glucose, Whole Blood 134 mg/dL (60-115)
[2024-09-20 16:46] LABS: Glucose, Whole Blood 80 mg/dL (60-115)
--- NOTE | 2024-09-20 17:52 | P.PNGS_ITS ---
Subjective Subjective Date of Service: 09/20/24 Interval history: Patient is doing well moving around little bit better still having some pain but doing a little bit better. Encouraging him to just continue with p.o. pain meds. No bowel movement. No nausea or vomiting. Eating well. Physical Exam 2 Vital Signs: Vital Signs: Last Vital Signs Temp 99.4 F 09/20/24 16:01 Pulse 78 09/20/24 16:01 Resp 18 09/20/24 16:01 BP 105/59 L 09/20/24 16:01 Pulse Ox 95 09/20/24 16:01 O2 Del Method Room Air 09/20/24 16:01 BMI result Body Mass Index 41.7 Const: General: cooperative, healthy appearing, comfortable and no acute distress GI: Other: Abdomen is soft nondistended nontender incision site looks good with intact catrina clean no erythema no drainage Objective Data Active Medications Albuterol Sulfate (Albuterol Sulfate (0.083%) 2.5 Mg/3 Ml Vial.Neb) 2.5 mg INHALE ONCE PRN PRN Reason: Shortness of Breath/Wheezing Aripiprazole (Aripiprazole 30 Mg Tablet) 30 mg PO DAILY [facility] Last Admin: 09/20/24 08:31 Dose: 30 mg Documented By: HALMET Bupropion HCl (Bupropion Hcl Xl 150 Mg Tab.Er.24h) 150 mg PO DAILY [facility] Last Admin: 09/20/24 08:31 Dose: 150 mg Documented By: HAMLET Calcium Carbonate (Calcium Carbonate 750 Mg Tab.Chew) 750 mg PO Q4H PRN PRN Reason: Heartburn Clonazepam (Clonazepam 0.5 Mg Tablet) 0.5 mg PO BID PRN PRN Reason: Anxiety Last Admin: 09/19/24 20:29 Dose: 0.5 mg Documented By: ARUNA Dextrose (Dextrose 50 % 25 Gm/50 Ml Syringe) 25 gm IVPUSH Q15M PRN; Protocol PRN Reason: per Hypoglycemia Standing Ord. Fluticasone Propionate (Fluticasone Propionate Nasal 16 Gm [place]) 1 spray NOSTRIL-B DAILY [facility] Last Admin: 09/20/24 11:19 Dose: Not Given Documented By: HAMLET Non-Admin Reason: Patient Refused Glucose (Glucose Gel 15 Gm Gel..Gram.) 15 gm PO Q15M PRN; Protocol PRN Reason: per Hypoglycemia Standing Ord. Guanfacine HCl (Guanfacine Hcl Er 2 Mg Tab.Er.24h) 2 mg PO DAILY [facility] Last Admin: 09/20/24 08:31 Dose: 2 mg Documented By: HAMLET Hydromorphone HCl (Hydromorphone Hcl 0.5 Mg/0.5 Ml Syringe) 0.5 mg IVPUSH Q3H PRN; Protocol PRN Reason: Pain, Severe (Pain Scale 7-10) Last Admin: 09/20/24 14:53 Dose: 0.5 mg Documented By: ALEX Insulin Human Lispro (Insulin Lispro 100 Unit/Ml 3 Ml Vial) 0 unit SUBCUT QIDACHS [facility]; Protocol Last Admin: 09/20/24 16:53 Dose: Not Given Documented By: ALEX Non-Admin Reason: No Insulin Coverage Lactase (Lactase Tablet) 1 tab PO TIDAC [facility] Last Admin: 09/20/24 17:02 Dose: 1 tab Documented By: ALEX Lisinopril (Lisinopril 20 Mg Tablet) 20 mg PO DAILY [facility]; Protocol Last Admin: 09/20/24 08:31 Dose: 20 mg Documented By: HAMLET Loratadine (Loratadine 10 Mg Tablet) 10 mg PO DAILY [facility] Last Admin: 09/20/24 08:31 Dose: 10 mg Documented By: HAMLET Magnesium Hydroxide (Milk Of Magnesia 30 Ml Oral.Susp) 30 ml PO DAILY PRN PRN Reason: Constipation Last Admin: 09/19/24 20:29 Dose: 30 ml Documented By: ARUNA Melatonin (Melatonin 3 Mg Tablet) 6 mg PO BEDTIME PRN PRN Reason: Insomnia Last Admin: 09/19/24 20:27 Dose: 6 mg Documented By: ARUNA Metformin HCl (Metformin Hcl Er 500 Mg Tab.Er.24h) 1,000 mg PO DAILY@1800 [facility] Last Admin: 09/20/24 17:02 Dose: 1,000 mg Documented By: ALEX Multivitamins/Vitamin C (Multivitamin Tablet) 1 tab PO DAILY [facility] Last Admin: 09/20/24 08:31 Dose: 1 tab Documented By: HAMLET Omeprazole (Omeprazole 20 Mg Capsule.Dr) 20 mg PO DAILY@0630 [facility] Last Admin: 09/20/24 05:39 Dose: 20 mg Documented By: ARUNA Ondansetron HCl (Ondansetron Hcl 4 Mg/2 Ml Vial) 4 mg IVPUSH QID PRN PRN Reason: Nausea Oxycodone HCl (Oxycodone Hcl Immed Release 5 Mg Tablet) 5 mg PO Q6H PRN PRN Reason: Pain, Moderate(Pain Scale 4-6) Last Admin: 09/20/24 12:09 Dose: 5 mg Documented By: HAMLET Quetiapine Fumarate (Quetiapine Fumarate 100 Mg Tablet) 100 mg PO BEDTIME [facility] Last Admin: 09/19/24 20:29 Dose: 100 mg Documented By: ARUNA Sodium Chloride (Sodium Chloride 0.65 % Nasal 44 Ml Sprbtl) 1 spray NOSTRIL-B Q6H PRN PRN Reason: Congestion Sodium Chloride (0.9 % Sodium Chloride Flush 3 Ml Syringe) 3 ml IVFLUSH QSHIFT [facility] Last Admin: 09/20/24 14:53 Dose: 3 ml Documented By: ALEX Labs 09/18/24 05:39 09/19/24 09:24 Labs: Laboratory Results - last 24 hr 09/19/24 09/20/24 09/20/24 19:14 07:10 11:11 POC Glucose 106 94 134 H 09/20/24 16:17 POC Glucose 80 Procedures Date of Service Date of Service: 09/20/24 Progress Note: A&P Assessment and plan (1) Incisional hernia of anterior abdominal wall without obstruction or gangrene: Status: Acute Plan Patient is postop day 3. Status post open repair with mesh of large ventral hernia. Doing better. Today plan to decrease his IV pain meds ambulate doing well with his incentive spirometer decreased p.o. diet. Patient is concerned that he may not be safe to go home on his own in his asking to see if he can have short her rehab present. In addition he is using a CPAP machine here which is helpful and he would like to have 1 for home. We will talk with respiratory to determine what his status is with the CPAP. Time Spent With Patient Time: Total time managing care of this patient today ____ minutes. Quality Stroke Does the patient have a stroke diagnosis?: No VTE Prior VTE?: No VTE Risk Level:: Surgical - moderate VTE Device Contraindication: N/A - Device Ordered VTE Drug Contraindication: Treatment Not Indicated
[2024-09-20 20:35] LABS: Glucose, Whole Blood 85 mg/dL (60-115)
[2024-09-20] MEDS: Milk of Magnesia 30 ML ORAL.SUSP PO (20:50)
[2024-09-21 03:02] VITALS: BP 111/63; PULSE 84; RESP 18; TEMP 36.4; O2SAT 98
[2024-09-21] MEDS: oxyCODONE HCl Immed Release 5 MG TABLET PO ×2 (05:50→13:20)
[2024-09-21 07:21] LABS: Glucose, Whole Blood 104 mg/dL (60-115)
[2024-09-21 07:50] VITALS: BP 113/58; PULSE 77; RESP 12; TEMP 36.6; O2SAT 93
[2024-09-21] MEDS: buPROPion HCl XL 150 MG TAB.ER.24H PO (07:56)
[2024-09-21] MEDS: ARIPiprazole 30 MG TABLET PO (07:56)
[2024-09-21] MEDS: guanFACINE HCl ER 2 MG TAB.ER.24H PO (07:56)
[2024-09-21] MEDS: 0.9 % Sodium Chloride Flush 3 ML SYRINGE IVFLUSH ×3 (07:57→20:57)
[2024-09-21 11:26] LABS: Glucose, Whole Blood 93 mg/dL (60-115)
[2024-09-21 11:33] VITALS: BP 109/56; PULSE 78; RESP 12; TEMP 37.4; O2SAT 97
[2024-09-21 15:44] VITALS: BP 115/55; PULSE 81; RESP 18; TEMP 37; O2SAT 93
--- NOTE | 2024-09-21 15:49 | PM.PNGS ---
Subjective Subjective Date of Service: 09/21/24 Interval history: pt is doing well, ambulating tolerating po diet pain meds still with iv pain meds no bowel movement Physical Exam Vital Signs: Vital Signs: Last Vital Signs Temp 98.6 F 09/21/24 15:44 Pulse 81 09/21/24 15:44 Resp 18 09/21/24 15:44 BP 115/55 L 09/21/24 15:44 Pulse Ox 93 09/21/24 15:44 O2 Del Method Room Air 09/21/24 15:44 BMI result Body Mass Index 41.7 Const: General: cooperative, healthy appearing, comfortable, no acute distress and well developed GI: Other: abdo incision clean dn dry intact looks great active bowel sounds mild tenderness good bowel sounds Objective Data Active Medications Albuterol Sulfate (Albuterol Sulfate (0.083%) 2.5 Mg/3 Ml Vial.Neb) 2.5 mg INHALE ONCE PRN PRN Reason: Shortness of Breath/Wheezing Aripiprazole (Aripiprazole 30 Mg Tablet) 30 mg PO DAILY [facility] Last Admin: 09/21/24 07:56 Dose: 30 mg Documented By: ISABEL Bupropion HCl (Bupropion Hcl Xl 150 Mg Tab.Er.24h) 150 mg PO DAILY [facility] Last Admin: 09/21/24 07:56 Dose: 150 mg Documented By: ISABEL Calcium Carbonate (Calcium Carbonate 750 Mg Tab.Chew) 750 mg PO Q4H PRN PRN Reason: Heartburn Clonazepam (Clonazepam 0.5 Mg Tablet) 0.5 mg PO BID PRN PRN Reason: Anxiety Last Admin: 09/20/24 20:25 Dose: 0.5 mg Documented By: ARUNA Dextrose (Dextrose 50 % 25 Gm/50 Ml Syringe) 25 gm IVPUSH Q15M PRN; Protocol PRN Reason: per Hypoglycemia Standing Ord. Fluticasone Propionate (Fluticasone Propionate Nasal 16 Gm [place]) 1 spray NOSTRIL-B DAILY [facility] Last Admin: 09/21/24 07:57 Dose: 1 spray Documented By: ISABEL Glucose (Glucose Gel 15 Gm Gel..Gram.) 15 gm PO Q15M PRN; Protocol PRN Reason: per Hypoglycemia Standing Ord. Guanfacine HCl (Guanfacine Hcl Er 2 Mg Tab.Er.24h) 2 mg PO DAILY [facility] Last Admin: 09/21/24 07:56 Dose: 2 mg Documented By: ISABEL Hydromorphone HCl (Hydromorphone Hcl 0.5 Mg/0.5 Ml Syringe) 0.5 mg IVPUSH Q3H PRN; Protocol PRN Reason: Pain, Severe (Pain Scale 7-10) Last Admin: 09/21/24 09:27 Dose: 0.5 mg Documented By: ISABEL Insulin Human Lispro (Insulin Lispro 100 Unit/Ml 3 Ml Vial) 0 unit SUBCUT QIDACHS [facility]; Protocol Last Admin: 09/21/24 11:11 Dose: Not Given Documented By: ISABEL Non-Admin Reason: No Insulin Coverage Lactase (Lactase Tablet) 1 tab PO TIDAC [facility] Last Admin: 09/21/24 11:38 Dose: 1 tab Documented By: ISABEL Lisinopril (Lisinopril 20 Mg Tablet) 20 mg PO DAILY [facility]; Protocol Last Admin: 09/21/24 07:57 Dose: 20 mg Documented By: ISABEL Loratadine (Loratadine 10 Mg Tablet) 10 mg PO DAILY [facility] Last Admin: 09/21/24 07:57 Dose: 10 mg Documented By: ISABEL Magnesium Hydroxide (Milk Of Magnesia 30 Ml Oral.Susp) 30 ml PO DAILY PRN PRN Reason: Constipation Last Admin: 09/20/24 20:50 Dose: 30 ml Documented By: ARUNA Melatonin (Melatonin 3 Mg Tablet) 6 mg PO BEDTIME PRN PRN Reason: Insomnia Last Admin: 09/20/24 20:25 Dose: 6 mg Documented By: ARUNA Metformin HCl (Metformin Hcl Er 500 Mg Tab.Er.24h) 1,000 mg PO DAILY@1800 [facility] Last Admin: 09/20/24 17:02 Dose: 1,000 mg Documented By: ALEX Multivitamins/Vitamin C (Multivitamin Tablet) 1 tab PO DAILY [facility] Last Admin: 09/21/24 07:57 Dose: 1 tab Documented By: ISABEL Omeprazole (Omeprazole 20 Mg Capsule.Dr) 20 mg PO DAILY@0630 [facility] Last Admin: 09/21/24 05:47 Dose: 20 mg Documented By: ARUNA Ondansetron HCl (Ondansetron Hcl 4 Mg/2 Ml Vial) 4 mg IVPUSH QID PRN PRN Reason: Nausea Oxycodone HCl (Oxycodone Hcl Immed Release 5 Mg Tablet) 5 mg PO Q6H PRN PRN Reason: Pain, Moderate(Pain Scale 4-6) Last Admin: 09/21/24 13:20 Dose: 5 mg Documented By: ISABEL Oxycodone HCl (Oxycodone Hcl Immed Release 5 Mg Tablet) 10 mg PO Q4H PRN PRN Reason: Pain, Moderate(Pain Scale 4-6) Quetiapine Fumarate (Quetiapine Fumarate 100 Mg Tablet) 100 mg PO BEDTIME [facility] Last Admin: 09/20/24 20:25 Dose: 100 mg Documented By: ARUNA Sodium Chloride (Sodium Chloride 0.65 % Nasal 44 Ml Sprbtl) 1 spray NOSTRIL-B Q6H PRN PRN Reason: Congestion Sodium Chloride (0.9 % Sodium Chloride Flush 3 Ml Syringe) 3 ml IVFLUSH QSHIFT [facility] Last Admin: 09/21/24 09:26 Dose: 3 ml Documented By: ISABEL Labs 09/18/24 05:39 09/19/24 09:24 Labs: Laboratory Results - last 24 hr 09/20/24 09/20/24 09/21/24 16:17 20:17 07:09 POC Glucose 80 85 104 09/21/24 11:09 POC Glucose 93 Procedures Date of Service Date of Service: 09/21/24 Progress Note: A&P Assessment and plan (1) S/P hernia surgery: Status: Acute Assessment and Plan: pt POd#4 - big surgery for incsion hernia - open repair with mesh - doing well need to cont with increasing activity no sig weight lifting. po pain meds transition off iv meds bowel regimen - hasnt had a BM so will trial some mag citrate - small dose pt concerned about dc and going home mainly due to social issues - we are unabelt o have him approved fro short term rehab - hope to get to be dc home on sunday and maybe some vna visits if possible for the initial days. Time Spent With Patient Time: Total time managing care of this patient today ____ minutes. Quality Stroke Does the patient have a stroke diagnosis?: No VTE Prior VTE?: No VTE Risk Level:: Surgical - moderate VTE Device Contraindication: N/A - Device Ordered VTE Drug Contraindication: Treatment Not Indicated
[2024-09-21 16:47] LABS: Glucose, Whole Blood 94 mg/dL (60-115)
[2024-09-21] MEDS: oxyCODONE HCl Immed Release 5 MG TABLET 10 MG PO ×2 (17:23→23:31)
[2024-09-21 19:32] VITALS: BP 128/59; PULSE 80; RESP 18; TEMP 37.1; O2SAT 95
[2024-09-21 20:44] LABS: Glucose, Whole Blood 116 mg/dL (60-115)
[2024-09-21 23:23] VITALS: BP 127/60; PULSE 78; RESP 18; TEMP 36.7; O2SAT 97
[2024-09-22 03:01] VITALS: BP 115/60; PULSE 76; RESP 18; TEMP 36.8; O2SAT 96
[2024-09-22 07:24] LABS: Glucose, Whole Blood 87 mg/dL (60-115)
[2024-09-22 07:28] VITALS: BP 125/68; PULSE 74; RESP 12; TEMP 36.6; O2SAT 96
[2024-09-22] MEDS: ARIPiprazole 30 MG TABLET PO (07:45)
[2024-09-22] MEDS: guanFACINE HCl ER 2 MG TAB.ER.24H PO (07:45)
[2024-09-22] MEDS: buPROPion HCl XL 150 MG TAB.ER.24H PO (07:45)
[2024-09-22] MEDS: 0.9 % Sodium Chloride Flush 3 ML SYRINGE IVFLUSH (07:46)
[2024-09-22] MEDS: oxyCODONE HCl Immed Release 5 MG TABLET 10 MG PO ×2 (08:20→12:54)
--- NOTE | 2024-09-22 10:37 | P.PNGS_ITS ---
Subjective Subjective Date of Service: 09/22/24 Interval history: overall doing well. Pain is improved. more comfortable with ambulation. He has not passed BM, has passed flatus. Was given milk of mag yesterday. Denies nausea vomiting, fever, chills. Patient states he feels ready to d/c, states case managment and him were discussing short term rehab. Physical Exam 2 Vital Signs: Vital Signs: Last Vital Signs Temp 97.9 F 09/22/24 07:28 Pulse 74 09/22/24 07:28 Resp 12 09/22/24 07:28 BP 125/68 09/22/24 07:28 Pulse Ox 96 09/22/24 07:28 O2 Del Method Room Air 09/22/24 07:28 BMI result Body Mass Index 41.7 Const: General: comfortable and no acute distress O rientation/consciousness: patient oriented x3 Resp: Effort & Inspection: normal respiratory effort and able to speak in complete sentences GI: Other: incision site clean and dry, no more oozing. catrina in place Inspection: No distended Palpation (GI): Soft to palpation, not firm, Tenderness to palpation present (GI) (mild tenderness left sided), no guarding and not rigid Neuro: General: patient oriented x3 Objective Data Active Medications Acetaminophen (Acetaminophen 325 Mg Tablet) 975 mg PO Q6H PRN PRN Reason: Pain, Mild 1-3,fever,headache Last Admin: 09/21/24 22:28 Dose: 975 mg Documented By: LOVE Albuterol Sulfate (Albuterol Sulfate (0.083%) 2.5 Mg/3 Ml Vial.Neb) 2.5 mg INHALE ONCE PRN PRN Reason: Shortness of Breath/Wheezing Aripiprazole (Aripiprazole 30 Mg Tablet) 30 mg PO DAILY [facility] Last Admin: 09/22/24 07:45 Dose: 30 mg Documented By: CARMEL Bupropion HCl (Bupropion Hcl Xl 150 Mg Tab.Er.24h) 150 mg PO DAILY [facility] Last Admin: 09/22/24 07:45 Dose: 150 mg Documented By: CARMEL Calcium Carbonate (Calcium Carbonate 750 Mg Tab.Chew) 750 mg PO Q4H PRN PRN Reason: Heartburn Clonazepam (Clonazepam 0.5 Mg Tablet) 0.5 mg PO BID PRN PRN Reason: Anxiety Last Admin: 09/21/24 20:55 Dose: 0.5 mg Documented By: LOVE Dextrose (Dextrose 50 % 25 Gm/50 Ml Syringe) 25 gm IVPUSH Q15M PRN; Protocol PRN Reason: per Hypoglycemia Standing Ord. Docusate Sodium (Docusate Sodium 100 Mg Capsule) 100 mg PO BID [facility] Last Admin: 09/22/24 07:45 Dose: 100 mg Documented By: CARMEL Fluticasone Propionate (Fluticasone Propionate Nasal 16 Gm [place]) 1 spray NOSTRIL-B DAILY [facility] Last Admin: 09/22/24 07:46 Dose: 1 spray Documented By: CARMEL Glucose (Glucose Gel 15 Gm Gel..Gram.) 15 gm PO Q15M PRN; Protocol PRN Reason: per Hypoglycemia Standing Ord. Guanfacine HCl (Guanfacine Hcl Er 2 Mg Tab.Er.24h) 2 mg PO DAILY [facility] Last Admin: 09/22/24 07:45 Dose: 2 mg Documented By: CARMEL Hydromorphone HCl (Hydromorphone Hcl 0.5 Mg/0.5 Ml Syringe) 0.5 mg IVPUSH Q3H PRN; Protocol PRN Reason: Pain, Severe (Pain Scale 7-10) Last Admin: 09/21/24 09:27 Dose: 0.5 mg Documented By: ISABEL Insulin Human Lispro (Insulin Lispro 100 Unit/Ml 3 Ml Vial) 0 unit SUBCUT QIDACHS [facility]; Protocol Last Admin: 09/22/24 07:38 Dose: Not Given Documented By: CARMEL Non-Admin Reason: No Insulin Coverage Lactase (Lactase Tablet) 1 tab PO TIDAC [facility] Last Admin: 09/22/24 07:46 Dose: 1 tab Documented By: CARMEL Lisinopril (Lisinopril 20 Mg Tablet) 20 mg PO DAILY [facility]; Protocol Last Admin: 09/22/24 07:45 Dose: 20 mg Documented By: CARMEL Loratadine (Loratadine 10 Mg Tablet) 10 mg PO DAILY [facility] Last Admin: 09/22/24 07:45 Dose: 10 mg Documented By: CARMEL Magnesium Hydroxide (Milk Of Magnesia 30 Ml Oral.Susp) 30 ml PO DAILY PRN PRN Reason: Constipation Last Admin: 09/20/24 20:50 Dose: 30 ml Documented By: ARUNA Melatonin (Melatonin 3 Mg Tablet) 6 mg PO BEDTIME PRN PRN Reason: Insomnia Last Admin: 09/21/24 20:54 Dose: 6 mg Documented By: LOVE Metformin HCl (Metformin Hcl Er 500 Mg Tab.Er.24h) 1,000 mg PO DAILY@1800 [facility] Last Admin: 09/21/24 17:16 Dose: 1,000 mg Documented By: ISABEL Multivitamins/Vitamin C (Multivitamin Tablet) 1 tab PO DAILY [facility] Last Admin: 09/22/24 07:45 Dose: 1 tab Documented By: CARMEL Omeprazole (Omeprazole 20 Mg Capsule.Dr) 20 mg PO DAILY@0630 [facility] Last Admin: 09/22/24 05:40 Dose: 20 mg Documented By: LOVE Ondansetron HCl (Ondansetron Hcl 4 Mg/2 Ml Vial) 4 mg IVPUSH QID PRN PRN Reason: Nausea Oxycodone HCl (Oxycodone Hcl Immed Release 5 Mg Tablet) 5 mg PO Q6H PRN PRN Reason: Pain, Mild 1-3,fever,headache Last Admin: 09/21/24 13:20 Dose: 5 mg Documented By: ISABEL Oxycodone HCl (Oxycodone Hcl Immed Release 5 Mg Tablet) 10 mg PO Q4H PRN PRN Reason: Pain, Moderate(Pain Scale 4-6) Last Admin: 09/22/24 08:20 Dose: 10 mg Documented By: CLARKE Polyethylene Glycol (Polyethylene Glycol 3350 17 Gm Powd.Pack) 17 gm PO DAILY PRN PRN Reason: Constipation Quetiapine Fumarate (Quetiapine Fumarate 100 Mg Tablet) 100 mg PO BEDTIME [facility] Last Admin: 09/21/24 20:55 Dose: 100 mg Documented By: LOVE Sodium Chloride (Sodium Chloride 0.65 % Nasal 44 Ml Sprbtl) 1 spray NOSTRIL-B Q6H PRN PRN Reason: Congestion Sodium Chloride (0.9 % Sodium Chloride Flush 3 Ml Syringe) 3 ml IVFLUSH QSHIFT [facility] Last Admin: 09/22/24 07:46 Dose: 3 ml Documented By: CARMEL Labs 09/18/24 05:39 09/19/24 09:24 Labs: Laboratory Results - last 24 hr 09/21/24 09/21/24 09/21/24 11:09 16:34 20:26 POC Glucose 93 94 116 H 09/22/24 07:20 POC Glucose 87 Procedures Date of Service Date of Service: 09/22/24 Progress Note: A&P Assessment and plan (1) S/P hernia surgery: Status: Acute Plan 39 year old male POD 5 s/p large incisional hernia repair open with mesh. Patient overall doing well, his pain is improving now, it is better with ambulation today, he is now ambulating more. Continues to tolerate diet, denies nause, vomiting, fever, chills. he has not passed a bowel movement at this point but continues to pass gas, he was given milk of mag yesterday but this has yet to produce a bowel movement. On exam his abdomen is soft and benign, mild/mod tenderness along the left side of the incision. Incision site looks good, catrina intact. From a surgical standpoint the patient is ready to D/C, he is expressing some concern due to pain, states that the nurse case management and him had talked about a short term rehab, status remains pedning, will reach out to to coordinate D/c today. Patient will be going home with VNA services. encouraged ambulation pain control bowel regimen as needed Time Spent With Patient Time: Total time managing care of this patient today ____ minutes. Quality Stroke Does the patient have a stroke diagnosis?: No VTE Prior VTE?: No VTE Risk Level:: Surgical - moderate VTE Device Contraindication: N/A - Device Ordered VTE Drug Contraindication: Treatment Not Indicated
[2024-09-22 11:48] VITALS: BP 134/60; PULSE 90; RESP 15; TEMP 36.8; O2SAT 94
[2024-09-22 11:49] LABS: Glucose, Whole Blood 106 mg/dL (60-115)
--- NOTE | 2024-09-22 13:36 | P.F2F_ITS ---
Service Date Service Date: 09/22/24 Encounter Date of encounter: 09/22/24 Reasons for Services Signs and symptoms assessed: wound check Reason for residential: wound care and postoperative assessment and/or care Homebound: Leaving the home is medically contraindicated at this time without the asist of a device and/or another person due th the listed conditions above and below. Reason homebound: pain with ambulation and weakness related to hospital stay Certification: Based on the above findings, I certify that this patient is confined to the home and needs intermittent residential care, physical therapy and/or speech therapy, or continues to need occupational therapy. The patient is under my care, and I have initiated the establishment of the plan of care. The patient will be followed by a physician who will periodically review the plan of care. Time Spent With Patient Time: Total time managing care of this patient today ____ minutes.
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
--- NOTE | 2024-09-22 13:58 | MHC.CM.PN ---
PT IS DCD TODAY [facility] CALLED AND NOTIFIED OF DC DC SUMMARY AND F2F FAXED PT HAS ARRANGED OWN RIDE HOME
--- NOTE | 2024-09-22 14:58 | MHC.CM.PN ---
pt provided with alonzo goetz
== END 2024-09-22 14:54 | disposition home health service (06) | DRG 354 ==
LOC: HO.SSSA 06:02 → HO.S3 10:42
PROVIDERS: Student in an Organized Health Care Education/Training Program; Admitting Provider Surgery; PCP General Practice; Visit Provider Surgery
PROC: 0WUF0JZ Supplement Abdominal Wall with Synthetic Substitute, Open Approach (ICD-10-PCS; principal; 2024-09-17 07:30)
DX: K43.0 Incisional hernia with obstruction, without gangrene (principal); F20.0 Paranoid schizophrenia; Z68.41 Body mass index [BMI] 40.0-44.9, adult; F17.210 Nicotine dependence, cigarettes, uncomplicated; Z71.6 Tobacco abuse counseling; E66.01 Morbid (severe) obesity due to excess calories; G47.33 Obstructive sleep apnea (adult) (pediatric); E11.9 Type 2 diabetes mellitus without complications; I10 Essential (primary) hypertension; Z79.899 Other long term (current) drug therapy
CPT/HCPCS: 36415; 82565; 82947; 85025; 86850; 86900; 86901; 88302; 94660; 97116; 97161; C1781; C1889; C9088; J0131; J0690; J1100; J1171; J1885; J2250; J2405; J2704; J3010; J7120

== ENCOUNTER → 2024-09-17 05:53 | Outpatient (BNV) | payer OTHER, SELFPAY | PROVIDERS: Admitting Provider Surgery; PCP General Practice; Visit Provider Hospitalist | DX: I10 Essential (primary) hypertension (principal); Z98.890 Other specified postprocedural states; Z87.19 Personal history of other diseases of the digestive system; F20.0 Paranoid schizophrenia | CPT/HCPCS: 99232 ==

== ENCOUNTER → 2024-09-17 05:53 | Outpatient (BNV) | payer OTHER, SELFPAY | PROVIDERS: Admitting Provider Surgery; PCP General Practice; Visit Provider Surgery | DX: K43.2 Incisional hernia without obstruction or gangrene (principal) | CPT/HCPCS: 49596 ==

== ENCOUNTER 2024-09-30 11:15 | Outpatient (AMB) | payer OTHER, SELFPAY ==
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
[2024-09-30 11:33] VITALS: BP 149/80; PULSE 81; BMI 42.2
--- OUTSIDE RECORDS SUMMARY | 2024-09-30 12:00 | XMS_ITS | Encounter Summary ---
Author Organization [employer] Address [address] [place] [address] Care Team Providers Care Stock Room Manager Name Role Phone Tanvi Leach MD Primary Care Provider [phone] Reason for Visit * Reason Comments Med Refill Encounter Details Date Type Department Care Team ([facility] st Contact Info) Description 02/01/2024 Refill [facility] [address], [place] [phone] Tanvi Leach MD [address], [place] [phone] Nasal congestion Social History Tobacco Use Types [...] Care Team (Late st Contact Info) Description 10/01/2024 3:15 PM EDT Office Visit [facility] [address] [place] [address] Tanvi Leach MD [address] [place] [address] documented as of this encounter Visit Diagnoses Diagnosis Nasal congestion Other diseases of nasal cavity and sinuses documented in this encounter Additional Health Concerns Assessment Noted Time PHQ-9 Depression Total Score: 0 03/28/19 24 2:55 PM EST documented as of this encounter Care Teams Stock Room Manager Relationship Specialty Start Date End Date Tanvi Leach MD [address] [place] [address] PCP - General Family Medicine 05/20/21 [place] 01/11/24 documented as of this encounter
--- OUTSIDE RECORDS SUMMARY | 2024-09-30 12:00 | XMS_ITS | Clinical Summary ---
Author Organization [facility] Address [address] [place] [address] Phone Care Team Providers Care Sales Representative Sales Manager Name Role Phone Tanvi Leach MD Primary Care Provider [phone] Allergies No known active allergies Medications cetirizine [...] for up to 10 days. 40 each Active Active Problems Problem Noted Date Diagnosed Date Cannabis abuse 01/28/2024 Cocaine abuse ([facility] V24, [facility] V28) 024 Chronic bilateral low back pain without sciatica 03/28/2023 Obstructive sleep apnea 03/09/2022 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 Erectile dysfunction 09/02/2014 Essential hypertension 07/23/2014 Schizoaffective disorder ([facility] V24, [facility] V 28) 04/20/2014 Depressive disorder 08/17/2011 Encounters Date Type Department Care Team Description 07/16/2024 7:28 PM EDT - 07/16/2024 9:28 PM EDT Emergency [facility] Emergency [address] [place] [address] Left shoulder pain, unspecified chronicity (Primary Dx) Discharge Disposition: Home or Self Care from Last 3 Months Medical History Medical History Date Comments Schizophrenia ([facility] V24, [facility] V28) Social History Tobacco Use Types Packs/Day [...] 76 07/16/2024 9:26 PM EDT Temperature 37.1 C (98.7 F) 07/16/2024 9:26 PM EDT Respiratory Rate 18 07/16/2024 9:26 PM EDT Oxygen Saturation 99% 07/16/2024 9:26 PM EDT Inhaled Oxygen Concentration - - Weight 90.7 kg (200 lb) 07/16/2024 4:18 PM EDT Height 175.3 cm (5' 9 ) 07/16/2024 4:18 PM EDT Body Mass Index 29.53 07/16/2024 4:18 PM EDT Plan of Treatment Upcoming Encounters Date Type Department Care Team (Late st Contact Info) Description 11/12/2024 9:15 AM EDT Consult Orthopedic Surgery - [place] [id number] [address] Wili Whitney, DPM [address] [address] Health Maintenance Due Date Last Done Comments Hepatitis C Screening 01/29/2022 Medicare Annual Wellness Visit 01/29/2022 Social Influencers of Health Screening 01/29/2022 Depression Screening 02/27/2024 Influenza Vaccine (#1) 2024 , 01/22/2023, 11/22/2022, Additional history exists Hypertension/CHF/CAD Annual BMP Blood Test 08/05/2025 08/05/2024, 01/27/2024 DTaP,Tdap,and Td Vaccines (8 - Td [...] 5 Years) and At-Risk Patients (6 to 49 Years) Aged Out 10/29/2015, 02/16/2015, 10/30/2014 No longer eligible based on patient's age to complete this topic Hepatitis A Vaccines Completed 12/02/2021, 11/03/19 18 HIV Screening Completed 01/22/2023 COVID-19 Vaccine Completed 01/18/2024, 11/2022, 03/24/2020 HPV [...] EDT FINDINGS/IMPRESSION: No acute fracture or dislocation. Joint spaces are preserved. No focal soft tissue swelling or radiodense foreign bodies. -------- FINAL REPORT -------- Dictated By: RANJIT CHAN Dictated Date: 07/17/2024 08:29 ET Assigned Physician: RANJIT CHAN Reviewed and Electronically Signed By: RANJIT CHAN Signed Date: 07/17/2024 08:29 ET Workstation ID: [id number] Transcribed By: Self Edit Transcribed Date: 07/17/2024 08:29 ET Narrative 07/17/2024 8:29 AM EDT XR SHOULDER 2+ VIEWS LEFT INDICATION: Pain [...] Signed Date: 07/17/2024 08:29 ET Workstation ID: [id number] Transcribed By: Self Edit Transcribed Date: 07/17/2024 08:29 ET Daniel MARTÍNEZ IMG XR PROCEDURES Final R esult * (ABNORMAL) Comprehensive metabolic panel (01/27/2024 10:31 PM EST) Sodium 137 133 - 145 mmol/L LAB CHEMISTRY METHOD 01/27/2024 11:08 PM [facility] Potassium 3.6 3.5 - 5.5 mmol/L LAB CHEMISTRY METHOD 01/27/2024 11:08 PM [facility] Chloride 105 96 - 110 mmol/L LAB CHEMISTRY METHOD 01/27/2024 11:08 PM [facility] CO2 26 21 - 32 mmol/L LAB CHEMISTRY METHOD 01/27/2024 11:08 PM [facility] Anion Gap 6 3 - 11 LAB CHEMISTRY METHOD 01/27/2024 11:08 PM [facility] Glucose 111(H) 70 - 100 mg/dL LAB CHEMISTRY METHOD 01/27/2024 11:08 PM [facility] BUN 13 5 - 25 mg/dL LAB CHEMISTRY METHOD 01/27/2024 11:08 PM [facility] Creatinine 1.27 0.70 - 1.30 mg/dL LAB CHEMISTRY METHOD 01/27/2024 11:08 PM [facility] eGFR 74 >=60 mL/min/1. 73m2 LAB CHEMISTRY METHOD 01/27/2024 11:08 PM [facility] Comment:Calculation based on the Chronic Kidney Disease Epidemiology Collaboration (CKD-EPI) equation refit without adjustment for race. BUN/Creatinine Ratio 10.2 LAB CHEMISTRY METHOD 01/27/2024 11:08 PM [facility] Calcium 9.2 8.5 - 10.5 mg/dL LAB CHEMISTRY METHOD 01/27/2024 11:08 PM [facility] AST (SGOT) 71(H) 10 - 42 unit/L LAB CHEMISTRY METHOD 01/27/2024 11:08 PM [facility] ALT (SGPT) 63(H) 10 - 60 unit/L LAB CHEMISTRY METHOD 01/27/2024 11:08 PM [facility] Alkaline Phosphatase 86 42 - 121 unit/L LAB CHEMISTRY METHOD 01/27/2024 11:08 PM [facility] Total Protein 7.3 6.0 - 8.0 g/dL LAB CHEMISTRY METHOD 01/27/2024 11:08 PM [facility] Albumin 4.4 3.2 - 5.0 g/dL LAB CHEMISTRY METHOD 01/27/2024 11:08 PM [facility] Total Bilirubin 0.7 0.0 - 1.4 mg/dL LAB CHEMISTRY METHOD 01/27/2024 11:08 PM [facility] Blood Venous blood specimen / Unknown Venipuncture / Unknown 01/27/2024 10:31 PM EST 01/27/2024 10:43 PM EST us Galdino Alvarez MD LAB BLOOD ORDERABLES Final Resu lt [facility] [address] [place] [address], from Last 3 Months or Most Recently Relevant to Health Maintenance Insurance MEDICARE [facility] [facility] MEDICARE Member Subscriber Plan / Payer (Ef fective 2023-Present) Name:Jonh MULLINS Relation to Subscriber:Self Name:Omkar Mullins Payer ID:[id number] Group ID:[id number] Type:Not on file Address: [address] [place] [address] Care Teams Sales Representative Sales Manager Relationship Specialty Start Date End Date Tanvi Leach MD [address] [place] [id number] PCP - General 05/09/23
== END 2024-09-30 11:50 | disposition home or self-care (01) ==
LOC: HO.HGS 11:16
PROVIDERS: PCP General Practice; Visit Provider Surgery
DX: Z98.890 Other specified postprocedural states (principal); Z87.19 Personal history of other diseases of the digestive system
CPT/HCPCS: 99212

== ENCOUNTER → 2024-09-30 11:15 | Outpatient (BNVA) | payer OTHER, SELFPAY | PROVIDERS: PCP General Practice; Visit Provider Surgery | DX: Z98.890 Other specified postprocedural states (principal); Z87.19 Personal history of other diseases of the digestive system | CPT/HCPCS: 99212 ==

== ENCOUNTER 2024-10-07 11:00 | Outpatient (AMB) | payer OTHER, SELFPAY ==
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
[2024-10-07 11:13] VITALS: BMI 42.0
--- OUTSIDE RECORDS SUMMARY | 2024-10-07 12:08 | XMS_ITS | Clinical Summary ---
Author Organization 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 Erectile dysfunction 09/02/2014 Essential hypertension 07/23/2014 Schizoaffective disorder ([facility] V24, [facility] V 28) 04/20/2014 Depressive disorder 08/17/2011 Encounters Date Type Department Care Team Description 07/16/2024 7:28 PM EDT - 07/16/2024 9:28 PM EDT Emergency [facility] Emergency [address] [place] [address] Left shoulder pain, unspecified chronicity (Primary Dx) Discharge Disposition: Home or Self Care from Last 3 Months Medical History Medical History Date Comments Schizophrenia ([facility] V24, [facility] V28) Social History Tobacco Use Types Packs/Day [...] 9:15 AM EDT Consult Orthopedic Surgery - [place] [address] [address] Wili Whitney, DPM [address] [address] Health Maintenance Due Date Last Done Comments [...] Signed Date: 07/17/2024 08:29 ET Workstation ID: [id number] Transcribed By: Self Edit Transcribed Date: 07/17/2024 [...] Signed Date: 07/17/2024 08:29 ET Workstation ID: [id number] Transcribed By: Self Edit Transcribed Date: 07/17/2024 [...] PM [facility] Comment:Calculation based on the Chronic Kidney Disease Epidemiology Collaboration (CKD-EPI) equation refit without adjustment for race. BUN/Creatinine Ratio 10.2 LAB CHEMISTRY METHOD 01/27/2024 11:08 PM [facility] Calcium 9.2 8.5 - 10.5 mg/dL LAB CHEMISTRY METHOD 01/27/2024 11:08 PM [facility] AST (SGOT) 71(H) 10 - [...] lt [facility] [address] [place] [address], from Last 3 Months or Most Recently Relevant to Health Maintenance Insurance MEDICARE [facility] MEDICARE Member Subscriber Plan / Payer (Ef fective 2023-Present) Name:Jonh MULLINS Relation to Subscriber:Self Name:Omkar Mullins Payer ID:[id number] Group ID:[id number] Type:Not on file Address: [address] [place] [address] Care Teams Thread Winder Relationship Specialty Start Date End Date Tanvi Leach MD [address] [place] [address] PCP - General 05/09/23
== END 2024-10-07 11:24 | disposition home or self-care (01) ==
LOC: HO.HGS 11:00
PROVIDERS: PCP General Practice; Visit Provider Surgery
DX: Z98.890 Other specified postprocedural states (principal); Z87.19 Personal history of other diseases of the digestive system
CPT/HCPCS: 99213

== ENCOUNTER → 2024-10-07 11:00 | Outpatient (BNVA) | payer OTHER, SELFPAY | PROVIDERS: PCP General Practice; Visit Provider Surgery | DX: Z48.02 Encounter for removal of sutures (principal); Z98.890 Other specified postprocedural states; Z87.19 Personal history of other diseases of the digestive system | CPT/HCPCS: 99212 ==

== ENCOUNTER 2024-11-11 10:16 | Outpatient (AMB) | payer OTHER, SELFPAY ==
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
[2024-11-11 10:33] VITALS: BP 132/80; BMI 42.3
--- OUTSIDE RECORDS SUMMARY | 2024-11-11 13:26 | XMS_ITS | Encounter Summary ---
Author Organization [employer] Address [address] [facility] 7[address] [place] [address] Care Team Providers Care Fire Hazard Inspector Name Role Phone Tanvi Leach MD Primary Care Provider [phone] Reason for Visit * Reason Comments Med Refill Encounter Details Date Type Department Care Team ([facility] st Contact Info) Description 06/13/2024 Refill [facility] [address] [place], [place] [phone] Tanvi Leach MD [address] [place], [place] [phone] Essential hypertension Social History Tobacco Use Types Packs/Day Years [...] as of this encounter Plan of Treatment Not on file documented as of this encounter Visit Diagnoses Diagnosis Essential hypertension Unspecified essential hypertension documented in this encounter Additional Health Concerns Assessment Noted Time PHQ-9 Depression Total Score: 18 025 2:03 PM EST documented as of this encounter Care Teams Fire Hazard Inspector Relationship Specialty Start Date End Date Tanvi Leach MD [address] [place] [address] PCP - General Family Medicine 05/20/21 [place] 01/11/24 documented as of this encounter
--- OUTSIDE RECORDS SUMMARY | 2024-11-11 13:26 | XMS_ITS | Encounter Summary ---
Author Organization [email or web address] Address [address] [facility] [address] [place] [address] Care Team Providers Care Snapper On Name Role Phone Tanvi Leach MD Primary Care Provider Reason for Visit * Reason Comments Med Refill Encounter Details Date Type Department Care Team ([facility] st Contact Info) Description 06/25/2024 Refill [facility] [address] [place] [address] Name, MD Blaise [address] [place], [place] [phone] Social History Tobacco Use Types Packs/Day Years [...] documented as of this encounter Care Teams Snapper On Relationship Specialty Start Date End Date Tanvi Leach MD [address] [place] [address] PCP - General Family Medicine 05/20/21 [place] 01/11/24 documented as of this encounter
--- OUTSIDE RECORDS SUMMARY | 2024-11-11 13:26 | XMS_ITS | Clinical Summary ---
Author Organization [facility] Address [address] [place] [address] Phone Care Team Providers Care Office 365 Consultant Name Role Phone Tanvi Leach MD Primary Care Provider [phone] Allergies No known active allergies Medications cetirizine [...] Diagnosed Date Cannabis abuse 01/28/2024 Cocaine abuse [place] [place] [facility] [place] 024 Chronic bilateral low back pain without sciatica 03/28/2023 Obstructive sleep apnea 03/09/2022 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 Erectile dysfunction 09/02/2014 Essential hypertension 07/23/2014 Schizoaffective disorder ([facility] [place] [facility] [place] 28[place] 04/20/2014 Depressive disorder 08/17/2011 Medical History Medical History Date Comments Schizophrenia ([facility] [place], [facility] [place] Social History Tobacco Use Types [...] 9:15 AM EDT Consult Orthopedic Surgery - [place] [address] [address] Wili Whitney, DPM [address] [address] Health Maintenance Due Date Last Done Comments [...] Procedure Name Priority Date/Time Associated Diagnosis Comments COMPREHENSIVE METABOLIC PANEL STAT 01/27/2024 10:31 PM EST from Last 3 Months or Most Recently Relevant to Health Maintenance Results * (ABNORMAL) Comprehensive metabolic panel (01/27/2024 10:31 PM EST) Sodium 137 133 - 145 mmol/L LAB CHEMISTRY METHOD 01/27/2024 11:08 PM [facility] Potassium 3.6 3.5 - 5.5 mmol/L LAB CHEMISTRY METHOD 01/27/2024 11:08 PM [facility] Chloride 105 96 - 110 mmol/L LAB CHEMISTRY METHOD 01/27/2024 11:08 PM [facility] CO2 26 21 - 32 mmol/L LAB CHEMISTRY METHOD 01/27/2024 11:08 PM [facility] Anion Gap 6 3 - 11 LAB CHEMISTRY METHOD 01/27/2024 11:08 PM [facility] Glucose 111(H) 70 - 100 mg/dL LAB CHEMISTRY METHOD 01/27/2024 11:08 PM [facility] BUN 13 5 - 25 mg/dL LAB CHEMISTRY METHOD 01/27/2024 11:08 PM [facility] Creatinine 1.27 0.70 - 1.30 mg/dL LAB CHEMISTRY METHOD 01/27/2024 11:08 PM [facility] eGFR 74 >=60 mL/min/1. 73m2 LAB CHEMISTRY METHOD 01/27/2024 11:08 PM [facility] Comment:Calculation based on the Chronic Kidney Disease Epidemiology Collaboration (CKD-EPI) equation refit without adjustment for race. BUN/Creatinine Ratio 10.2 LAB CHEMISTRY METHOD 01/27/2024 11:08 PM [facility] Calcium 9.2 8.5 - 10.5 mg/dL LAB CHEMISTRY METHOD 01/27/2024 11:08 PM [facility] AST (SGOT) 71(H) 10 - 42 unit/L LAB CHEMISTRY METHOD 01/27/2024 11:08 PM [facility] ALT (SGPT) 63(H) 10 - 60 unit/L LAB CHEMISTRY METHOD 01/27/2024 11:08 PM [facility] Alkaline Phosphatase 86 42 - 121 unit/L LAB CHEMISTRY METHOD 01/27/2024 11:08 PM [facility] Total Protein 7.3 6.0 - 8.0 g/dL LAB CHEMISTRY METHOD 01/27/2024 11:08 PM [facility] Albumin 4.4 3.2 - 5.0 g/dL LAB CHEMISTRY METHOD 01/27/2024 11:08 PM [facility] Total Bilirubin 0.7 0.0 - 1.4 mg/dL LAB CHEMISTRY METHOD 01/27/2024 11:08 PM [facility] Blood Venous blood specimen / Unknown Venipuncture / Unknown 01/27/2024 10:31 PM EST 01/27/2024 10:43 PM EST [facility] [place] [facility] BLOOD ORDERABLES Final Resu lt [facility] [address] [place] [address], from Last 3 Months or Most Recently Relevant to Health Maintenance Insurance MEDICARE [facility] MEDICARE Member Subscriber Plan / Payer (Ef fective 2023-Present) Name:SITA MULLINS Relation to Subscriber:Self Name:Sita Mullins Payer ID:[id number] Group ID:[id number] Type:Not on file Address: [address] [place] [address] Care Teams Office 365 Consultant Relationship Specialty Start Date End Date Tanvi Leach MD [address] [place] [address] PCP - General 05/09/23
--- OUTSIDE RECORDS SUMMARY | 2024-11-11 13:26 | XMS_ITS | Encounter Summary ---
Author Organization [employer] Address [address] [facility] [address] [place] [address] Care Team Providers Care Poison Information Specialist Name Role Phone Tanvi Leach MD Primary Care Provider [phone] Encounter Details Date Type Department Care Team (Late st Contact Info) Description 07/27/2022 Telephone [facility] [address] [place], [place] [phone] Tanvi Leach MD [address] [place], [place] [phone] Social History Tobacco Use Types Packs/Day Years [...] documented as of this encounter Care Teams Poison Information Specialist Relationship Specialty Start Date End Date Tanvi Leach MD [address] [place] [address] PCP - General Family Medicine 05/20/21 [place] 01/11/24 documented as of this encounter
--- OUTSIDE RECORDS SUMMARY | 2024-11-11 13:26 | XMS_ITS | Encounter Summary ---
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
--- OUTSIDE RECORDS SUMMARY | 2024-11-11 13:26 | XMS_ITS | Clinical Summary ---
Author Organization [employer] Address [address] [place] [address] Care Team Providers Care Environmental Engineering Aide Name Role Phone Tanvi Leach MD Primary Care Provider [phone] Allergies Active Allergy Reactions Criticality Noted Date Comments Octacosanol Runny nose 04/02/2023 Medications * This document contains information received from the source organization and may not represent a complete record from that organization. clonazePAM (KlonoPIN) 0.5 MG tablet Take 1 tablet by mouth if needed in the morning and at bedtime for anxiety. 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 90 tablet 3 024 Active ascorbic acid (Vitamin C) 500 MG tabletIndications: Class 3 drug-induced obesity with serious comorbidity and body mass index (BMI) of 40.0 to 44.9 in adult ([facility]) Take 1 tablet (500 mg) by mouth Once per day. 90 tablet 3 024 2024 Active lisinopril (Prinivil) 20 MG tabletIndications: Essential hypertension Take 1 tablet (20 mg) by mouth Once per day. For blood pressure 90 tablet 3 024 2024 Active melatonin 5 MG tablet Take 1 tablet (5 mg) by mouth if needed at bedtime (insomnia). 90 tablet 3 Active metFORMIN, OSM, (Fortamet) 500 MG 24 hr tabletIndications: Class 3 drug-induced obesity with serious comorbidity and body mass index (BMI) of 40.0 to 44.9 in adult (CMS/HCC) Take 2 tablets (1,000 mg) by mouth with evening meal. Do not crush, chew, or split. 180 tablet 3 025 2025 Active atorvastatin (Lipitor) 10 MG tabletIndications: Essential hypertension Take 1 tablet by mouth Once per day. Active B Wksaovx-J-Jlgyq Acid (B-Complex/Folic Acid/Vitamin C) tablet controlled-release Indications:Class 3 drug-induced obesity with serious comorbidity and body mass index (BMI) of 40.0 to 44.9 in adult (CMS/HCC) Take 1 tablet by mouth Once per day. 024 Active QUEtiapine (SEROquel) 100 MG tabletIndications: Schizoaffective disorder, depressive type (CMS/HCC) Take 1 tablet by mouth at bedtime. 025 Active omeprazole (PriLOSEC) [address] capsule TAKE 1 CAPSULE (20 MG) BY MOUTH IF NEEDED EACH DAY (GERD). 28 capsule 11 025 Active guanFACINE (Intuniv) 2 mg 24 hr tabletIndications: Developmental academic disorder Take 1 tablet (2 mg) by mouth 2 times daily. 60 tablet 3 Active Vitamin E 45 MG (100 UNIT) capsule Take 1 capsule by mouth Once per day. 025 Active ARIPiprazole (Abilify) 30 MG tabletIndications: Schizoaffective disorder, depressive type (CMS/HCC) Take 1 tablet by mouth Once per day. 025 Active Tirzepatide-Weight Management 2.5 MG/0.5ML solution auto-injectorIndic ations:Class 3 drug-induced obesity with serious comorbidity and body mass index (BMI) of 40.0 to 44.9 in adult (CMS/HCC),Essentia l hypertension,Obstr uctive sleep apnea,Metabolic dysfunction-associ ated steatohepatitis (MASH) Inject 0.5 mL (2.5 mg) under the skin 1 (one) time per week. 2 mL 1 Active buPROPion XL (Wellbutrin XL) 150 MG 24 hr tablet Take 1 tablet by mouth Once per day. Active amLODIPine (Norvasc) 2.5 MG tabletIndications: Essential hypertension Take 1 tablet by mouth Once per day. Active docusate sodium (Colace) 100 MG capsule Take 1 capsule by mouth 2 times daily. 025 Active lidocaine-prilocai ne (Emla) 2.5-2.5 % cream Active nicotine polacrilex (Nicorette) 4 MG gumIndications:Tob acco use chew AND park 1 PIECE OF gum along cheeks NEEDED FOR SMOKING CESSATION Active nicotine (Nicoderm, Step 1) 21 MG/24HR patchIndications:T obacco use APPLY 1 PATCH onto clean, DRY, intact SKIN ONCE DAILY Active acetaminophen (Tylenol 8 Hour) 650 MG ER tabletIndications: S/P repair of recurrent ventral hernia,Bilateral hip pain Take 1 tablet (650 mg) by mouth every 8 (eight) hours if needed for mild pain. Do not crush, chew, or split. 60 tablet 3 025 Active lactase (Lactaid) 3000 units tablet TAKE 1 TABLET BY MOUTH WITH BREAKFAST, LUNCH AND EVENING MEAL. 90 tablet 11 025 Active ipratropium (Atrovent) 0.03 % nasal sprayIndications:N billie congestion SPRAY 2 SPRAYS INTO EACH NOSTRIL EVERY 12 HOURS 30 mL 11 025 Active phentermine 15 MG capsuleIndications :Class 3 drug-induced obesity with serious comorbidity and body mass index (BMI) of 40.0 to 44.9 in adult ([facility]) TAKE 1 CAPSULE BY MOUTH BEFORE BREAKFAST 30 capsule 025 Active Multiple Vitamin (Daily-Caroline) tabletIndications: Class 3 drug-induced obesity with serious comorbidity and body mass index (BMI) of 40.0 to 44.9 in adult (CMS/HCC) TAKE 1 TABLET BY MOUTH ONCE DAILY IN THE MORNING 30 tablet 8 025 Active lactase (Lactaid) 3000 units tablet Take 1 tablet (3,000 Units) by mouth with breakfast, with lunch, and with evening meal. 90 tablet 11 024 2024 Discontinued(R eorder (will not trigger notification to Pharmacy)) Multiple Vitamin (Multivitamin) tabletIndications: Class 3 drug-induced obesity with serious comorbidity and body mass index (BMI) of 40.0 to 44.9 in adult ([facility]) Take 1 tablet by mouth Once per day. 90 tablet 3 024 2024 Discontinued ipratropium (Atrovent) 0.03 % nasal sprayIndications:N billie congestion Administer 2 sprays into each nostril every 12 (twelve) hours. 30 mL 12 024 2024 Discontinued(R eorder (will not trigger notification to Pharmacy)) phentermine 15 MG capsuleIndications :Class 3 drug-induced obesity with serious comorbidity and body mass index (BMI) of 40.0 to 44.9 in adult ([facility]) Take 1 capsule (15 mg) by mouth before breakfast. For weight loss 30 capsule 025 2024 Discontinued Active Problems Problem Noted Date Diagnosed Date Viral upper respiratory tract infection 10/18/19 25 Assessment & Plan (10/17/2024 9:41 AM EDT): COVID-19 10/17/2024 Assessment & Plan (10/17/2024 9:41 AM EDT): Reviewed positive covid test, transmission, er precautions. Pt has relatively mild symptoms, is candidate for paxlovid but therapy interacts with multiple medications. At this time, will monitor symptoms. Supportive measures reviewed. Orders: POCT Rapid COVID Ag Influenza A (ID NOW Rapid Molecular) Influenza B (ID NOW Rapid Molecular) S/P repair of recurrent ventral hernia Assessment & Plan (10/06/2024 8:09 AM EDT): Healing well Needs additional DME items in recovery phase to avoid putting pressure on his midline incision-- recliner chair and foot tub History of homicidal ideation 08/07/2024 Class 3 drug-induced obesity with serious comorbidity and body mass index (BMI) of 40.0 to 44.9 in adult 04/07/2024 Assessment & Plan (10/06/2024 8:07 AM EDT): BMI 44 (wt 137 kg, ht 175cm) No weight loss with life style changes Patient interested in weight loss medication Reviewed indications for pharmacotherapy with patient - treatment for patient w/ obesity or a patient with a BMI > 27 w/ CV risk factors who have failed lifestyle modifications alone. are always prescribed in combination with ongoing lifestyle modification; and will be titrated up from the lowest dose. Discussed weight loss medication - phentermine with patient and agreed to start with phentamine. Trial phentermine 15 MG capsule daily, monitor BP carefully Cannot prescribe Topimax due to concomittant psychiatric medications. Reviewed mechanism of action with patient and side effects of stomach upset, nausea, diarrhea. Recommended at least 20 g per meal of protein to assist with satiety. Recommended at least 150 min/week of moderate intensity exercise. Assessment & Plan (08/05/2024 12:08 PM EDT): BMI 44 (wt 137 kg, ht 175cm) No weight loss with life style changes Patient interested in weight loss medication Reviewed indications for pharmacotherapy with patient - treatment for patient w/ obesity or a patient with a BMI > 27 w/ CV risk factors who have failed lifestyle modifications alone. are always prescribed in combination with ongoing lifestyle modification; and will be titrated up from the lowest dose. Discussed weight loss medication - phentermine with patient and agreed to start with phentamine. Cannot prescribe phentermine 15 MG capsule daily due to contraindications of high blood pressure and interactions with psych medications, remote history of substance use disorder. Cannot prescribe Topimax due to concomittant psychiatric medications. Will submit PA for Zepbound 2.5mg weekly Reviewed mechanism of action with patient and side effects of stomach upset, nausea, diarrhea. Recommended at least 20 g per meal of protein to assist with satiety. Recommended at least 150 min/week of moderate intensity exercise. Dental abscess 03/10/2024 Odontalgia 03/10/2024 Cannabis abuse [...] sleep study attached, and faxed to [facility] to order CPAP again Assessment & Plan (08/13/2023 1:00 PM EDT): Called and spoke with well services operator from [facility], that patient has been non-compliant with CPAP [...] (06/01/2022 1:08 PM EDT): Need to call [facility] ([phone]) to try to change settings of CPAP to lower setting so that he can tolerate it for longer Assessment & Plan (03/09/2022 2:47 PM EST): New dx on 01/2022 sleep study CPAP ordered, atuo titrate 9-14 Food insecurity 03/09/2022 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 Assessment & Plan (03/09/2022 2:48 PM EST): Letter generated for [facility] that pt can manage his own finacnes Insomnia 12/06/2021 Erectile dysfunction 09/02/2014 Assessment & Plan (03/09/2022 2:48 PM EST): Continue prn PDE5 inhibitor Exercise more to increase blood flow Premature ejaculation 09/02/2014 Essential hypertension 07/23/2014 Assessment & Plan (08/05/2024 12:02 PM EDT): Continue Lisinopril 20mg daily Assessment & Plan (05/07/2023 1:05 PM EDT): [...] without first consulting health care provider Schizoaffective disorder, depressive type 2014 Assessment & Plan (07/17/2023 11:54 AM EDT): Patient did not bring in paperwork from hospital discharge so used pharmacist medication reconciliation with [facility], his pharmacy - I completed and signed [...] as needed Hold off on supplements from [facility], focus on rest and exercise and communicating with his kids Developmental academic disorder 08/17/2011 Assessment & Plan (08/05/2024 12:04 PM EDT): Increase Intuniv to 2mg BID from 2mg daily due to mental fogginess and trouble concentration Resolved Problems Problem Noted Date Diagnosed Date Resolved Date Cocaine abuse 01/28/2024 04/07/2024 Cannabis dependence 04/20/2014 06/02/19 Encounters * This document contains information received from the source organization and may not represent a complete record from that organization. Date Type Department Care Team Description 11/05/2024 Refill [facility] [address] [place] [phone] Tanvi Leach MD Class 3 drug-induced obesity with serious comorbidity and body mass index (BMI) of 40.0 to 44.9 in adult ([facility]) 11/04/2024 Refill [facility] [address] [place] [phone] Tanvi Leach MD Class 3 drug-induced obesity with serious comorbidity and body mass index (BMI) of 40.0 to 44.9 in adult ([facility]) 10/30/2024 Telephone [facility] [address] [place] [phone] Tanvi Leach MD 10/29/2024 Telephone [facility] [address] [place] [phone] Tanvi Leach MD Durable Medical Equipment 10/17/2024 9:00 AM EDT Office Visit [facility] [address] [place] [phone] Lucille Bell NP Viral upper respiratory tract infection (Primary Dx); COVID-19 10/17/2024 Telephone [facility] [address] [place] [phone] Tanvi Leach MD 10/17/2024 Travel 10/14/[address] [address] Tanvi Leach MD Referral 10/14/[address] [address] Tanvi Leach MD Nasal congestion 10/13/[address] [address] Tanvi Leach MD 10/07/[address] [address] Tanvi Leach MD Prior Auth Prescription 10/06/[address] [address] Tanvi Leach MD Durable Medical Equipment (DME Order Requests: Recliner Repair, Foot Tub) 10/03/[address] [address] Tanvi Leach MD verbal orders needed 10/01/2024 3:15 PM EDT Office Visit [address] [address] Tanvi Leach MD Class 3 drug-induced obesity with serious comorbidity and body mass index (BMI) of 40.0 to 44.9 in adult ([facility]) (Primary Dx); S/P repair of recurrent ventral hernia; Essential hypertension; Ventral hernia without obstruction or gangrene; Flat feet, bilateral; Bilateral hip pain; Tobacco use 10/01/2024 Travel 09/30/[address] [address] Tanvi Leach MD chart prep 09/26/[address] [address] Tanvi Leach MD Prior Authorization; Durable Medical Equipment ([facility] DME request) 09/04/2024 1:30 PM EDT Office Visit [facility] [address] [place] [phone] Rahul Madrigal DMD 08/20/2024 10:45 AM EDT Office Visit [facility] [address] [place] [phone] Maribeth Baker NP Hospital discharge follow-up (Primary Dx); Left upper arm pain 08/20/[address] [address] Tanvi Leach MD Prior Auth DME 08/20/2024 Travel 08/19/[address] [address] Maribeth Baker NP Chart Prep 08/13/2024 10:00 AM EDT Office Visit [facility] [address] [place] [address] Velvet Hernadez 08/13/[address] [address] Tanvi Leach MD Call Back Request (/) 08/13/[address] [phone] Tanvi Leach MD Durable Medical Equipment from Last 3 Months Immunizations Immunization Administration Dates Next Due DTP 03/29/1993, 1,01/26/1990,11/26,09/26/1989 Hep A, Adult 12/02/2021,11/02/2017 Hep B, Adolescent or Pediatric 11/21/1999,1998,04/27/1998 Hib (HbO) 03/29/1990 IPV 03/29/1993, 1,11/26/1989,09/26 Influenza injectable quadriv [...] Passive Smoke Exposure: Never Smokeless Tobacco: Never Tobacco Cessation:Counseling Given: [...] Sign Reading Time Taken Comments Blood Pressure 124/78 10/17/2024 8:51 AM EDT Pulse 74 10/17/2024 8:51 AM EDT Temperature 36.5 C (97.7 F) 10/17/2024 8:51 AM EDT Respiratory Rate 18 10/17/2024 8:51 AM EDT Oxygen Saturation 98% 10/17/2024 8:51 AM EDT Inhaled Oxygen Concentration - - Weight 127 kg (279 lb 6.4 oz) 10/17/2024 8:51 AM EDT Height 175.3 cm (5' 9 ) 10/01/2024 3:05 PM EDT Body Mass Index 41.26 10/01/2024 3:05 PM EDT Plan of Treatment Health Maintenance Due Date Last Done Comments HPV Vaccines (1 - Male 3-dose series) 2000 Influenza Vaccine (#1) 2024 , 01/22/2023, 11/22/2022, Additional history exists Depression Monitoring 02/04/2025 08/05/2024, 025 Dental Oral Exam 02/13/2025 08/13/2024, , 04/02/2023, Additional history exists Dental Prophylaxis 02/13/2025 08/13/2024, 1 03/22/2023, 04/26/2023 SDOH Screening 04/07/2025 04/07/2024 Family Planning (PISQ) 04/08/2025 04/08/2024 Alcohol/Substance Use Screening 06/02/2025 06/02/2024 Disability Screening 08/05/2025 08/05/2024 Dental X-Ray: Bitewings 08/14/2025 08/14/19, 04/02/2023, 10/10/2022, Additional history exists Tobacco Screening 10/01/2025 10/01/2024 DTaP/Tdap/Td Vaccines (7 - Td or Tdap) [...] Years) and At-Risk Patients (6 to 49) Years Aged Out 10/29/2015, 02/16/2015, 10/30/2014 No longer eligible based on patient's age to complete this topic Hepatitis A Vaccines Completed 12/02/2021, 11/03/19 18 HIV Screening Completed 01/22/2023 Hepatitis C Screening Completed 01/22/2023 COVID-19 Vaccine Completed 01/18/2024, 11/2022, 03/15/2021, Additional history exists Meningococcal B Vaccine Aged Out No l [...] Procedure Name Priority Date/Time Associated Diagnosis Comments POCT INFLUENZA B (ID NOW RAPID MOLECULAR) Routine 10/17/2024 9:05 AM EDT COVID-19 POCT INFLUENZA A (ID NOW RAPID MOLECULAR) Routine 10/17/2024 9:05 AM EDT COVID-19 POCT RAPID COVID ANTIGEN Routine 10/17/2024 9:05 AM EDT COVID-19 CASE PRESENTATION, DETAILED AND EXTENSIVE TREATMENT PLANNING Routine 09/04/2024 1:30 PM EDT 30 DO AMALGAM - 2 SURF, PRIMARY OR PERMANENT Routine 09/04/2024 1:30 PM EDT CASE PRESENTATION, DETAILED AND EXTENSIVE TREATMENT PLANNING Routine 08/13/2024 10:00 AM EDT INTRAORAL - PERIAPICAL EACH ADDITIONAL RADIOGRAPHIC IMAGE Routine 08/13/2024 10:00 AM EDT INTRAORAL - PERIAPICAL FIRST RADIOGRAPHIC IMAGE Routine 08/13/2024 10:00 AM EDT BITEWINGS - 4 RADIOGRAPHIC IMAGES Routine 08/13/2024 10:00 AM EDT PROPHYLAXIS - ADULT Routine 08/13/2024 1 0:00 AM EDT PERIODIC ORAL EVALUATION - ESTABLISHED PATIENT Routine 08/13/2024 10:00 AM EDT INTRAORAL - COMPLETE SERIES OF RADIOGRAPHIC IMAGES [...] Recently Relevant to Health Maintenance Results * Influenza B (ID NOW Rapid Molecular) (10/17/2024 9:05 AM EDT) Influenza B Negative Negative, Indeterminate [facility] Swab 10/17/2024 9:05 AM EDT Lucille Bell NP POINT OF CARE TEST ENTER/EDIT OR DERABLES Final Result [facility] [address] [place] [phone] * Influenza A (ID NOW Rapid Molecular) (10/17/2024 9:05 AM EDT) Influenza A Negative Negative, Indeterminate [facility] Swab 10/17/2024 9:05 AM EDT Lucille Bell STATEMENT SERVICES REPRESENTATIVE POINT OF CARE TEST ENTER/EDIT OR DERABLES Final Result Performing Organization Address [facility]/ZIP Co de Phone Number [facility] [address] [place] [phone] * (ABNORMAL) POCT Rapid COVID Ag (10/17/2024 9:05 AM EDT) Rapid COVID Ag Positive [facility] Swab 10/17/2024 9:05 AM EDT Lucille eBll STATEMENT SERVICES REPRESENTATIVE POINT OF CARE TEST ENTER/EDIT OR DERABLES Final Result Performing Organization Address [facility] Co de Phone Number [facility] [address] [place] [phone] * Hepatitis C Ab (01/22/2023 12:26 PM EST) [facility] Hepatitis C Antibody Nonreactive Nonreactive [facility] Comment:Antibodies to HCV no t detected; does not exclude early acuteHCV infection. Blood Venous blood specimen / Unknown 01/22/2023 12:26 PM EST 01/22/2023 1:22 PM EST Tanvi Leach MD LAB BLOOD ORDERABLES Final Res ult Performing Organization Address [facility] Co de Phone Number [facility] [address] [place] [phone] * HIV-1/2 Antigen and Antibodies, Fourth Generation, with Reflexes (01/22/2023 12:26 PM EST) [facility] HIV AB/AG Nonreactive Nonreactive [facility] Comment:HIV-1 p24 Ag and/or HIV-1/HIV-2 Ab not detected.A test result that is nonreactive does not exclude thepossibility of exposure to or infection with HIV-1 and/orHIV-2. Nonreactive results in this assay for individualswith prior exposure to HIV-1 and/or HIV-2 may be due toantigen and antibody levels that are below the limit ofdetection of this assay.The [employer] HIV Ag/Ab Combo assay result andsupplemental assay [...] Res ult [facility] [address] [place] [phone] * (ABNORMAL) LIPID PANEL, STANDARD (05/20/2021 2:20 PM EDT) Chol/HDLC Ratio 3.7 <5.0 (calc) [facility] Cholesterol, Total 205(H) <200 mg/dL [facility] HDL Cholesterol 55 > OR = 40 mg/dL [facility] LDL Cholesterol 119(H) mg/dL (calc) [facility] Comment: Reference range: <100 Desirable range <100 mg/dL for primary prevention; <70 mg/dL for patients with CHD or diabetic patients with > or = 2 CHD risk factors. LDL-C is now calculated using the Aureliano-Jonathan calculation, which is a validated novel method providing better accuracy than the Friedewald equation in the estimation of LDL-C. Aureliano VARGAS et al. CONTRERAS. 2013;310(19): 2190-0308 (http://education.Foldees.com/faq/MFB704) Non-HDL Cholesterol 150(H) <130 mg/dL (calc) [facility] Comment: For patients with diabetes plus 1 major ASCVD risk factor, treating to a non-HDL-C goal of <100 mg/dL (LDL-C of <70 mg/dL) is considered a therapeutic option. Triglycerides 195(H) <150 mg/dL [facility] 05/20/2021 2:20 PM EDT us Tanvi Leach MD LAB BLOOD ORDERABLES Final Res ult [facility] [address] from Last 3 Months or Most Recently Relevant to Health Maintenance Insurance [facility] [address] [id number] [facility] Care Teams Environmental Engineering Aide Relationship Specialty Start Date End Date Tanvi Leach MD [address] [place] [address] PCP - General Family Medicine 05/20/21 [place] 01/11/24
--- OUTSIDE RECORDS SUMMARY | 2024-11-11 13:26 | XMS_ITS | Encounter Summary ---
Author Organization [employer] Address [address] [facility] [address] [place] [address] Care Team Providers Care Trailer Chief Name Role Phone Tanvi Leach MD Primary Care Provider [phone] Reason for Visit * Reason Onset Date Comments Call Back Request 11/21/2023 Encounter Details Date Type Department Care Team ([facility] st Contact Info) Description 11/21/2023 Telephone [facility] [address] [place] [address] Tanvi Leach MD [address] [place], [place] [phone] Call Back Request Social History Tobacco Use [...] with others, in a hotel, in a mcc, living outside on the street, on a [...] - 11/21/2023 3:53 PM EDT Tc from [facility] requesting a call back to obtain some clarity on why the provider would just simply write a letter indicating it is ok for the patient to be in charge of own finances when the patient have a list of conditions including a learning disability please call the patients top case assembler at [phone] Hubbard documented in this encounter Plan of Treatment Not on file documented as of this encounter Visit Diagnoses Not on filedocumented in this encounter Additional Health Concerns Assessment Noted Time PHQ-9 Depression Total Score: 0 03/28/19 24 2:55 PM EST documented as of this encounter Care Teams Trailer Chief Relationship Specialty Start Date End Date Tanvi Leach MD [address] [place] [address] PCP - General Family Medicine 05/20/21 [place] 01/11/24 documented as of this encounter
--- OUTSIDE RECORDS SUMMARY | 2024-11-11 13:26 | XMS_ITS | Encounter Summary ---
Author Organization [employer] Address [address] [facility] [address] [place] [address] Care Team Providers Care Dental Insurance Biller Name Role Phone Tanvi Leach MD Primary Care Provider [phone] Encounter Details Date Type Department Care Team ([facility] st Contact Info) Description 07/25/2023 Telephone [facility] [address] [place], [place] [phone] Tanvi Leach MD [address] [place], [place] [phone] Social History Tobacco Use Types Packs/Day Years [...] documented as of this encounter Care Teams Dental Insurance Biller Relationship Specialty Start Date End Date Tanvi Leach MD [address] [place] [phone] PCP - General Family Medicine 05/20/21 [place] 01/11/24 documented as of this encounter
--- OUTSIDE RECORDS SUMMARY | 2024-11-11 13:26 | XMS_ITS | Encounter Summary ---
Author Organization [employer] Address [address] [facility] 7t [place] [address] Care Team Providers Care Statement Clerks Manager Name Role Phone Tanvi Leach MD Primary Care Provider [phone] Reason for Visit * Reason Comments Med Refill Encounter Details Date Type Department Care Team (Late st Contact Info) Description 05/12/2024 Refill [facility] [address] [place], [place] [phone] Marko Sorenson DDS [address] [place] [address] Social History Tobacco Use Types Packs/Day Years [...] encounter Miscellaneous Notes * Telephone Encounter - Marko Sorenson DDS - 05/12/2024 3:02 PM EDT Approving, but needs appt for additional refills. documented in this encounter Plan of Treatment Not on file documented as of this encounter Visit Diagnoses Not on filedocumented in this encounter Additional Health Concerns Assessment Noted Time PHQ-9 Depression Total Score: 18 025 2:03 PM EST documented as of this encounter Care Teams Statement Clerks Manager Relationship Specialty Start Date End Date Tanvi Leach MD [address] [place] [address] PCP - General Family Medicine 05/20/21 Cristo 01/11/24 documented as of this encounter
--- OUTSIDE RECORDS SUMMARY | 2024-11-11 13:26 | XMS_ITS | Encounter Summary ---
Author Organization [employer] Address [address] [facility] 7t [place] [address] Care Team Providers Care Pharmaceutical Botanist Name Role Phone Tanvi Leach MD Primary Care Provider [phone] Reason for Visit * Reason Comments Med Refill Encounter Details Date Type Department Care Team ([facility] st Contact Info) Description 02/01/2024 Refill [facility] MED[facility] 230 [place], [place] [phone] Tanvi Leach MD 230 [place], [place] [phone] Nasal congestion Social History Tobacco Use Types [...] with others, in a hotel, in a senior living, living outside on the street, on a [...] documented as of this encounter Care Teams Pharmaceutical Botanist Relationship Specialty Start Date End Date Tanvi Leach MD 230 [place] [address] PCP - General Family Medicine 05/20/21 Cristo 01/11/24 documented as of this encounter
--- OUTSIDE RECORDS SUMMARY | 2024-11-11 13:26 | XMS_ITS | Encounter Summary ---
Author Organization [employer] Address [address] [facility] 7t [place] [address] Care Team Providers Care Heel Stainer Name Role Phone Tanvi Leach MD Primary Care Provider [phone] Reason for Visit * Reason Comments Med Refill Encounter Details Date Type Department Care Team ([facility] st Contact Info) Description 06/19/2024 Refill [facility] MED[facility]INE 230 [place] [address] Name, MD Blaise [address] [place], [place] [phone] Essential hypertension Social History Tobacco Use Types [...] documented as of this encounter Care Teams Heel Stainer Relationship Specialty Start Date End Date Tanvi Leach MD 230 [place] [address] PCP - General Family Medicine 05/20/21 Cristo 01/11/24 documented as of this encounter
--- OUTSIDE RECORDS SUMMARY | 2024-11-11 13:26 | XMS_ITS | Encounter Summary ---
Author Organization [employer] Address [address] [facility] 7t [place] [address] Care Team Providers Care Wheel Installer Name Role Phone Tanvi Leach MD Primary Care Provider [phone] Reason for Visit * Reason Onset Date Comments Medication Question 02/15/2024 Encounter Details Date Type Department Care Team (Late st Contact Info) Description 02/15/2024 Telephone [facility] MED[facility] 230 [place], [place] [phone] Tanvi Leach MD 230 [place], [place] [phone] Medication Question Social History Tobacco Use Types [...] with others, in a hotel, in a usp, living outside on the street, on a [...] a New CPAP Machine. Contact pt at [phone] documented in this encounter Plan of Treatment Not on file documented as of this encounter Visit Diagnoses Not on filedocumented in this encounter Additional Health Concerns Assessment Noted Time PHQ-9 Depression Total Score: 0 03/28/19 2:55 PM EST documented as of this encounter Care Teams Wheel Installer Relationship Specialty Start Date End Date Tanvi Leach MD [address] [place] [address] PCP - General Family Medicine 05/20/21 Cristo 01/11/24 documented as of this encounter
--- OUTSIDE RECORDS SUMMARY | 2024-11-11 13:26 | XMS_ITS | Encounter Summary ---
Author Organization [employer] Address [address] [facility] 7t [place] [address] Care Team Providers Care Hand Blocker Name Role Phone Tanvi Leach MD Primary Care Provider Reason for Visit * Reason Comments Med Refill Encounter Details Date Type Department Care Team ([facility] st Contact Info) Description 02/21/[address] [facility] [address] [place], [place] [phone] Pauline Cisneros MD 230 [place] [address] Social History Tobacco Use Types Packs/Day Years [...] documented as of this encounter Care Teams Hand Blocker Relationship Specialty Start Date End Date Tanvi Leach MD [address] [place] [address] PCP - General Family Medicine 05/20/21 [place] 01/11/24 documented as of this encounter
--- OUTSIDE RECORDS SUMMARY | 2024-11-11 13:26 | XMS_ITS | Encounter Summary ---
Author Organization [employer] Address [address] [facility] 7t [place] [address] Care Team Providers Care Materials Inspector Name Role Phone Tanvi Leach MD Primary Care Provider [phone] Reason for Visit * Reason Onset Date Comments Med Refill 02/29/2024 Encounter Details Date Type Department Care Team (Late st Contact Info) Description 02/29/2024 Telephone [facility] MEDICINE 230 [place] [address] Tanvi Leach MD 230 [place], [place] [phone] Med Refill Social History Tobacco Use Types [...] PM EST Please advise patient to call [facility] to transfer scripts. * [...] documented as of this encounter Care Teams Materials Inspector Relationship Specialty Start Date End Date Tanvi Leach MD [address] [place] [address] PCP - General Family Medicine 05/20/21 [place] 01/11/24 documented as of this encounter
--- OUTSIDE RECORDS SUMMARY | 2024-11-11 13:26 | XMS_ITS | Encounter Summary ---
Author Organization [employer] Address [address] [facility] 7t [place] [address] Care Team Providers Care Furnace Operator Name Role Phone Tanvi Leach MD Primary Care Provider [phone] Reason for Visit * Reason Comments Med Refill Encounter Details Date Type Department Care Team ([facility] st Contact Info) Description 06/11/2024 Refill [facility] MEDICINE 230 [place], [place] [phone] Tanvi Leach MD 230 [place], [place] [phone] Essential hypertension Social History Tobacco Use Types [...] documented as of this encounter Care Teams Furnace Operator Relationship Specialty Start Date End Date Tanvi Leach MD 230 [place] [address] PCP - General Family Medicine 05/20/21 Cristo 01/11/24 documented as of this encounter
--- OUTSIDE RECORDS SUMMARY | 2024-11-11 13:26 | XMS_ITS | Encounter Summary ---
Author Organization [employer] Address [address] [facility] 7t [place] [address] Care Team Providers Care Teachers Aide Name Role Phone Tanvi Leach MD Primary Care Provider [phone] Encounter Details Date Type Department Care Team (Late st Contact Info) Description 06/09/[address] [facility] MEDICINE 230 [place], [place] [phone] Tanvi Leach MD 230 [place], [place] [phone] Social History Tobacco Use Types Packs/Day Years [...] documented as of this encounter Care Teams Teachers Aide Relationship Specialty Start Date End Date Tanvi Leach MD [address] [place] [address] PCP - General Family Medicine 05/20/21 Cristo 01/11/24 documented as of this encounter
--- OUTSIDE RECORDS SUMMARY | 2024-11-11 13:26 | XMS_ITS | Encounter Summary ---
Author Organization [employer] Address [address] [facility] 7t [place] [address] Care Team Providers Care Perfect Binder Setter Name Role Phone Tanvi Leach MD Primary Care Provider [phone] Reason for Visit * Reason Onset Date Comments Prior Auth Prescription 10/07/2024 Encounter Details Date Type Department Care Team (Late st Contact Info) Description 10/07/2024 Telephone [facility] MEDICINE 230 [place], [place] [phone] Tanvi Leach MD 230 [place], [place] [phone] Prior Auth Prescription Social History Tobacco Use Types Packs/Day Years [...] encounter Miscellaneous Notes * Telephone Encounter - Viry Victor - 10/07/2024 11:52 AM EDT Tc from pt needing a PA for lactase (Lactaid) 3000 units tablet Contact pt at [phone] documented in this encounter Plan of Treatment Not on file documented as of this encounter Visit Diagnoses Not on filedocumented in this encounter Additional Health Concerns Assessment Noted Time PHQ-9 Depression Total Score: 21 025 9:08 AM EDT documented as of this encounter Care Teams Perfect Binder Setter Relationship Specialty Start Date End Date Tanvi Leach MD [address] [place] [address] PCP - General Family Medicine 05/20/21 [place]o 01/11/24 documented as of this encounter
--- OUTSIDE RECORDS SUMMARY | 2024-11-11 13:26 | XMS_ITS | Encounter Summary ---
Author Organization [employer] Address [address] [facility] 7t [place] [address] Care Team Providers Care Laundry Press Operator Name Role Phone Tanvi Leach MD Primary Care Provider [phone] Reason for Visit * Reason Comments Med Refill Encounter Details Date Type Department Care Team ([facility] st Contact Info) Description 10/13/2024 Refill [facility] MEDICINE 230 [place], [place] [phone] Tanvi Leach MD 230 [place], [place] [phone] Social History Tobacco Use Types Packs/Day Years [...] documented as of this encounter Care Teams Laundry Press Operator Relationship Specialty Start Date End Date Tanvi Leach MD 230 [place] [address] PCP - General Family Medicine 05/20/21 Cristo 01/11/24 documented as of this encounter
--- OUTSIDE RECORDS SUMMARY | 2024-11-11 13:26 | XMS_ITS | Encounter Summary ---
Author Organization [employer] Address [address] [facility] 7t [place] [address] Care Team Providers Care Slate Roofer Helper Name Role Phone Tanvi Leach MD Primary Care Provider [phone] Encounter Details Date Type Department Care Team (Late st Contact Info) Description 10/30/2024 Telephone [facility] MEDICINE 230 [place], [place] [phone] Tanvi Leach MD 230 [place], [place] [phone] Social History Tobacco Use Types Packs/Day Years [...] documented as of this encounter Care Teams Slate Roofer Helper Relationship Specialty Start Date End Date Tanvi Leach MD 230 [place] [address] PCP - General Family Medicine 05/20/21 [place]o 01/11/24 documented as of this encounter
== END 2024-11-11 10:34 | disposition home or self-care (01) ==
LOC: HO.HGS 10:17
PROVIDERS: PCP General Practice; Visit Provider Surgery
DX: Z98.890 Other specified postprocedural states (principal); Z87.19 Personal history of other diseases of the digestive system
CPT/HCPCS: 99213

== ENCOUNTER → 2024-11-11 10:16 | Outpatient (BNVA) | payer OTHER, SELFPAY | PROVIDERS: PCP General Practice; Visit Provider Surgery | DX: Z98.890 Other specified postprocedural states (principal); Z87.19 Personal history of other diseases of the digestive system | CPT/HCPCS: 99212 ==

== ENCOUNTER 2024-12-12 12:25 | Outpatient (REF) | payer OTHER, SELFPAY ==
--- NOTE | ~2024-12-12 | US_ITS ---
CLINICAL HISTORY: Z98.890 - Other specified postprocedural states --- Additional Notes or Special Instructions: Periumbilical swelling to the left of midline near the umbilicus following Exam: Ultrasound of the pelvis limited. Comparison: CT abdomen pelvis april 15, 2024. Findings: Patient reportedly underwent hernia repair 1 month prior. Within the right lower quadrant, there is a focal area of likely fat along the patient's midline incision site measuring 2.5 x 1.8 cm in size. No discrete fascial defects is identified. Additional imaging of the upper abdomen was performed. This demonstrated a fat containing ventral hernia inferior to the xiphoid process with a 1 cm fascial defect. This is also seen in the patient's prior CT scan. Impression: Focal fat along the deep aspect of the incision site within the midline of the upper pelvis. This may represent an area of developing fat necrosis or more encapsulated subcutaneous fat. No discrete fascial defects identified. This document has been electronically signed by: Omkar Maldonado MD on 12/15/2024 23:56:07
--- OUTSIDE RECORDS SUMMARY | 2024-12-12 14:58 | XMS_ITS | Encounter Summary ---
Author Organization [employer] Address [address] [place] [address] 7t [place] [address] Care Team Providers Care Heel Builder Name Role Phone Tanvi Leach MD Primary Care Provider [phone] Encounter Details Date Type Department Care Team (Late Contact Info) Description 06/09/2022 Orders Only [facility] MEDICINE [address] [place] [phone] Tanvi Leach MD [address] [place] [address] [phone] Social History Tobacco Use Types Packs/Day Years [...] Department Care Team (Late Contact Info) Description 12/16/2024 9:15 AM EDT Office Visit [facility] MEDICINE [address] [place] [phone] Tanvi Leach MD 230 [place] [address] documented as of this encounter Visit Diagnoses Not on filedocumented in this encounter Additional Health Concerns Assessment Noted Time PHQ-9 Depression Total Score: 11 023 2:58 PM EST documented as of this encounter Care Teams Heel Builder Relationship Specialty Start Date End Date Tanvi Leach MD 230 [place] [address] PCP - General Family Medicine 05/20/21 [place]o 01/11/24 documented as of this encounter
--- OUTSIDE RECORDS SUMMARY | 2024-12-12 14:58 | XMS_ITS | Encounter Summary ---
Author Organization [employer] Address [address] [facility] 7t [place] [address] Care Team Providers Care Interactive Media Project Manager Name Role Phone Tanvi Leach MD Primary Care Provider [phone] Encounter Details Date Type Department Care Team (Late st Contact Info) Description 10/30/2024 Telephone [facility] MEDICINE 230 [place], [place] [phone] Tanvi Leach MD [address] [place], [place] [phone] Social History Tobacco Use Types Packs/Day Years [...] Care Team (Late st Contact Info) Description 12/16/2024 9:15 AM EDT Office Visit [facility] MEDICINE [address] [place] [address] Tanvi Leach MD [address] [place] [address] documented as of this encounter Visit Diagnoses Not on filedocumented in this encounter Additional Health Concerns Assessment Noted Time PHQ-9 Depression Total Score: 21 025 9:08 AM EDT documented as of this encounter Care Teams Interactive Media Project Manager Relationship Specialty Start Date End Date Tanvi Leach MD [address] [place] [address] PCP - General Family Medicine 05/20/21 Cristo 01/11/24 documented as of this encounter
--- OUTSIDE RECORDS SUMMARY | 2024-12-12 14:58 | XMS_ITS | Encounter Summary ---
Author Organization [employer] Address [address] [facility] 7t [place] [address] Care Team Providers Care Auto Radio Mechanic Name Role Phone Tanvi Leach MD Primary Care Provider [phone] Reason for Visit * Reason Comments Med Refill Encounter Details Date Type Department Care Team ([facility] st Contact Info) Description 10/13/2024 Refill [facility] MEDICINE 230 [place], [place] [phone] Tanvi Leach MD [address] [place], [place] [phone] Social History Tobacco Use Types Packs/Day Years [...] Description 12/16/2024 9:15 AM EDT Office Visit [facility] MEDICINE [address] [place] [address] Tanvi Leach MD [address] [place] [address] documented as of this encounter Visit Diagnoses Not on filedocumented in this encounter Additional Health Concerns Assessment Noted Time PHQ-9 Depression Total Score: 21 025 9:08 AM EDT documented as of this encounter Care Teams Auto Radio Mechanic Relationship Specialty Start Date End Date Tanvi Leach MD [address] [place] [address] PCP - General Family Medicine 05/20/21 Cristo 01/11/24 documented as of this encounter
--- OUTSIDE RECORDS SUMMARY | 2024-12-12 14:58 | XMS_ITS | Encounter Summary ---
Author Organization [employer] Address [address] [facility] 7t [place] [address] Care Team Providers Care Circuit Board Drafter Name Role Phone Tanvi Leach MD Primary Care Provider Reason for Visit * Reason Comments Med Refill Encounter Details Date Type Department Care Team ([facility] st Contact Info) Description 02/01/2024 Refill [facility] MEDICINE 230 [place], [place] [phone] Tanvi Leach MD 230 [place], [place] [phone] Nasal congestion Social History Tobacco Use Types [...] Description 12/16/2024 9:15 AM EDT Office Visit [facility] MEDICINE 230 [place] [address] Tanvi Leach MD [address] [place] [address] documented as of this encounter Visit Diagnoses Diagnosis Nasal congestion Other diseases of nasal cavity and sinuses documented in this encounter Additional Health Concerns Assessment Noted Time PHQ-9 Depression Total Score: 0 03/28/19 24 2:55 PM EST documented as of this encounter Care Teams Circuit Board Drafter Relationship Specialty Start Date End Date Tanvi Leach MD 230 [place] [address] PCP - General Family Medicine 05/20/21 Cristo 01/11/24 documented as of this encounter
--- OUTSIDE RECORDS SUMMARY | 2024-12-12 14:58 | XMS_ITS | Clinical Summary ---
Author Organization [facility] Address [address] [facility] 7t [place] [address] Care Team Providers Care Surgery Specialist Name Role Phone Tanvi Leach MD Primary Care Provider [phone] Allergies Active Allergy Reactions Criticality Noted Date Comments Octacosanol Runny nose 04/02/2023 Medications * This document contains information received from the source organization and may not represent a complete record from that organization. clonazePAM (KlonoPIN) 0.5 MG tablet Take 1 tablet by mouth if needed in the morning and at bedtime for anxiety. 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 90 tablet 3 12/25/19 24 Active ascorbic acid (Vitamin C) 500 MG tabletIndications: Class 3 drug-induced obesity with serious comorbidity and body mass index (BMI) of 40.0 to 44.9 in adult (HCC) Take 1 tablet (500 mg) by mouth Once per day. 90 tablet 3 12/25/19 24 2024 Active lisinopril (Prinivil) 20 MG tabletIndications: Essential hypertension Take 1 tablet (20 mg) by mouth Once per day. For blood pressure 90 tablet 3 12/25/19 24 10/29/ 2025 Active melatonin 5 MG tablet Take 1 tablet (5 mg) by mouth if needed at bedtime (insomnia). 90 tablet 3 12/25/19 24 Active metFORMIN, OSM, (Fortamet) 500 MG 24 hr tabletIndications: Class 3 drug-induced obesity with serious comorbidity and body mass index (BMI) of 40.0 to 44.9 in adult ([facility]) Take 2 tablets (1,000 mg) by mouth with evening meal. Do not crush, chew, or split. 180 tablet 3 04/07/19 25 2025 Active atorvastatin (Lipitor) 10 MG tabletIndications: Essential hypertension Take 1 tablet by mouth Once per day. 05/16/19 25 Active B Dlvsjar-Z-Jgzqe Acid (B-Complex/Folic Acid/Vitamin C) tablet controlled-release Indications:Class 3 drug-induced obesity with serious comorbidity and body mass index (BMI) of 40.0 to 44.9 in adult ([facility]) Take 1 tablet by mouth Once per day. 02/01/20 24 Active QUEtiapine (SEROquel) 100 MG tabletIndications: Schizoaffective disorder, depressive type (CMS/HCC) ([facility]) Take 1 tablet by mouth at bedtime. 04/02/19 25 Active omeprazole (PriLOSEC) [address] capsule TAKE 1 CAPSULE (20 MG) BY MOUTH IF NEEDED EACH DAY (GERD). 28 capsule 11 07/31/19 25 Active guanFACINE (Intuniv) 2 mg 24 hr tabletIndications: Developmental academic disorder Take 1 tablet (2 mg) by mouth 2 times daily. 60 tablet 3 08/06/19 25 Active Vitamin E 45 MG (100 UNIT) capsule Take 1 capsule by mouth Once per day. 07/08/19 25 Active ARIPiprazole (Abilify) 30 MG tabletIndications: Schizoaffective disorder, depressive type (CMS/HCC) ([facility]) Take 1 tablet by mouth Once per day. 07/20/19 25 Active Tirzepatide-Weight Management 2.5 MG/0.5ML solution auto-injectorIndic ations:Class 3 drug-induced obesity with serious comorbidity and body mass index (BMI) of 40.0 to 44.9 in adult ([facility]),Essential hypertension,Obstr uctive sleep apnea,Metabolic dysfunction-associ ated steatohepatitis (MASH) Inject 0.5 mL (2.5 mg) under the skin 1 (one) time per week. 2 mL 1 08/06/19 25 Active buPROPion XL (Wellbutrin XL) 150 MG 24 hr tablet Take 1 tablet by mouth Once per day. 08/14/19 25 Active amLODIPine (Norvasc) 2.5 MG tabletIndications: Essential hypertension Take 1 tablet by mouth Once per day. 09/10/19 25 Active docusate sodium (Colace) 100 MG capsule Take 1 capsule by mouth 2 times daily. 09/23/19 25 Active lidocaine-prilocai ne (Emla) 2.5-2.5 % cream 08/16/19 25 Active nicotine polacrilex (Nicorette) 4 MG gumIndications:Tob acco use chew AND park 1 PIECE OF gum along cheeks NEEDED FOR SMOKING CESSATION 09/11/19 25 Active nicotine (Nicoderm, Step 1) 21 MG/24HR patchIndications:T obacco use APPLY 1 PATCH onto clean, DRY, intact SKIN ONCE DAILY 09/24/19 25 Active acetaminophen (Tylenol 8 Hour) 650 MG ER tabletIndications: S/P repair of recurrent ventral hernia,Bilateral hip pain Take 1 tablet (650 mg) by mouth every 8 (eight) hours if needed for mild pain. Do not crush, chew, or split. 60 tablet 3 10/02/19 25 Active lactase (Lactaid) 3000 units tablet TAKE 1 TABLET BY MOUTH WITH BREAKFAST, LUNCH AND EVENING MEAL. 90 tablet 11 10/15/19 25 Active ipratropium (Atrovent) 0.03 % nasal sprayIndications:N billie congestion SPRAY 2 SPRAYS INTO EACH NOSTRIL EVERY 12 HOURS 30 mL 11 10/15/19 25 Active Multiple Vitamin (Daily-Caroline) tabletIndications: Class 3 drug-induced obesity with serious comorbidity and body mass index (BMI) of 40.0 to 44.9 in adult (HCC) TAKE 1 TABLET BY MOUTH ONCE DAILY IN THE MORNING 30 tablet 8 11/08/19 25 Active phentermine 15 MG capsuleIndications :Class 3 drug-induced obesity with serious comorbidity and body mass index (BMI) of 40.0 to 44.9 in adult (HCC) TAKE 1 CAPSULE BY MOUTH BEFORE BREAKFAST 30 capsule 12/09/19 25 Active phentermine 15 MG capsuleIndications :Class 3 drug-induced obesity with serious comorbidity and body mass index (BMI) of 40.0 to 44.9 in adult (HCC) TAKE 1 CAPSULE BY MOUTH BEFORE BREAKFAST 30 capsule 11/06/19 25 2024 Discontinued Active Problems Problem Noted Date Diagnosed Date Viral upper respiratory tract infection 10/18/19 Assessment & Plan (10/17/2024 9:41 AM EDT): [...] completed, sleep study attached, and faxed to [facility] to order CPAP again Assessment & Plan (08/13/2023 1:00 PM EDT): Called and spoke with food service from [facility], that patient has been non-compliant with CPAP [...] (06/01/2022 1:08 PM EDT): Need to call [facility] ([phone]) to try to change settings of CPAP to lower setting so that he can tolerate it for longer Assessment & Plan (03/09/2022 2:47 PM EST): New dx on 01/2022 sleep study CPAP ordered, atuo titrate 9-14 Food insecurity 03/09/2022 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 Assessment & Plan (03/09/2022 2:48 PM EST): Letter generated for [facility] that pt can manage his own finacnes [...] health care provider Schizoaffective disorder, depressive type ([facility]) 04/20/2014 Assessment & Plan (07/17/2023 11:54 AM [...] as needed Hold off on supplements from [facility], focus on rest and exercise and communicating with his kids Developmental academic disorder 08/17/2011 Assessment & Plan (08/05/2024 12:04 PM EDT): Increase Intuniv to 2mg BID from 2mg daily due to mental fogginess and trouble concentration Resolved Problems Problem Noted Date Diagnosed Date Resolved Date Cocaine abuse 01/28/2024 04/07/2024 Cannabis dependence 04/20/2014 06/02/19 23 Encounters Date Type Department Care Team Description 12/05/2024 Refill [facility] [address] [place] [address] Tanvi Leach MD Class 3 drug-induced obesity with serious comorbidity and body mass index (BMI) of 40.0 to 44.9 in adult ([facility]) 12/04/2024 Telephone [facility] [address] [place] [address] Tanvi Leach MD Medication Question 11/05/2024 Refill [facility] [address] [place] [address] Tanvi Leach MD Class 3 drug-induced obesity with serious comorbidity and body mass index (BMI) of 40.0 to 44.9 in adult ([facility]) 11/04/2024 Refill [facility] [address] [place] [address] Tanvi Leach MD Class 3 drug-induced obesity with serious comorbidity and body mass index (BMI) of 40.0 to 44.9 in adult ([facility]) 10/30/2024 Telephone [facility] [address] [place] [phone] Tanvi Leach MD 10/29/2024 Telephone [facility] [address] [place] [phone] Tanvi Leach MD Durable Medical Equipment 10/17/2024 9:00 AM EDT Office Visit [facility] [address] [place] [address] Lucille Bell, KENNETH Viral upper respiratory tract infection (Primary Dx); COVID-19 10/17/2024 Telephone [facility] [address] [place] [address] Tanvi Leach MD 10/17/2024 Travel 10/14/2024 Telephone [facility] [address] [place] [address] Tanvi Leach MD Referral 10/14/2024 Refill [facility] [address] [place] [address] Tanvi Leach MD Nasal congestion 10/13/2024 Refill [facility] [address] [place] [address] Tanvi Leach MD 10/07/[address] [address] Tanvi Leach MD Prior Auth Prescription 10/06/[address] [address] Tanvi Leach MD Durable Medical Equipment (DME Order Requests: Recliner Repair, Foot Tub) 10/03/[address] [address] Tanvi Leach MD verbal orders needed 10/01/2024 3:15 PM EDT Office Visit [address] [phone] Tanvi Leach MD Class 3 drug-induced obesity with serious comorbidity and body mass index (BMI) of 40.0 to 44.9 in adult ([facility]) (Primary Dx); S/P repair of recurrent ventral hernia; Essential hypertension; Ventral hernia without obstruction or gangrene; Flat feet, bilateral; Bilateral hip pain; Tobacco use 10/01/2024 Travel 09/30/[address] [phone] Tanvi Leach MD chart prep 09/26/[address] [address] Tanvi Leach MD Prior Authorization; Durable Medical Equipment ([facility] DME request) from Last 3 Months Immunizations Immunization Administration [...] 10/01/2024 3:05 PM EDT Plan of Treatment Upcoming Encounters Date Type Department Care Team (Late st Contact Info) Description 12/16/2024 9:15 AM EDT Office Visit [facility] [address] [place] [address] Tanvi Leach MD [address] [place] [address] Health Maintenance Due Date Last Done Comments [...] ANTIGEN Routine 10/17/2024 9:05 AM EDT COVID-19 PROPHYLAXIS - ADULT Routine 08/13/2024 1 0:00 AM EDT BITEWINGS - 4 RADIOGRAPHIC IMAGES Routine 08/13/2024 10:00 AM EDT PERIODIC ORAL EVALUATION - ESTABLISHED [...] AM EDT) Influenza B Negative Negative, Indeterminate [facility] Swab 10/17/2024 9:05 AM EDT Lucille Bell NP POINT OF CARE TEST ENTER/EDIT OR DERABLES Final Result [facility] [address] [place] [phone] * Influenza A (ID NOW Rapid Molecular) (10/17/2024 9:05 AM EDT) Pathologist [facility] Influenza A Negative Negative, Indeterminate [facility] Swab 10/17/2024 9:05 AM EDT Lucille Bell RESTAURANT [employer]BER POINT OF CARE TEST ENTER/EDIT OR DERABLES Final Result Performing Organization Address [facility] Co de Phone Number [facility] [address] [place] [phone] * (ABNORMAL) POCT Rapid COVID Ag (10/17/2024 9:05 AM EDT) Pathologist [facility] Rapid COVID Ag Positive [facility] Swab 10/17/2024 9:05 AM EDT Lucille Bell RESTAURANT [employer]BER POINT OF CARE TEST ENTER/EDIT OR DERABLES Final Result Performing Organization Address [facility] de Phone Number [facility] [address] [place] [phone] * Hepatitis C Ab (01/22/2023 12:26 PM EST) [facility] Hepatitis C Antibody Nonreactive Nonreactive [facility] Comment:Antibodies to HCV no t detected; does not exclude early acuteHCV infection. Blood Venous blood specimen / Unknown 01/22/2023 12:26 PM EST 01/22/2023 1:22 PM EST us Tanvi Leach MD LAB BLOOD ORDERABLES Final Res ult Performing Organization Address [facility] de Phone Number [facility] [address] [place] [phone] * HIV-1/2 Antigen and Antibodies, Fourth Generation, with Reflexes (01/22/2023 12:26 PM EST) [facility] HIV AB/AG Nonreactive Nonreactive [facility] Comment:HIV-1 p24 Ag and/or HIV-1/HIV-2 Ab not detected.A test result that is nonreactive does not exclude thepossibility of exposure to or infection with HIV-1 and/orHIV-2. Nonreactive results in this assay for individualswith prior exposure to HIV-1 and/or HIV-2 may be due toantigen and antibody levels that are below the limit ofdetection of this assay.The [employer] HIV Ag/Ab Combo assay result andsupplemental assay results should be interpreted inconjunction with the patient's clinical presentation,history and other laboratory results. If the results areinconsistent with clinical evidence, additional testing issuggested to confirm the result. Blood Venous blood specimen / Unknown 01/22/2023 12:26 PM EST 01/22/2023 1:22 PM EST us Tanvi Leach MD LAB BLOOD ORDERABLES Final Res ult [facility] [address] [place] [phone] * (ABNORMAL) LIPID PANEL, STANDARD (05/20/2021 [...] LDL-C. Aureliano VARGAS et al. CONTRERAS. 2013;310(19): 6527-8155 (http://education.[employer]/faq/UFM382) Non-HDL Cholesterol 150(H) <130 mg/dL (calc) [facility] Comment: For patients with diabetes plus 1 major ASCVD risk factor, treating to a non-HDL-C goal of <100 mg/dL (LDL-C of <70 mg/dL) is considered a therapeutic option. Triglycerides 195(H) <150 mg/dL [facility] 05/20/2021 2:20 PM EDT us Tanvi Leach MD LAB BLOOD ORDERABLES Final Res ult [facility] [address] [place] [address], from Last 3 Months or Most Recently Relevant to Health Maintenance Insurance [facility] [address] [place] [address] Care Teams Surgery Specialist Relationship Specialty Start Date End Date Tanvi Leach MD [address] [place] [phone] PCP - General Family Medicine 05/20/21 Crist[place] 01/11/24
--- OUTSIDE RECORDS SUMMARY | 2024-12-12 14:58 | XMS_ITS | Encounter Summary ---
Author Organization [employer] Address [address] [facility] 7t [place] [address] Care Team Providers Care Tower Crane Operator Name Role Phone Tanvi Lecah MD Primary Care Provider [phone] Reason for Visit * Reason Onset Date Comments Medication Question 02/15/2024 Encounter Details Date Type Department Care Team (Late st Contact Info) Description 02/15/2024 Telephone [facility] [address] [place], [place] [phone] Tanvi Leach MD [address] [place], [place] [phone] Medication Question Social History Tobacco Use Types [...] a New CPAP Machine. Contact pt at [phone] documented in this encounter Plan of Treatment Upcoming Encounters Date Type Department Care Team (Late st Contact Info) Description 12/16/2024 9:15 AM EDT Office Visit [facility] [address] [place] [address] Tanvi Leach MD [address] [place] [address] documented as of this encounter Visit Diagnoses Not on filedocumented in this encounter Additional Health Concerns Assessment Noted Time PHQ-9 Depression Total Score: 0 03/28/19 2:55 PM EST documented as of this encounter Care Teams Tower Crane Operator Relationship Specialty Start Date End Date Tanvi Leach MD [address] [place] [phone] PCP - General Family Medicine 05/20/21 Cristo 01/11/24 documented as of this encounter
--- OUTSIDE RECORDS SUMMARY | 2024-12-12 14:58 | XMS_ITS | Encounter Summary ---
Author Organization [employer] Address [address] [facility] 7t [place] [address] Care Team Providers Care Building Serviceman Name Role Phone Tanvi Leach MD Primary Care Provider [phone] Reason for Visit * Reason Onset Date Comments Call Back Request 11/21/2023 Encounter Details Date Type Department Care Team ([facility] st Contact Info) Description 11/21/2023 Telephone [facility] [address] [place] [address] Tanvi Leach MD [address] [place], [place] [phone] Call Back Request Social History Tobacco Use [...] - 11/21/2023 3:53 PM EDT Tc from [facility] requesting a call back to obtain some clarity on why the provider would just simply write a letter indicating it is ok for the patient to be in charge of own finances when the patient have a list of conditions including a learning disability please call the patients manager case at [phone] Hubbard documented in this encounter Plan of Treatment Upcoming Encounters Date Type Department Care Team (Late st Contact Info) Description 12/16/2024 9:15 AM EDT Office Visit [facility] [address] [place] [address] Tanvi Leach MD [address] [place] [address] documented as of this encounter Visit Diagnoses Not on filedocumented in this encounter Additional Health Concerns Assessment Noted Time PHQ-9 Depression Total Score: 0 03/28/19 24 2:55 PM EST documented as of this encounter Care Teams Building Serviceman Relationship Specialty Start Date End Date Tanvi Leach MD [address] [place] [address] PCP - General Family Medicine 05/20/21 Cristo 01/11/24 documented as of this encounter
--- OUTSIDE RECORDS SUMMARY | 2024-12-12 14:58 | XMS_ITS | Encounter Summary ---
Author Organization [employer] Address [address] [facility] 7t [place] [address] Care Team Providers Care Logging Contractor Name Role Phone Tanvi Leach MD Primary Care Provider [phone] Reason for Visit * Reason Onset Date Comments Prior Auth Prescription 10/07/2024 Encounter Details Date Type Department Care Team (Late st Contact Info) Description 10/07/2024 Telephone [facility] [address] [place], [place] [phone] Tanvi Leach MD [address] [place], [place] [phone] Prior Auth Prescription Social History Tobacco Use [...] (Lactaid) 3000 units tablet Contact pt at [phone] documented in this encounter Plan of Treatment Upcoming Encounters Date Type Department Care Team (Late st Contact Info) Description 12/16/2024 9:15 AM EDT Office Visit [facility] [address] [place] [address] Tanvi Leach MD [address] [place] [address] documented as of this encounter Visit Diagnoses Not on filedocumented in this encounter Additional Health Concerns Assessment Noted Time PHQ-9 Depression Total Score: 21 025 9:08 AM EDT documented as of this encounter Care Teams Logging Contractor Relationship Specialty Start Date End Date Tanvi Leach MD [address] [place] [phone] PCP - General Family Medicine 05/20/21 Cristo 01/11/24 documented as of this encounter
--- OUTSIDE RECORDS SUMMARY | 2024-12-12 14:58 | XMS_ITS | Encounter Summary ---
Author Organization [employer] Address [address] [facility] 7t [place] [address] Care Team Providers Care Loader Semiconductor Dies Name Role Phone Tanvi Leach MD Primary Care Provider [phone] Reason for Visit * Reason Onset Date Comments Med Refill 02/29/2024 Encounter Details Date Type Department Care Team (Late st Contact Info) Description 02/29/[address] [facility] [address] [place] [address] Tanvi Leach MD [address] [place], [place] [phone] Med Refill Social History Tobacco Use Types [...] others, in a hotel, in a senior care, living outside on the street, on a [...] PM EST Please advise patient to call [facility] to transfer scripts. * Telephone [...] Description 12/16/2024 9:15 AM EDT Office Visit [facility] [address] [place] [address] Tanvi Leach MD [address] [place] [address] documented as of this encounter Visit Diagnoses Diagnosis Class 3 drug-induced obesity with serious comorbidity and body mass index (BMI) of 40.0 to 44.9 in adult (HCC) documented in this encounter Additional Health Concerns Assessment Noted Time PHQ-9 Depression Total Score: 0 03/28/19 24 2:55 PM EST documented as of this encounter Care Teams Loader Semiconductor Dies Relationship Specialty Start Date End Date Tanvi Leach MD [address] [place] [address] PCP - General Family Medicine 05/20/21 Cristo 01/11/24 documented as of this encounter
--- OUTSIDE RECORDS SUMMARY | 2024-12-12 14:58 | XMS_ITS | Clinical Summary ---
Author Organization [facility] Address [address] [place] [address] Phone Care Team Providers Care Digestion Operator Name Role Phone Tanvi eLach MD Primary Care Provider [phone] Allergies No known active allergies Medications cetirizine [...] to 10 days. 40 each 5 Active ketoconazole (NIZORAL) 2 % cream Apply topically 1 (one) time each day. 30 g 2 5 Active Active Problems Problem Noted Date Diagnosed Date Cannabis abuse 01/28/2024 Cocaine abuse ([facility], [facility] V28) 024 Chronic bilateral low back pain without sciatica 03/28/2023 Obstructive sleep apnea 03/09/2022 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 Erectile dysfunction 09/02/2014 Essential hypertension 07/23/2014 Schizoaffective disorder ([facility] [place], [facility] V 28) 04/20/2014 Depressive disorder 08/17/2011 Encounters Date Type Department Care Team Description 11/12/2024 9:15 AM EDT Consult Orthopedic Surgery [address] [phone] Wili Whitney, DPM Posterior tibial tendon dysfunction (PTTD) of both lower extremities (Primary Dx); Flat feet, bilateral; Primary osteoarthritis of both feet; Tinea pedis of both feet from Last 3 Months Medical History Medical History Date Comments Schizophrenia ([facility], [facility] V[facility]) Social History Tobacco Use Types Packs/Day [...] Care Team (Late st Contact Info) Description 05/12/2025 9:30 AM EDT Office Visit Orthopedic Surgery - [place] [address] [address] Wili Whitney, DPM [address] [address] Health Maintenance Due Date Last Done Comments HPV Vaccines (1 - 3-dose SCDM series) 2012 Hepatitis C Screening 01/29/2022 Medicare Annual Wellness Visit 01/29/2022 Social Influencers of Health Screening 01/29/2022 Depression Screening 02/27/2024 Influenza Vaccine (#1) 2024 , 01/22/2023, 11/22/2022, Additional history exists Hypertension/CHF/CAD Annual BMP Blood Test 08/05/2025 08/05/2024, 01/27/2024 DTaP,Tdap,and Td Vaccines (8 - Td or Tdap) 10/28/2025 10/29/2015, 04/20/2014, 07/19/1998, Additional history exists Cholesterol Screening (Lipid Panel) 05/20/2026 05/20/2021 RSV Immunization Adult Patients (1 - 1-dose 75+ series) 2060 HIB [...] 01/22/2023 COVID-19 Vaccine Completed 01/18/2024, 11/2022, 03/24/2020 Meningococcal ACWY Vaccine Aged Out N o longer eligible based on patient's age to complete this topic Meningococcal B Vaccine Aged Out No l onger eligible based on patient's age to complete this topic RSV Immunization Patients Under 20 months Aged Out No longer eligible based on patient's age to complete this topic Procedures Procedure Name Priority Date/Time Associated Diagnosis Comments XR FOOT 3+ VIEWS BILAT Routine 9:21 AM EDT Flat feet, bilateral COMPREHENSIVE METABOLIC PANEL STAT 01/27/2024 10:31 PM EST from Last 3 Months or Most Recently Relevant to Health Maintenance Results * XR Foot 3+ Views bilat (11/12/2024 9:21 AM EDT) Anatomical Region Laterality Modality Lower Extremities, Foot Bilateral Computed Radiography Narrative 11/12/2024 12:44 PM EDT Right foot 3 views No fracture. No radiopaque foreign joint spaces Arthritis moderate midtarsal joint Foot position Pes planus with Talus navicular uncovering decreased calcaneal inclination anterior displaced symes line talus navicular joint to calcaneal cuboid joint Left foot 3 views No fracture. No radiopaque foreign joint spaces Arthritis moderate midtarsal joint Foot position Pes planus with Talus navicular uncovering decreased calcaneal inclination anterior displaced symes line talus navicular joint to calcaneal cuboid joint us Wili Whitney DPM IMG XR PROCEDURES Final R esult * [...] unit/L LAB CHEMISTRY METHOD 01/27/2024 11:08 PM EST [facility] Alkaline Phosphatase 86 42 - 121 unit/L LAB CHEMISTRY METHOD 01/27/2024 11:08 PM EST [facility] Total Protein 7.3 6.0 - 8.0 g/dL LAB CHEMISTRY METHOD 01/27/2024 11:08 PM EST [facility] Albumin 4.4 3.2 - 5.0 g/dL LAB CHEMISTRY METHOD 01/27/2024 11:08 PM [facility] Total Bilirubin 0.7 0.0 - 1.4 mg/dL LAB CHEMISTRY METHOD 01/27/2024 11:08 PM [facility] Blood Venous blood specimen / Unknown Venipuncture / Unknown 01/27/2024 10:31 PM EST 01/27/2024 10:43 PM EST Galdino B Antonio LAW[facility] LAB BLOOD ORDERABLES Final Resu lt [facility] [address] [place] [address], from Last 3 Months or Most Recently Relevant to Health Maintenance Insurance MEDICARE [facility] MEDICARE Member Subscriber Plan / Payer (Ef fective 2023-Present) Name:SITA MULLINS Relation to Subscriber:Self Name:Sita Mullins Payer ID:[id number] Group ID:[id number] Type:Not on file Address: [address] [place] [address] Care Teams Digestion Operator Relationship Specialty Start Date End Date Tanvi Leach MD [address] [place] [address] PCP - General 05/09/23
--- OUTSIDE RECORDS SUMMARY | 2024-12-12 14:59 | XMS_ITS | Encounter Summary ---
Author Organization [employer] Address [address] [facility] 7t [place] [address] Care Team Providers Care Integrated Circuit Fabricator Name Role Phone Taniv Leach MD Primary Care Provider [phone] Reason for Visit * Reason Comments Med Refill Encounter Details Date Type Department Care Team ([facility] st Contact Info) Description 06/25/2024 Refill [facility] [address] [place] [address] Name, MD Blaise [address] [place], [place] [phone] Social History Tobacco Use Types Packs/Day Years [...] Description 12/16/2024 9:15 AM EDT Office Visit [facility] [address] [place] [address] Tanvi Leach MD [address] [place] [address] documented as of this encounter Visit Diagnoses Not on filedocumented in this encounter Additional Health Concerns Assessment Noted Time PHQ-9 Depression Total Score: 18 025 2:03 PM EST documented as of this encounter Care Teams Integrated Circuit Fabricator Relationship Specialty Start Date End Date Tanvi Leach MD [address] [place] [address] PCP - General Family Medicine 05/20/21 [place] 01/11/24 documented as of this encounter
--- OUTSIDE RECORDS SUMMARY | 2024-12-12 14:59 | XMS_ITS | Encounter Summary ---
Author Organization [employer] Address [address] [facility] 7t [place] [address] Care Team Providers Care Data Reviewer Name Role Phone Tanvi Leach MD Primary Care Provider [phone] Reason for Visit * Reason Comments Med Refill Encounter Details Date Type Department Care Team ([facility] st Contact Info) Description 06/11/2024 Refill [facility] [address] [place], [place] [phone] Tanvi Leach MD [address] [place], [place] [phone] Essential hypertension Social History Tobacco Use Types [...] Description 12/16/2024 9:15 AM EDT Office Visit [facility] [address] [place] [address] Tanvi Leach MD [address] [place] [address] documented as of this encounter Visit Diagnoses Diagnosis Essential hypertension Unspecified essential hypertension documented in this encounter Additional Health Concerns Assessment Noted Time PHQ-9 Depression Total Score: 18 025 2:03 PM EST documented as of this encounter Care Teams Data Reviewer Relationship Specialty Start Date End Date Tanvi Leach MD [address] [place] [address] PCP - General Family Medicine 05/20/21 [place] 01/11/24 documented as of this encounter
--- OUTSIDE RECORDS SUMMARY | 2024-12-12 14:59 | XMS_ITS | Encounter Summary ---
Author Organization [employer] Address [address] [facility] 7t [place] [address] Care Team Providers Care Cottage Supervisor Name Role Phone Tanvi Leach MD Primary Care Provider [phone] Reason for Visit * Reason Comments Med Refill Encounter Details Date Type Department Care Team (Late st Contact Info) Description 05/12/2024 Refill [facility] [address] [place], [place] [phone] Marko Sorenson DDS [address] [place] [address] Social History Tobacco Use Types Packs/Day Years [...] 9:15 AM EDT Office Visit [facility] [address] [place] [address] Tanvi Leach MD [address] [place] [address] documented as of this encounter Visit Diagnoses Not on filedocumented in this encounter Additional Health Concerns Assessment Noted Time PHQ-9 Depression Total Score: 18 025 2:03 PM EST documented as of this encounter Care Teams Cottage Supervisor Relationship Specialty Start Date End Date Tanvi Leach MD [address] [place] [address] PCP - General Family Medicine 05/20/21 [place] 01/11/24 documented as of this encounter
--- OUTSIDE RECORDS SUMMARY | 2024-12-12 14:59 | XMS_ITS | Encounter Summary ---
Author Organization [employer] Address [address] [facility] 7t [place] [address] Care Team Providers Care Construction Producer Name Role Phone Tanvi Leach MD Primary Care Provider [phone] Reason for Visit * Reason Comments Med Refill Encounter Details Date Type Department Care Team ([facility] st Contact Info) Description 06/13/2024 Refill [facility] [address] [place], [place] [phone] Tanvi Leach MD [address] [place], [place] [phone] Essential hypertension Social History Tobacco Use Types [...] 9:15 AM EDT Office Visit [facility] [address] [place] [address] Tanvi Leach MD [address] [place] [address] documented as of this encounter Visit Diagnoses Diagnosis Essential hypertension Unspecified essential hypertension documented in this encounter Additional Health Concerns Assessment Noted Time PHQ-9 Depression Total Score: 18 025 2:03 PM EST documented as of this encounter Care Teams Construction Producer Relationship Specialty Start Date End Date Tanvi Leach MD [address] [place] [address] PCP - General Family Medicine 05/20/21 [place] 01/11/24 documented as of this encounter
--- OUTSIDE RECORDS SUMMARY | 2024-12-12 14:59 | XMS_ITS | Encounter Summary ---
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) Social History Tobacco Use Types Packs/Day Years [...] 9:15 AM EDT Office Visit [facility] [address] [place] [address] Tanvi Leach MD [address] [place] [address] documented as of this encounter Visit Diagnoses Diagnosis 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
--- OUTSIDE RECORDS SUMMARY | 2024-12-12 14:59 | XMS_ITS | Encounter Summary ---
Author Organization [employer] Address [address] [facility] 7t [place] [address] Care Team Providers Care Manager Pacu Name Role Phone Tanvi Leach MD Primary Care Provider [phone] Encounter Details Date Type Department Care Team (Late Contact Info) Description 07/27/2022 Telephone [facility] MED[facility]INE [address] [place] [phone] Tanvi Leach MD [address] [place] [address] [phone] Social History Tobacco Use Types Packs/Day Years [...] Description 12/16/2024 9:15 AM EDT Office Visit [facility] [address] [place] [phone] Tanvi Leach MD [address] [place] [address] documented as of this encounter Visit Diagnoses Not on filedocumented in this encounter Additional Health Concerns Assessment Noted Time PHQ-9 Depression Total Score: 11 023 2:58 PM EST documented as of this encounter Care Teams Manager Pacu Relationship Specialty Start Date End Date Tanvi Leach MD [address] [place] [address] PCP - General Family Medicine 05/20/21 [place] 01/11/24 documented as of this encounter
--- OUTSIDE RECORDS SUMMARY | 2024-12-12 14:59 | XMS_ITS | Encounter Summary ---
Author Organization [employer] Address [address] [facility] 7t [place] [address] Care Team Providers Care Svp Group Director Name Role Phone Tanvi Leach MD Primary Care Provider [phone] Encounter Details Date Type Department Care Team ([facility] st Contact Info) Description 07/25/2023 Telephone [facility] MED[facility]INE [address] [place], [place] [phone] Tanvi Leach MD [address] [place], [place] [phone] Social History Tobacco Use Types Packs/Day Years [...] Description 12/16/2024 9:15 AM EDT Office Visit [facility] [address] [place] [address] Tanvi Leach MD 230 [place] [address] documented as of this encounter Visit Diagnoses Not on filedocumented in this encounter Additional Health Concerns Assessment Noted Time PHQ-9 Depression Total Score: 0 03/28/19 24 2:55 PM EST documented as of this encounter Care Teams Svp Group Director Relationship Specialty Start Date End Date Tanvi Leach MD [address] [place] [address] PCP - General Family Medicine 05/20/21 [place] 01/11/24 documented as of this encounter
--- OUTSIDE RECORDS SUMMARY | 2024-12-12 14:59 | XMS_ITS | Encounter Summary ---
Author Organization [employer] Address [address] [facility] 7t [place] [address] Care Team Providers Care Banana Loader Name Role Phone Tanvi Leach MD Primary Care Provider [phone] Reason for Visit * Reason Comments Med Refill Encounter Details Date Type Department Care Team ([facility] st Contact Info) Description 06/19/2024 Refill [facility]INE [address] [place] [address] Name, MD Blaise [address] [place], [place] [phone] Essential hypertension Social History Tobacco Use Types [...] Description 12/16/2024 9:15 AM EDT Office Visit [facility]INE [address] [place] [address] Tanvi Leach MD [address] [place] [address] documented as of this encounter Visit Diagnoses Diagnosis Essential hypertension Unspecified essential hypertension documented in this encounter Additional Health Concerns Assessment Noted Time PHQ-9 Depression Total Score: 18 025 2:03 PM EST documented as of this encounter Care Teams Banana Loader Relationship Specialty Start Date End Date Tanvi Leach MD [address] [place] [address] PCP - General Family Medicine 05/20/21 [place] 01/11/24 documented as of this encounter
--- OUTSIDE RECORDS SUMMARY | 2024-12-12 14:59 | XMS_ITS | Encounter Summary ---
Author Organization [employer] Address [address] [facility] 7t [place] [address] Care Team Providers Care Stationary Engineer Apprentice Name Role Phone Tanvi Leach MD Primary Care Provider [phone] Reason for Visit * Reason Comments Med Refill Encounter Details Date Type Department Care Team ([facility] st Contact Info) Description 02/21/2023 Refill [facility] [address] [place], [place] [phone] Pauline Cisneros MD [address] [place] [address] Social History Tobacco Use Types Packs/Day Years [...] Description 12/16/2024 9:15 AM EDT Office Visit [facility] [address] [place] [phone] Tanvi Leach MD [address] [place] [address] documented as of this encounter Visit Diagnoses Not on filedocumented in this encounter Additional Health Concerns Assessment Noted Time PHQ-9 Depression Total Score: 11 023 2:58 PM EST documented as of this encounter Care Teams Stationary Engineer Apprentice Relationship Specialty Start Date End Date Tanvi Leach MD [address] [place] [phone] PCP - General Family Medicine 05/20/21 [place] 01/11/24 documented as of this encounter
== END 2024-12-12 12:26 | disposition home or self-care (01) ==
LOC: HO.US 12:25
PROVIDERS: PCP General Practice; Visit Provider Surgery
DX: Z98.890 Other specified postprocedural states (principal); Z87.19 Personal history of other diseases of the digestive system
CPT/HCPCS: 76857

== ENCOUNTER → 2024-12-12 12:34 | Outpatient (BNV) | payer OTHER, SELFPAY | PROVIDERS: PCP General Practice; Visit Provider Radiology Diagnostic Radiology | DX: Z98.890 Other specified postprocedural states (principal) | CPT/HCPCS: 76857 ==

== ENCOUNTER 2024-12-30 10:43 | Outpatient (AMB) | payer OTHER, SELFPAY ==
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
[2024-12-30 11:01] VITALS: BP 134/74; PULSE 93; BMI 41.8
--- OUTSIDE RECORDS SUMMARY | 2024-12-30 12:43 | XMS_ITS | Encounter Summary ---
Author Organization [employer] Address [address] [facility] 7t [place] [address] Care Team Providers Care Biztalk Administrator Name Role Phone Tanvi Leach MD Primary Care Provider [phone] Reason for Visit * Reason Comments Med Refill Encounter Details Date Type Department Care Team ([facility] st Contact Info) Description 12/29/2024 Refill [facility] [address] [place], [place] [phone] Tanvi Leach MD [address] [place], [place] [phone] Tobacco use Social History Tobacco Use Types Packs/Day Years Used Date Smoking Tobacco: Every Day Cigarettes Passive Smoke Exposure: Current Smokeless Tobacco: Never Alcohol Use Standard Drinks/Week Comments Never 0 (1 standard drink = 0.6 oz pur e alcohol) Depression Answer Date Recorded Patient Health Questionnaire-9 Score 2 12/16/2024 Patient Health Questionnaire-9 Score 2 12/16/2024 Last PHQ-9: Questionnaire Data Not on file 1 Housing Stability Answer Date Recorded What is [...] Date Recorded Patient Health Questionnaire-2 Score 0 12/16/2024 Internet Access Answer Date Recorded Internet Access [...] as of this encounter Visit Diagnoses Diagnosis Tobacco use documented in this encounter Additional Health Concerns Assessment Noted Time PHQ-9 Depression Total Score: 2 12/17/19 25 9:03 AM EDT documented as of this encounter Care Teams Biztalk Administrator Relationship Specialty Start Date End Date Tanvi Leach MD [address] [place] [address] PCP - General Family Medicine 05/20/21 [place] 01/11/24 documented as of this encounter
--- OUTSIDE RECORDS SUMMARY | 2024-12-30 12:43 | XMS_ITS | Clinical Summary ---
Author Organization [employer] Address [address] [facility] [address] [place] [address] Care Team Providers Care Dictating Machine Mechanic Name Role Phone Tanvi Leach MD Primary Care Provider [phone] Allergies Active Allergy Reactions Criticality Noted Date [...] per day. 90 tablet 3 024 Active lisinopril (Prinivil) 20 MG tabletIndications: Essential hypertension Take 1 tablet (20 mg) by mouth Once per day. For blood pressure 90 tablet 3 024 Active melatonin 5 MG tablet Take 1 tablet (5 mg) by mouth if needed at bedtime (insomnia). 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 Do not crush, chew, or split. 180 tablet 3 025 2025 Active atorvastatin (Lipitor) 10 MG tabletIndications: Essential hypertension Take 1 tablet by mouth Once per day. 025 Active B Cfossmd-O-Owidm Acid (B-Complex/Folic Acid/Vitamin C) tablet controlled-release Indications:Class 3 drug-induced obesity with serious comorbidity and body mass index (BMI) of 40.0 to 44.9 in adult ([facility]) Take 1 tablet by mouth Once per day. 024 Active QUEtiapine (SEROquel) 100 MG tabletIndications: Schizoaffective disorder, depressive type (CMS/HCC) ([facility]) Take 1 tablet by mouth at bedtime. Active omeprazole (PriLOSEC) [address] capsule TAKE 1 CAPSULE (20 MG) BY MOUTH IF NEEDED EACH DAY (GERD). 28 capsule 11 025 Active guanFACINE (Intuniv) 2 mg 24 hr tabletIndications: Developmental academic disorder Take 1 tablet (2 mg) by mouth 2 times daily. 60 tablet 3 Active Vitamin E 45 MG (100 UNIT) capsule Take 1 capsule by mouth Once per day. Active ARIPiprazole (Abilify) 30 MG tabletIndications: Schizoaffective disorder, depressive type (CMS/HCC) ([facility]) Take 1 tablet by mouth Once per day. Active Tirzepatide-Weight Management 2.5 MG/0.5ML solution auto-injectorIndic ations:Class 3 drug-induced obesity with serious comorbidity and body mass index (BMI) of 40.0 to 44.9 in adult ([facility]),Essential hypertension,Obstr uctive sleep apnea,Metabolic dysfunction-associ ated steatohepatitis (MASH) Inject 0.5 mL (2.5 mg) under the skin 1 (one) time per week. 2 mL 1 025 Active buPROPion XL (Wellbutrin XL) 150 MG 24 hr tablet Take 1 tablet by mouth Once per day. 025 Active docusate sodium (Colace) 100 MG capsule Take 1 capsule by mouth 2 times daily. Active lidocaine-prilocai ne (Emla) 2.5-2.5 % cream Active nicotine polacrilex (Nicorette) 4 MG gumIndications:Tob acco use chew AND park 1 PIECE OF gum along cheeks NEEDED FOR SMOKING CESSATION Active nicotine (Nicoderm, Step 1) 21 MG/24HR patchIndications:T obacco use APPLY 1 PATCH onto clean, DRY, intact SKIN ONCE DAILY Active lactase (Lactaid) 3000 units tablet TAKE 1 TABLET BY MOUTH WITH BREAKFAST, LUNCH AND EVENING MEAL. 90 tablet 11 Active Multiple Vitamin (Daily-Caroline) tabletIndications: Class 3 drug-induced obesity with serious comorbidity and body mass index (BMI) of 40.0 to 44.9 in adult (HCC) TAKE 1 TABLET BY MOUTH ONCE DAILY IN THE MORNING 30 tablet 8 Active ipratropium (Atrovent) 0.03 % nasal sprayIndications:N billie congestion SPRAY 2 SPRAYS INTO EACH NOSTRIL EVERY 12 HOURS 30 mL 11 Active gabapentin (Neurontin) 100 MG capsule Take 1 capsule by mouth 2 times daily. Active ibuprofen 400 MG tablet Active tadalafil (Cialis) 10 MG tablet Take 1 tablet (10 mg) by mouth if needed each day for erectile dysfunction. 30 tablet 3 025 2025 Active phentermine 30 MG capsule Take 1 capsule (30 mg) by mouth before breakfast. 30 capsule 025 2024 Active acetaminophen (Tylenol 8 Hour) 650 MG ER tabletIndications: S/P repair of recurrent ventral hernia,Bilateral hip pain Take 1 tablet (650 mg) by mouth every 8 (eight) hours if needed for mild pain. Do not crush, chew, or split. 60 tablet 11 Active amLODIPine (Norvasc) 5 MG tablet Take 1 tablet (5 mg) by mouth Once per day. 30 tablet 11 025 2025 Active ascorbic acid (Vitamin C) 500 MG tabletIndications: Class 3 drug-induced obesity with serious comorbidity and body mass index (BMI) of 40.0 to 44.9 in adult ([facility]) Take 1 tablet (500 mg) by mouth Once per day. 90 tablet 3 024 2024 amLODIPine (Norvasc) 2.5 MG tabletIndications: Essential hypertension Take 1 tablet by mouth Once per day. 025 2024 Discontinued acetaminophen (Tylenol 8 Hour) 650 MG ER tabletIndications: S/P repair of recurrent ventral hernia,Bilateral hip pain Take 1 tablet (650 mg) by mouth every 8 (eight) hours if needed for mild pain. Do not crush, chew, or split. 60 tablet 3 2024 Discontinued(R eorder (will not trigger notification to Pharmacy)) ipratropium (Atrovent) 0.03 % nasal sprayIndications:N ibllie congestion SPRAY 2 SPRAYS INTO EACH NOSTRIL EVERY 12 HOURS 30 mL 11 2024 Discontinued(R eorder (will not trigger notification to Pharmacy)) phentermine 15 MG capsuleIndications :Class 3 drug-induced obesity with serious comorbidity and body mass index (BMI) of 40.0 to 44.9 in adult ([facility]) TAKE 1 CAPSULE BY MOUTH BEFORE BREAKFAST 30 capsule 2024 Discontinued phentermine 15 MG capsuleIndications :Class 3 drug-induced obesity with serious comorbidity and body mass index (BMI) of 40.0 to 44.9 in adult ([facility]) TAKE 1 CAPSULE BY MOUTH BEFORE BREAKFAST 30 capsule 2024 Discontinued(D ose adjustment) tadalafil (Cialis) 5 MG tablet TAKE 1 TABLET BY MOUTH ONCE DAILY NEEDED DIRECTED 2024 Discontinued(D ose adjustment) Active Problems Problem Noted Date Diagnosed Date S/P repair of recurrent ventral hernia Assessment [...] massage into scars 1-3 times per week Dental calculus 04/26/2023 Periodontal disease 04/26/2023 Missing [...] completed, sleep study attached, and faxed to [facility] to order CPAP again Assessment & Plan (08/13/2023 1:00 PM EDT): Called and spoke with creative services producer from [facility], that patient has been non-compliant with CPAP [...] PM EDT): Need to call [facility] [place] ([phone]) to try to change settings of CPAP to lower setting so that he can tolerate it for longer Assessment & Plan (03/09/2022 2:47 PM EST): New dx on 01/2022 sleep study CPAP ordered, atuo titrate 9-14 Food insecurity 03/09/2022 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 Assessment & Plan (03/09/2022 2:48 PM EST): Letter generated for [facility] that pt can manage his [...] health care provider Schizoaffective disorder, depressive type ([facility]) 04/20/2014 Assessment & Plan (07/17/2023 11:54 AM EDT): Patient did not bring in paperwork from hospital discharge so used pharmacist medication reconciliation with [place], his pharmacy - I completed and signed [...] as needed Hold off on supplements from [facility], focus on rest and exercise and communicating with his kids Developmental academic disorder 08/17/2011 Assessment & Plan (08/05/2024 12:04 PM EDT): Increase Intuniv to 2mg BID from 2mg daily due to mental fogginess and trouble concentration Resolved Problems Problem Noted Date Diagnosed Date Resolved Date Viral upper respiratory tract infection 10/17/2024 12/16/2024 Assessment & Plan (10/17/2024 9:41 AM EDT): COVID-19 10/17/2024 12/16/2024 Assessment & Plan (10/17/2024 9:41 AM EDT): Reviewed positive covid test, transmission, er precautions. Pt has relatively mild symptoms, is candidate for paxlovid but therapy interacts with multiple medications. At this time, will monitor symptoms. Supportive measures reviewed. Orders: POCT Rapid COVID Ag Influenza A (ID NOW Rapid Molecular) Influenza B (ID NOW Rapid Molecular) Cocaine abuse 01/28/2024 04/07/2024 Ventral hernia without obstr uction or gangrene 05/07/2023 12/16/2024 Assessment & Plan (05/07/2023 1:07 PM EDT): Will have surgery 05/10/23, ok to work out after, as long as surgeon clears him, to begin strengthening abdominal wall Cannabis dependence 04/20/2014 06/02/19 23 Encounters Date Type Department Care Team Description 12/29/2024 Refill [facility] [address] [place] [address] Tanvi Leach MD Tobacco use 12/26/2024 Orders Only [facility] [address] [place] [address] Tanvi Leach MD 12/23/2024 Telephone [facility] [address] [place] [address] Tanvi Leach MD Recall 12/19/2024 Telephone [facility] [address] [place] [address] Tanvi Leach MD Medication Question 12/16/2024 9:15 AM EDT Office Visit [facility] [address] [place] [address] Tanvi Leach MD Essential hypertension (Primary Dx); Encounter for immunization; Nasal congestion; S/P repair of recurrent ventral hernia; Bilateral hip pain; Class 3 drug-induced obesity with serious comorbidity and body mass index (BMI) of 40.0 to 44.9 in adult ([facility]); Erectile dysfunction due to diseases classified elsewhere; Schizoaffective disorder, depressive type ([facility]) ([facility]); Cannabis abuse; Flat feet, bilateral 12/16/2024 Results Follow-Up [facility] [address] [place] [address] Tanvi Leach MD US Pelvis Limited 12/16/2024 Travel 12/15/2024 Telephone [facility] [address] [place] [phone] Tanvi Leach MD Chart Prep 12/12/2024 Orders Only [facility] External Provider, [facility] 12/05/2024 Refill [facility] [address] [place] [address] Tanvi Leach MD Class 3 drug-induced obesity with serious comorbidity and body mass index (BMI) of 40.0 to 44.9 in adult ([facility]) 12/04/2024 Telephone [facility] [address] [place] [address] Tanvi Leach MD Medication Question 11/05/2024 Refill [facility] [address] [place] [address] Tanvi Leach MD Class 3 drug-induced obesity with serious comorbidity and body mass index (BMI) of 40.0 to 44.9 in adult ([facility]) 11/04/2024 Refill [facility] [address] [place] [address] Tanvi Leach MD Class 3 drug-induced obesity with serious comorbidity and body mass index (BMI) of 40.0 to 44.9 in adult ([facility]) 10/30/2024 Telephone [facility] [address] [place] [address] Tanvi Leach MD 10/29/[address] [address] Tanvi Leach MD Durable Medical Equipment 10/17/2024 9:00 AM EDT Office Visit [facility] [address] [place] [phone] Lucille Bell NP Viral upper respiratory tract infection (Primary Dx); COVID-19 10/17/[address] [address] Tanvi Leach MD 10/17/2024 Travel 10/14/[address] [address] Tanvi Leach MD Referral 10/14/[address] [address] Tanvi Leach MD Nasal congestion 10/13/[address] [address] Tanvi Leach MD 10/07/[address] [address] Tanvi Leach MD Prior Auth Prescription 10/06/[address] [address] Tanvi Leach MD Durable Medical Equipment (DME Order Requests: Recliner Repair, Foot Tub) 10/03/[address] [address] Tanvi Leach MD verbal orders needed 10/01/2024 3:15 PM EDT Office Visit [address] [address] Tanvi Leach MD Class 3 drug-induced obesity with serious comorbidity and body mass index (BMI) of 40.0 to 44.9 in adult (CMS/HCC) (Primary Dx); S/P repair of recurrent ventral hernia; Essential hypertension; Ventral hernia without obstruction or gangrene; Flat feet, bilateral; Bilateral hip pain; Tobacco use 10/01/2024 Travel 09/30/2024 [address] [place], [place] [phone] Tanvi Leach MD chart prep from Last 3 Months Immunizations Immunization Administration Dates Next Due DTP 03/29/1993, 1,01/26/1990,11/26,09/26/1989 Hep A, Adult 12/02/2021,11/02/2017 Hep B, Adolescent or Pediatric 11/21/1999,1998,04/27/1998 Hib (HbOC) 03/29/1990 IPV 03/29/1993, 1,11/26/1989,09/26 Influenza injectable quadriv alent IIV4 with preservative 03/11/2016 Influenza injectable quadriv alent preservative free 01/22/2023,11/22/2022,12/02/2021,05/20,11/22/2017,11/14/2016,05/05/2014 Influenza, IIV3, injectable 02/17/2014 Influenza, Split (incl. jimbo fied surface antigen) 10/29/2012 Influenza, seasonal, injecta ble, preservative free 12/16/2024,12/12/2023,02/16/2015 Influenza, trivalent, adjuvanted 03/11/2016,01/27 MMR 03/29/1993,09/26/1989 Moderna Covid-19 Vaccine 12+ 03/24/2020 Moderna Covid-19 Vaccine 6+ Bivalent 07/05/2022 Pfizer Covid-19 Vaccine 12+ 01/18/2024 Pneumococcal Polysaccharide PPSV23 10/29/2015,,10/30/2014 TD (adult), 2 Lf tetanus tox oid, preservative free, adsorbed 07/19/1998 Tdap 10/29/2015,04/20/2014 Varicella 04/27/1998 Social History Tobacco Use Types Packs/Day Years Used Date Smoking Tobacco: Every Day Cigarettes Passive Smoke Exposure: Current Smokeless Tobacco: Never Tobacco Cessation:Ready to Q uit: Not Asked; Counseling Given: Not Answered Alcohol Use Standard Drinks/Week [...] Sign Reading Time Taken Comments Blood Pressure 122/84 12/16/2024 9:02 AM EDT Pulse 76 12/16/2024 9:02 AM EDT Temperature 36.1 C (97 F) 12/16/2024 9:02 AM EDT Respiratory Rate 19 12/16/2024 9:02 AM EDT Oxygen Saturation 98% 10/17/2024 8:51 AM EDT Inhaled Oxygen Concentration - - Weight 128 kg (283 lb 4 oz) 12/16/2024 9:02 AM E DT Height 175.3 cm (5' 9 ) 12/16/2024 9:02 AM EDT Body Mass Index 41.83 12/16/2024 9:02 AM EDT Plan of Treatment Health Maintenance Due Date Last Done Comments HPV Vaccines (1 - Male 3-dose series) 2000 Pneumococcal Vaccine: Pediatrics (0 to 5 Years) and At-Risk Patients (6 to 49) Years (2 of 2 - PCV) 10/28/2016 10/29/2015, 02/16/2015, 10/30/2014 Dental Oral Exam 02/13/2025 08/13/2024, , 04/02/2023, Additional history exists Dental Prophylaxis 02/13/2025 08/13/2024, 1 03/22/2023, 04/26/2023 SDOH Screening 04/07/2025 04/07/2024 Family Planning (PISQ) 04/08/2025 04/08/2024 Alcohol/Substance Use Screening 06/02/2025 06/02/2024 Disability Screening 08/05/2025 08/05/2024 Dental X-Ray: Bitewings 08/14/2025 08/14/19, 04/02/2023, 10/10/2022, Additional history exists DTaP/Tdap/Td Vaccines (7 - Td or Tdap) 10/28/2025 10/29/2015, 04/20/2014, 07/19/1998, Additional history exists Depression Screening 12/16/2025 12/16/2024, 12/17/19 Tobacco Screening 12/16/2025 12/16/2024 Dental X-Ray: Full Mouth 04/03/2026 024, 03/03/2014, 10/22/2013 Lipid Panel 05/20/2026 05/20/2021 Zoster Vaccines (1 of 2) 06/13/2035 RSV Patients and Patients Aged 60 years or older (1 - 1-dose 75+ series) 2060 HIB Vaccines Completed 03/29/1990 IPV Vaccines Completed 03/29/1993, 02/1990, 11/26/1989, Additional history exists Hepatitis B Vaccines Completed 11/21/1999, 07/19/1998, 04/27/1998 Hepatitis A Vaccines Completed 12/02/2021, 11/03/19 HIV Screening Completed 01/22/2023 Hepatitis C Screening Completed 01/22/2023 COVID-19 Vaccine Completed 01/18/2024, 11/2022, 03/15/2021, Additional history exists Influenza Vaccine Completed 12/16/2024, , 01/22/2023, Additional history exists Meningococcal B Vaccine Aged [...] Name Priority Date/Time Associated Diagnosis Comments POCT URINALYSIS DIPSTICK Routine 12/16/2024 9:54 AM EDT Bilateral hip pain US PELVIS LIMITED Routine 12/15/2024 11: 56 PM EDT POCT INFLUENZA B (ID NOW RAPID MOLECULAR) [...] Recently Relevant to Health Maintenance Results * POCT Urinalysis (12/16/2024 9:54 AM EDT) Color, UA Yellow Clarity, UA Clear Glucose, UA Negative Bilirubin, UA Negative Ketones, UA Negative Spec Grav, UA 1.015 Blood, UA Negative Negative, None Detected pH, UA 6.5 Protein, UA Negative Urobilinogen, UA 0.2 Leukocytes, UA Negative Negative, Rare, Trace Nitrite, UA Negative Negative, None Detected QC Media Lot # [id number] Lot# Expiration Date [id number] Urine (Urine, Random) 12/16/2024 9:54 AM EDT us Tanvi Leach MD POINT OF CARE TEST ENTER/EDIT ORDERABLES Final Result * US Pelvis Limited (12/15/2024 11:56 PM EDT) Anatomical Region Laterality Modality Pelvis Ultrasound 12/15/2024 11:5 6 PM EDT Narrative 12/15/2024 11:57 PM EDT [place] [address] Ultrasound Report Signed Patient: Omkar Tafoya MR#: [id number] 1903 : 1985 Acct:[id number] Age/Sex: 39 / M ADM Date: 12/12/24 Loc: . Attending Dr: David Palacios MD Ordering Physician: David Palacios MD Date of Service: 12/12/24 Procedure(s): US pelvic limited Accession Number(s): [id number] cc: Tanvi Leach; David Palaicos MD Reason for Exam: Z98.890 - Other specified postprocedural states CLINICAL HISTORY: Z98.890 - Other specified postprocedural states --- Additional Notes or Special Instructions: Periumbilical swelling to the left of midline near the umbilicus following Exam: Ultrasound of the pelvis limited. Comparison: CT abdomen pelvis april 15, 2024. Findings: Patient reportedly underwent hernia repair 1 month prior. Within the right lower quadrant, there is a focal area of likely fat along the patient's midline incision site measuring 2.5 x 1.8 cm in size. No discrete fascial defects is identified. Additional imaging of the upper abdomen was performed. This demonstrated a fat containing ventral hernia inferior to the xiphoid process with a 1 cm fascial defect. This is also seen in the patient's prior CT scan. Impression: Focal fat along the deep aspect of the incision site within the midline of the upper pelvis. This may represent an area of developing fat necrosis or more encapsulated subcutaneous fat. No discrete fascial defects identified. This document has been electronically signed by: Omkar Maldonado MD on 12/15/2024 23:56:07 Dictated By: Omkar Maldonado MD Signed By: <Electronically signed by Omkar Maldonado MD in OV> 12/15/242355 DD/ 55 TD/TT: 12/15/242355 Chemistry Lab Instructor: Procedure Note Donotuseinterpreter, Image - 12/15/2024 [place] [address] Ultrasound Report Signed Patient: Omkar Tafoya CMR#: [id number] 1903 : 1985Acct:[id number] Age/Sex: 39 / MADM Date: 12/12/24 Loc: HO. Attending Dr: David Palacios MD Ordering Physician: David Palacios MD Date of Service: 12/12/24 Procedure(s): US pelvic limited Accession Number(s): [id number] cc: Tanvi Leach; David Palacios MD Reason for Exam: Z98.890 - Other specified postprocedural states CLINICAL HISTORY: Z98.890 - Other specified postprocedural states ---Additional Notes or Special Instructions: Periumbilical swelling to the left of midline near theumbilicus following Exam: Ultrasound of the pelvis limited. Comparison: CT abdomen pelvis april 15, 2024. Findings: Patient reportedly underwent hernia repair 1 month prior. Within the right lower quadrant, there is a focal area of likely fat along the patient's midline incision site measuring 2.5 x 1.8 cm in size. No discrete fascial defects is identified. Additional imaging of the upper abdomen was performed. This demonstrated a fat containing ventral hernia inferior to the xiphoid process with a 1 cm fascial defect. This is also seen in the patient's prior CT scan. Impression: Focal fat along the deep aspect of the incision site within the midline of the upper pelvis. This may represent an area of developing fat necrosis or more encapsulated subcutaneous fat. No discrete fascial defectsidentified. This document has been electronically signed by: Omkar Maldonado MD on 12/15/2024 23:56:07 Dictated By: Omkar Maldonado MD Signed By: <Electronically signed by Omkar Maldonado MD in OV> 12/15/242355 DD/ 55 TD/TT: 12/15/242355 Chemistry Lab Instructor: [facility] External Provider IMG US PROCEDURES Edited Result - Final * Influenza B (ID NOW Rapid Molecular) (10/17/2024 9:05 AM EDT) Influenza B Negative Negative, Indeterminate [facility] Swab 10/17/2024 9:05 AM EDT Result [facility] Lucille Bell TECHNICAL SUPPORT AGENT POINT OF CARE TEST ENTER/EDIT OR DERABLES Final Result Performing Organization Address [facility] Co de Phone Number [facility] [address] [place] [phone] * Influenza A (ID NOW Rapid Molecular) (10/17/2024 9:05 AM EDT) Influenza A Negative Negative, Indeterminate [facility] Swab 10/17/2024 9:05 AM EDT Result [facility] Lucille Bell TECHNICAL SUPPORT AGENT POINT OF CARE TEST ENTER/EDIT OR DERABLES Final Result Performing Organization Address [facility] Co de Phone Number [facility] [address] [place] [phone] * (ABNORMAL) POCT Rapid COVID Ag (10/17/2024 9:05 AM EDT) Rapid COVID Ag Positive [facility] Swab 10/17/2024 9:05 AM EDT Lucille Bell NP POINT OF CARE TEST ENTER/EDIT OR DERABLES Final Result Performing Organization Address [facility]/ZIP Co de Phone Number [facility] [address] [place] [phone] * Hepatitis C Ab (01/22/2023 12:26 PM EST) [facility] Hepatitis C Antibody Nonreactive Nonreactive [facility] Comment:Antibodies to HCV no t detected; does not exclude early acuteHCV infection. Blood Venous blood specimen / Unknown 01/22/2023 12:26 PM EST 01/22/2023 1:22 PM EST Tanvi Leach MD LAB BLOOD ORDERABLES Final Res ult Performing Organization Address [facility] Co de Phone Number [facility] [address] [place] [phone] * HIV-1/2 Antigen and Antibodies, Fourth Generation, with Reflexes (01/22/2023 12:26 PM EST) Pathologist [facility] HIV AB/AG Nonreactive Nonreactive [facility] Comment:HIV-1 p24 Ag and/or HIV-1/HIV-2 Ab not detected.A test result that is nonreactive does not exclude thepossibility of exposure to or infection with HIV-1 and/orHIV-2. Nonreactive results in this assay for individualswith prior exposure to HIV-1 and/or HIV-2 may be due toantigen and antibody levels that are below the limit ofdetection of this assay.The [employer] HIV Ag/Ab Combo assay result andsupplemental assay results should be interpreted inconjunction with the patient's clinical presentation,history and other laboratory results. If the results areinconsistent with clinical evidence, additional testing issuggested to confirm the result. Blood Venous blood specimen / Unknown 01/22/2023 12:26 PM EST 01/22/2023 1:22 PM EST us Tanvi Leach MD LAB BLOOD ORDERABLES Final Res ult [facility] [address] [place] [phone] * (ABNORMAL) LIPID PANEL, STANDARD (05/20/2021 [...] factors. LDL-C is now calculated using the Aureliano-Castillo calculation, which is a validated novel method providing better accuracy than the Friedewald equation in the estimation of LDL-C. Aureliano SS et al. CONTRERAS. 2013;310(19): 1181-4448 (http://education.Lela.Olocity/faq/PRM583) Non-HDL Cholesterol 150(H) <130 mg/dL (calc) [facility] Comment: For patients with diabetes plus 1 major ASCVD risk factor, treating to a non-HDL-C goal of <100 mg/dL (LDL-C of <70 mg/dL) is considered a therapeutic option. Triglycerides 195(H) <150 mg/dL [facility] 05/20/2021 2:20 PM EDT us Tanvi Leach MD LAB BLOOD ORDERABLES Final Res ult [facility] [address] from Last 3 Months or Most Recently Relevant to Health Maintenance Insurance [facility] < [address] [facility] Care Teams Dictating Machine Mechanic Relationship Specialty Start Date End Date Tanvi Leach MD [address] [place] [phone] PCP - General Family Medicine 05/20/21 [facility] 01/11/24
--- OUTSIDE RECORDS SUMMARY | 2024-12-30 12:43 | XMS_ITS | Encounter Summary ---
Author Organization [employer] Address 75 [facility] 7t [place] [address] Care Team Providers Care Robotic Technician Name Role Phone Tanvi Leach MD Primary Care Provider [phone] Reason for Visit * Reason Comments Med Refill Encounter Details Date Type Department Care Team ([facility] st Contact Info) Description 10/13/2024 Refill [facility] 230 [place], [place] [phone] Tanvi Leach MD 230 [place], [place] [phone] Social History Tobacco Use Types Packs/Day Years [...] documented as of this encounter Care Teams Robotic Technician Relationship Specialty Start Date End Date Tanvi Leach MD 230 [place] [address] PCP - General Family Medicine 05/20/21 Cristo 01/11/24 documented as of this encounter
--- OUTSIDE RECORDS SUMMARY | 2024-12-30 12:43 | XMS_ITS | Encounter Summary ---
Author Organization [employer] Address 75 [facility] 7t [place] [address] Care Team Providers Care Museum Guide Name Role Phone Tanvi Leach MD Primary Care Provider [phone] Reason for Visit * Reason Onset Date Comments Medication Question 02/15/2024 Encounter Details Date Type Department Care Team (Late st Contact Info) Description 02/15/[address] [facility] MEDICINE 230 [place], [place] [phone] Tanvi Leach MD 230 [place], [place] [phone] Medication Question Social History Tobacco Use Types [...] with others, in a hotel, in a [place] [facility] [place], living outside on the street, on a [...] a New CPAP Machine. Contact pt at [phone] documented in this encounter Plan of Treatment Not on file documented as of this encounter Visit Diagnoses Not on filedocumented in this encounter Additional Health Concerns Assessment Noted Time PHQ-9 Depression Total Score: 0 03/28/19 2:55 PM EST documented as of this encounter Care Teams Museum Guide Relationship Specialty Start Date End Date Tanvi Leach MD [address] [place] [address] PCP - General Family Medicine 05/20/21 Cristo 01/11/24 documented as of this encounter
--- OUTSIDE RECORDS SUMMARY | 2024-12-30 12:43 | XMS_ITS | Encounter Summary ---
Author Organization [employer] Address 75 [facility] 7t [place] [address] Care Team Providers Care Building Maintenance Worker Name Role Phone Tanvi Leach MD Primary Care Provider [phone] Reason for Visit * Reason Comments Med Refill Encounter Details Date Type Department Care Team ([facility] st Contact Info) Description 06/11/2024 Refill [facility] MED[facility]INE 230 [place], [place] [phone] Tanvi Leach MD 230 [place], [place] [phone] Essential hypertension Social History Tobacco Use Types [...] as of this encounter Care Teams Building Maintenance Worker Relationship Specialty Start Date End Date Tanvi Leach MD 230 [place] [address] PCP - General Family Medicine 05/20/21 Cristo 01/11/24 documented as of this encounter
--- OUTSIDE RECORDS SUMMARY | 2024-12-30 12:43 | XMS_ITS | Encounter Summary ---
Author Organization [employer] Address 75 [facility] 7t [place] [address] Care Team Providers Care Unit Support Representative Name Role Phone Tanvi Leach MD Primary Care Provider [phone] Reason for Visit * Reason Comments Med Refill Encounter Details Date Type Department Care Team ([facility] st Contact Info) Description 06/25/2024 Refill [facility] MEDICINE 230 [place] [address] Name, MD Blaise 230 [place], [place] [phone] Social History Tobacco Use Types Packs/Day Years [...] documented as of this encounter Care Teams Unit Support Representative Relationship Specialty Start Date End Date Tanvi Leach MD 230 [place] [address] PCP - General Family Medicine 05/20/21 Cristo 01/11/24 documented as of this encounter
--- OUTSIDE RECORDS SUMMARY | 2024-12-30 12:43 | XMS_ITS | Encounter Summary ---
Author Organization [employer] Address 75 [facility] 7t [place] [address] Care Team Providers Care Transcription Typist Name Role Phone Tanvi Leach MD Primary Care Provider [phone] Encounter Details Date Type Department Care Team ([facility] st Contact Info) Description 12/26/2024 Orders Only [facility] MEDICINE 230 [place], [place] [phone] Tanvi Leach MD 230 [place], [place] [phone] Social History Tobacco Use Types Packs/Day Years [...] documented as of this encounter Care Teams Transcription Typist Relationship Specialty Start Date End Date Tanvi Leach MD 230 [place] [address] PCP - General Family Medicine 05/20/21 Cristo 01/11/24 documented as of this encounter
--- OUTSIDE RECORDS SUMMARY | 2024-12-30 12:43 | XMS_ITS | Encounter Summary ---
Author Organization [employer] Address 75 [facility] 7t [place] [address] Care Team Providers Care Country Manager Name Role Phone Tanvi Leach MD Primary Care Provider [phone] Encounter Details Date Type Department Care Team ([facility] st Contact Info) Description 12/16/2024 Results Follow-Up [facility] MEDICINE 230 [place], [place] [phone] Tanvi Leach MD 230 [place], [place] [phone] [employer] Social History Tobacco Use Types Packs/Day Years [...] AM EDT documented as of this encounter Functional Status * Over the past 2 weeks, how often have you been bothered by any of the following problems? Question Answer Date of Assessment Author Patient Health Questionnaire-2 Score 0 11/27 9:03 AM EDT Oziel Long [place] * Little interest or pleasure in doing things Answer Date of Assessment Author Not at all 12/16/2024 9:03 AM EDT Kinga Long [place] * Feeling down, depressed, or hopeless Answer Date of Assessment Author Not at all 12/16/2024 9:03 AM EDT Kinga Long [place] * Trouble falling or staying asleep, or sleeping too much Answer Date of Assessment Author Not at all 12/16/2024 9:03 AM EDT Kinga Long [place] * Feeling tired or having little energy Answer Date of Assessment Author Not at all 12/16/2024 9:03 AM EDT Kinga Long [place] * Poor appetite or overeating Answer Date of Assessment Author More than half the days 12/16/2024 9:03 AM EDT Oziel Kern MA * Feeling bad about yourself - or that you are a failure or have let yourself or your family down Answer Date of Assessment Author Not at all 12/16/2024 9:03 AM RODRIT Kinga Long [place] * Trouble concentrating on things, such as reading the newspaper or watching television Answer Date of Assessment Author Not at all 12/16/2024 9:03 AM EDT Kinga Long MA * Moving or speaking so slowly that other people could have noticed? Or the opposite - being so fidgety or restless that you have been moving around a lot more than usual. Answer Date of Assessment Author Not at all 12/16/2024 9:03 AM EDT Kniga Long [place] * Thoughts that you would be better off or hurting yourself in some way Answer Date of Assessment Author Not at all 12/16/2024 9:03 AM EDT Kinga Long MA * Patient Health Questionnaire-9 Score Answer Date of Assessment Author 2 12/16/2024 9:03 AM EDT Kinga Long [place] * How difficult have these problems made it for you to do your work, take care of things at home, or get along with other people? Answer Date of Assessment Author Not difficult at all 12/16/2024 9:03 AM EDT Oziel Long [place] * Over the last 2 weeks, how often have you been bothered by any of the following problems? Question Answer Date of Assessment Author Feeling nervous, anxious, or on edge 0 11/27 9:14 AM EDT Oziel Long [place] Not being able to stop or co ntrol worrying 0 12/16/2024 9:14 AM EDT Oziel Long [place] Worrying too much about diff erent things 0 12/16/2024 9:14 AM EDT Oziel Long MA Trouble relaxing 0 12/16/2024 9:14 AM EDT Oziel Kern MA Being so restless that it is hard to sit still 0 12/16/2024 9:14 AM EDT Oziel Long MA Becoming easily annoyed or irritable 0 11/27 9:14 AM EDT Oziel Long MA Feeling afraid as if somethi ng awful might happen 0 12/16/2024 9:14 AM EDT Oziel Long MA BELLA-7 Total Score 0 12/16/2024 9:14 AM EDT Oziel Long [place] documented as of this encounter Plan of Treatment Not on file documented as of this encounter Visit Diagnoses Not on filedocumented in this encounter Additional Health Concerns Assessment Noted Time PHQ-9 Depression Total Score: 2 12/17/19 25 9:03 AM EDT documented as of this encounter Care Teams Country Manager Relationship Specialty Start Date End Date Tanvi Leach MD 230 [place] [address] PCP - General Family Medicine 05/20/21 Cristo 01/11/24 documented as of this encounter
--- OUTSIDE RECORDS SUMMARY | 2024-12-30 12:43 | XMS_ITS | Encounter Summary ---
Author Organization [employer] Address 75 [facility] 7t [place] [address] Care Team Providers Care Parent Coach Name Role Phone Tanvi Leach MD Primary Care Provider [phone] Reason for Visit * Reason Onset Date Comments Medication Question 12/19/2024 Encounter Details Date Type Department Care Team (Late st Contact Info) Description 12/19/2024 Telephone [facility] MEDICINE 230 [place], [place] [phone] Tanvi Leach MD 230 [place], [place] [phone] Medication Question Social History Tobacco Use Types [...] Telephone Encounter - Nica Luong RN - 12/22/2024 9:55 AM EDT TC placed to patient [phone] in regards to below message. Patient reports he was not looking for an increase in his cialis medication, however patient report he is thankful for the dose increase. Patient reprots he is looking for a circulation medication for his entire body . Patient reports he is looking for a daily medication/vitamin. Patient reports he discussed this request with his provider at the appointment and located names of medications online to help with body circulation. RN inquired on the name of the medications and patient reported I don't know I was hoping my doctorcould help with that . Please advise. Thank you! * Telephone Encounter - Khadar Sheridan - 12/19/2024 10:08 AM EDT TC from pt reports being seen by pcp on 12/16 . Pt reports discussing getting prescribed meds for Circulation pt unsure which medication was to get sent to pharmacy documented in this encounter Plan of Treatment Not on file documented as of this encounter Visit Diagnoses Not on filedocumented in this encounter Additional Health Concerns Assessment Noted Time PHQ-9 Depression Total Score: 2 12/17/19 25 9:03 AM EDT documented as of this encounter Care Teams Parent Coach Relationship Specialty Start Date End Date Tanvi Leach MD 230 [place] [address] PCP - General Family Medicine 05/20/21 Cristo 01/11/24 documented as of this encounter
--- OUTSIDE RECORDS SUMMARY | 2024-12-30 12:43 | XMS_ITS | Encounter Summary ---
Author Organization [employer] Address 75 [facility] 7t [place] [address] Care Team Providers Care Utilization Coordinator Name Role Phone Tanvi Leach MD Primary Care Provider [phone] Reason for Visit * Reason Onset Date Comments Call Back Request 11/21/2023 Encounter Details Date Type Department Care Team ([facility] st Contact Info) Description 11/21/2023 Telephone [facility] MEDICINE 230 [place] [address] Tanvi Leach MD 230 [place], [place] [phone] Call Back Request Social History Tobacco Use [...] - 11/21/2023 3:53 PM EDT Tc from [facility] requesting a call back to obtain some clarity on why the provider would just simply write a letter indicating it is ok for the patient to be in charge of own finances when the patient have a list of conditions including a learning disability please call the patients case liner at [phone] Hubbard documented in this encounter Plan of Treatment Not on file documented as of this encounter Visit Diagnoses Not on filedocumented in this encounter Additional Health Concerns Assessment Noted Time PHQ-9 Depression Total Score: 0 03/28/19 24 2:55 PM EST documented as of this encounter Care Teams Utilization Coordinator Relationship Specialty Start Date End Date Tanvi Leach MD 230 [place] [address] PCP - General Family Medicine 05/20/21 Cristo 01/11/24 documented as of this encounter
--- OUTSIDE RECORDS SUMMARY | 2024-12-30 12:43 | XMS_ITS | Encounter Summary ---
Author Organization [employer] Address 75 [facility] 7t [place] [address] Care Team Providers Care Occupational Health Nurse Manager Name Role Phone Tanvi Leach MD Primary Care Provider [phone] Reason for Visit * Reason Comments Med Refill Encounter Details Date Type Department Care Team ([facility] st Contact Info) Description 02/21/2023 Refill [facility] [address] [place], [place] [phone] Pauline Cisneros MD 230 [place] [address] Social History Tobacco Use Types Packs/Day Years [...] documented as of this encounter Care Teams Occupational Health Nurse Manager Relationship Specialty Start Date End Date Tanvi Leach MD [address] [place] [address] PCP - General Family Medicine 05/20/21 Cristo 01/11/24 documented as of this encounter
--- OUTSIDE RECORDS SUMMARY | 2024-12-30 12:43 | XMS_ITS | Encounter Summary ---
Author Organization [employer] Address 75 [facility] 7t [place] [address] Care Team Providers Care Tufter Operator Name Role Phone Tanvi Leach MD Primary Care Provider [phone] Encounter Details Date Type Department Care Team (Late st Contact Info) Description 10/30/2024 Telephone [facility] MEDICINE 230 [place], [place] [phone] Tanvi Leach MD 230 [place], [place] [phone] Social History Tobacco Use Types Packs/Day Years [...] documented as of this encounter Care Teams Tufter Operator Relationship Specialty Start Date End Date Tanvi Leach MD 230 [place] [address] PCP - General Family Medicine 05/20/21 Cristo 01/11/24 documented as of this encounter
--- OUTSIDE RECORDS SUMMARY | 2024-12-30 12:43 | XMS_ITS | Encounter Summary ---
Author Organization [employer] Address 75 [facility] 7t [place] [address] Care Team Providers Care Risk Professional Name Role Phone Tanvi Leach MD Primary Care Provider [phone] Reason for Visit * Reason Comments Med Refill Encounter Details Date Type Department Care Team ([facility] st Contact Info) Description 06/19/2024 Refill [facility] MEDICINE 230 [place] [address] Name, MD Blaise 230 [place], [place] [phone] Essential hypertension Social History Tobacco Use Types [...] documented as of this encounter Care Teams Risk Professional Relationship Specialty Start Date End Date Tanvi Leach MD 230 [place] [address] PCP - General Family Medicine 05/20/21 Cristo 01/11/24 documented as of this encounter
--- OUTSIDE RECORDS SUMMARY | 2024-12-30 12:43 | XMS_ITS | Clinical Summary ---
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 Erectile dysfunction 09/02/2014 Essential hypertension 07/23/2014 Schizoaffective disorder ([facility] V24, [facility] V 28) 04/20/2014 Depressive disorder 08/17/2011 Encounters Date Type Department Care Team Description 11/12/2024 9:15 AM EDT Consult Orthopedic Surgery [address] [phone] Wili Whitney, DPM Posterior tibial tendon dysfunction (PTTD) of both lower extremities (Primary Dx); Flat feet, bilateral; Primary osteoarthritis of both feet; Tinea pedis of both feet from Last 3 Months Medical History Medical History Date Comments Schizophrenia ([facility] V24, [facility] V28) Social History Tobacco Use Types Packs/Day [...] AM EDT Office Visit Orthopedic Surgery - [address] [phone] Wili Whitney, DPM [address] [place] [phone] Health Maintenance Due Date Last Done Comments [...] to calcaneal cuboid joint us Wili Whitney DPChandra IMG XR PROCEDURES Final R esult * (ABNORMAL) Comprehensive metabolic panel (01/27/2024 10:31 PM EST) Sodium 137 133 - 145 mmol/L LAB CHEMISTRY METHOD 01/27/2024 11:08 PM [facility] Potassium 3.6 3.5 - 5.5 mmol/L LAB CHEMISTRY METHOD 01/27/2024 11:08 PM [facility] Chloride 105 96 - 110 mmol/L LAB CHEMISTRY METHOD 01/27/2024 11:08 PM [facility] CO2 26 21 - 32 mmol/L LAB CHEMISTRY METHOD 01/27/2024 11:08 PM [facility] Anion Gap 6 3 - 11 LAB CHEMISTRY METHOD 01/27/2024 11:08 PM [facility] Glucose 111(H) 70 - 100 mg/dL LAB CHEMISTRY METHOD 01/27/2024 11:08 PM [facility] BUN 13 5 - 25 mg/dL LAB CHEMISTRY METHOD 01/27/2024 11:08 PM [facility] Creatinine 1.27 0.70 - 1.30 mg/dL LAB CHEMISTRY METHOD 01/27/2024 11:08 PM [facility] eGFR 74 >=60 mL/min/1. 73m2 LAB CHEMISTRY METHOD 01/27/2024 11:08 PM [facility] Comment:Calculation based on the Chronic Kidney Disease Epidemiology Collaboration (CKD-EPI) equation refit without adjustment for race. BUN/Creatinine Ratio 10.2 LAB CHEMISTRY METHOD 01/27/2024 11:08 PM [facility] Calcium 9.2 8.5 - 10.5 mg/dL LAB CHEMISTRY METHOD 01/27/2024 11:08 PM [facility] AST (SGOT) 71(H) 10 - 42 unit/L LAB CHEMISTRY METHOD 01/27/2024 11:08 PM [facility] ALT (SGPT) 63(H) 10 - 60 unit/L LAB CHEMISTRY METHOD 01/27/2024 11:08 PM EST [facility] Alkaline Phosphatase 86 42 - 121 unit/L LAB CHEMISTRY METHOD 01/27/2024 11:08 PM [facility] Total Protein 7.3 6.0 - 8.0 g/dL LAB CHEMISTRY METHOD 01/27/2024 11:08 PM EST [facility] Albumin 4.4 3.2 - 5.0 g/dL LAB CHEMISTRY METHOD 01/27/2024 11:08 PM [facility] Total Bilirubin 0.7 0.0 - 1.4 mg/dL LAB CHEMISTRY METHOD 01/27/2024 11:08 PM [facility] Blood Venous blood specimen / Unknown Venipuncture / Unknown 01/27/2024 10:31 PM EST 01/27/2024 10:43 PM EST Galdino B Antonio [facility] LAB BLOOD ORDERABLES Final Resu lt [facility] [address] [place] [address], from Last 3 Months or Most Recently Relevant to Health Maintenance Insurance MEDICARE [facility] MEDICARE Member Subscriber Plan / Payer (Ef fective 2023-Present) Name:SITA MULLINS Relation to Subscriber:Self Name:Sita Mullins Payer ID:[id number] Group ID:[id number] Type:Not on file Address: [address] [place] [address] Care Teams Medical Apparatus Model Maker Relationship Specialty Start Date End Date Tanvi Leach MD [address] [place] [address] PCP - General 05/09/23
--- OUTSIDE RECORDS SUMMARY | 2024-12-30 12:43 | XMS_ITS | Encounter Summary ---
Author Organization [employer] Address 75 [facility] 7t [place] [address] Care Team Providers Care Trimming Operator Name Role Phone Tanvi Leach MD Primary Care Provider [phone] Encounter Details Date Type Department Care Team (Late st Contact Info) Description 07/27/2022 Telephone [facility] 230 [place], [place] [phone] Tanvi Leach MD 230 [place], [place] [phone] Social History Tobacco Use Types Packs/Day Years [...] documented as of this encounter Care Teams Trimming Operator Relationship Specialty Start Date End Date Tanvi Leach MD 230 [place] [address] PCP - General Family Medicine 05/20/21 Cristo 01/11/24 documented as of this encounter
--- OUTSIDE RECORDS SUMMARY | 2024-12-30 12:43 | XMS_ITS | Encounter Summary ---
Author Organization [employer] Address 75 [facility] 7t [place] [address] Care Team Providers Care Svp Chief Marketing Officer Name Role Phone Tanvi Leach MD Primary Care Provider [phone] Reason for Visit * Reason Comments Med Refill Encounter Details Date Type Department Care Team ([facility] st Contact Info) Description 02/01/2024 Refill [facility] MEDICINE 230 [place], [place] [phone] Tanvi Leach MD 230 [place], [place] [phone] Nasal congestion Social History Tobacco Use Types [...] as of this encounter Care Teams Svp Chief Marketing Officer Relationship Specialty Start Date End Date Tanvi Leach MD 230 [place] [address] PCP - General Family Medicine 05/20/21 Cristo 01/11/24 documented as of this encounter
--- OUTSIDE RECORDS SUMMARY | 2024-12-30 12:43 | XMS_ITS | Encounter Summary ---
Author Organization [employer] Address 75 [facility] 7t [place] [address] Care Team Providers Care Drafter Directional Survey Name Role Phone Tanvi Leach MD Primary Care Provider [phone] Reason for Visit * Reason Comments Med Refill Encounter Details Date Type Department Care Team ([facility] st Contact Info) Description 06/13/2024 Refill [facility] MEDICINE 230 [place], [place] [phone] Tanvi Leach MD 230 [place], [place] [phone] Essential hypertension Social History Tobacco Use Types [...] documented as of this encounter Care Teams Drafter Directional Survey Relationship Specialty Start Date End Date Tanvi Leach MD 230 [place] [address] PCP - General Family Medicine 05/20/21 Cristo 01/11/24 documented as of this encounter
--- OUTSIDE RECORDS SUMMARY | 2024-12-30 12:43 | XMS_ITS | Encounter Summary ---
Author Organization [employer] Address 75 [facility] 7t [place] [address] Care Team Providers Care City Surveyor Name Role Phone Tanvi Leach MD Primary Care Provider [phone] Reason for Visit * Reason Onset Date Comments Med Refill 02/29/2024 Encounter Details Date Type Department Care Team (Late st Contact Info) Description 02/29/2024 Telephone [facility] MEDICINE 230 [place] [address] Tanvi Leach MD 230 [place], [place] [phone] Med Refill Social History Tobacco Use Types [...] with others, in a hotel, in a penitentiary, living outside on the street, on a [...] PM EST Please advise patient to call [facility] to transfer scripts. * Telephone [...] documented as of this encounter Care Teams City Surveyor Relationship Specialty Start Date End Date Tanvi Leach MD [address] [place] [address] PCP - General Family Medicine 05/20/21 Cristo 01/11/24 documented as of this encounter
--- OUTSIDE RECORDS SUMMARY | 2024-12-30 12:43 | XMS_ITS | Encounter Summary ---
Author Organization [employer] Address 75 [facility] 7t [place] [address] Care Team Providers Care Master Mechanic Name Role Phone Tanvi Leach MD Primary Care Provider [phone] Encounter Details Date Type Department Care Team (Late st Contact Info) Description 06/09/2022 Orders Only [facility] MEDICINE 230 [place], [place] [phone] Tanvi Laech MD 230 [place], [place] [phone] Social History Tobacco Use Types Packs/Day Years [...] documented as of this encounter Care Teams Master Mechanic Relationship Specialty Start Date End Date Tanvi Leach MD [address] [place] [address] PCP - General Family Medicine 05/20/21 Cristo 01/11/24 documented as of this encounter
--- OUTSIDE RECORDS SUMMARY | 2024-12-30 12:43 | XMS_ITS | Encounter Summary ---
Author Organization [employer] Address 75 [facility] 7t [place] [address] Care Team Providers Care Brand Representative Name Role Phone Tavni Leach MD Primary Care Provider [phone] Encounter Details Date Type Department Care Team ([facility] st Contact Info) Description 07/25/2023 Telephone [facility] MEDICINE 230 [place], [place] [phone] Tanvi Leach MD 230 [place], [place] [phone] Social History Tobacco Use Types Packs/Day Years [...] documented as of this encounter Care Teams Brand Representative Relationship Specialty Start Date End Date Tanvi Leach MD [address] [place] [address] PCP - General Family Medicine 05/20/21 Crist[place] 01/11/24 documented as of this encounter
--- OUTSIDE RECORDS SUMMARY | 2024-12-30 12:43 | XMS_ITS | Encounter Summary ---
Author Organization [employer] Address 75 [facility] 7t [place] [address] Care Team Providers Care Fire Department Battalion Chief Name Role Phone Tanvi Leach MD Primary Care Provider [phone] Reason for Visit * Reason Comments Med Refill Encounter Details Date Type Department Care Team (Late st Contact Info) Description 05/12/2024 Refill [facility] ADULT DENTAL 230 [place], [place] [phone] Marok Sorenson DDS 230 [place] [address] Social History Tobacco Use Types Packs/Day Years [...] as of this encounter Care Teams Fire Department Battalion Chief Relationship Specialty Start Date End Date Tanvi Leach MD 230 [place] [address] PCP - General Family Medicine 05/20/21 [place] 01/11/24 documented as of this encounter
== END 2024-12-30 11:12 | disposition home or self-care (01) ==
LOC: HO.HGS 10:43
PROVIDERS: PCP General Practice
DX: Z98.890 Other specified postprocedural states (principal); Z87.19 Personal history of other diseases of the digestive system
CPT/HCPCS: 99214

== ENCOUNTER → 2024-12-30 10:43 | Outpatient (BNVA) | payer OTHER, SELFPAY | PROVIDERS: PCP General Practice | DX: Z71.2 Person consulting for explanation of examination or test findings (principal); G89.18 Other acute postprocedural pain; Z87.19 Personal history of other diseases of the digestive system; E66.9 Obesity, unspecified; Z98.890 Other specified postprocedural states | CPT/HCPCS: 99212 ==

== ENCOUNTER 2025-02-17 09:56 | Outpatient (REF) | payer OTHER, SELFPAY ==
--- OUTSIDE RECORDS SUMMARY | 2025-02-17 09:20 | XMS_ITS | Encounter Summary ---
Author Organization [employer] Address 75 [facility] 7t [place] [address] Care Team Providers Care Public School Teacher Name Role Phone Tanvi Leach MD Primary Care Provider [phone] Reason for Visit * Reason Comments Abdominal Pain Encounter Details Date Type Department Care Team (Latest Contact Info) Description 02/17/2025 9:20 AM EST Office Visit [facility] [address] [place] [address] [phone] Gab Reyes MD 230 [place], [place] [phone] Gastroenteritis (Primary Dx); Cough in adult patient Social History Tobacco Use Types Packs/Day Years [...] Sign Reading Time Taken Comments Blood Pressure 111/83 02/17/2025 9:15 AM EST Pulse 98 02/17/2025 9:15 AM EST Temperature 36.6 C (97.9 F) 02/17/2025 9:15 AM EST Respiratory Rate 18 02/17/2025 9:15 AM EST Oxygen Saturation 98% 02/17/2025 9:15 AM EST Inhaled Oxygen Concentration - - Weight 126 kg (278 lb) 02/17/2025 9:15 AM EST Height - - Body Mass Index 41.05 12/16/2024 9:02 AM EDT documented in this encounter Progress Notes * Gab Whitney MD - 02/17/2025 9:20 AM EST SUBJECTIVE Omkar Tafoya is a 39 y.o. male who presents for Abdominal Pain. Omkar Tafoya, 39 years Acute Gastrointestinal Symptoms - Diarrhea for 1 week, described as watery - Vomiting episode in the morning prior to visit, vomited food eaten the previous day - Nausea present before vomiting - Denies recent travel - Family members also experiencing diarrhea - No abdominal pain reported - Denies recent marijuana use Weight Loss Medication - Taking Phentermine for weight loss for 2 months - Decreased appetite since starting medication Dietary Changes - Changed eating habits recently to avoid greasy foods - Consumed a hot dog (not greasy) the day before vomiting episode HPI Review of Systems Constitutional: Negative for fever. HENT: Negative for sore throat. Respiratory: Negative for cough and shortness of breath. Cardiovascular: Negative for chest pain. Gastrointestinal: Negative for abdominal pain. Neurological: Negative for headaches. Allergies[1] OBJECTIVE Vitals: 02/17/25 0915 BP: 111/83 BP Location: Right arm Patient Position: Sitting BP Cuff Size: Adult Pulse: 98 Resp: 18 Temp: 97.9 ??F (36.6 ??C) TempSrc: Temporal SpO2: 98% Weight: 278 lb (126 kg) Physical Exam Vitals reviewed. Constitutional: Appearance: Normal appearance. HENT: Head: Normocephalic and atraumatic. Right Ear: External ear normal. Left Ear: External ear normal. Nose: Nose normal. Mouth/Throat: Mouth: Mucous membranes are moist. Eyes: Conjunctiva/sclera: Conjunctivae normal. Cardiovascular: Rate and Rhythm: Normal rate and regular rhythm. Pulmonary: Effort: Pulmonary effort is normal. Breath sounds: Normal breath sounds. Abdominal: General: Abdomen is protuberant. Bowel sounds are increased. There is no distension. Palpations: Abdomen is soft. Tenderness: There is no abdominal tenderness. There is no right CVA tenderness, left CVA tenderness, guarding or rebound. Negative signs include Balderas's sign and McBurney's sign. Skin: General: Skin is warm. Neurological: Mental Status: He is alert. Mental status is at baseline. Assessment/Plan Problem List Items Addressed This Visit Gastroenteritis - Primary Pt's symptomatology and exam indicative of this - Likely viral gastroenteritis, given family members with similar symptoms and absence of recent travel. Bacterial etiology also considered; stool studies ordered to differentiate. - Ordered stool studies to evaluate for infectious etiology. Ordered blood work. -Advised to maintain adequate hydration. Recommended bland diet, avoiding fatty and fried foods. Continue antiemetic medication as needed. Instructed to return or seek emergency care if unable to tolerate oral fluids or if vomiting worsens. -supportive measures -Asked to come back if diarrhea worsens or if unable to eat or drink or keep fluids down, if we areclosed to present himself to nearest ER Relevant Orders Stool - Gastrointestinal panel CDiff Gene PCR Ova and Parasites CBC auto differential Comprehensive Metabolic Panel Cough in adult patient Pt with c/o mild dry cough, Exam unremarkable Testing negative for flu, covid Supportive measures Relevant Orders Influenza B (ID NOW Rapid Molecular) (Completed) Influenza A (ID NOW Rapid Molecular) (Completed) POCT Rapid COVID Ag (Completed) This note was drafted using Ambient (AI) technology. The patient/patient's guardian has been informed and has consented to the use of this technology: Yes No future appointments. [1] Allergies Allergen Reactions Seasonal Ic [Octacosanol] Runny nose documented in this encounter Miscellaneous Notes * Assessment & Plan Note - Gab Whitney MD - 02/17/2025 10:08 AM EST Associated Problem(s): Cough in adult patient Pt with c/o mild dry cough, Exam unremarkable Testing negative for flu, covid Supportive measures * Assessment & Plan Note - Gab Whitney MD - 02/17/2025 9:52 AM EST Associated Problem(s): Gastroenteritis Pt's symptomatology and exam indicative of this - Likely viral gastroenteritis, given family members with similar symptoms and absence of recent travel. Bacterial etiology also considered; stool studies ordered to differentiate. - Ordered stool studies to evaluate for infectious etiology. Ordered blood work. -Advised to maintain adequate hydration. Recommended bland diet, avoiding fatty and fried foods. Continue antiemetic medication as needed. Instructed to return or seek emergency care if unable to tolerate oral fluids or if vomiting worsens. -supportive measures -Asked to come back if diarrhea worsens or if unable to eat or drink or keep fluids down, if we areclosed to present himself to nearest ER documented in this encounter Plan of Treatment Scheduled Orders Name Type Priority Associated Diagnoses Orde r Schedule Stool - Gastrointestinal panel Microbiology Routine Gastroenteritis Expected: 02/17/2025 (Approximate), Expires: 02/17/2026 CDiff Gene PCR Lab Routine Gastroenteritis Expected: 02/17/2025 (Approximate), Expires: 02/17/2026 Ova and Parasites Microbiology Routine Gastroenteritis Expected: 02/17/2025 (Approximate), Expires: 02/17/2026 CBC auto differential Lab Routine Gastroenteritis Expected: 02/17/2025 (Approximate), Expires: 02/17/2026 Comprehensive Metabolic Panel Lab Routine Gastroenteritis Expected: 02/17/2025 (Approximate), Expires: 02/17/2026 documented as of this encounter Procedures Procedure Name Priority Date/Time Associated Diagnosis Comments POCT INFLUENZA B (ID NOW RAPID MOLECULAR) Routine 02/17/2025 9:28 AM EST Cough in adult patient POCT INFLUENZA A (ID NOW RAPID MOLECULAR) Routine 02/17/2025 9:28 AM EST Cough in adult patient POCT RAPID COVID ANTIGEN Routine 02/17/2025 9:27 AM EST Cough in adult patient documented in this encounter Results * Influenza A (ID NOW Rapid Molecular) (02/17/2025 9:28 AM EST) Pathologist [facility] Influenza A Negative Negative, Indeterminate [facility] Swab 02/17/2025 9:28 AM EST Gab Whitney MD POINT OF CARE TEST EN TER/EDIT ORDERABLES Final Result [facility] [address] [place] [phone] * Influenza B (ID NOW Rapid Molecular) (02/17/2025 9:28 AM EST) Pathologist [facility] Influenza B Negative Negative, Indeterminate [facility] Swab 02/17/2025 9:28 AM EST us Gab Whitney MD POINT OF CARE TEST EN TER/EDIT ORDERABLES Final Result [facility] [address] [place] [phone] [phone] * POCT Rapid COVID Ag (02/17/2025 9:27 AM EST) Rapid COVID Ag Negative Swab 02/17/2025 9:27 AM EST us Gab Whitney MD POINT OF CARE TEST EN TER/EDIT ORDERABLES Final Result documented in this encounter Visit Diagnoses Diagnosis Gastroenteritis- Primary Other and unspecified noninfectious gastroenteritis and colitis Cough in adult patient documented in this encounter Additional Health Concerns Assessment Noted Time PHQ-9 Depression Total Score: 2 12/17/19 25 9:03 AM EDT documented as of this encounter Care Teams Public School Teacher Relationship Specialty Start Date End Date Tanvi Leach MD [address] [place] [address] PCP - General Family Medicine 05/20/21 [place] 01/11/24 documented as of this encounter
--- OUTSIDE RECORDS SUMMARY | 2025-02-17 10:50 | XMS_ITS | Encounter Summary ---
Author Organization [employer] Address 75 [facility] 7t [place] [address] Care Team Providers Care Service Attendant Cafeteria Name Role Phone Tanvi Leach MD Primary Care Provider [phone] Encounter Details Date Type Department Care Team (Late st Contact Info) Description 10/30/2024 Telephone [facility] MEDICINE 230 [place], [place] [phone] Tanvi Leach MD 230 [place], [place] [phone] Social History Tobacco Use Types Packs/Day Years [...] documented as of this encounter Care Teams Service Attendant Cafeteria Relationship Specialty Start Date End Date Tanvi Leach MD [address] [place] [address] PCP - General Family Medicine 05/20/21 Cristo 01/11/24 documented as of this encounter
--- OUTSIDE RECORDS SUMMARY | 2025-02-17 10:50 | XMS_ITS | Encounter Summary ---
Author Organization [employer] Address 75 [facility] 7t [place] [address] Care Team Providers Care Corporate Director Talent Assessment Name Role Phone Tanvi Leach MD Primary Care Provider Reason for Visit * Reason Comments Med Refill Encounter Details Date Type Department Care Team ([facility] st Contact Info) Description 06/11/2024 Refill [facility] MEDICINE 230 [place], [place] [phone] Tanvi Leach MD 230 [place], [place] [phone] Essential hypertension Social History Tobacco Use Types [...] documented as of this encounter Care Teams Corporate Director Talent Assessment Relationship Specialty Start Date End Date Tanvi Leach MD 230 [place] [address] PCP - General Family Medicine 05/20/21 Cristo 01/11/24 documented as of this encounter
--- OUTSIDE RECORDS SUMMARY | 2025-02-17 10:50 | XMS_ITS | Encounter Summary ---
Author Organization [employer] Address 75 [facility] 7t [place] [address] Care Team Providers Care Glass Ribbon Machine Operator Name Role Phone Tanvi Leach MD Primary Care Provider [phone] Reason for Visit * Reason Comments Med Refill Encounter Details Date Type Department Care Team ([facility] st Contact Info) Description 05/12/2024 Refill [facility] ADULT DENTAL 230 [place], [place] [phone] Marko Sorenson DDS 230 [place], [place] [phone] Social History Tobacco Use Types Packs/Day Years [...] as of this encounter Care Teams Glass Ribbon Machine Operator Relationship Specialty Start Date End Date Tanvi Leach MD 230 [place] [address] PCP - General Family Medicine 05/20/21 Crist[place] 01/11/24 documented as of this encounter
--- OUTSIDE RECORDS SUMMARY | 2025-02-17 10:50 | XMS_ITS | Encounter Summary ---
Author Organization [employer] Address 75 [facility] 7t [place] [address] Care Team Providers Care Engraver Tire Mold Name Role Phone Tanvi Leach MD Primary Care Provider [phone] Encounter Details Date Type Department Care Team (Late st Contact Info) Description 07/25/2023 Telephone [facility] MEDICINE 230 [place], [place] [phone] Tanvi Leach MD 230 [place], [place] [phone] Social History Tobacco Use Types Packs/Day Years [...] documented as of this encounter Care Teams Engraver Tire Mold Relationship Specialty Start Date End Date Tanvi Leach MD [address] [place] [address] PCP - General Family Medicine 05/20/21 Crist[place] 01/11/24 documented as of this encounter
--- OUTSIDE RECORDS SUMMARY | 2025-02-17 10:50 | XMS_ITS | Encounter Summary ---
Author Organization [employer] Address 75 [facility] 7t [place] [address] Care Team Providers Care Parcel Contractor Name Role Phone Tanvi Leach MD Primary Care Provider [phone] Encounter Details Date Type Department Care Team (Late st Contact Info) Description 07/27/2022 Telephone [facility] MEDICINE 230 [place], [place] [phone] Tanvi Leach MD 230 [place], [place] [phone] Social History Tobacco Use Types Packs/Day Years [...] documented as of this encounter Care Teams Parcel Contractor Relationship Specialty Start Date End Date Tanvi Leach MD 230 [place] [address] PCP - General Family Medicine 05/20/21 Cristo 01/11/24 documented as of this encounter
--- OUTSIDE RECORDS SUMMARY | 2025-02-17 10:50 | XMS_ITS | Encounter Summary ---
Author Organization [employer] Address 75 [facility] 7t [place] [address] Care Team Providers Care Hvac Service Tech Name Role Phone Tanvi Leach MD Primary Care Provider [phone] Reason for Visit * Reason Comments Med Refill Encounter Details Date Type Department Care Team ([facility] st Contact Info) Description 06/25/2024 Refill [facility] MEDICINE 230 [place], [place] [phone] Name, MD Blaise 230 [place], [place] [phone] Social History Tobacco Use Types Packs/Day Years [...] as of this encounter Care Teams Hvac Service Tech Relationship Specialty Start Date End Date Tanvi Leach MD [address] [place] [address] PCP - General Family Medicine 05/20/21 Cristo 01/11/24 documented as of this encounter
--- OUTSIDE RECORDS SUMMARY | 2025-02-17 10:50 | XMS_ITS | Encounter Summary ---
Author Organization [employer] Address 75 [facility] 7t [place] [address] Care Team Providers Care Welding Machine Assembler Name Role Phone Tanvi Leach MD Primary Care Provider [phone] Reason for Visit * Reason Comments Med Refill Encounter Details Date Type Department Care Team ([facility] st Contact Info) Description 02/21/[address] [facility] MED & PEDS [address] [place], [place] [phone] Pauline Cisneros MD 230 [place] [address] Social History Tobacco Use Types Packs/Day Years [...] documented as of this encounter Care Teams Welding Machine Assembler Relationship Specialty Start Date End Date Tanvi Leach MD 230 [place] [address] PCP - General Family Medicine 05/20/21 Crist[place] 01/11/24 documented as of this encounter
--- OUTSIDE RECORDS SUMMARY | 2025-02-17 10:50 | XMS_ITS | Encounter Summary ---
Author Organization [employer] Address 75 [facility] 7t [place] [address] Care Team Providers Care Station Installer And Repairer Name Role Phone Tanvi Leach MD Primary Care Provider [phone] Encounter Details Date Type Department Care Team (Late st Contact Info) Description 06/09/2022 Orders Only [facility] MEDICINE 230 [place], [place] [phone] Tanvi Leach MD 230 [place], [place] [phone] Social History Tobacco Use Types Packs/Day Years [...] documented as of this encounter Care Teams Station Installer And Repairer Relationship Specialty Start Date End Date Tanvi Leach MD 230 [place] [address] PCP - General Family Medicine 05/20/21 Cristo 01/11/24 documented as of this encounter
--- OUTSIDE RECORDS SUMMARY | 2025-02-17 10:50 | XMS_ITS | Encounter Summary ---
Author Organization [employer] Address 75 [facility] 7 [place] [address] Care Team Providers Care Vacuum Frame Operator Name Role Phone Tanvi Leach MD Primary Care Provider [phone] Reason for Visit * Reason Onset Date Comments Med Refill 02/29/2024 Encounter Details Date Type Department Care Team ([facility] st Contact Info) Description 02/29/2024 Telephone [facility] MEDICINE 230 [place] [address] Tanvi Leach MD 230 [place], [place] [phone] Med Refill Social History Tobacco Use Types [...] PM EST Please advise patient to call [facility] Pharm[facility] to transfer scripts. * Telephone Encounter - Troy Bautista - 02/29/2024 2:50 PM EST TC from pt requesting medication refill. Medications needing refill : GIOVANNI Asher, (Fortamet) 500 MG 24 hr tablet B [...] documented as of this encounter Care Teams Vacuum Frame Operator Relationship Specialty Start Date End Date Tanvi Leach MD 230 [place] [address] PCP - General Family Medicine 05/20/21 Cristo 01/11/24 documented as of this encounter
--- OUTSIDE RECORDS SUMMARY | 2025-02-17 10:50 | XMS_ITS | Encounter Summary ---
Author Organization [employer] Address 75 [facility] 7t [place] [address] Care Team Providers Care Pack Worker Name Role Phone Tanvi Leach MD Primary Care Provider [phone] Encounter Details Date Type Department Care Team ([facility] st Contact Info) Description 12/16/2024 Results Follow-Up [facility] MEDICINE 230 [place], [place] [phone] Tanvi Leach MD 230 [place], [place] [phone] [employer] Social History Tobacco Use [...] documented as of this encounter Care Teams Pack Worker Relationship Specialty Start Date End Date Tanvi Leach MD [address] [place] [address] PCP - General Family Medicine 05/20/21 [place] 01/11/24 documented as of this encounter
--- OUTSIDE RECORDS SUMMARY | 2025-02-17 10:50 | XMS_ITS | Encounter Summary ---
Author Organization [employer] Address 75 [facility] 7t [place] [address] Care Team Providers Care Fish Drier Name Role Phone Tanvi Leach MD Primary Care Provider [phone] Reason for Visit * Reason Onset Date Comments Medication Question 02/15/2024 Encounter Details Date Type Department Care Team ([facility] st Contact Info) Description 02/15/2024 Telephone [facility] MEDICINE 230 [place], [place] [phone] Tanvi Leach MD 230 [place], [place] [phone] Medication Question Social History Tobacco Use Types [...] a New CPAP Machine. Contact pt at [phone] documented in this encounter Plan of Treatment Not on file documented as of this encounter Visit Diagnoses Not on filedocumented in this encounter Additional Health Concerns Assessment Noted Time PHQ-9 Depression Total Score: 0 03/28/19 2:55 PM EST documented as of this encounter Care Teams Fish Drier Relationship Specialty Start Date End Date Tanvi Leach MD [address] [place] [address] PCP - General Family Medicine 05/20/21 [place] 01/11/24 documented as of this encounter
--- OUTSIDE RECORDS SUMMARY | 2025-02-17 10:50 | XMS_ITS | Encounter Summary ---
Author Organization [employer] Address 75 [facility] 7 [place] [address] Care Team Providers Care Vanstone Machine Operator Name Role Phone Tanvi Leach MD Primary Care Provider Reason for Visit * Reason Onset Date Comments Call Back Request 11/21/2023 Encounter Details Date Type Department Care Team ([facility] st Contact Info) Description 11/21/2023 Telephone [facility] MEDICINE 230 [place] [address] Tanvi Leach MD 230 [place], [place] [phone] Call Back Request Social History Tobacco Use [...] - 11/21/2023 3:53 PM EDT Tc from [facility] requesting a call back to obtain some clarity on why the provider would just simply write a letter indicating it is ok for the patient to be in charge of own finances when the patient have a list of conditions including a learning disability please call the patients transplant case manager at [phone] Hubbard documented in this encounter Plan of Treatment Not on file documented as of this encounter Visit Diagnoses Not on filedocumented in this encounter Additional Health Concerns Assessment Noted Time PHQ-9 Depression Total Score: 0 03/28/19 24 2:55 PM EST documented as of this encounter Care Teams Vanstone Machine Operator Relationship Specialty Start Date End Date Tanvi Leach MD 230 [place] [address] PCP - General Family Medicine 05/20/21 Cristo 01/11/24 documented as of this encounter
--- OUTSIDE RECORDS SUMMARY | 2025-02-17 10:50 | XMS_ITS | Encounter Summary ---
Author Organization [employer] Address [address] [facility] [address]t [place] [address] Care Team Providers Care General Farm Manager Name Role Phone Tanvi Leach MD Primary Care Provider [phone] Encounter Details Date Type Department Care Team (Latest Contact Info) Description 02/17/2025 Travel Social History Tobacco Use Types Packs/Day [...] documented as of this encounter Care Teams General Farm Manager Relationship Specialty Start Date End Date Tanvi Leach MD 230 [place] [address] PCP - General Family Medicine 05/20/21 Cristo 01/11/24 documented as of this encounter
--- OUTSIDE RECORDS SUMMARY | 2025-02-17 10:50 | XMS_ITS | Encounter Summary ---
Author Organization [employer] Address 75 [facility] 7t [place] [address] Care Team Providers Care Pediatric Np Name Role Phone Tanvi Leach MD Primary Care Provider [phone] Reason for Visit * Reason Comments Med Refill Encounter Details Date Type Department Care Team ([facility] st Contact Info) Description 06/13/2024 Refill [facility] MEDICINE 230 [place], [place] [phone] Tanvi Leach MD 230 [place], [place] [phone] Essential hypertension Social History Tobacco Use Types [...] documented as of this encounter Care Teams Pediatric Np Relationship Specialty Start Date End Date Tanvi Leach MD 230 [place] [address] PCP - General Family Medicine 05/20/21 Cristo 01/11/24 documented as of this encounter
--- OUTSIDE RECORDS SUMMARY | 2025-02-17 10:50 | XMS_ITS | Encounter Summary ---
Author Organization [employer] Address [address] [facility] 7t [place] [address] Care Team Providers Care Stereo Operator Name Role Phone Tanvi Leach MD Primary Care Provider [phone] Reason for Visit * Reason Comments Med Refill Encounter Details Date Type Department Care Team ([facility] st Contact Info) Description 06/19/2024 Refill [facility] [address] [place], [place] [phone] Name, MD Blaise [address] [place], [place] [phone] Essential hypertension Social History Tobacco Use Types [...] documented as of this encounter Care Teams Stereo Operator Relationship Specialty Start Date End Date Tanvi Leach MD [address] [place] [address] PCP - General Family Medicine 05/20/21 Cristo 01/11/24 documented as of this encounter
--- OUTSIDE RECORDS SUMMARY | 2025-02-17 10:50 | XMS_ITS | Clinical Summary ---
Author Organization [facility] Address [address] [place] [address] Phone Care Team Providers Care Tiller Worker Name Role Phone Tanvi Leach MD Primary Care Provider [phone] Allergies No known active allergies Medications cetirizine [...] (one) time each day. 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 Erectile dysfunction 09/02/2014 Essential hypertension 07/23/2014 Schizoaffective disorder 04/20/2014 Depressive disorder 08/17/2011 Medical History Medical History Date Comments Schizophrenia ([facility] V24, [facility] V28) Social History Tobacco Use [...] on file Sexual Orientation Not on file Last Filed Vital Signs Vital Sign Reading [...] AM EDT Office Visit Orthopedic Surgery - [place] [address] [facility] [address] [place] [address] Wili Whitney, DPM [address] [address] Health Maintenance Due Date Last Done Comments HPV Vaccines (1 - 3-dose SCDM series) 2012 Hepatitis C Screening 01/29/2022 Medicare Annual Wellness Visit 01/29/2022 Social Influencers of Health Screening 01/29/2022 Depression Screening 02/27/2024 COVID-19 Vaccine ( season) 2024 01/18/2024, 07/05/2022, 03/24/2020 Influenza Vaccine (#1) 2024 , 01/22/2023, 11/22/2022, [...] Completed 12/02/2021, 11/03/19 HIV Screening Completed 01/22/2023 Meningococcal ACWY Vaccine Aged Out N o [...] [facility] Comment:Calculation based on the Chronic Kidney [...] [facility] BLOOD ORDERABLES Final Resu lt [facility] [address] [place] [address], from Last 3 Months or Most Recently Relevant to Health Maintenance Insurance MEDICARE [facility] MEDICARE Member Subscriber Plan / Payer (Ef fective 2023-Present) Name:SITA MULLINS Relation to Subscriber:Self Name:Sita Mullins Payer ID:[id number] Group ID:[id number] Type:Not on file Address: [address] [place] [address] Care Teams Tiller Worker Relationship Specialty Start Date End Date Tanvi Leach MD [address] [place] [address] PCP - General 05/09/23
--- OUTSIDE RECORDS SUMMARY | 2025-02-17 10:50 | XMS_ITS | Encounter Summary ---
Author Organization [employer] Address [address] [facility] 7t [place] [address] Care Team Providers Care Ground Crew Supervisor Name Role Phone Tanvi Leach MD Primary Care Provider [phone] Reason for Visit * Reason Comments Med Refill Encounter Details Date Type Department Care Team ([facility] st Contact Info) Description 10/13/2024 Refill [facility] [address] [place], [place] [phone] Tanvi Leach MD [address] [place], [place] [phone] Social History Tobacco Use Types Packs/Day Years [...] documented as of this encounter Care Teams Ground Crew Supervisor Relationship Specialty Start Date End Date Tanvi Leach MD [address] [place] [address] PCP - General Family Medicine 05/20/21 Cristo 01/11/24 documented as of this encounter
--- OUTSIDE RECORDS SUMMARY | 2025-02-17 10:50 | XMS_ITS | Clinical Summary ---
Author Organization [employer] Address [address] [facility] 7t [place] [address] Care Team Providers Care Foreclosure Field Inspector Name Role Phone Tanvi Leach MD Primary Care Provider [phone] Allergies Active Allergy Reactions Criticality Noted Date [...] (BMI) of 40.0 to 44.9 in adult ([facility]) TAKE 1 TABLET BY MOUTH EVERY MORNING 90 tablet 3 024 Active melatonin 5 MG tablet Take 1 tablet (5 mg) by mouth if needed at bedtime (insomnia). 90 tablet 3 024 Active metFORMIN, OSM, (Fortamet) 500 MG 24 hr tabletIndications: Class 3 drug-induced obesity with serious comorbidity and body mass index (BMI) of 40.0 to 44.9 in adult ([facility]) Take 2 tablets (1,000 mg) by mouth with evening meal. Do not crush, chew, or split. 180 tablet 3 025 2025 Active atorvastatin (Lipitor) 10 MG tabletIndications: Essential hypertension Take 1 tablet by mouth Once per day. 025 Active QUEtiapine (SEROquel) 100 MG tabletIndications: Schizoaffective disorder, depressive type (CMS/HCC) ([facility]) Take 1 tablet by mouth at bedtime. 025 Active omeprazole (PriLOSEC) [address] capsule TAKE 1 CAPSULE (20 MG) BY MOUTH IF NEEDED EACH DAY (GERD). 28 capsule 11 025 Active guanFACINE (Intuniv) 2 mg 24 hr tabletIndications: Developmental academic disorder Take 1 tablet (2 mg) by mouth 2 times daily. 60 tablet 3 5 3:37 PM EST 025 Active Vitamin E 45 MG (100 UNIT) capsule Take 1 capsule by mouth Once per day. 025 Active ARIPiprazole (Abilify) 30 MG tabletIndications: Schizoaffective disorder, depressive type (CMS/HCC) ([facility]) Take 1 tablet by mouth Once per day. 025 Active Tirzepatide-Weight Management 2.5 MG/0.5ML solution auto-injectorIndic ations:Class 3 drug-induced obesity with serious comorbidity and body mass index (BMI) of 40.0 to 44.9 in adult ([facility]),Essential hypertension,Obstr uctive sleep apnea,Metabolic dysfunction-associ ated [...] Active lidocaine-prilocai ne (Emla) 2.5-2.5 % cream 025 Active lactase (Lactaid) 3000 units tablet TAKE 1 TABLET BY MOUTH WITH BREAKFAST, LUNCH AND EVENING MEAL. 90 tablet 11 5 3:25 PM EST 025 Active Multiple Vitamin (Daily-Caroline) tabletIndications: Class 3 drug-induced obesity with serious comorbidity and body mass index (BMI) of 40.0 to 44.9 in adult ([facility]) TAKE 1 TABLET BY MOUTH ONCE DAILY IN THE MORNING 30 tablet 8 025 Active ipratropium (Atrovent) 0.03 % nasal sprayIndications:N billie congestion SPRAY 2 SPRAYS INTO EACH NOSTRIL EVERY 12 HOURS 30 mL 11 5 3:24 PM EST Active gabapentin (Neurontin) 100 MG capsule Take 1 capsule by mouth 2 times daily. Active ibuprofen 400 MG tablet Active tadalafil (Cialis) 10 MG tablet Take 1 tablet (10 mg) by mouth if needed each day for erectile dysfunction. 30 tablet 3 2025 Active acetaminophen (Tylenol 8 Hour) 650 MG ER tabletIndications: S/P repair of recurrent ventral hernia,Bilateral hip pain Take 1 tablet (650 mg) by mouth every 8 (eight) hours if needed for mild pain. Do not crush, chew, or split. 60 tablet 11 5 3:37 PM EST Active amLODIPine (Norvasc) 5 MG tablet Take 1 tablet (5 mg) by mouth Once per day. 30 tablet 11 5 3:25 PM EST 2025 Active nicotine (Nicoderm, Step 1) 21 MG/24HR patchIndications:T obacco use APPLY 1 PATCH onto clean, DRY, intact SKIN ONCE DAILY 28 patch 3 Active nicotine polacrilex (Nicorette) 4 MG gumIndications:Tob acco use chew AND park 1 PIECE OF gum along cheeks NEEDED FOR SMOKING CESSATION 100 each 3 5 4:31 PM EST Active Allergy Relief Cetirizine 10 MG tabletIndications: Nasal congestion TAKE 1 TABLET BY MOUTH ONCE DAILY 90 tablet 1 Active B Vxzjgij-V-Txple Acid (B-Complex/Folic Acid/Vitamin C) tablet controlled-release Indications:Class 3 drug-induced obesity with serious comorbidity and body mass index (BMI) of 40.0 to 44.9 in adult ([facility]) TAKE 1 TABLET BY MOUTH ONCE DAILY 90 tablet 3 Active phentermine 30 MG capsule Take 1 capsule (30 mg) by mouth before breakfast. 30 capsule 2025 Active lisinopril 20 MG tabletIndications: Essential hypertension TAKE 1 TABLET BY MOUTH ONCE DAILY 90 tablet 3 5 4:54 PM EST Active lisinopril (Prinivil) 20 MG tabletIndications: Essential hypertension Take 1 tablet (20 mg) by mouth Once per day. For blood pressure 90 tablet 3 024 2024 Discontinued B Npupavg-K-Phomb Acid (B-Complex/Folic Acid/Vitamin C) tablet controlled-release Indications:Class 3 drug-induced obesity with serious comorbidity and body mass index (BMI) of 40.0 to 44.9 in adult (HCC) Take 1 tablet by mouth Once per day. 024 2024 Discontinued phentermine 30 MG capsule Take 1 capsule (30 mg) by mouth before breakfast. 30 capsule 10:08 AM EST 025 2024 Discontinued(R eorder (will not trigger notification to Pharmacy)) Active Problems Problem Noted Date Diagnosed Date Gastroenteritis 02/17/2025 Assessment & Plan (02/17/2025 9:53 AM EST): Pt's symptomatology and exam indicative of this [...] drink or keep fluids down, if we are closed to present himself to nearest ER Cough in adult patient 02/17/2025 Assessment & Plan (02/17/2025 10:08 AM EST): Pt with c/o mild dry cough, Exam unremarkable Testing negative for flu, covid Supportive measures S/P repair of recurrent ventral hernia Assessment [...] completed, sleep study attached, and faxed to [facility] to order CPAP again Assessment & Plan (08/13/2023 1:00 PM EDT): Called and spoke with director human services from [facility], that patient has been non-compliant [...] PM EDT): Need to call [facility] ([phone]) to try to change settings of CPAP to lower setting so that he can tolerate it for longer Assessment & Plan (03/09/2022 2:47 PM EST): New dx on 01/2022 sleep study CPAP ordered, atuo titrate 9-14 Food insecurity 03/09/2022 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 Assessment & Plan (03/09/2022 2:48 PM EST): Letter generated for [facility] that pt can manage his own [...] health care provider Schizoaffective disorder, depressive type ([facility]/ [facility]) 04/20/2014 Assessment & Plan (07/17/2023 11:54 [...] as needed Hold off on supplements from [facility], focus on rest and exercise and [...] Encounters Date Type Department Care Team Description 02/17/2025 9:20 AM EST Office Visit [facility] [address] [place] [address] Gab Reyes MD Gastroenteritis (Primary Dx); Cough in adult patient 02/17/2025 Travel 02/10/2025 Refill [facility] [address] [place] [address] Tanvi Leach MD Essential hypertension 01/30/2025 Refill [facility] [address] [place] [address] Tanvi Leach MD 01/24/2025 Refill [facility] [address] [place] [address] Tanvi Leach MD Class 3 drug-induced obesity with serious comorbidity and body mass index (BMI) of 40.0 to 44.9 in adult ([facility]) 01/07/2025 Telephone [facility] [address] [place] [address] Tanvi Leach MD Medication Question 01/05/2025 Refill [facility] [address] [place] [address] Tanvi Leach MD Nasal congestion 12/31/2024 Telephone [facility] [address] [place] [address] Tanvi Leach MD Medication Question 12/29/2024 Refill [facility] [address] [place] [address] Tanvi Leach MD Tobacco use 12/26/2024 Orders Only [facility] [address] [place] [address] Tanvi Leach MD 12/23/2024 Telephone [facility] [address] [place] [address] Tanvi Leach MD Recall 12/19/2024 Telephone [facility] [address] [place] [address] Tanvi Leach MD Medication Question 12/16/2024 9:15 AM EDT Office Visit [facility] [address] [place] [address] Tanvi Leach MD Essential hypertension (Primary Dx); Encounter for immunization; Nasal congestion; S/P repair of recurrent ventral hernia; Bilateral hip pain; Class 3 drug-induced obesity with serious comorbidity and body mass index (BMI) of 40.0 to 44.9 in adult ([facility]); Erectile dysfunction due to diseases classified elsewhere; Schizoaffective disorder, depressive type (CMS/HCC) ([facility]); Cannabis abuse; Flat feet, bilateral 12/16/2024 Results Follow-Up [facility] [address] [place] [address] Tanvi Leach MD US Pelvis Limited 12/16/2024 Travel 12/15/2024 Telephone [facility] [address] [place], [place] [phone] Tanvi Leach MD Chart Prep 12/12/2024 Orders Only [facility] External Provider, [facility] 12/05/2024 Refill [facility] [address] [place] [address] Tanvi Leach MD Class 3 drug-induced obesity with serious comorbidity and body mass index (BMI) of 40.0 to 44.9 in adult ([facility]) 12/04/2024 Telephone [facility] [address] [place], [place] [phone] Tanvi Leach MD Medication Question from Last 3 Months Immunizations Immunization Administration [...] (278 lb) 02/17/2025 9:15 AM EST Height 175.3 cm (5' 9 ) 12/16/2024 9:02 AM EDT Body Mass Index 41.05 12/16/2024 9:02 AM EDT Plan of Treatment Health Maintenance Due Date Last Done Comments HPV Vaccines (1 - Male 3-dose series) 2000 Pneumococcal Vaccine: Pediatrics (0 to 5 Years) and At-Risk Patients (6 to 49) Years (2 of 2 - PCV) 10/28/2016 10/29/2015, 02/16/2015, 10/30/2014 COVID-19 Vaccine ( season) 2024 01/18/2024, 07/05/2022, 03/15/2021, Additional history exists Dental Oral Exam 02/13/2025 08/13/2024, , 04/02/2023, [...] history exists Depression Screening 12/16/2025 12/16/2024, 12/17/19 25 Tobacco Screening 02/17/2026 02/17/2025 Dental X-Ray: Full Mouth 04/03/2026 024, 03/03/2014, 10/22/2013 Lipid Panel 05/20/2026 05/20/2021 Zoster Vaccines (1 of 2) 06/13/2035 RSV Patients and Patients Aged 60 years or older (1 - 1-dose 75+ series) 2060 HIB Vaccines Completed 03/29/1990 IPV Vaccines Completed 03/29/1993, 02/1990, 11/26/1989, Additional history exists Hepatitis B Vaccines Completed 11/21/1999, 07/19/1998, 04/27/1998 Hepatitis A Vaccines Completed 12/02/2021, 11/03/19 18 HIV Screening Completed 01/22/2023 Hepatitis C Screening Completed 01/22/2023 Influenza Vaccine Completed 12/16/2024, , 01/22/2023, Additional [...] Priority Date/Time Associated Diagnosis Comments POCT INFLUENZA A (ID NOW RAPID MOLECULAR) Routine 02/17/2025 9:28 AM EST Cough in adult patient POCT INFLUENZA B (ID NOW RAPID MOLECULAR) Routine 02/17/2025 9:28 AM EST Cough in adult patient POCT RAPID COVID ANTIGEN Routine 02/17/2025 9:27 AM EST Cough in adult patient POCT URINALYSIS DIPSTICK Routine 12/16/2024 9:54 AM EDT Bilateral hip pain US PELVIS LIMITED Routine 12/15/2024 11: 56 PM EDT PROPHYLAXIS - ADULT Routine 08/13/2024 1 [...] NOW Rapid Molecular) (02/17/2025 9:28 AM EST) Influenza B Negative Negative, Indeterminate [facility] Swab 02/17/2025 9:28 AM EST Gab Whitney MD POINT OF CARE TEST EN TER/EDIT ORDERABLES Final Result Performing Organization Address City/[facility]/ZIP Co de Phone Number [facility] [address] [place] [phone] * Influenza A (ID NOW Rapid Molecular) (02/17/2025 9:28 AM EST) Influenza A Negative Negative, Indeterminate [facility] Swab 02/17/2025 9:28 AM EST Gab Whitney MD POINT OF CARE TEST EN TER/EDIT ORDERABLES Final Result Performing Organization Address [facility] Co de Phone Number [facility] [address] [place] [phone] * POCT Rapid COVID Ag (02/17/2025 9:27 AM EST) Rapid COVID Ag Negative Swab 02/17/2025 9:27 AM EST Gab Whitney MD POINT OF CARE TEST EN TER/EDIT ORDERABLES Final Result * POCT Urinalysis (12/16/2024 9:54 AM EDT) [...] Urine (Urine, Random) 12/16/2024 9:54 AM EDT Tanvi Leach MD POINT OF CARE TEST ENTER/EDIT ORDERABLES Final Result * US Pelvis Limited (12/15/2024 11:56 PM EDT) Anatomical Region Laterality Modality Pelvis Ultrasound 12/15/2024 11:5 6 PM EDT Narrative 12/15/2024 11:57 PM EDT [place] [address] Ultrasound Report Signed Patient: Omkar Tafoya MR#: [id number] : 1985 Acct:[id number] Age/Sex: 39 / M ADM Date: 12/12/24 Loc: . Attending Dr: David Palacios MD Ordering Physician: David Palacios MD Date of Service: 12/12/24 Procedure(s): US pelvic limited Accession Number(s): [id number] cc: Tanvi Leach; David Palacios MD Reason [...] in OV> 12/15/242355 DD/ 55 TD/TT: 12/15/242355 Upscale Security Officer: Procedure Note Donotuseinterpreter, Image - 12/15/2024 [place] [address] Ultrasound Report Signed Patient: Omkar Tafoya CMR#: [id number] : 1985Acct:[id number] Age/Sex: 39 / MADM Date: 12/12/24 Loc: HO. Attending Dr: David Palacios MD Ordering Physician: David Palacios MD Date of Service: 12/12/24 Procedure(s): US pelvic limited Accession Number(s): [id number] cc: Tanvi Leach; David Palacios MD Reason [...] document has been electronically signed by: Omkar aMldonado MD on 12/15/2024 23:56:07 Dictated By: Omkar Maldonado MD Signed By: <Electronically signed by Omkar Maldonado MD in OV> 12/15/242355 DD/ 55 TD/TT: 12/15/242355 Upscale Security Officer: [facility] External Provider IMG US PROCEDURES Edited Result - Final * Hepatitis C Ab (01/22/2023 12:26 PM EST) Hepatitis C Antibody Nonreactive Nonreactive [facility] Comment:Antibodies to HCV no t detected; does not exclude early acuteHCV infection. Blood Venous blood specimen / Unknown 01/22/2023 12:26 PM EST 01/22/2023 1:22 PM EST Tanvi Leach MD LAB BLOOD ORDERABLES Final Res ult [facility] [address] [place] [phone] * HIV-1/2 Antigen and Antibodies, Fourth Generation, with Reflexes (01/22/2023 12:26 PM EST) HIV AB/AG Nonreactive Nonreactive [facility] Comment:HIV-1 p24 Ag and/or HIV-1/HIV-2 Ab not detected.A test result that is nonreactive does not exclude thepossibility of exposure to or infection with HIV-1 and/orHIV-2. Nonreactive results in this assay for individualswith prior exposure to HIV-1 and/or HIV-2 may be due toantigen and antibody levels that are below the limit ofdetection of this assay.The [employer] HIV Ag/Ab Combo assay result andsupplemental assay results should be interpreted inconjunction with the patient's clinical presentation,history and other laboratory results. If the results areinconsistent with clinical evidence, additional testing issuggested to confirm the result. Blood Venous blood specimen / Unknown 01/22/2023 12:26 PM EST 01/22/2023 1:22 PM EST us Tanvi Leach MD LAB BLOOD ORDERABLES Final Res ult [facility] [address] [place] [phone] * (ABNORMAL) LIPID PANEL, STANDARD (05/20/2021 [...] LDL-C. Aureliano SS et al. CONTRERAS. 2013;310(19): 4633-7408 (http://education.[employer].Kabbage/faq/ITV090) Non-HDL Cholesterol 150(H) <130 mg/dL (calc) [facility] Comment: For patients with diabetes plus 1 major ASCVD risk factor, treating to a non-HDL-C goal of <100 mg/dL (LDL-C of <70 mg/dL) is considered a therapeutic option. Triglycerides 195(H) <150 mg/dL [facility] 05/20/2021 2:20 PM EDT us Tanvi Leach MD LAB BLOOD ORDERABLES Final Res ult [facility] [address] from Last 3 Months or Most Recently Relevant to Health Maintenance Insurance [facility] [address] [facility] Care Teams Foreclosure Field Inspector Relationship Specialty Start Date End Date Tanvi Leach MD [address] [place] [phone] PCP - General Family Medicine 05/20/21 Cristo 01/11/24
--- OUTSIDE RECORDS SUMMARY | 2025-02-17 10:50 | XMS_ITS | Encounter Summary ---
Author Organization [employer] Address [address] [facility] 7t [place] [address] Care Team Providers Care Statistical Methods Professor Name Role Phone Tanvi Leach MD Primary Care Provider [phone] Encounter Details Date Type Department Care Team (Late st Contact Info) Description 12/26/2024 Orders Only [facility] [address] [place], [place] [phone] Tanvi Leach MD [address] [place], [place] [phone] Social History Tobacco Use Types Packs/Day Years [...] Time PHQ-9 Depression Total Score: 2 12/17/19 9:03 AM EDT documented as of this encounter Care Teams Statistical Methods Professor Relationship Specialty Start Date End Date Tanvi Leach MD [address] [place] [phone] PCP - General Family Medicine 05/20/21 Cristo 01/11/24 documented as of this encounter
--- OUTSIDE RECORDS SUMMARY | 2025-02-17 10:50 | XMS_ITS | Encounter Summary ---
Author Organization [employer] Address 75 [facility] 7t [place] [address] Care Team Providers Care Mixer [employer] Food Products Name Role Phone Tanvi Leach MD Primary Care Provider [phone] Reason for Visit * Reason Comments Med Refill Encounter Details Date Type Department Care Team ([facility] st Contact Info) Description 02/01/2024 Refill [facility] [address] [place], [place] [phone] Tanvi Leach MD [address] [place], [place] [phone] Nasal congestion Social History Tobacco Use Types [...] with others, in a hotel, in a skilled nursing, living outside on the street, on a [...] documented as of this encounter Care Teams [employer] Food [employer] Relationship Specialty Start Date End Date Tanvi Leach MD [address] [place] [phone] PCP - General Family Medicine 05/20/21 Cristo 01/11/24 documented as of this encounter
[2025-02-17 11:31] LABS: MANUAL DIFF FLAG NO
[2025-02-17 11:37] LABS: Hematocrit 47.6 % (42.0-52.0); Hemoglobin 15.6 g/dl (14.0-18.0); Imm Gran Abs Auto 0.02 X10*3/uL (0.00-0.03); Imm Gran Pct Auto 0.3 % (0.0-0.4); Lymphocytes Absolute Auto 1.2 X10*3/uL (1.2-4.9); Mean Corpuscular HGB Conc 32.8 g/dl (31.0-36.0); Mean Corpuscular Hemoglobin 29.8 pg (27.0-33.0); Mean Corpuscular Volume 90.8 fL (80.0-98.0); NRBC Abs Auto 0.000 X10*3/uL (0.0-0.012); NRBC Pct Auto 0.0 /100WBC (0.0-0.2); Platelet Count 432 X10*3/uL (160-400); Red Blood Count 5.24 X10*6/uL (4.60-5.80); White Blood Count 6.6 X10*3/uL (4.8-10.8)
[2025-02-17 11:44] LABS: Alanine Aminotransferase 37 U/L (0-40); Albumin Level 5.1 g/dL (3.5-5.0); Alkaline Phosphatase 77 U/L (39-117); Anion Gap 15 (12-20); Aspartate Amino Transferase 35 U/L (5-37); Blood Urea Nitrogen 16 mg/dL (9-16); Calcium 9.7 mg/dL (8.4-10.2); Carbon Dioxide 28 mmol/L (22-29); Chloride 99 mmol/L (96-108); Estimated Glomerular Filt Rate 53; Potassium 4.5 mmol/L (3.3-5.1); Sodium 137 mmol/L (135-145); Total Protein 7.7 g/dL (6.5-8.0)
== END 2025-02-17 09:57 | disposition home or self-care (01) ==
LOC: HO.HHCL 09:56
PROVIDERS: Visit Provider Internal Medicine
DX: K52.9 Noninfective gastroenteritis and colitis, unspecified (principal)
CPT/HCPCS: 36415; 80053; 85025